=== PATIENT | male | born 1970 | race Caucasian/White ===

== ENCOUNTER 2021-05-08 11:36 | Inpatient (IN) ==
[2021-05-08 12:19] LABS: Basophils # (auto) 0.03 K/uL (0-0.2); Basophils % (auto) 0.5 %; Eosinophils # (auto) 0.31 K/uL (0-0.5); Eosinophils % (auto) 4.7 %; Hematocrit (blood only) 28.8 % (42-52); Hemoglobin 9.3 g/dL (14.0-18.0); Lymphocytes # (auto) 1.25 K/uL (1.2-3.4); Mean Corpuscular Hemoglobin 27.6 pg (25-34); Mean Corpuscular Hgb Conc 32.3 g/dL (32-36); Mean Corpuscular Volume 85.5 fL (80-100); Mean Platelet Volume 10.9 fL (7.4-10.4); Monocytes # (auto) 0.43 K/uL (0.11-0.59); Monocytes % (auto) 6.5 %; Neutrophils # (auto) 4.56 K/uL (1.4-6.5); Neutrophils % (auto) 69.3 %; Platelet Count 222 K/uL (130-400); Red Blood Count 3.37 M/uL (4.7-6.1); White Blood Count 6.58 K/uL (4.8-10.8)
[2021-05-08 12:30] LABS: Partial Thromboplastin Time 27.1 Seconds (21.0-31.0); Prothrombin Time 10.5 Seconds (9.0-12.0)
[2021-05-08 12:47] LABS: BUN Creatinine Ratio 14.9 (10-20); Bilirubin,Total 0.3 mg/dl (0.2-1.0); Calcium 8.4 mg/dl (8.5-10.1); Creatinine Clr Calc Pharmacy 42.8 ml/min; Est GFR (African American) 27.5 ml/min; Est GFR (Non-African American) 23.7 ml/min; Potassium 5.3 mmol/L (3.5-5.1)
[2021-05-08 12:50] LABS: Troponin I 0.09 ng/ml (0-0.04)
--- NOTE | 2021-05-08 12:54 | XRay Report ---
XR chest 2V PA/lateral HISTORY: 50 years-old Male Chest Pain acute atypical chest pain COMPARISON: None TECHNIQUE: PA and lateral views of the chest FINDINGS: Cardiac silhouette is upper limits of normal in size. Trace pleural effusions. Interstitial coarsenin g of the mid to lower lung zones with ill-defined bibasilar airspace opacities. No pneumothorax. Bone s appear grossly intact. IMPRESSION: 1. Interstitial coarsening with ill-defined bibasilar predominant airspace opacities are suggestive o f an infectious or inflammatory pneumonitis such as viral pneumonia. 2. Trace pleural effusions. ACT 112: Negative or not required by law. The above report was generated using voice recognition software. It may contain grammatical, syntax o r spelling errors. Electronically signed by: Nathan Moon M.D. 05/08/2021 12:53 PM
[2021-05-08 12:55] LABS: D Dimer 1310 ug/L FEU (0-500)
--- NOTE | 2021-05-08 13:48 | Electrocardiogram Report ---
Test Reason : Blood Pressure : / mmHG Vent. Rate : 084 BPM Atrial Rate : 084 BPM P-R Int : 106 ms QRS Dur : 102 ms QT Int : 388 ms P-R-T Axes : 044 046 080 degrees QTc Int : 458 ms Sinus rhythm No previous ECGs available Confirmed by Camron Gutierrez ([id number]) on 05/08/2021 1:48:32 PM Referred By: Confirmed By:Buck Gutierrez
[2021-05-08] MEDS ORDERED: NITROGLYCERIN 2% OINTMENT 30GM TUBE EXT STA (14:41)
[2021-05-08] MEDS ORDERED: FUROSEMIDE INJ 20 MG/2 ML VIAL IV ONE ×2 (14:41→17:19)
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
--- NOTE | 2021-05-08 16:10 | Ultrasound Report ---
BILATERAL LOWER EXTREMITY VENOUS DOPPLER HISTORY: Acute pain and swelling of the lower legs eval for dvt COMPARISON STUDY: None. FINDINGS: There is normal compressibility, flow, and augmentation within the bilateral lower extremit y deep venous systems. Subcutaneous edema of the lower legs. IMPRESSION: No DVT within the right or left lower extremity. ACT 112: Negative or not required by law. Electronically signed by: Nathan Moon M.D. 05/08/2021 4:09 PM
[2021-05-08] MEDS ORDERED: hydrALAZINE HCL 20 MG/ML VIAL IV STA (16:44)
[2021-05-08] MEDS ORDERED: amLODIPine BESYLATE 5 MG TAB PO ONE (17:19)
--- NOTE | 2021-05-08 17:22 | Emergency Department Note ---
Impression & Plan SOB (shortness of breath), Bilateral edema of lower extremity, CKD (chronic kidney disease), Elevated troponin ED Provider Note INFORMANT: Patient and significant other ED PROVIDER(S): Suresh Quezada MD CHIEF COMPLAINT: Shortness of breath PLAN: Disposition: Admitted Condition: Good Outpatient prescription management: none Referral: None MEDICAL DECISION MAKING: Patient presented because of shortness of breath. He did have significant edema on examination. Hemodynamically was stable. He was hypertensive. The patient had a Covid test performance was negative. Chest x-ray did show possible pneumonitis. The patient had a negative CBC except for a chronic anemia noted. No significant change from prior. His chemistry panel showed a mild elevation of his potassium at 5.3 and an elevation of his creatinine which was similar to baseline. Patient did have an elevated D-dimer. He did also have an elevated BNP concerning for CHF. Because of his CKD a PE study with contrast could not be performed initially. Ultrasound imaging of the lower extremities was ordered. The patient will need further management in the hospital. He was given Nitropaste and IV Lasix. Consultation was made with Dr. Herron of internal medicine. Patient was evaluated in the ER for further management. Ultrasound imaging of the lower extremities was negative. Triage Nursing notes reviewed and agree them. Vital Signs: reviewed and remarkable for hypertension Differential diagnosis: Reactive airway disease, pneumonia, pneumothorax, COPD, CHF, infections, cardiac ischemia, pulmonary embolism, musculoskeletal, gastrointestinal, as well as other pathologies. Diagnostics interpreted by me: ECG: Twelve-lead ECG reveals a sinus rhythm at 84 bpm. No evidence of ST elevation or depression. No PACs or PVCs. Normal axis. Cardiac Monitoring: Cardiac monitoring ordered by me: The patient was placed on continuous cardiac monitoring and observed. It revealed a normal sinus rhythm at 89 beats per minute without ectopy or evidence of dysrhythmia. Imaging studies: Chest x-ray as above. Ultrasound imaging negative for DVT. HPI: The patient is a 50year old male who presents to the Emergency Room with complaints of shortness of breath. This started over the last few weeks and is worsening. The patient also notes the following associated symptoms, orthopnea, weight gain, lower extremity edema, increased fatigue. The patient has found no relieving factors. Current pain is rated as zero/10. Patient went to urgent care for follow-up on a Workmen's Comp. issue regarding a back injury. They noted his blood pressure was high and the symptoms were concerning about possible CHF. The patient was sent to the ER for further evaluation. No known Covid contacts. The patient did travel to [facility] recently. He states he was walking quite a bit each day. He did have one fleeting episode of chest pain 2 weeks ago that lasted about 20 minutes and resolved. Pt denies LOC, headache, fevers, chills, diaphoresis, visual changes, neck pain, nausea, vomiting, abdominal pain, back pain, melena, hematochezia, urinary symptoms, numbness, weakness, lymphadenopathy, rash, or other complaints. ROS: See above HPI for pertinent positives & negatives. A total of 10 systems reviewed and were otherwise negative. 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 Oropharynx unremarkable. EYES: Normal conjunctiva. Sclera non-icteric. NECK: Inspection normal. Non-tender. Supple. No nuchal rigidity. FROM. No masses. RESPIRATORY: Clear to auscultation. No wheezes. No rales. Normal respiratory effort. CARDIAC: Normal rate. Normal rhythm. No murmurs. No rubs. Extremities warm and well perfused. Pulses equal. No JVD. GI: Soft, non-distended. No tenderness to palpation. No rebound or guarding. No masses. RECTAL: Deferred. MUSCULOSKELETAL: Atraumatic. Chest examination reveals no tenderness. The back is symmetrical on inspection without obvious abnormality. There is no CVA tenderness to palpation. No joint edema. LOWER EXTREMITIES: Calves are equal size bilaterally and non-tender. 3+ edema. Chronic venous discoloration. NEURO: Normal sensorium. No sensory or motor deficits noted. SKIN: No rash or jaundice noted. Suresh Quezada MD Past Med/Surg History Medical History CKD (chronic kidney disease) stage 3, GFR 30-59 ml/min Diabetes mellitus type 2, uncontrolled, 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 Diabetes mellitus with renal manifestations, uncontrolled Diabetes mellitus, type 2 Diabetic macular edema Diabetic peripheral neuropathy associated with type 2 diabetes mellitus History of depression HTN (hypertension) Hypercalcemia Hyperlipidemia NO MED TREATMENT Nephrotic syndrome Onychomycosis Peripheral neuropathy Vitamin D deficiency Surgical History Family history of reaction to anesthesia MOTHER-HARD TO "PUT TO SLEEP" History of cataract surgery right History of herniorrhaphy UMBILICAL History of lingual frenulectomy History of tooth extraction Hx of vasectomy Family History Father Family history of diabetes mellitus Kidney disease required HD Grandmother (Paternal) Family history of diabetes mellitus Grandfather (Maternal) Hypertension Other Myocardial infarction Denies family history of Ovarian cancer Prostate cancer Breast cancer Lung cancer Colorectal cancer Stroke Social History Smoking Status: Unknown if ever smoked Years Smoked: 4; Second Hand Exposure: Yes (as a child); Hx Alcohol Use: Yes Alcohol type: beer and hard liquor Alcohol Intake Frequency: Monthly or Less Hx Substance Use: No Preferred Language: Bulgarian Communication Ability: Effective Actuarial Clerk Required: No Beliefs That Will Affect Care: None marital status: Current Living Situation: Spouse current occupational status: employed 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 [employer] Other Information That Helps Us Care for You: No Feels Safe at Home: Yes Safety Concerns: Feels Safe At This Time Childhood Exposure to Second-Hand Smoke: Yes Dental Care, Regularly: No Physical Activity Frequency: 1-2 Times per Week Physical Activity Frequency Comment: exercise bike Seatbelt Use: always Sunscreen Use: Yes Assistive Devices: Glasses Allergies Allergies Allergy/AdvReac Type Severity Reaction Status Date / Time lisinopril AdvReac cough Verified 05/08/21 14:39 Home Meds Home Medications Medication Instructions Recorded Confirmed multivitamin 1 tab PO DAILY 02/19/20 05/08/21 cetirizine 10 mg tablet (Zyrtec) 10 mg PO DAILY PRN 03/25/20 05/08/21 blood sugar diagnostic (Accu-Chek ea 04/25/20 05/23/20 Guide test strips) insulin degludec 100 unit/mL (3 27 unit SUBCUT HS 05/08/21 05/08/21 mL) subcutaneous pen (Tresiba FlexTouch U-100 insulin) Previous Rx's Medication Instructions Recorded blood-glucose meter (Accu-Chek #1 ea 02/24/20 Guide Glucose Meter) pen needle, diabetic 31 gauge x #200 ea 03/01/20 5/16" (BD Ultra-Fine Short Pen Needle) insulin aspart U-100 100 unit/mL See Rx Instructions SUBCUT 05/12/20 (3 mL) subcutaneous pen (Novolog .COMPLEX #15 ml Flexpen U-100 Insulin aspart) aspirin 81 mg tablet,delayed 81 mg PO DAILY #90 tab 05/23/20 release (Enteric Coated Aspirin) atorvastatin 20 mg tablet 20 mg PO DAILY #90 tab 05/23/20 losartan 50 mg tablet 50 mg PO DAILY #90 tab 09/23/20 FreeStyle Jason 2 Sensor (flash #2 ea NS 11/16/20 glucose sensor) calcitriol 0.25 mcg capsule 0.25 mcg PO DAILY #90 cap 01/24/21 (Rocaltrol) Results & Data (ED) Vital Signs Vital Signs - 24 hr 05/08/21 11:38 05/08/21 13:23 05/08/21 13:24 Temperature 36.9 C Temperature Source Oral Pulse Rate 95 H Pulse Rate [Apical] 82 Pulse Rhythm [Apical] Regular Respiratory Rate 22 19 Respiratory Effort / Characteristics Non-Labored Spontaneous Respiratory Depth Normal Normal Respiratory Pattern Regular Blood Pressure 160/92 H Blood Pressure [Left Arm] 191/80 H Blood Pressure Mean 114 Blood Pressure Mean [Left Arm] 117 Blood Pressure Position Sitting Pulse Oximetry 99 96 96 Oxygen Delivery Method Room Air Room Air Room Air Sepsis Recent Fever Within 48 Hours No Sepsis New/Unexplained Change in Mental Status No Sepsis Action Taken by Nursing No Action Required 05/08/21 16:16 Temperature Temperature Source Pulse Rate Pulse Rate [Apical] 89 Pulse Rhythm [Apical] Regular Respiratory Rate 15 Respiratory Effort / Characteristics Respiratory Depth Normal Respiratory Pattern Blood Pressure Blood Pressure [Left Arm] 195/103 H Blood Pressure Mean Blood Pressure Mean [Left Arm] 133 Blood Pressure Position Pulse Oximetry 96 Oxygen Delivery Method Room Air Sepsis Recent Fever Within 48 Hours Sepsis New/Unexplained Change in Mental Status Sepsis Action Taken by Nursing Laboratory Data Result diagrams: 05/08/21 11:43 05/08/21 11:43 Lab Results 05/08/21 05/08/21 05/08/21 Range/Units 11:43 11:43 11:43 WBC 6.58 (4.8-10.8) K/uL RBC 3.37 L (4.7-6.1) M/uL Hgb 9.3 L (14.0-18.0) g/dL Hct 28.8 L (42-52) % MCV 85.5 (80-100) fL MCH 27.6 (25-34) pg MCHC 32.3 (32-36) g/dL RDW Std Deviation 43.0 (36.4-46.3) fL RDW Coeff of Gladys 14.0 (11.5-14.5) % Plt Count 222 (130-400) K/uL MPV 10.9 H (7.4-10.4) fL Immature Gran % (Auto) 0.0 % Neut % (Auto) 69.3 % Lymph % (Auto) 19.0 % [place] % (Auto) 6.5 % Eos % (Auto) 4.7 % Baso % (Auto) 0.5 % Neut # (Auto) 4.56 (1.4-6.5) K/uL Lymph # (Auto) 1.25 (1.2-3.4) K/uL [place] # (Auto) 0.43 (0.11-0.59) K/uL Eos # (Auto) 0.31 (0-0.5) K/uL Baso # (Auto) 0.03 (0-0.2) K/uL Immature Gran # (Auto) 0.00 (0.00-0.02) K/uL PT 10.5 (9.0-12.0) Seconds INR 1.0 (0.9-1.1) APTT 27.1 (21.0-31.0) Seconds PTT Ratio 1.0 D-Dimer (0-500) ug/L FEU Sodium 142 (136-145) mmol/L Potassium 5.3 H (3.5-5.1) mmol/L Chloride 114 H (98-107) mmol/L Carbon Dioxide 25 (21-32) mmol/L Anion Gap 3 (3-11) BUN 44 H (6-23) mg/dl Creatinine 2.96 H (0.6-1.4) mg/dl Est Cr Clr Drug Dosing 42.8 ml/min Est GFR ( Amer) 27.5 ml/min Est GFR (Non-Af Amer) 23.7 ml/min BUN/Creatinine Ratio 14.9 (10-20) Glucose 118 H (70-99(Fasting)) mg/dl Calcium 8.4 L (8.5-10.1) mg/dl Total Bilirubin 0.3 (0.2-1.0) mg/dl AST 23 (13-39) U/L ALT 20 (7-52) U/L Alkaline Phosphatase 105 H (34-104) U/L Troponin I 0.09 H* (0-0.04) ng/ml B-Natriuretic Peptide (0-100) pg/ml Total Protein 6.0 (6.0-8.3) gm/dl Albumin 3.0 L (3.4-5.0) gm/dl Globulin 3.0 (2.5-4.0) gm/dl Albumin/Globulin Ratio 1.0 (0.9-2) 05/08/21 05/08/21 Range/Units 11:43 14:07 WBC (4.8-10.8) K/uL RBC (4.7-6.1) M/uL Hgb (14.0-18.0) g/dL Hct (42-52) % MCV (80-100) fL MCH (25-34) pg MCHC (32-36) g/dL RDW Std Deviation (36.4-46.3) fL RDW Coeff of Gladys (11.5-14.5) % Plt Count (130-400) K/uL MPV (7.4-10.4) fL Immature Gran % (Auto) % Neut % (Auto) % Lymph % (Auto) % [place] % (Auto) % Eos % (Auto) % Baso % (Auto) % Neut # (Auto) (1.4-6.5) K/uL Lymph # (Auto) (1.2-3.4) K/uL [place] # (Auto) (0.11-0.59) K/uL Eos # (Auto) (0-0.5) K/uL Baso # (Auto) (0-0.2) K/uL Immature Gran # (Auto) (0.00-0.02) K/uL PT (9.0-12.0) Seconds INR (0.9-1.1) APTT (21.0-31.0) Seconds PTT Ratio D-Dimer 1310 H* (0-500) ug/L FEU Sodium (136-145) mmol/L Potassium (3.5-5.1) mmol/L Chloride (98-107) mmol/L Carbon Dioxide (21-32) mmol/L Anion Gap (3-11) BUN (6-23) mg/dl Creatinine (0.6-1.4) mg/dl Est Cr Clr Drug Dosing ml/min Est GFR ( Amer) ml/min Est GFR (Non-Af Amer) ml/min BUN/Creatinine Ratio (10-20) Glucose (70-99(Fasting)) mg/dl Calcium (8.5-10.1) mg/dl Total Bilirubin (0.2-1.0) mg/dl AST (13-39) U/L ALT (7-52) U/L Alkaline Phosphatase (34-104) U/L Troponin I (0-0.04) ng/ml B-Natriuretic Peptide 855 H (0-100) pg/ml Total Protein (6.0-8.3) gm/dl Albumin (3.4-5.0) gm/dl Globulin (2.5-4.0) gm/dl Albumin/Globulin Ratio (0.9-2) Administered Medications Discontinued Medications Amlodipine Besylate (Amlodipine Besylate 5 Mg Tab) 5 mg PO NOW ONE Stop: 05/08/21 17:20 Last Admin: 05/08/21 17:42 Dose: 5 mg Documented by: [id number] Furosemide (Furosemide Inj 20 Mg/2 Ml Vial) 20 mg IV ONE ONE Stop: 05/08/21 14:42 Last Admin: 05/08/21 16:15 Dose: 20 mg Documented by: [id number] Furosemide (Furosemide Inj 20 Mg/2 Ml Vial) 20 mg IV ONE ONE Stop: 05/08/21 17:20 Last Admin: 05/08/21 17:43 Dose: 20 mg Documented by: [id number] Hydralazine HCl (Hydralazine Hcl 20 Mg/Ml Vial) 10 mg IV NOW STA Stop: 05/08/21 16:45 Last Admin: 05/08/21 17:19 Dose: 10 mg Documented by: [id number] Nitroglycerin (Nitroglycerin 2% Ointment 30gm Tube) 0.5 inch EXT NOW STA Stop: 05/08/21 14:42 Last Admin: 05/08/21 16:16 Dose: 0.5 inch Documented by: [id number] Imaging Data Radiologist's Impression: Chest X-Ray 05/08/21 11:43 XR chest 2V PA/lateral HISTORY: 50 years-old Male Chest Pain acute atypical chest pain COMPARISON: None TECHNIQUE: PA and lateral views of the chest FINDINGS: Cardiac silhouette is upper limits of normal in size. Trace pleural effusions. Interstitial coarsening of the mid to lower lung zones with ill-defined bibasilar airspace opacities. No pneumothorax. Bones appear grossly intact. IMPRESSION: 1. Interstitial coarsening with ill-defined bibasilar predominant airspace opacities are suggestive of an infectious or inflammatory pneumonitis such as viral pneumonia. 2. Trace pleural effusions. ACT 112: Negative or not required by law. The above report was generated using voice recognition software. It may contain grammatical, syntax or spelling errors. Electronically signed by: Nathan Moon M.D. 05/08/2021 12:53 PM Venous Doppler Study 05/08/21 13:46 BILATERAL LOWER EXTREMITY VENOUS DOPPLER HISTORY: Acute pain and swelling of the lower legs eval for dvt COMPARISON STUDY: None. FINDINGS: There is normal compressibility, flow, and augmentation within the bilateral lower extremity deep venous systems. Subcutaneous edema of the lower legs. IMPRESSION: No DVT within the right or left lower extremity. ACT 112: Negative or not required by law. Electronically signed by: Nathan Moon M.D. 05/08/2021 4:09 PM Discharge Plan Visit Data Chief Complaint: Cardiac Assessment Stated Complaint: SOB, HEART FAILURE, REF BY [facility] ED Provider: Suresh Quezada Discharge Problem: SOB (shortness of breath), Bilateral edema of lower extremity, CKD (chronic kidney disease), Elevated troponin Patient Disposition: Admitted As Inpatient Discharge Instructions Interventions: ED Discharge Assessment Last Done: 05/08/21 18:08
[2021-05-08] MEDS ORDERED: GLUCOSE 10 TABS/TUBE PO PRN (18:09)
[2021-05-08] MEDS ORDERED: ACETAMINOPHEN 325 MG TAB PO PRN (18:09)
[2021-05-08] MEDS ORDERED: DEXTROSE 50% 50 ML SYRINGE IV PRN (18:09)
[2021-05-08] MEDS ORDERED: CARBOHYDRATES FOR HYPOGLYCEMIA PO PRN (18:09)
[2021-05-08] MEDS ORDERED: CETIRIZINE HCL 10 MG TABLET PO PRN (18:09)
[2021-05-08] MEDS ORDERED: GLUCAGON FOR INJ 1 MG VIAL SQ PRN (18:09)
[2021-05-08] MEDS ORDERED: hydrALAZINE HCL 20 MG/ML VIAL IV PRN (18:09)
[2021-05-08] MEDS ORDERED: GLUCOSE 40% GEL 15 GM TUBE PO PRN (18:09)
[2021-05-08] MEDS: INSULIN ASPART PER UNIT SC SCH (20:13)
[2021-05-08] MEDS ORDERED: INSULIN GLARGINE SOLOSTAR 100 UNITS/ML 3 ML PEN SC SCH (21:00)
[2021-05-08] MEDS: HEPARIN SOD 5,000 UNIT/0.5 ML VIAL SQ SCH (21:01)
[2021-05-09 02:56] LABS: Appearance Urine Clear (Clear); Bacteria Urine Automated Negative (Negative); Bilirubin Urine Negative (Negative); Blood Urine 1+ (Negative); Color Urine Yellow; Epithelial Cell Urine Auto 20-30 /lpf (0-5); Glucose Urine UA 1+ (Negative); Ketones Urine Negative (Negative); Leukocyte Esterase Urine Negative (Negative); Nitrite Urine Negative (Negative); Protein Urine 4+ (Negative); Specific Gravity Urine 1.015 (1.000-1.030); Urobilinogen Urine Negative (Negative); pH Urine 5.5 (4.5-7.5)
[2021-05-09 03:27] LABS: Protein Creatinine Ratio Urine 10.6 (0-0.2); Total Protein Urine Random 678.3 mg/dl (0-11.9)
[2021-05-09 05:51] LABS: Basophils # (auto) 0.02 K/uL (0-0.2); Basophils % (auto) 0.4 %; Eosinophils % (auto) 5.7 %; Hematocrit (blood only) 23.4 % (42-52); Hemoglobin 7.5 g/dL (14.0-18.0); Lymphocytes # (auto) 1.24 K/uL (1.2-3.4); Lymphocytes % (auto) 23.7 %; Mean Corpuscular Hemoglobin 27.7 pg (25-34); Mean Corpuscular Hgb Conc 32.1 g/dL (32-36); Mean Corpuscular Volume 86.3 fL (80-100); Mean Platelet Volume 10.5 fL (7.4-10.4); Monocytes # (auto) 0.34 K/uL (0.11-0.59); Monocytes % (auto) 6.5 %; Neutrophils # (auto) 3.34 K/uL (1.4-6.5); Neutrophils % (auto) 63.7 %; Platelet Count 197 K/uL (130-400); RDW Coefficient of Variation 14.3 % (11.5-14.5); RDW Standard Deviation 44.6 fL (36.4-46.3); Red Blood Count 2.71 M/uL (4.7-6.1); White Blood Count 5.24 K/uL (4.8-10.8)
[2021-05-09 06:19] LABS: RBC Morphology Unremarkable
[2021-05-09 06:33] LABS: Ferritin 274.8 ng/ml (8-388)
[2021-05-09 06:52] LABS: BUN Creatinine Ratio 14.8 (10-20); Calcium 8.1 mg/dl (8.5-10.1); Creatinine Clr Calc Pharmacy 41.5 ml/min; Est GFR (African American) 26.5 ml/min; Est GFR (Non-African American) 22.9 ml/min; Magnesium 1.6 mg/dl (1.7-2.4); Phosphorus 3.8 mg/dl (2.5-4.9); Potassium 4.4 mmol/L (3.5-5.1)
[2021-05-09 07:02] LABS: Estimated Average Glucose 108 mg/dl; Hemoglobin A1C 5.4 % (4.5-5.6)
[2021-05-09] MEDS: INSULIN ASPART PER UNIT SC SCH ×4 (08:17→22:12)
[2021-05-09] MEDS: HEPARIN SOD 5,000 UNIT/0.5 ML VIAL SQ SCH ×3 (08:18→20:58)
[2021-05-09] MEDS ORDERED: MELATONIN 3 MG TAB PO PRN (08:26)
--- NOTE | 2021-05-09 08:44 | Hospitalist Progress Note ---
Date of Service May 09, 2021 Assessment & Plan (1) Anemia due to chronic kidney disease: Plan: Saurav Titus is a 50-year-old male with a history of CKD stage III-IV, nephrotic syndrome, DM 2, HTN, anemia of chronic kidney disease, hyperlipidemia,and Vit D deficiency, who presented with worsening shortness of breath, lower extremity edema, elevated blood pressure, and orthopnea. He was admitted for management of acute fluid overload. Fluid overload in the setting of CKD stage IV and nephrotic syndrome: - Likely related to severe compromise of kidney function with resultant nephrotic syndrome - Presented with increasing weight gain of 10 pounds in 1 month, with increasing abdominal girth, lower extremity edema, and orthopnea. Chest x-ray with evidence of pulmonary edema and pleural effusions - Also with hypertensive urgency, elevated proBNP, elevated troponin - Dopplers of lower extremities negative for DVT and do not suspect pulmonary embolism despite elevated D-dimer - Had one episode of chest pain 2 weeks ago that seemed atypical in nature, less likely acute coronary syndrome at that time. - Troponin mildly elevated here but ECG without evidence of ischemia -- now downtrended - Echocardiogram with normal LV function (EF 55-60%), grade I diastolic dysfunction - Diuresis with Lasix 40 mg IV twice daily -Follow BMP, magnesium closely for renal function and electrolyte abnormalities -Consult nephrology -- continue on Lasix 40 mg IV twice a day, aim for net negative 0.5-1 L per 24 hours -- monitor renal function and electrolyte daily -- iron study -- Epogen 73963 units x 1 dose today -- continue on calcitriol -- continue to hold losartan for now, if renal function stays stable and potassium staying normal, will consider restarting on losartan -- left arm nephrology precaution for future vascular access -Follow daily weights, strict I's and O's -Low-sodium and renal diet CKD (chronic kidney disease) stage 4: - As above, baseline creatinine for the last 6 months is around 2.9 - With nephrotic syndrome, most likely secondary to diabetes and hypertensive disease - Follows with nephrology as an outpatient - Follow BMP while diuresing - Hold losartan while diuresing as above - Blood pressure control as above - Nephrology consulted as above -Renally dose medications when appropriate and avoid nephrotoxins HTN (hypertension): - Arrived in hypertensive urgency - Was given Nitropaste and IV Lasix in the ER - IV hydralazine as needed, started amlodipine 5 mg p.o. once daily, and IV Lasix for diuresis - Hold home losartan while diuresing - Last imaging of the kidneys was renal ultrasound 1 year ago which was normal - Appreciate nephrology input on management Elevated troponin - downtrended - Mildly elevated, no ischemic changes on ECG With one episode of atypical chest pain while on vacation 2 weeks ago that has not recurred since -Trend serial troponin - Most likely secondary to myocardial demand ischemia from volume overload and anemia of chronic kidney disease - Echo as above Diabetes mellitus type 2, uncontrolled, with complications: - Now well controlled with A1c of 5.4% - Hold home Tresiba - Lantus 20 units at bedtime and NovoLog with meals and at bedtime - Accu-Cheks before meals and at bedtime Hyperlipidemia: - Continue atorvastatin, aspirin Vitamin D deficiency: - Severely low on recent labs with nephrology at 12 - Continue calcitriol 0.25 mcg p.o. once daily Diet: Heart Healthy, DM2 DVT prophylaxis Heparin 5000 units SQ every 8 hours Disposition-admit to telemetry unit Full code (2) CKD (chronic kidney disease) stage 4, GFR 15-29 ml/min: (3) SOB (shortness of breath): (4) Bilateral edema of lower extremity: (5) Elevated troponin: (6) HTN (hypertension): (7) Diabetes mellitus with renal manifestations, uncontrolled: (8) Vitamin D deficiency: (9) Nephrotic syndrome: Admission and Anticipated Discharge Date Admission Date: May 08, 2021 Supervising Physician Co-Signing Physician Notes I also saw the patient from vasques portions of the history and physical examination. I saw the patient with the resident physician and we discussed the case. Agree with impression and plan as noted in the resident documentation. 50-year-old male admitted through the emergency department yesterday with history of CKD stage IV, nephrotic syndrome, diabetes, and anemia. He had noted a 1 week or so history of weight gain and some progressive shortness of breath with activity. He was actually at an occupational medicine appointment in follow-up to a work-related injury when he was noted to be quite hypertensive. This is what actually led him to present to the emergency department. Initial presentation, systolic blood pressures in the 180s which was treated with IV hydralazine. He has since been seen by nephrology. Currently on Lasix 40 mg IV twice daily and is given 1 dose of Epogen. Exam 163/86, 82, 21, 37, 90% room air Pleasant. No distress. Upon our exam, he is watching a movie on his phone. He feels much better than last admission. Much less shortness of breath. Heart regular Lungs clear with nonlabored respirations 3+ pitting edema of the legs, bilaterally, from the knees and distal Data Hemoglobin 7.5. Sodium 142, potassium 4.4, BUN 45, creatinine 3.05. TIBC 171, transferrin sat 20%, ferritin 234.8 Initial troponin 0 0.11, subsequent 0.09 BNP 855 Imaging Venous Doppler dated 05/08/2021 shows no DVT within the right or left lower extremity A chest x-ray dated 05/08/2021 shows interstitial coarsening with ill-defined bibasilar air space opacities And echocardiogram dated 05/09/2021 shows grade 1 diastolic dysfunction, elevated right ventricular systolic pressure, and preserved left ventricular systolic function. Impression and plan Nephrotic syndrome Appreciate nephrology input Lasix 40 mg IV twice daily Monitor electrolytes Anemia secondary to CKD, Stage IV Epogen Hypertension Holding ARB at present Monitor blood pressures Subjective No acute events overnight. Patient seen at bedside this morning. He reports that he feels well and has minimal concerns at this point. Reports feeling much better than when he initially came in. Feels he has diuresed well on his current Lasix dosing. We talked about his episode of chest pain about 2 weeks ago. He says he was walking in the parking lot [place] and felt a chest pain but was able to continue walking and this eventually resolved on its own. He does not have a known history of heart failure. Review of Systems Review of Systems: Denies fever, chills, nausea, vomiting, abdominal pain, chest pain, shortness of breath, palpitations, headache, dizziness, neuro deficits Physical Exam Physical Exam: GENERAL: A&Ox3. NAD. HEENT: PERRL, EOMI. Moist mucous membranes. NECK: No JVD. No lymphadenopathy. CHEST/LUNGS: CTAB A/P. No crackles, wheezes, rales, rhonchi. HEART: RRR. No m/g/r. No carotid bruits. ABDOMEN: NT/ND, soft. BS+ x4 EXTREMITIES: Pitting edema bilaterally SKIN: Warm and dry. No rashes or lesions. PSYCHIATRIC: Euthymic affect, no SI, no pressured speech, no hallucinations NEUROLOGIC: No FND. CN II-XII grossly intact. Results & Data Results & Data ([facility]) Vital Signs (Past 12 Hours) Vital Signs Pulse Resp BP Pulse Ox Pulse Ox 05/09/21 04:08 80 19 133/61 95 05/09/21 00:57 98 05/08/21 23:57 81 18 166/85 H 98 Resident Activity Tracking Resident Involvement: Resident Care Provided Care Provided: Adult Hospital Medicine
[2021-05-09] MEDS: MULTIVITAMIN TAB PO SCH (09:26)
[2021-05-09] MEDS: CALCITRIOL 0.25 MCG CAPSULE PO SCH (09:26)
[2021-05-09] MEDS: ATORVASTATIN 20 MG TAB PO SCH (09:26)
[2021-05-09] MEDS: ASPIRIN 81 MG ECTAB PO SCH (09:26)
[2021-05-09] MEDS: amLODIPine BESYLATE 5 MG TAB PO SCH (09:27)
[2021-05-09] MEDS: FUROSEMIDE 40 MG/4 ML VIAL IV SCH ×2 (09:27→16:13)
--- NOTE | 2021-05-09 10:16 | XCELERA ---
[id number]
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
[2021-05-09] MEDS ORDERED: EPOETIN ALFA 40,000 UNITS/ML VIAL SQ STA (10:52)
[2021-05-09] MEDS: INSULIN GLARGINE SOLOSTAR 100 UNITS/ML 3 ML PEN SC SCH (20:59)
[2021-05-10] MEDS: HEPARIN SOD 5,000 UNIT/0.5 ML VIAL SQ SCH ×3 (05:14→21:09)
--- NOTE | 2021-05-10 06:58 | Hospitalist Progress Note ---
Date of Service May 10, 2021 Assessment & Plan (1) Anemia due to chronic kidney disease: Plan: Saurav Titus is a 50-year-old male with a history of CKD stage III-IV, nephrotic syndrome, DM 2, HTN, anemia of chronic kidney disease, hyperlipidemia,and Vit D deficiency, who presented with worsening shortness of breath, lower extremity edema, elevated blood pressure, and orthopnea. He was admitted for management of acute fluid overload. Fluid overload in the setting of CKD stage IV and nephrotic syndrome: - Likely related to severe compromise of kidney function with resultant nephrotic syndrome - Presented with increasing weight gain of 10 pounds in 1 month, with increasing abdominal girth, lower extremity edema, and orthopnea. Chest x-ray with evidence of pulmonary edema and pleural effusions - Also with hypertensive urgency, elevated proBNP, elevated troponin - Dopplers of lower extremities negative for DVT and do not suspect pulmonary embolism despite elevated D-dimer - Had one episode of chest pain 2 weeks ago that seemed atypical in nature, less likely acute coronary syndrome at that time. - Troponin mildly elevated here but ECG without evidence of ischemia -- now downtrended - Echocardiogram with normal LV function (EF 55-60%), grade I diastolic dysfunction - DC Lasix 40 mg IV twice daily in favor of Lasix 40mg PO daily now that patient has diuresed significantly -Follow BMP, magnesium closely for renal function and electrolyte abnormalities -Creatinine somewhat increased today -Consult nephrology -- Change Lasix to 40 mg p.o. daily -- monitor renal function and electrolyte daily -- Start on Venofer 200 mg IV every other day for total 5 doses. -- Epogen 07807 units x 1 dose given on 05/09/2021 -- continue on calcitriol -- continue to hold losartan for now. -- left arm nephrology precaution for future vascular access -Follow daily weights, strict I's and O's -Low-sodium and renal diet CKD (chronic kidney disease) stage 4: - As above, baseline creatinine for the last 6 months is around 2.9 - With nephrotic syndrome, most likely secondary to diabetes and hypertensive disease - Follows with nephrology as an outpatient - Follow BMP while diuresing - Hold losartan while diuresing as above - Blood pressure control as above - Nephrology consulted as above -Renally dose medications when appropriate and avoid nephrotoxins HTN (hypertension): - Arrived in hypertensive urgency - Was given Nitropaste and IV Lasix in the ER - IV hydralazine as needed, started amlodipine 5 mg p.o. once daily, and IV Lasix for diuresis - Hold home losartan while diuresing - Last imaging of the kidneys was renal ultrasound 1 year ago which was normal - Appreciate nephrology input on management Elevated troponin - downtrended - Mildly elevated, no ischemic changes on ECG - With one episode of atypical chest pain while on vacation 2 weeks ago that has not recurred since - Most likely secondary to myocardial demand ischemia from volume overload and anemia of chronic kidney disease - Echo as above Diabetes mellitus type 2, uncontrolled, with complications: - Now well controlled with A1c of 5.4% - Hold home Tresiba - Lantus 20 units at bedtime and NovoLog with meals and at bedtime - Accu-Cheks before meals and at bedtime Hyperlipidemia: - Continue atorvastatin, aspirin Vitamin D deficiency: - Severely low on recent labs with nephrology at 12 - Continue calcitriol 0.25 mcg p.o. once daily Diet: Heart Healthy, DM2 DVT prophylaxis: Heparin 5000 units SQ every 8 hours Disposition: Med/surg Full code (2) CKD (chronic kidney disease) stage 4, GFR 15-29 ml/min: (3) SOB (shortness of breath): (4) Bilateral edema of lower extremity: (5) Elevated troponin: (6) HTN (hypertension): (7) Diabetes mellitus with renal manifestations, uncontrolled: (8) Vitamin D deficiency: (9) Nephrotic syndrome: Admission and Anticipated Discharge Date Admission Date: May 08, 2021 Supervising Physician Co-Signing Physician Notes I also saw the patient concurrent with the resident physician, and medical student. I confirmed vasques portions of the history and physical examination. Agree with impression plan as noted above and as summarized below. He feels much better today. Improvement in the edema. Exam 161/85, 74, 18, 36.8, 95% room air Pleasant. No distress. Heart regular Lungs clear with nonlabored respirations Pedal edema the legs, bilaterally, although subjectively less than yesterday Data Hemoglobin 7.8 Sodium 142, potassium 4.4, BUN 44, creatinine 3.43 Imaging Venous Doppler dated 05/08/2021 shows no DVT within the right or left lower extremity A chest x-ray dated 05/08/2021 shows interstitial coarsening with ill-defined bibasilar air space opacities And echocardiogram dated 05/09/2021 shows grade 1 diastolic dysfunction, elevated right ventricular systolic pressure, and preserved left ventricular systolic function. Impression and plan Nephrotic syndrome Appreciate nephrology input Slight worsening in serum creatinine likely attributable to aggressive diuresis, electrolytes remain acceptable Transition Lasix to 40 mg p.o. daily Repeat BMP and a.m. Anemia secondary to CKD, Stage IV Epogen 40,000 units x 1 dose given 05/09/2021 Hypertension Holding ARB at present to assist renal recovery Monitor blood pressures Subjective No acute events overnight. Patient feeling overall better, back to baseline. He currently has no concerns. Continued to diurese adequately with about 2 L output in the last 24 hours. Review of Systems Review of Systems: Denies fever, chills, nausea, vomiting, abdominal pain, chest pain, shortness of breath, palpitations, headache, dizziness, neuro deficits Physical Exam Physical Exam: GENERAL: A&Ox3. NAD. HEENT: PERRL, EOMI. Moist mucous membranes. NECK: No JVD. No lymphadenopathy. CHEST/LUNGS: CTAB A/P. No crackles, wheezes, rales, rhonchi. HEART: RRR. No m/g/r. No carotid bruits. ABDOMEN: NT/ND, soft. BS+ x4 EXTREMITIES: Pitting edema bilaterally SKIN: Warm and dry. No rashes or lesions. PSYCHIATRIC: Euthymic affect, no SI, no pressured speech, no hallucinations NEUROLOGIC: No FND. CN II-XII grossly intact. Results & Data Results & Data ([facility]) Vital Signs (Past 12 Hours) Vital Signs Temp Pulse Pulse Resp BP Pulse Ox 05/09/21 22:00 36.9 C 81 17 168/81 H 95 05/09/21 20:00 37.1 C 85 20 162/83 H 95 Resident Activity Tracking Resident Involvement: Resident Care Provided Care Provided: Adult Hospital Medicine
[2021-05-10 07:01] LABS: Hematocrit (blood only) 24.3 % (42-52); Hemoglobin 7.8 g/dL (14.0-18.0); Mean Corpuscular Hemoglobin 27.4 pg (25-34); Mean Corpuscular Hgb Conc 32.1 g/dL (32-36); Mean Corpuscular Volume 85.3 fL (80-100); Platelet Count 181 K/uL (130-400); RDW Coefficient of Variation 14.1 % (11.5-14.5); RDW Standard Deviation 43.8 fL (36.4-46.3); Red Blood Count 2.85 M/uL (4.7-6.1); White Blood Count 5.15 K/uL (4.8-10.8)
[2021-05-10 07:35] LABS: Albumin Level 2.7 gm/dl (3.4-5.0); BUN Creatinine Ratio 12.8 (10-20); Calcium 8.4 mg/dl (8.5-10.1); Creatinine Clr Calc Pharmacy 36.5 ml/min; Est GFR (Non-African American) 19.8 ml/min; Phosphorus 4.1 mg/dl (2.5-4.9); Potassium 4.4 mmol/L (3.5-5.1)
[2021-05-10] MEDS: FUROSEMIDE 40 MG/4 ML VIAL IV SCH (08:19)
[2021-05-10] MEDS: MULTIVITAMIN TAB PO SCH (08:19)
[2021-05-10] MEDS: CALCITRIOL 0.25 MCG CAPSULE PO SCH (08:19)
[2021-05-10] MEDS: ASPIRIN 81 MG ECTAB PO SCH (08:19)
[2021-05-10] MEDS: ATORVASTATIN 20 MG TAB PO SCH (08:19)
[2021-05-10] MEDS: amLODIPine BESYLATE 5 MG TAB PO SCH (08:20)
[2021-05-10] MEDS: INSULIN ASPART PER UNIT SC SCH ×4 (08:41→21:04)
[2021-05-10] MEDS ORDERED: FUROSEMIDE 40 MG/4 ML VIAL IV SCH (09:00)
--- NOTE | 2021-05-10 10:25 | Nephrology Progress Note ---
Date of Service May 10, 2021 Assessment & Plan (1) CKD (chronic kidney disease) stage 4, GFR 15-29 ml/min: (2) Bilateral edema of lower extremity: (3) HTN (hypertension): (4) Nephrotic syndrome: (5) Anemia due to chronic kidney disease: Plan: Stage IV CKD secondary to diabetic nephropathy with nephrotic syndrome, baseline creatinine around 3.0 with 10 g of proteinuria. Has anemia and secondary hyperparathyroidism with advanced CKD. Admitted with hypertensive urgency, progressive weight gain and lower extremity edema over few weeks. Slight worsening of renal function with net negative more than 2 L and IV diuretics. Electrolyte acceptable. Blood pressure remained valuable. Overall volume status improved. hemoglobin dropped to 7.8, has iron deficiency. -- Change Lasix to 40 mg p.o. daily -- monitor renal function and electrolyte daily -- Start on Venofer 200 mg IV every other day for total 5 doses. -- Epogen 10640 units x 1 dose given on 05/09/2021 -- continue on calcitriol -- continue to hold losartan for now. -- left arm nephrology precaution for future vascular access Will follow Admission and Anticipated Discharge Date Admission Date: May 08, 2021 Meet Ewing was seen and evaluated in his room this morning. Overall he feels well, denies any symptom. Shortness of breath resolved, lower extremity edema improved. Appetite has been decent. Blood pressure has been variable. Slight worsening of renal function with net negative more than 2 L on IV Lasix. Review of Systems Review of Systems: a detailed review of system was otherwise unremarkable. Physical Exam Constitutional: WD/WN, vitals as above no acute distress Eyes: + anicteric sclerae Respiratory: no respiratory distress Auscultation: lungs clear to auscultation bilaterally Cardiovascular: Rate/Rhythm: regular rate and regular rhythm Heart Sounds: normal S1 and normal S2 Extremities: no edema Skin: no rashes Neurologic: no focal motor deficits and not confused Psychiatric: Orientation: alert and oriented x 3 Results & Data ([facility]) Vital Signs (Past 12 Hours) Vital Signs Temp Pulse Resp BP Pulse Ox 05/10/21 07:26 36.3 C L 74 16 138/57 L 93 PG Care Time/CCT Total # of Minutes Spent Total Time Spent with Patient: Total time spent is greater than 50% in coordination of care (as documented) at patient's floor/unit and/or counseling patient: Coding Level of Care Code 17819 Subseq Hosp Care Lvl 3 Diagnoses CKD (chronic kidney disease) stage 4, GFR 15-29 ml/min N18.4 Bilateral edema of lower extremity R60.0 HTN (hypertension) I10 Nephrotic syndrome N04.9 Anemia due to chronic kidney disease N18.9; D63.1
[2021-05-10] MEDS: IRON SUCROSE 200 MG in 0.9 % SODIUM CHLORIDE 100 ML IV SCH (11:39)
[2021-05-10] MEDS ORDERED: IRON SUCROSE 200 MG in 0.9 % SODIUM CHLORIDE 100 ML IV ONE (13:10)
[2021-05-10] MEDS: INSULIN GLARGINE SOLOSTAR 100 UNITS/ML 3 ML PEN SC SCH (21:07)
[2021-05-11] MEDS: HEPARIN SOD 5,000 UNIT/0.5 ML VIAL SQ SCH (05:16)
[2021-05-11 06:47] LABS: Albumin Level 2.7 gm/dl (3.4-5.0); Calcium 8.3 mg/dl (8.5-10.1); Creatinine Clr Calc Pharmacy 37.8 ml/min; Est GFR (Non-African American) 20.7 ml/min; Phosphorus 3.6 mg/dl (2.5-4.9); Potassium 4.2 mmol/L (3.5-5.1)
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
[2021-05-11] MEDS ORDERED: FUROSEMIDE 40 MG TAB PO SCH (09:00)
[2021-05-11] MEDS: INSULIN ASPART PER UNIT SC SCH ×2 (09:29→12:29)
[2021-05-11] MEDS: ASPIRIN 81 MG ECTAB PO SCH (09:33)
[2021-05-11] MEDS: MULTIVITAMIN TAB PO SCH (09:33)
[2021-05-11] MEDS: CALCITRIOL 0.25 MCG CAPSULE PO SCH (09:34)
[2021-05-11] MEDS: amLODIPine BESYLATE 5 MG TAB PO SCH (09:34)
[2021-05-11] MEDS: ATORVASTATIN 20 MG TAB PO SCH (09:34)
[2021-05-11] MEDS: IRON SUCROSE 200 MG in 0.9 % SODIUM CHLORIDE 100 ML IV SCH (09:40)
--- NOTE | 2021-05-11 10:40 | Nephrology Progress Note ---
Date of Service May 11, 2021 Assessment & Plan (1) CKD (chronic kidney disease) stage 4, GFR 15-29 ml/min: (2) Bilateral edema of lower extremity: (3) HTN (hypertension): (4) Nephrotic syndrome: (5) Anemia due to chronic kidney disease: Plan: Stage IV CKD secondary to diabetic nephropathy with nephrotic syndrome, b/l cr around 3.0 with 10 g of proteinuria. Has anemia and secondary hyperparathyroidism with advanced CKD. Admitted with hypertensive urgency, progressive weight gain and lower extremity edema over few weeks. Slight worsening of renal function with net negative more than 2 L but staying relatively stable, Electrolyte acceptable. Blood pressure remained valuable. Overall volume status improved. hemoglobin dropped to 7.8, has iron deficiency. -- Continue on Lasix to 40 mg p.o. daily -- or received 2 doses of Venofer, change to oral iron on discharge. -- Epogen 76475 units x 1 dose given on 05/09/2021 -- continue on calcitriol -- continue to hold losartan for now. -- left arm nephrology precaution for future vascular access -- Okay to be discharged with close outpatient lab monitoring, suggest renal panel Saturday and Copy to Dr. Yen, follow up in CKD Clinic in 1-2 weeks. advised to keep well hydrated Will follow Admission and Anticipated Discharge Date Admission Date: May 08, 2021 Meet Ewing was seen and evaluated in his room this morning. Overall he feels well, denies any symptom. Shortness of breath resolved, lower extremity edema improved. Appetite has been decent. Blood pressure has been variable. Relatively stable renal function with net negative more than 2 L. Review of Systems Review of Systems: Detailed review of system was otherwise unremarkable. Physical Exam Constitutional: WD/WN, vitals as above no acute distress Eyes: + anicteric sclerae Respiratory: no respiratory distress Auscultation: lungs clear to auscultation bilaterally Cardiovascular: Rate/Rhythm: regular rate and regular rhythm Heart Sounds: normal S1 and normal S2 Extremities: no edema Skin: no rashes Neurologic: no focal motor deficits and not confused Psychiatric: Orientation: alert and oriented x 3 Results & Data ([facility]) Vital Signs (Past 12 Hours) Vital Signs Temp Pulse Resp BP Pulse Ox Pulse Ox 05/11/21 10:14 36.3 C L 76 18 170/85 H 96 05/11/21 09:55 36.8 C 75 16 169/82 H 97 05/11/21 09:32 36.7 C 77 18 169/81 H 96 05/11/21 07:32 37.0 C 73 18 156/79 H 97 05/11/21 00:34 149/79 H 05/11/21 00:00 98 05/10/21 22:51 36.7 C 79 16 173/85 H 97 PG Care Time/CCT Total # of Minutes Spent Total Time Spent with Patient: Total time spent is greater than 50% in coordination of care (as documented) at patient's floor/unit and/or counseling patient: Coding Level of Care Code 37446 Subseq Hosp Care Lvl 3 Diagnoses CKD (chronic kidney disease) stage 4, GFR 15-29 ml/min N18.4 Bilateral edema of lower extremity R60.0 HTN (hypertension) I10 Nephrotic syndrome N04.9 Anemia due to chronic kidney disease N18.9; D63.1
== END 2021-05-11 12:47 | disposition home or self-care (01) | DRG 291 ==
LOC: ED 11:36 → SUATTDRO 16:43 → EDINP 16:43 → 3N 05-09 18:08

== ENCOUNTER 2022-03-05 23:12 | Inpatient (IN) ==
--- NOTE | 2022-03-06 00:20 | Emergency Department Note ---
History of Present Illness General Chief complaint: Abnormal Labs/Diagnostic Testing Stated complaint: REFER BY DOC,ABNORMAL LABS Time Seen by Provider: 03/05/22 23:46 History of Present Illness Maximum Pain Intensity: 2 This is a 51-year-old male presenting to the emergency department for evaluation after having abnormal outpatient lab work. The patient has a fairly complex past medical history including chronic kidney disease secondary to diabetes. The patient states that he has had flulike symptoms for the past few days and did reach out to his family doctor. The patient had outpatient labs this morning as well as flu, COVID, and RSV testing. The patient was contacted by [facility] on-call doctor this evening as his hemoglobin decreased to 7.5, creatinine increased to 5.7 from a baseline of about 3.8, and his influenza A testing is POSITIVE. The patient has had some fatigue and dyspnea on exertion the past 2 days, which may be attributed to his influenza A. He has had symptoms like this previously, and this was reportedly treated with Epogen and iron infusion. The patient has been doing well with his diabetes and last A1c is less than 6. He has not gained weight and does not report significant swelling to his legs. He still makes urine. He rates his discomfort a 2/10. Home Medications Medication Instructions Recorded Confirmed Type multivitamin 1 tab PO QAM 02/19/20 03/06/22 History blood-glucose meter (Accu-Chek #1 ea 02/24/20 01/03/22 Rx Guide Glucose Meter) pen needle, diabetic 31 gauge x #200 ea 03/01/20 01/03/22 Rx 5/16" (BD Ultra-Fine Short Pen Needle) cetirizine 10 mg tablet (Zyrtec) 10 mg PO DAILY PRN Allergy Symptoms 03/25/20 03/06/22 History blood sugar diagnostic (Accu-Chek 04/25/20 01/03/22 History Guide test strips) insulin aspart U-100 100 unit/mL See Rx Instructions subcut 05/12/20 03/06/22 Rx (3 mL) subcutaneous pen (Novolog .COMPLEX #15 mL Flexpen U-100 Insulin aspart) amlodipine 5 mg tablet 5 mg PO QAM 08/03/21 03/06/22 History aspirin 81 mg tablet,delayed 81 mg PO QAM 08/03/21 03/06/22 History release (Enteric Coated Aspirin) ferrous sulfate 325 mg (65 mg 325 mg PO BID 08/03/21 03/06/22 History iron) tablet (iron) insulin degludec 100 unit/mL (3 27 unit (0.27 mL) subcut HS #15 mL 10/27/2102/16 Rx mL) subcutaneous pen (Tresiba FlexTouch U-100 insulin) atorvastatin 20 mg tablet 20 mg PO QAM #90 tabs 11/22/21 03/06/22 Rx citalopram 20 mg tablet 20 mg PO QAM #90 tabs 11/22/21 03/06/22 Rx FreeStyle Jason 2 Sensor (flash #2 ea 12/29/21 01/03/22 Rx glucose sensor) levothyroxine 75 mcg tablet 75 mcg PO DAILY #30 tabs 01/11/22 03/06/22 Rx calcitriol 0.25 mcg capsule 0.25 mcg PO QAM #90 caps 01/26/22 03/06/22 Rx (Rocaltrol) furosemide 20 mg tablet 20 mg PO QAM #90 tabs 02/26/22 03/06/22 Rx darbepoetin sydney in polysorbat 60 60 mcg subcut DIRECTED 03/06/22 03/06/22 History mcg/mL in polysorbate injection (Aranesp) Allergies Allergy/AdvReac Type Severity Reaction Status Date / Time ANKUR Inhibitors AdvReac Intermediate Cough Verified 03/06/22 00:05 lisinopril AdvReac Intermediate cough Verified 03/06/22 00:05 sertraline [From Zoloft] AdvReac Intermediate SUPRESSED Verified 03/06/22 00:05 APPETITE Past Med/Surg History Medical History (Updated 03/06/22 @ 12:38 by Oscar Brooks DO) Anemia due to chronic kidney disease Bilateral edema of lower extremity REASON FOR LASIX DAILY WEARS 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 Diabetes mellitus, type 2 GLUCOSE STABLE AND CONTROLLED Diabetic macular edema Diabetic peripheral neuropathy associated with type 2 diabetes mellitus History of depression HTN (hypertension) Hyperlipidemia Nephrotic syndrome Onychomycosis STABLE- NO ANTIFUNGALS NEEDED AT THIS TIME Surgical History Family history of reaction to anesthesia MOTHER-HARD TO "PUT TO SLEEP" History of cataract surgery RT/LEFT History of herniorrhaphy UMBILICAL History of lingual frenulectomy History of tooth extraction Hx of vasectomy Family History Father Family history of diabetes mellitus Kidney disease required HD Grandmother (Paternal) Family history of diabetes mellitus Grandfather (Maternal) Hypertension Other Myocardial infarction Denies family history of Ovarian cancer Prostate cancer Breast cancer Lung cancer Colorectal cancer Stroke Social History Smoking Status: Former smoker Tobacco Type: Cigarettes Age Quit Using Tobacco: 22; Second Hand Exposure: Yes (as a child); Hx Alcohol Use: Yes Alcohol type: hard liquor Alcohol Intake Frequency: Monthly or Less Hx Substance Use: No Preferred Language: Turkmen Communication Ability: Effective Clinical Psychologist Private Practice Required: No Beliefs That Will Affect Care: Spiritual marital status: Current Living Situation: Spouse and Family current occupational status: employed 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 [employer] Feels Safe at Home: Yes Childhood Exposure to Second-Hand Smoke: Yes Dental Care, Regularly: No Physical Activity Frequency: 1-2 Times per Week Physical Activity Frequency Comment: exercise bike Seatbelt Use: always Sunscreen Use: Yes Assistive Devices: None Review of Systems A total of 10 systems reviewed and were otherwise negative Physical Exam Vital Signs Vital Signs - 24 hr 03/05/22 23:27 Temperature 36.9 C Temperature Source Temporal Artery Scan Pulse Rate 73 Respiratory Rate 18 Respiratory Effort / Characteristics Non-Labored Respiratory Depth Normal Pulse Oximetry 95 Oxygen Delivery Method Room Air Sepsis New/Unexplained Change in Mental Status No Sepsis Action Taken by Nursing No Action Required VITALS: Vitals are noted on the nurse's note and reviewed by myself. Vital signs stable. GENERAL: Well-developed, well-nourished, white male, who is in no acute distress and resting comfortably. Patient is cooperative with the examination. HEAD: Normocephalic atraumatic. HEART: Regular rate and rhythm without murmurs gallops or rubs. LUNGS: Clear to auscultation bilaterally without wheezes, rales or rhonchi. No retractions or accessory muscle use. ABDOMEN: Positive normal bowel sounds x 4. Soft, nontender, without masses or organomegaly. MUSCULOSKELETAL: No muscle atrophy, erythema, or edema noted. Full range of motion in all extremities. N NEURO: Patient was alert and oriented to person place and time. CN II through XII grossly intact. Course Administered Medications Amlodipine Besylate (Amlodipine Besylate 5 Mg Tab) 5 mg PO [facility] Stop: 04/05/22 08:59 Last Admin: 03/06/22 09:06 Dose: 5 mg Documented By: ROSETTA Aspirin (Aspirin 81 Mg Ectab) 81 mg PO [facility] Stop: 04/05/22 08:59 Last Admin: 03/06/22 09:06 Dose: 81 mg Documented By: ROSETTA Atorvastatin Calcium (Atorvastatin 20 Mg Tab) 20 mg PO [facility] Stop: 04/05/22 08:59 Last Admin: 03/06/22 09:07 Dose: 20 mg Documented By: ROSETTA Calcitriol (Calcitriol 0.25 Mcg Capsule) 0.25 mcg PO [facility] Stop: 04/05/22 08:59 Last Admin: 03/06/22 09:06 Dose: 0.25 mcg Documented By: ROSETTA Citalopram Hydrobromide (Citalopram 20 Mg Tab) 20 mg PO [facility] Stop: 04/05/22 08:59 Last Admin: 03/06/22 09:07 Dose: 20 mg Documented By: ROSETTA Insulin Aspart (Insulin Aspart Per Unit) 0 units [facility] Stop: 04/05/22 07:29 Last Admin: 03/06/22 17:13 Dose: 1 units Documented By: MELITON Co-signed By: SALINA Admin: 03/06/22 13:01 Dose: 3 units Documented By: ROSETTA Co-signed By: MAYA Admin: 03/06/22 09:00 Dose: 2 units Documented By: ROSETTA Co-signed By: LIZZ Levothyroxine Sodium (Levothyroxine Sodium 75 Mcg Tablet) [facility] Stop: 04/05/22 06:29 Last Admin: 03/06/22 07:48 Dose: 75 mcg Documented By: ROSETTA Multivitamins (Multivitamin Tab) 1 tab PO [facility] Stop: 04/05/22 08:59 Last Admin: 03/06/22 09:07 Dose: 1 tab Documented By: ROSETTA Discontinued Medications Epoetin Sydney (Epoetin Sydney 20,000 Units/Ml Vial) 20,000 units SQ ONE ONE Stop: 03/06/22 11:06 Last Admin: 03/06/22 11:37 Dose: 20,000 units Documented By: ROSETTA Iron Sucrose 200 mg/ Sodium (Chloride) 110 mls @ 220 mls/hr IV TODAY ONE Stop: 03/06/22 11:44 Last Infusion: 03/06/22 12:33 Dose: 0 mls/hr Documented By: Admin: 03/06/22 11:42 Dose: 220 mls/hr Documented By: ROSETTA Patiromer (Patiromer Calcium Sorbitex 8.4 Gm Pack) 8.4 gm PO DAILY@1100 ONE Stop: 03/06/22 12:01 Last Admin: 03/06/22 12:44 Dose: 8.4 gm Documented By: ROSETTA Medical Decision Making Differential Diagnosis Differential diagnosis: Etiologies such as infections, symptomatic anemia, acute on chronic kidney disea se, reactive airway disease, COPD, pneumonia, pleural effusion, pulmonary edema, ARDS, pneumothorax, CHF, cardiac ischemia, cardiac tamponade, dysrhythmia, anemia, pulmonary embolism, musculoskeletal, gastrointestinal process, as well as others were entertained. Laboratory Data Result diagrams: 03/06/22 09:44 03/06/22 15:59 Lab Results 03/05/22 Range/Units 16:53 Blood Type Recheck O Positive MDM Narrative Physical exam and history were performed. Nursing notes, EMR, and Medication List were personally reviewed. Patient appears to have abnormal outpatient labs. He has a complicated medical history and is influenza A positive. I was able to review outpatient labs the patient is with worsening chronic kidney disease, which seems acute. Additionally he is more anemic than normal. Overall patient does not seem well for discharge, and will likely need further evaluation as directed through his nephrology team. I did discuss case with the on-call hospitalist who agreed to evaluate the patient here in the ER. Please see their dictation for further patient course, plan, disposition. The chart was completed utilizing Department of [employer] and Human Services Speech Voice Recognition Software. Grammatical errors, random word insertions, pronoun errors, and incomplete sentences are an occasional consequence of this system due to software limitations, ambient noise, and hardware issues. Any formal questions or concerns about the content, text, or information contained within the body of this dictation should be directly addressed to the provider for clarification. . Impression & Plan Acute on chronic kidney failure, Anemia, Influenza A Discharge Plan Visit Data Chief Complaint: Abnormal Labs/Diagnostic Testing Stated Complaint: REFER BY DOC,ABNORMAL LABS ED Provider: Gregorio Joshi ED Midlevel Provider: Jack Trujillo Discharge Problem: Acute on chronic kidney failure, Anemia, Influenza A Patient Disposition: Admitted As Inpatient Discharge Instructions Interventions: ED Discharge Assessment Last Done: 03/06/22 02:36
--- NOTE | 2022-03-06 00:51 | History & Physical Report ---
Date of Service March 06, 2022 Assessment & Plan (1) CKD (chronic kidney disease) stage 4, GFR 15-29 ml/min: Plan: Influenza A positive, COVID-negative - Last fever 102 Saturday evening, 99.4 since Saturday - Per patient on Thrusday, ~day 5 of illness - Pt reports he actually feels better other than some mild shortness of breath 03/05 Suspect acute cause of his shortness of breath and fatigue, fatigue is multifactorial with anemia Tamiflu deferred Acute on chronic anemia Baseline anemia 7.59.5, thought to be 2/2 CKD Has received iron supplementation in the past, last TIBC was low. Also ordered ArniSport as outpatient by nephrology No acute bleeding or blood loss, no chest pain, no history of ACS Transfusion threshold 7.0, trend CBC Nephrology consulted,? Additional dose of Aranesp Acute on chronic kidney disease, nonoliguric, nonanuric CKD G4/A3, baseline creatinine 4.68 2/2 diabetic nephropathy Follows with [facility] Had a fistula created 08/09/[address] Horton Patient has been voiding normally, light-colored urine several cups per day not measuring specific volumes Hold Lasix, no volume overload on exam Nephrology consulted BMP daily, renally adjust medications for clearance History of CHF Hospitalized May 07 for CHF exacerbation in the setting of liberal sodium intake EF 04/2021 with normal LV SF, grade 1 diastolic dysfunction EF 55 to 60% -HAs discussed cardiac cath as outpatient, has deferred this 2/2 renal function No chest pain/chest pressure or potassium derangements on admission Clinically without evidence of volume overload, lungs without crackles/rales and no lower extremity edema. CXR pending at time of admission Type II DM Home regimen insulin degludec 27 units at bedtime, SSI - Continue basal 27u, SSI 1:12 carb ratio Glucose checks AC/at bedtime, goal range [id number] Hypertension Continue amlodipine Hyperlipidemia Atorvastatin 20 Hypothyroidism Synthroid 75 mcg TSH normal on admission CODE STATUS: Full code Disposition: Medical with telemetry for 24 hours given acute on chronic renal dysfunction with past history of CHF with preserved ejection fraction, if stable and doing well downgrade to med/surge DVT prophylaxis: SCDs Diet: Renal, DM 2 (2) Anemia due to chronic kidney disease: (3) Antiplatelet or antithrombotic long-term use: (4) Diabetes mellitus type 2, uncontrolled, with complications: (5) HTN (hypertension): (6) Hyperlipidemia: (7) Hypothyroidism: History of Present Illness Primary Care Provider: MD 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 Called PCP who set up outpatient labs. Pt has a hx of CKD 2/2 DM [place] [facility] [place]. Influenza A positive Acute on chronic anemia to 7.5. Had epogen and iron several months ago with subsequent improvement Cr normally 3.8, currently 5.4. Mild SoB with exertion DM has been well controlled Follows with [facility]. Pending cath but didn't want to tip kidneys Saw Dr. Guzman 2 weeks ago. Pending [facility] insurance approval. TIBC was low. Between that visit and now he got Flu A. Spearman terrible 3 days ago with a cough, feeling feverish, and a productive cough Sat-Sun with scant blood tinged sputum after heavy coughing. Took tylenol for fever and mucinex for congestion and was drinking an extra 6-8 cups of water per day. This morning talked to his outpatient provider as he still felt overall poor. Prior to seeing PCP ordered outpatient tests; FluA was positive. Also got his nephrology followup labs while he was here and was noted to have increased Cr and was recommended to come into the hospital due to STEVEN. Pt notes he is chronically tired due to his anemia, has felt more fatigued with flu. He is still making urine, is not measuring output but notes he is not having any difficulty voiding and has been going 3-4x per day and 1x per night and continues to take 20mg of lasix per day. Urine has been clear to very light continue. has L AV fistula placed by sadie. Good thrill. never been accessed. Medical History: Reviewed Medications: Reviewed Surgical History: Reviewed Allergies: Reviewed Social History: No tobacco, no etoh Code Status: Full Allergies Allergy/AdvReac Type Severity Reaction Status Date / Time ANKUR Inhibitors AdvReac Intermediate Cough Verified 03/06/22 00:05 lisinopril AdvReac Intermediate cough Verified 03/06/22 00:05 sertraline [From Zoloft] AdvReac Intermediate SUPRESSED Verified 03/06/22 00:05 APPETITE Home Medications Medication Instructions Recorded Confirmed Type multivitamin 1 tab PO QAM 02/19/20 03/06/22 History blood-glucose meter (Accu-Chek #1 ea 02/24/20 01/03/22 Rx Guide Glucose Meter) pen needle, diabetic 31 gauge x #200 ea 03/01/20 01/03/22 Rx 5/16" (BD Ultra-Fine Short Pen Needle) cetirizine 10 mg tablet (Zyrtec) 10 mg PO DAILY PRN Allergy Symptoms 03/25/20 03/06/22 History blood sugar diagnostic (Accu-Chek 04/25/20 01/03/22 History Guide test strips) insulin aspart U-100 100 unit/mL See Rx Instructions subcut 05/12/20 03/06/22 Rx (3 mL) subcutaneous pen (Novolog .COMPLEX #15 mL Flexpen U-100 Insulin aspart) amlodipine 5 mg tablet 5 mg PO QAM 08/03/21 03/06/22 History aspirin 81 mg tablet,delayed 81 mg PO QAM 08/03/21 03/06/22 History release (Enteric Coated Aspirin) ferrous sulfate 325 mg (65 mg 325 mg PO BID 08/03/21 03/06/22 History iron) tablet (iron) insulin degludec 100 unit/mL (3 27 unit (0.27 mL) subcut HS #15 mL 10/27/21 03/06/22 Rx mL) subcutaneous pen (Tresiba FlexTouch U-100 insulin) atorvastatin 20 mg tablet 20 mg PO QAM #90 tabs 11/22/21 03/06/22 Rx citalopram 20 mg tablet 20 mg PO QAM #90 tabs 11/22/21 03/06/22 Rx FreeStyle Jason 2 Sensor (flash #2 ea 12/29/21 01/03/22 Rx glucose sensor) levothyroxine 75 mcg tablet 75 mcg PO DAILY #30 tabs 01/11/22 03/06/22 Rx calcitriol 0.25 mcg capsule 0.25 mcg PO QAM #90 caps 01/26/22 03/06/22 Rx (Rocaltrol) furosemide 20 mg tablet 20 mg PO QAM #90 tabs 02/26/22 03/06/22 Rx darbepoetin sy[place] in polysorbat 60 60 mcg subcut DIRECTED 03/06/22 03/06/22 History mcg/mL in polysorbate injection (Aranesp) Past Med/Surg History Medical History Anemia due to chronic kidney disease Bilateral edema of lower extremity REASON FOR LASIX DAILY WEARS 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 CKD (chronic kidney disease) stage 4, GFR 15-29 ml/min FOLLOWED BY DR. GUZMAN Left limb restriction per patient Diabetes mellitus, type 2 GLUCOSE STABLE AND CONTROLLED Diabetic macular edema Diabetic peripheral neuropathy associated with type 2 diabetes mellitus History of depression HTN (hypertension) Hyperlipidemia Nephrotic syndrome Onychomycosis STABLE- NO ANTIFUNGALS NEEDED AT THIS TIME Surgical History Family history of reaction to anesthesia MOTHER-HARD TO "PUT TO SLEEP" History of cataract surgery RT/LEFT History of herniorrhaphy UMBILICAL History of lingual frenulectomy History of tooth extraction Hx of vasectomy Family History Father Family history of diabetes mellitus Kidney disease required HD Grandmother (Paternal) Family history of diabetes mellitus Grandfather (Maternal) Hypertension Other Myocardial infarction Denies family history of Ovarian cancer Prostate cancer Breast cancer Lung cancer Colorectal cancer Stroke Social History Smoking Status: Never smoker Tobacco Type: Cigarettes Age Quit Using Tobacco: 22; Second Hand Exposure: Yes (as a child); Hx Alcohol Use: Yes Alcohol type: beer and hard liquor Alcohol Intake Frequency: Monthly or Less Hx Substance Use: No Preferred Language: Romansh Communication Ability: Effective Petroleum Sampler Required: No Beliefs That Will Affect Care: None marital status: Current Living Situation: Spouse current occupational status: employed 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 Feels Safe at Home: Yes Childhood Exposure to Second-Hand Smoke: Yes Dental Care, Regularly: No Physical Activity Frequency: 1-2 Times per Week Physical Activity Frequency Comment: exercise bike Seatbelt Use: always Sunscreen Use: Yes Assistive Devices: Glasses Physical Exam Physical Exam: General: A&Ox3. NAD. Cooperative. HEENT: Atraumatic, normocephalic. Pulm: CTAB A&P. -wheezes, -rales, -rhonchi. Symmetrical chest rise. No increased work of breathing. No respiratory distress. Cardiac: RRR, -mrg. Radial pulses intact and symmetrical. Abdominal: Nontender, nondistended, soft. BS present. Ext: No LE edema. L forearm fistula with +thrill, well healed Results & Data Results & Data ([facility]) Vital Signs (Past 12 Hours) Vital Signs Temp Pulse Resp Pulse Ox O2 Del Method 03/05/22 23:27 36.9 C 73 18 95 Room Air PG Care Time/CCT Total # of Minutes Spent Total Time Spent with Patient: Total time spent is greater than 50% in coordination of care (as documented) at patient's floor/unit and/or counseling patient: Coding Level of Care Code 83976 Initial Inpt Care Lvl 2 Diagnoses CKD (chronic kidney disease) stage 4, GFR 15-29 ml/min N18.4 Anemia due to chronic kidney disease N18.9; D63.1 Antiplatelet or antithrombotic long-term use Z79.02 Diabetes mellitus type 2, uncontrolled, with complications E11.8; E11.65 HTN (hypertension) I10 Hyperlipidemia E78.5 Hypothyroidism E03.9
[2022-03-06] MEDS ORDERED: GLUCOSE 40% GEL 15 GM TUBE PO PRN (02:36)
[2022-03-06] MEDS ORDERED: ACETAMINOPHEN 325 MG TAB PO PRN (02:36)
[2022-03-06] MEDS ORDERED: GLUCOSE 10 TAB/TUBE PO PRN (02:36)
[2022-03-06] MEDS ORDERED: CARBOHYDRATES FOR HYPOGLYCEMIA PO PRN (02:36)
[2022-03-06] MEDS ORDERED: GLUCAGON FOR INJ 1 MG VIAL SQ PRN (02:36)
[2022-03-06] MEDS ORDERED: DEXTROSE 50% 50 ML SYRINGE IV PRN (02:36)
[2022-03-06] MEDS ORDERED: CETIRIZINE HCL 10 MG TABLET PO PRN (02:36)
--- NOTE | 2022-03-06 07:25 | XRay Report ---
XR chest 1V portable CLINICAL HISTORY: flu A COMPARISON STUDY: Chest radiograph August 07, 2021. FINDINGS: Lung volumes are normal. No pneumothorax or pleural effusion is present. Mild enlargement o f the cardiac silhouette is noted. This has mildly increased since prior exam. Reticulonodular inters titial thickening is present. There is no lobar consolidation. IMPRESSION: Reticulonodular interstitial thickening. This may reflect a viral process. Pulmonary vas cular congestion could appear similar although is considered less likely. Radiographic follow-up is r ecommended. ACT 112: Negative or not required by law. Electronically signed by: Abhilash Byers M.D. 03/06/2022 7:24 AM
[2022-03-06] MEDS: LEVOTHYROXINE SODIUM 75 MCG TABLET PO SCH (07:48)
--- NOTE | 2022-03-06 08:42 | Hospitalist Progress Note ---
Date of Service March 06, 2022 Assessment & Plan (1) Influenza A: Plan: Patient with PMHx significant for HTN/HLD, DM II, CKD4, hx nephrotic syndrome, anemia, depression presented after feeling terrible for 3 days at home with cough/fever 102F, and productive cough starting sat/sun w/ scant blood tinged sputum after heavy coughing. Had been taking Mucinex/Tylenol for congestion/drinking 6-8 cups H20 daily and had labs done after calling nephrology and found to have STEVEN. Chronic fatigue w/ anemia, increased w/ the flu CXR on admit w/ reticulonodular interstitial thickening, may reflect viral process, however pulmonary vascular congestion could appear similar. radiographic f/u recommended * Repeat CXR 1. Lower lung reticulonodular interstitial thickening, slightly increased since chest radiograph of August 07, 2021. The findings may reflect an infectious process superimposed upon chronic interstitial thickening.2. Prominent left hilum. This is likely due to pulmonary vessels however lymphadenopathy cannot be excluded. This should be assessed on follow-up chest radiographs. 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 Also, mild enlargement of cardiac silhouette noted and mildly increased from prior exam and will check ECHO (last echo Apr 2021, mod cLVH, grade I diastolic dysfunction, regional wall motion abn as specified, LA mildly dilated, mild MR, RVSP elevated 30-40mmHg, IVC mildly dilated) * --> BNP elevated 600s, however weight down ~10kg and making adequate urine (wt 125kg--> 114.9kg) WBC low, leukopenia from influenza, afebrile during inpatient stay however did have fever at home as above Tamiflu deferred Isolation precautions added Continue supportive care * Supplemental O2 to maintain sats -- 99% on RA when I saw him this afternoon in room 240 * + incentive spirometer, asked RN to provide * Sputum if able to produce, monitor -->low threshold for ABX if any evidence for PNA on repeat imaging given sputum reported/color change * +Nebs prn sob/wheezing Monitor CXR in AM Push oral fluids -- see below regarding STEVEN, Nephrology on consult (2) Acute on chronic kidney failure: Plan: acute kidney injury on CKD IV, follows with Dr Yen --CKD due to DKD and hypertensive nephrosclerosis, has to have c-scope and then will be on transplant list Had AV fistula creation to L forearm, mature if needed Reports drinking well COMMUNICATION COORDINATOR, but did have some increased fatigue over the weekend and didn't really get up off the couch much. No evidence for DVT on exam/calf tenderness, no pleuritic pain to suggest PE Outpatient labs showed Cr 5.74 when checked w/ screening for the flu and contacted by Dr Yen to come to the ER Cr 5.5/K 5.4 on AM labs -- ok'd w/ nephro to give dose patiromer, repeat labs this afternoon. HOLD LASIX Encouraged patient to AVOID bananas -- does admit to using w/ cereal on occassion when he knows to avoid Iron studies obtained, hgb 7.5 on admit iron 12/trans sat 7%. Ferritin elevated, acute phase reactant given +flu UA ordered for further eval -- reports making adequate urine/clear yellow in color Again, repeat labs this afternoon. Further recs per nephrology, appreciate assistance Anemia acute on chronic, on agents COMMUNICATION COORDINATOR Hgb 7 on Am labs --> Type/screen ordered, but discussed w/ nephrology and would hold off giving a unit of blood. Fatigue, but no symptomatic anemia currently requiring transfusion/no hypotension. Do have 1u on hold in case Instead, given Venofer and EPO [id number] x 1 given by nephrology and will monitor on repeat. (3) CKD (chronic kidney disease) stage 4, GFR 15-29 ml/min: Plan: acute on chronic CKD as above, likely from dehydration/influenza. Follows [facility]/mature fistula in place w/o need for urgent HD push oral fluids per nephrology, EPO/Venofer as above, continued recs appreciated BMP in AM (4) Diastolic dysfunction, left ventricle: Plan: Hx CHF, diastolic, hospitalized in Apr 2021 for CHF exacerbation w/ elevated BNP and reported increased sodium intake on vacation (however patient denies) BNP elevated to 800s then, 600s currently, however weight down ~10kg and no significant LE edema. CXR does note possible pulm congestion but discussed w/ neph and would hold diuretics Last echo Apr 2021, mod cLVH, grade I diastolic dysfunction, regional wall motion abn as specified, LA mildly dilated, mild MR, RVSP elevated 30-40mmHg, IVC mildly dilated Repeat ECHO pending HAs discussed cardiac cath as outpatient, has deferred this 2/2 renal function No chest pain/pressure, volume overload on exam currently (however does have elevated ALP slightly, no HJR on exam/JVD) Follow up CXR as above, holding diuretics as outlined (5) Anemia due to chronic kidney disease: Plan: as above (6) Diabetes mellitus type 2, uncontrolled, with complications: Plan: Last A1c 5.7 in July (had been 11.1 in 2019) Home regimen : insulin degludec 27 units at bedtime, SSI Holding home regimen, continues on basal 27U, SSI while inpatient BSGs acceptable, monitor (7) HTN (hypertension): Plan: BP stable 157/73 Continues on amlodipine 5mg, lasix on hold as above for STEVEN (8) Hyperlipidemia: Plan: Continues on Atorvastatin 20mg daily (9) Hypothyroidism: Plan: TSH wnl on repeat -- appears had elevated TSH/low T4 in December 2021 (10) Hyperkalemia: Plan: K 5.4, likely from acute kidney injury patiromer x 1, repeat labs this afternoon. Low K diet Plan continued inpatient stay Maintain isolation precautions Continue incentive spirometer/pulm toilet/sputum/O2 to maintain sats for influenza. Nephrology following, appreciate assistance Repeat labs this afternoon Admission and Anticipated Discharge Date Admission Date: March 06, 2022 Supervising Physician Co-Signing Physician Notes Attending Attestation - Chart reviewed, care plan d/w LUPE Pang. I agree w/ the vasques components of her documentation. Juan Jose Bailey MD Subjective BRIDGE NOTE: ADMITTED AFTERMIDNIGHT Doing well, moved from ER to room 240-2, breathing stable and on room air. Had developed fatigue/weakness, cough at home with sputum production. Some thicken/yellowed, did have some blood tinged from coughing so hard but now more yellow. Had old incentive spirometer at home and started using, none in room but ordered this morning and asked RN to provide and encourage use. He had been using mucinex at home and felt a little congested. Sputum if able to produce. No pain with inspiration/chest pain/palpitations. Fatigue at baseline, w/ anemia. Working on getting on transplant list. He notes he had started feeling poorly over the weekend ( also sick) and was going to get flu tested and had outpatient labs pending which he had done and then got a call from Dr Yen to come to ER for worsening kidney function. He is hopeful Venofer and EPO improve some fatigue aspect, he is on meds at home COMMUNICATION COORDINATOR for such as well. He does note that he was pretty much sitting around all weekend and not really doing much and expected to be tired/weak. Weight down from when he was here w/ CHF in April, so despite elevated BNP does not have significant edema on exam/wheezing. K found to be5.4 this morning, discussed with alicia Lazo for dose of patiromer and repeat labs pending for this afternoon. Admits to bananas w/ cereal on occasion, even though he knows he shouldn't, and notes K was even higher previously. 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. Hopeful for stable kidney function/improvement and d/c in next 24-48 hours pending repeat labs/improvement/stability. Discussed do hear some crackles throughout, and would like sputum. If any fevers/elevated WBC or worsening breathing can consider abx for superimposed bacterial pneumonia but exam more c/w viral at this time. Questions/concerns addressed. Review of Systems Review of Systems: All systems reviewed & are unremarkable except as noted in HPI & below Physical Exam Physical Exam: General: WN/WN tall male walking around the room, NAD, on ROOM AIR HEENT: head normocephalic, atraumatic, mm slightly dry, trachea midline without obvious deviation Resp: fine crackles throughout posterior lung smith, no wheezing/rales, not tachypneic, on room air 99% CV: RRR, no obvious murmur, rub, gallop, no significant LE edema (in compression stockings), pulses palpable, calves are NONTENDER, +Fistula to L forearm noted GI: +BS, soft/NT MSK/Neuro: walking around the room without obvious gait abnormality, strength equal throughout without focal deficit appreciated Psych: AOx3, pleasant and cooperative Skin: warm, perfused Results & Data Results & Data ([facility]) Vital Signs (Past 12 Hours) Vital Signs Temp Pulse Pulse Resp BP Pulse Ox Pulse Ox 03/06/22 06:15 69 25 H 157/84 H 97 03/06/22 04:20 98 03/06/22 04:15 88 L 03/06/22 04:10 74 24 153/78 H 92 03/06/22 02:46 81 24 150/80 H 96 03/06/22 01:33 75 17 164/91 H 97 03/05/22 23:27 36.9 C 73 18 95 O2 Del Method O2 Del Method O2 Flow Rate O2 Flow Rate 03/06/22 06:15 Nasal Cannula 2 03/06/22 04:20 Nasal Cannula 2 03/06/22 04:15 Room Air 03/06/22 04:10 Room Air 03/06/22 02:46 Room Air 03/06/22 01:33 Room Air 03/05/22 23:27 Room Air Laboratory Results 03/06/22 03/06/22 03/06/22 Range/Units 15:59 12:55 10:58 WBC (4.8-10.8) K/ul RBC (4.63-6.08) M/uL Hgb (14.0-18.0) g/dl Hct (40.1-51.0) % MCV (80.0-100.0) fL MCH (25.0-34.0) pg MCHC (32.0-36.0) g/dL RDW Std Deviation (36.4-46.3) fL RDW Coeff of Gladys (11.5-14.5) % Plt Count (130-400) K/uL MPV (9.4-12.4) fL Sodium Pending (136-145) mmol/L Potassium Pending (3.5-5.1) mmol/L Chloride Pending (98-107) mmol/L Carbon Dioxide Pending (21-32) mmol/L Anion Gap Pending (3-11) BUN Pending (6-23) mg/dl Creatinine Pending (0.6-1.4) mg/dl Est Cr Clr Drug Dosing Pending ml/min Est GFR ( Amer) Pending ml/min Est GFR (Non-Af Amer) Pending ml/min BUN/Creatinine Ratio Pending (10-20) Glucose Pending (70-99(Fasting)) mg/dl POC Glucose 118 H (70-99) mg/dl Calcium Pending (8.5-10.1) mg/dl Magnesium (1.7-2.4) mg/dl Total Bilirubin (0.2-1.0) mg/dl AST (13-39) U/L ALT (7-52) U/L Alkaline Phosphatase (34-104) U/L Troponin I High Sens Pending B-Natriuretic Peptide (0-100) pg/ml Total Protein (6.0-8.3) gm/dl Albumin (3.4-5.0) gm/dl Globulin (2.5-4.0) gm/dl Albumin/Globulin Ratio (0.9-2) Blood Type O Positive Blood Type Recheck Antibody Screen NEGATIVE Crossmatch See Detail 03/06/22 03/06/22 03/06/22 Range/Units 09:44 09:44 09:44 WBC 3.85 L (4.8-10.8) K/ul RBC 2.44 L (4.63-6.08) M/uL Hgb 7.0 L (14.0-18.0) g/dl Hct 21.1 L (40.1-51.0) % MCV 86.5 (80.0-100.0) fL MCH 28.7 (25.0-34.0) pg MCHC 33.2 (32.0-36.0) g/dL RDW Std Deviation 39.7 (36.4-46.3) fL RDW Coeff of Gladys 12.4 (11.5-14.5) % Plt Count 145 (130-400) K/uL MPV 11.4 (9.4-12.4) fL Sodium 140 (136-145) mmol/L Potassium 5.4 H (3.5-5.1) mmol/L Chloride 110 H (98-107) mmol/L Carbon Dioxide 22 (21-32) mmol/L Anion Gap 8 (3-11) BUN 77 H (6-23) mg/dl Creatinine 5.50 H* (0.6-1.4) mg/dl Est Cr Clr Drug Dosing 21.7 ml/min Est GFR ( Amer) 12.9 ml/min Est GFR (Non-Af Amer) 11.1 ml/min BUN/Creatinine Ratio 14.0 (10-20) Glucose 99 (70-99(Fasting)) mg/dl POC Glucose (70-99) mg/dl Calcium 8.3 L (8.5-10.1) mg/dl Magnesium 2.1 (1.7-2.4) mg/dl Total Bilirubin 0.3 (0.2-1.0) mg/dl AST 37 (13-39) U/L ALT 37 (7-52) U/L Alkaline Phosphatase 115 H (34-104) U/L Troponin I High Sens B-Natriuretic Peptide 602 H (0-100) pg/ml Total Protein 6.3 (6.0-8.3) gm/dl Albumin 3.1 L (3.4-5.0) gm/dl Globulin 3.2 (2.5-4.0) gm/dl Albumin/Globulin Ratio 1.0 (0.9-2) Blood Type Blood Type Recheck Antibody Screen Crossmatch 03/06/22 03/05/22 Range/Units 06:22 16:53 WBC (4.8-10.8) K/ul RBC (4.63-6.08) M/uL Hgb (14.0-18.0) g/dl Hct (40.1-51.0) % MCV (80.0-100.0) fL MCH (25.0-34.0) pg MCHC (32.0-36.0) g/dL RDW Std Deviation (36.4-46.3) fL RDW Coeff of Gladys (11.5-14.5) % Plt Count (130-400) K/uL MPV (9.4-12.4) fL Sodium (136-145) mmol/L Potassium (3.5-5.1) mmol/L Chloride (98-107) mmol/L Carbon Dioxide (21-32) mmol/L Anion Gap (3-11) BUN (6-23) mg/dl Creatinine (0.6-1.4) mg/dl Est Cr Clr Drug Dosing ml/min Est GFR ( Amer) ml/min Est GFR (Non-Af Amer) ml/min BUN/Creatinine Ratio (10-20) Glucose (70-99(Fasting)) mg/dl POC Glucose 102 H (70-99) mg/dl Calcium (8.5-10.1) mg/dl Magnesium (1.7-2.4) mg/dl Total Bilirubin (0.2-1.0) mg/dl AST (13-39) U/L ALT (7-52) U/L Alkaline Phosphatase (34-104) U/L Troponin I High Sens B-Natriuretic Peptide (0-100) pg/ml Total Protein (6.0-8.3) gm/dl Albumin (3.4-5.0) gm/dl Globulin (2.5-4.0) gm/dl Albumin/Globulin Ratio (0.9-2) Blood Type Blood Type Recheck O Positive Antibody Screen Crossmatch Diagnostic Findings Chest X-Ray 03/06/22 00:39 XR chest 1V portable CLINICAL HISTORY: flu A COMPARISON STUDY: Chest radiograph August 07, 2021. FINDINGS: Lung volumes are normal. No pneumothorax or pleural effusion is present. Mild enlargement of the cardiac silhouette is noted. This has mildly increased since prior exam. Reticulonodular interstitial thickening is present. There is no lobar consolidation. IMPRESSION: Reticulonodular interstitial thickening. This may reflect a viral process. Pulmonary vascular congestion could appear similar although is considered less likely. Radiographic follow-up is recommended. ACT 112: Negative or not required by law. Electronically signed by: Abhilash Byers M.D. 03/06/2022 7:24 AM Chest X-Ray 03/06/22 08:56 XR chest 2V PA/lateral CLINICAL HISTORY: f/u opacities vs congestion/CHF COMPARISON STUDY: Chest radiograph August 07, 2021 and March 06, 2022. FINDINGS: Lung volumes are normal. There is no pneumothorax. No definite pleural effusion is present. Lower lung reticulonodular interstitial thickening is present. This is similar to chest radiograph performed earlier today and inc reased since chest radiograph August 07, 2021. No consolidation is identified. Cardiomediastinal silhouette is stable from earlier exams. Left hilar prominence is noted. IMPRESSION: 1. Lower lung reticulonodular interstitial thickening, slightly increased since chest radiograph of August 07, 2021. The findings may reflect an infectious process superimposed upon chronic interstitial thickening. 2. Prominent left hilum. This is likely due to pulmonary vessels however lymphadenopathy cannot be excluded. This should be assessed on follow-up chest radiographs. ACT 112: Negative or not required by law. Electronically signed by: Abhilash Byers M.D. 03/06/2022 11:41 AM PG Care Time/CCT Total # of Minutes Spent Total Time Spent with Patient: Total time spent is greater than 50% in coordination of care (as documented) at patient's floor/unit and/or counseling patient: Coding Level of Care Code None Diagnoses Influenza A J10.1 Acute on chronic kidney failure N17.9; N18.9 CKD (chronic kidney disease) stage 4, GFR 15-29 ml/min N18.4 Diastolic dysfunction, left ventricle I51.9 Anemia due to chronic kidney disease N18.9; D63.1 Diabetes mellitus type 2, uncontrolled, with complications E11.8; E11.65 HTN (hypertension) I10 Hyperlipidemia E78.5 Hypothyroidism E03.9 Hyperkalemia E87.5
[2022-03-06] MEDS ORDERED: ALBUT/IPRATROP 3MG/0.5MG NEB 3 ML VIAL NEB PRN (08:54)
[2022-03-06] MEDS: INSULIN ASPART PER UNIT SC SCH ×5 (09:00→21:52)
[2022-03-06] MEDS: amLODIPine BESYLATE 5 MG TAB PO SCH (09:06)
[2022-03-06] MEDS: CALCITRIOL 0.25 MCG CAPSULE PO SCH (09:06)
[2022-03-06] MEDS: ASPIRIN 81 MG ECTAB PO SCH (09:06)
[2022-03-06] MEDS: ATORVASTATIN 20 MG TAB PO SCH (09:07)
[2022-03-06] MEDS: CITALOPRAM 20 MG TAB PO SCH (09:07)
[2022-03-06] MEDS: MULTIVITAMIN TAB PO SCH (09:07)
[2022-03-06 10:08] LABS: Hematocrit (blood only) 21.1 % (40.1-51.0); Mean Corpuscular Hemoglobin 28.7 pg (25.0-34.0); Mean Corpuscular Hgb Conc 33.2 g/dL (32.0-36.0); Mean Corpuscular Volume 86.5 fL (80.0-100.0); Mean Platelet Volume 11.4 fL (9.4-12.4); Platelet Count 145 K/uL (130-400); RDW Coefficient of Variation 12.4 % (11.5-14.5); RDW Standard Deviation 39.7 fL (36.4-46.3); Red Blood Count 2.44 M/uL (4.63-6.08); White Blood Count 3.85 K/ul (4.8-10.8)
[2022-03-06] MEDS ORDERED: SODIUM CHLORIDE 0.9% 250 ML IV PRN (10:23)
[2022-03-06 10:44] LABS: Albumin Level 3.1 gm/dl (3.4-5.0); Bilirubin,Total 0.3 mg/dl (0.2-1.0); Calcium 8.3 mg/dl (8.5-10.1); Creatinine Clr Calc Pharmacy 21.7 ml/min; Est GFR (African American) 12.9 ml/min; Est GFR (Non-African American) 11.1 ml/min; Globulin 3.2 gm/dl (2.5-4.0); Magnesium 2.1 mg/dl (1.7-2.4); Potassium 5.4 mmol/L (3.5-5.1); Total Protein 6.3 gm/dl (6.0-8.3)
[2022-03-06] MEDS ORDERED: EPOETIN ALFA 20,000 UNITS/ML VIAL SQ ONE (11:05)
[2022-03-06] MEDS ORDERED: IRON SUCROSE 200 MG in 0.9 % SODIUM CHLORIDE 100 ML IV ONE (11:15)
--- NOTE | 2022-03-06 11:42 | XRay Report ---
XR chest 2V PA/lateral CLINICAL HISTORY: f/u opacities vs congestion/CHF COMPARISON STUDY: Chest radiograph August 07, 2021 and March 06, 2022. FINDINGS: Lung volumes are normal. There is no pneumothorax. No definite pleural effusion is present. Lower lung reticulonodular interstitial thickening is present. This is similar to chest radiograph p erformed earlier today and increased since chest radiograph August 07, 2021. No consolidation is identif ied. Cardiomediastinal silhouette is stable from earlier exams. Left hilar prominence is noted. IMPRESSION: 1. Lower lung reticulonodular interstitial thickening, slightly increased since chest radiograph of M ay 2021. The findings may reflect an infectious process superimposed upon chronic interstitial th ickening. 2. Prominent left hilum. This is likely due to pulmonary vessels however lymphadenopathy cannot be ex cluded. This should be assessed on follow-up chest radiographs. ACT 112: Negative or not required by law. Electronically signed by: Abhilash Byers M.D. 03/06/2022 11:41 AM
[2022-03-06] MEDS ORDERED: PATIROMER CALCIUM SORBITEX 8.4 GM PACK PO ONE (12:00)
--- NOTE | 2022-03-06 12:40 | Nephrology Consultation ---
Date of Consultation March 06, 2022 Assessment & Plan (1) Acute on chronic kidney failure: Advanced CKD with superimposed suspected ATN. Non-oliguric. 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 Volume status acceptable. Potential future indications for dialysis discussed. AVF mature for use. Document strict I/O's. Repeat metabolic profile this evening and tomorrow AM. Medications appropriate for kidney dysfunction. Remains on daily calcitriol for sPTH. I discussed the plan of care this AM with Chica Pang PA-C. (2) Anemia: Acute on chronic. Tst 7. Reports minimal symptoms. Venofer 200 mg IV now ordered. Epogen 48065 units x 1 ordered. (3) Influenza A: Symptomatic care. Hold diuretics. Encourage even to slightly positive fluid balance. (4) Diastolic dysfunction, left ventricle: Volume status acceptable. Hold diuretics. Encourage even to slightly positive fluid balance. CXR reviewed. TTE pending. (5) Hyperkalemia: Low potassium diet. Patiromer 8.4 grams x 1 dose now. Repeat metabolic profile this evening. History of Present Illness Reason for Consultation: STEVEN/CKD Requesting Physician: Juan Jose Bailey Attending Physician: Juan Jose Bailey History of Present Illness Mr. 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 Saurav follows in the outpatient nephrology clinic with Dr. Yen. He has had advanced care planning for his kidney dysfunction. Transplant evaluation started at [facility]. Complete evaluation to include cardiac catheterization which has been deferred. He will also require colonoscopy which has not been completed. Saurav underwent L RC AVF placement by Dr. Horton in July. The fistula has matured appropriately. He is scheduled to have predialysis education as an outpatient at [facility]. Baseline creatinine in July was 3.8 mg/dL. CKD with notable nephrotic range proteinuria quantified previously at >12 g/g. Complications of CKD include sPTH and anemia. He has received Aranesp in the past as an outpatient. Saurav also received IV venofer as an outpatient several months ago. Evaluation of his CKD including SPEP/IF and urine IF demonstrating no notable monoclonal abnormality but a faint Lambda LC/IgG lambda band. Losartan was stopped in the past due to hyperkalemia. Saurav presented to the ER at [facility] with progressive STEVEN/CKD on laboratory studies complicated by anemia. He was recently diagnosed with influenza A. Symptoms are improving. However, he remains weak with mild dyspnea on exertion and some persistent myalgias. Fevers have resolved. Noted persistent dry cough. Allergies Allergy/AdvReac Type Severity Reaction Status Date / Time ANKUR Inhibitors AdvReac Intermediate Cough Verified 03/06/22 00:05 lisinopril AdvReac Intermediate cough Verified 03/06/22 00:05 sertraline [From Zoloft] AdvReac Intermediate SUPRESSED Verified 03/06/22 00:05 APPETITE Home Medications Medication Instructions Recorded Confirmed Type multivitamin 1 tab PO QAM 02/19/20 03/06/22 History blood-glucose meter (Accu-Chek #1 ea 02/24/20 01/03/22 Rx Guide Glucose Meter) pen needle, diabetic 31 gauge x #200 ea 03/01/20 01/03/22 Rx 5/16" (BD Ultra-Fine Short Pen Needle) cetirizine 10 mg tablet (Zyrtec) 10 mg PO DAILY PRN Allergy Symptoms 03/25/20 03/06/22 History blood sugar diagnostic (Accu-Chek 04/25/20 01/03/22 History Guide test strips) insulin aspart U-100 100 unit/mL See Rx Instructions subcut 05/12/20 03/06/22 Rx (3 mL) subcutaneous pen (Novolog .COMPLEX #15 mL Flexpen U-100 Insulin aspart) amlodipine 5 mg tablet 5 mg PO QAM 08/03/21 03/06/22 History aspirin 81 mg tablet,delayed 81 mg PO QAM 08/03/21 03/06/22 History release (Enteric Coated Aspirin) ferrous sulfate 325 mg (65 mg 325 mg PO BID 08/03/21 03/06/22 History iron) tablet (iron) insulin degludec 100 unit/mL (3 27 unit (0.27 mL) subcut HS #15 mL 10/27/21 03/06/22 Rx mL) subcutaneous pen (Tresiba FlexTouch U-100 insulin) atorvastatin 20 mg tablet 20 mg PO QAM #90 tabs 11/22/21 03/06/22 Rx citalopram 20 mg tablet 20 mg PO QAM #90 tabs 11/22/21 03/06/22 Rx FreeStyle Jason 2 Sensor (flash #2 ea 12/29/21 01/03/22 Rx glucose sensor) levothyroxine 75 mcg tablet 75 mcg PO DAILY #30 tabs 01/11/22 03/06/22 Rx calcitriol 0.25 mcg capsule 0.25 mcg PO QAM #90 caps 01/26/22 03/06/22 Rx (Rocaltrol) furosemide 20 mg tablet 20 mg PO QAM #90 tabs 02/26/22 03/06/22 Rx darbepoetin [place] in polysorbat 60 60 mcg subcut DIRECTED 03/06/22 03/06/22 History mcg/mL in polysorbate injection (Aranesp) Patient History Medical History (Updated 03/06/22 @ 12:38 by Oscar Brooks DO) Anemia due to chronic kidney disease Bilateral edema of lower extremity REASON FOR LASIX DAILY WEARS 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 Diabetes mellitus, type 2 GLUCOSE STABLE AND CONTROLLED Diabetic macular edema Diabetic peripheral neuropathy associated with type 2 diabetes mellitus History of depression HTN (hypertension) Hyperlipidemia Nephrotic syndrome Onychomycosis STABLE- NO ANTIFUNGALS NEEDED AT THIS TIME Surgical History Family history of reaction to anesthesia MOTHER-HARD TO "PUT TO SLEEP" History of cataract surgery RT/LEFT History of herniorrhaphy UMBILICAL History of lingual frenulectomy History of tooth extraction Hx of vasectomy Family History Father Family history of diabetes mellitus Kidney disease required HD Grandmother (Paternal) Family history of diabetes mellitus Grandfather (Maternal) Hypertension Other Myocardial infarction Denies family history of Ovarian cancer Prostate cancer Breast cancer Lung cancer Colorectal cancer Stroke Social History Smoking Status: Former smoker Tobacco Type: Cigarettes Age Quit Using Tobacco: 22; Second Hand Exposure: Yes (as a child); Hx Alcohol Use: Yes Alcohol type: hard liquor Alcohol Intake Frequency: Monthly or Less Hx Substance Use: No Preferred Language: Iranian Communication Ability: Effective Mud Mixer Helper Required: No Beliefs That Will Affect Care: Spiritual marital status: Current Living Situation: Spouse and Family current occupational status: employed 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[employer] Feels Safe at Home: Yes Childhood Exposure to Second-Hand Smoke: Yes Dental Care, Regularly: No Physical Activity Frequency: 1-2 Times per Week Physical Activity Frequency Comment: exercise bike Seatbelt Use: always Sunscreen Use: Yes Assistive Devices: None Review of Systems Review of Systems: All systems reviewed & are unremarkable except as noted in HPI & below Physical Exam Constitutional: well developed; no acute distress Eyes: no scleral abnormality and no corneal abnormality ENMT: Mouth: no oral mucosal abnormality and oral mucous membranes not dry Neck: normal visual inspection and trachea midline Respiratory: normal respiratory effort Auscultation: lungs clear to auscultation bilaterally and + rales Cardiovascular: Rate/Rhythm: regular rate Heart Sounds: normal S1 and normal S2 Extremities: + AV fistula; no edema Musculoskeletal: Extremities: no cyanosis and no clubbing Skin: + turgor decreased; no lesions Neurologic: Motor/Sensory: no tremor and no asterixis Psychiatric: Orientation: alert and oriented x 3 Results & Data ([facility]) Vital Signs (Past 12 Hours) Vital Signs Pulse Resp BP Pulse Ox Pulse Ox O2 Del Method O2 Del Method 03/06/22 06:15 69 25 H 157/84 H 97 Nasal Cannula 03/06/22 04:20 98 Nasal Cannula 03/06/22 04:15 88 L Room Air 03/06/22 04:10 74 24 153/78 H 92 Room Air 03/06/22 02:46 81 24 150/80 H 96 Room Air 03/06/22 01:33 75 17 164/91 H 97 Room Air O2 Flow Rate O2 Flow Rate 03/06/22 06:15 2 03/06/22 04:20 2 03/06/22 04:15 03/06/22 04:10 03/06/22 02:46 03/06/22 01:33 Laboratory Results Laboratory Results - last 24 hr 03/05/22 03/06/22 03/06/22 16:53 06:22 09:44 WBC 3.85 L RBC 2.44 L Hgb 7.0 L Hct 21.1 L MCV 86.5 MCH 28.7 MCHC 33.2 RDW Std Deviation 39.7 RDW Coeff of Gladys 12.4 Plt Count 145 MPV 11.4 Sodium Potassium Chloride Carbon Dioxide Anion Gap BUN Creatinine Est Cr Clr Drug Dosing Est GFR ( Amer) Est GFR (Non-Af Amer) BUN/Creatinine Ratio Glucose POC Glucose 102 H Calcium Magnesium Total Bilirubin AST ALT Alkaline Phosphatase B-Natriuretic Peptide Total Protein Albumin Globulin Albumin/Globulin Ratio Blood Type Blood Type Recheck O Positive Antibody Screen Crossmatch 03/06/22 03/06/22 03/06/22 09:44 09:44 10:58 WBC RBC Hgb Hct MCV MCH MCHC RDW Std Deviation RDW Coeff of Gladys Plt Count MPV Sodium 140 Potassium 5.4 H Chloride 110 H Carbon Dioxide 22 Anion Gap 8 BUN 77 H Creatinine 5.50 H* Est Cr Clr Drug Dosing 21.7 Est GFR ( Amer) 12.9 Est GFR (Non-Af Amer) 11.1 BUN/Creatinine Ratio 14.0 Glucose 99 POC Glucose Calcium 8.3 L Magnesium 2.1 Total Bilirubin 0.3 AST 37 ALT 37 Alkaline Phosphatase 115 H B-Natriuretic Peptide 602 H Total Protein 6.3 Albumin 3.1 L Globulin 3.2 Albumin/Globulin Ratio 1.0 Blood Type O Positive Blood Type Recheck Antibody Screen NEGATIVE Crossmatch See Detail PG Care Time/CCT Total # of Minutes Spent Total Time Spent with Patient: Total time spent is greater than 50% in coordination of care (as documented) at patient's floor/unit and/or counseling patient: Coding Level of Care Code 89155 Inpt Consult Level 4 Diagnoses Acute on chronic kidney failure N17.9; N18.9 Anemia D64.9 Influenza A J10.1 Diastolic dysfunction, left ventricle I51.9 Hyperkalemia E87.5
--- NOTE | 2022-03-06 16:46 | XCELERA ---
[id number]
[2022-03-06 16:50] LABS: BUN Creatinine Ratio 13.8 (10-20); Calcium 8.5 mg/dl (8.5-10.1); Est GFR (African American) 12.5 ml/min; Est GFR (Non-African American) 10.7 ml/min; Potassium 4.6 mmol/L (3.5-5.1)
[2022-03-06 18:42] LABS: Appearance Urine Clear (Clear); Bacteria Urine Automated Negative (Negative); Bilirubin Urine Negative (Negative); Blood Urine 2+ (Negative); Color Urine Yellow; Epithelial Cell Urine Auto >30 /lpf (0-5); Glucose Urine UA 1+ (Negative); Ketones Urine Negative (Negative); Leukocyte Esterase Urine Negative (Negative); Nitrite Urine Negative (Negative); Protein Urine 4+ (Negative); Specific Gravity Urine 1.019 (1.000-1.030); Urobilinogen Urine Negative (Negative); pH Urine 5.5 (4.5-7.5)
[2022-03-06 21:26] LABS: Troponin I High Sensitivity 2591.7 pg/ml (0-20)
[2022-03-06] MEDS: LANTUS PER UNIT CHARGE SQ SCH (21:51)
[2022-03-07] MEDS: LEVOTHYROXINE SODIUM 75 MCG TABLET PO SCH (05:35)
[2022-03-07 06:54] LABS: Hematocrit (blood only) 19.7 % (40.1-51.0); Hemoglobin 6.6 g/dl (14.0-18.0); Mean Corpuscular Hemoglobin 28.6 pg (25.0-34.0); Mean Corpuscular Hgb Conc 33.5 g/dL (32.0-36.0); Mean Corpuscular Volume 85.3 fL (80.0-100.0); Mean Platelet Volume 11.3 fL (9.4-12.4); Platelet Count 149 K/uL (130-400); RDW Coefficient of Variation 12.6 % (11.5-14.5); RDW Standard Deviation 38.9 fL (36.4-46.3); Red Blood Count 2.31 M/uL (4.63-6.08); White Blood Count 3.91 K/ul (4.8-10.8)
[2022-03-07 07:15] LABS: Basophils # (auto) 0.01 K/uL (0-0.2); Basophils % (auto) 0.3 %; Eosinophils # (auto) 0.17 K/uL (0-0.50); Eosinophils % (auto) 4.3 %; Immature Granulocytes # (auto) 0.01 K/uL (0.00-0.02); Immature Granulocytes % (auto) 0.3 %; Lymphocytes # (auto) 1.09 K/uL (1.2-3.4); Lymphocytes % (auto) 27.9 %; Monocytes # (auto) 0.41 K/uL (0.24-0.82); Monocytes % (auto) 10.5 %; Neutrophils # (auto) 2.22 K/uL (1.4-6.5); Neutrophils % (auto) 56.7 %; RBC Morphology Unremarkable
[2022-03-07 07:25] LABS: BUN Creatinine Ratio 14.6 (10-20); Calcium 7.9 mg/dl (8.5-10.1); Creatinine Clr Calc Pharmacy 20.6 ml/min; Est GFR (African American) 12.2 ml/min; Est GFR (Non-African American) 10.5 ml/min; Potassium 4.6 mmol/L (3.5-5.1)
[2022-03-07 07:28] LABS: Troponin I High Sensitivity 1474.1 pg/ml (0-20)
[2022-03-07] MEDS: INSULIN ASPART PER UNIT SC SCH ×4 (07:42→20:58)
[2022-03-07] MEDS ORDERED: SODIUM CHLORIDE 0.9% 250 ML IV PRN (08:01)
--- NOTE | 2022-03-07 09:11 | Nephrology Progress Note ---
Date of Service March 07, 2022 Assessment & Plan (1) Acute on chronic kidney failure: Plan: Advanced CKD with superimposed suspected ATN. Non-oliguric. 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 Volume status acceptable. Electrolytes controlled. Potential future indications for dialysis discussed. AVF mature for use. Document strict I/O's. Monitor metabolic profile daily. Medications appropriate for kidney dysfunction. Remains on daily calcitriol for sPTH. I discussed the plan of care this AM with Dr. Hall this AM. (2) Anemia: Plan: Venofer 200 mg IV and Epogen 96569 units provided yesterday. FOB testing ordered this AM. PRBC transfusion support to be arranged. Saurav does have an outpatient colonoscopy scheduled for April 05 which is required for pretransplant evaluation. (3) Influenza A: Plan: Hold diuretics. Encourage even to slightly positive fluid balance. (4) Diastolic dysfunction, left ventricle: Plan: Volume status acceptable. Hold diuretics. Saurav does not have decompensated CHF at this time. (5) Hyperkalemia: Plan: Low potassium diet. Patiromer provided yesterday. Potassium improved. Oral NaHCO3 added this morning for NAGMA. Admission and Anticipated Discharge Date Admission Date: March 06, 2022 Subjective No acute events overnight. Saurav was resting comfortably in bed this AM. Supplemental O2 provided while sleeping for slight drop in sats while sleeping. Denies notable dyspnea. Saurav reports more sinus congestion this AM. No fevers or chills. Appetite is good. Good urine output. Reports some chronic black stools associated with PO iron supplement. No obvious melena or hematochez ia and no recent changes in stool. Some persistent weakness. Receptive to PRBC transfusion this AM. Review of Systems Review of Systems: All systems reviewed & are unremarkable except as noted in HPI & below Physical Exam Constitutional: well developed; no acute distress Eyes: no scleral abnormality and no corneal abnormality ENMT: Mouth: no oral mucosal abnormality and oral mucous membranes not dry Neck: normal visual inspection and trachea midline Respiratory: normal respiratory effort and + tachypneic Auscultation: + rales Cardiovascular: Rate/Rhythm: regular rate Heart Sounds: normal S1, normal S2 and + murmur Extremities: + AV fistula; no edema Musculoskeletal: Extremities: no cyanosis and no clubbing Skin: + turgor decreased; no lesions Neurologic: Motor/Sensory: no tremor and no asterixis Psychiatric: Orientation: alert and oriented x 3 Results & Data ([facility]) Vital Signs (Past 12 Hours) Vital Signs Temp Pulse Resp BP Pulse Ox O2 Del Method O2 Flow Rate 03/07/22 03:00 36.6 C 76 19 139/64 96 Nasal Cannula 2 03/07/22 00:00 97 Nasal Cannula 2 03/06/22 23:32 88 L Room Air 03/06/22 23:00 36.9 C 75 18 139/55 L 95 Room Air Laboratory Results Laboratory Results - last 24 hr 03/05/22 03/06/22 03/06/22 16:53 09:44 09:44 WBC 3.85 L RBC 2.44 L Hgb 7.0 L Hct 21.1 L MCV 86.5 MCH 28.7 MCHC 33.2 RDW Std Deviation 39.7 RDW Coeff of Gladys 12.4 Plt Count 145 MPV 11.4 Immature Gran % (Auto) Neut % (Auto) Lymph % (Auto) [place] % (Auto) Eos % (Auto) Baso % (Auto) Neut # (Auto) Lymph # (Auto) [place] # (Auto) Eos # (Auto) Baso # (Auto) Immature Gran # (Auto) RBC Morphology Sodium 140 Potassium 5.4 H Chloride 110 H Carbon Dioxide 22 Anion Gap 8 BUN 77 H Creatinine 5.50 H* Est Cr Clr Drug Dosing 21.7 Est GFR ( Amer) 12.9 Est GFR (Non-Af Amer) 11.1 BUN/Creatinine Ratio 14.0 Glucose 99 POC Glucose Calcium 8.3 L Magnesium 2.1 Total Bilirubin 0.3 AST 37 ALT 37 Alkaline Phosphatase 115 H Troponin I High Sens B-Natriuretic Peptide Total Protein 6.3 Albumin 3.1 L Globulin 3.2 Albumin/Globulin Ratio 1.0 Vitamin B12 Urine Color Urine Appearance Urine pH Ur Specific [place] Urine Protein Urine Glucose (UA) Urine Ketones Urine Blood Urine Nitrite Urine Bilirubin Urine Urobilinogen Ur Leukocyte Esterase Urine WBC (Auto) Urine RBC (Auto) U Hyaline Cast (Auto) U Epithel Cells (Auto) Urine Bacteria (Auto) Blood Type Blood Type Recheck O Positive Antibody Screen Crossmatch 03/06/22 03/06/22 03/06/22 09:44 10:58 12:55 WBC RBC Hgb Hct MCV MCH MCHC RDW Std Deviation RDW Coeff of Gladys Plt Count MPV Immature Gran % (Auto) Neut % (Auto) Lymph % (Auto) [place] % (Auto) Eos % (Auto) Baso % (Auto) Neut # (Auto) Lymph # (Auto) [place] # (Auto) Eos # (Auto) Baso # (Auto) Immature Gran # (Auto) RBC Morphology Sodium Potassium Chloride Carbon Dioxide Anion Gap BUN Creatinine Est Cr Clr Drug Dosing Est GFR ( Amer) Est GFR (Non-Af Amer) BUN/Creatinine Ratio Glucose POC Glucose 118 H Calcium Magnesium Total Bilirubin AST ALT Alkaline Phosphatase Troponin I High Sens B-Natriuretic Peptide 602 H Total Protein Albumin Globulin Albumin/Globulin Ratio Vitamin B12 Urine Color Urine Appearance Urine pH Ur Specific [place] Urine Protein Urine Glucose (UA) Urine Ketones Urine Blood Urine Nitrite Urine Bilirubin Urine Urobilinogen Ur Leukocyte Esterase Urine WBC (Auto) Urine RBC (Auto) U Hyaline Cast (Auto) U Epithel Cells (Auto) Urine Bacteria (Auto) Blood Type O Positive Blood Type Recheck Antibody Screen NEGATIVE Crossmatch See Detail 03/06/22 03/06/22 03/06/22 15:59 16:44 17:30 WBC RBC Hgb Hct MCV MCH MCHC RDW Std Deviation RDW Coeff of Gladys Plt Count MPV Immature Gran % (Auto) Neut % (Auto) Lymph % (Auto) [place] % (Auto) Eos % (Auto) Baso % (Auto) Neut # (Auto) Lymph # (Auto) [place] # (Auto) Eos # (Auto) Baso # (Auto) Immature Gran # (Auto) RBC Morphology Sodium 139 Potassium 4.6 Chloride 109 H Carbon Dioxide 22 Anion Gap 8 BUN 78 H Creatinine 5.66 H* Est Cr Clr Drug Dosing 21.0 Est GFR ( Amer) 12.5 Est GFR (Non-Af Amer) 10.7 BUN/Creatinine Ratio 13.8 Glucose 91 POC Glucose 107 H Calcium 8.5 Magnesium Total Bilirubin AST ALT Alkaline Phosphatase Troponin I High Sens 2591.7 H* B-Natriuretic Peptide Total Protein Albumin Globulin Albumin/Globulin Ratio Vitamin B12 Urine Color Yellow Urine Appearance Clear Urine pH 5.5 Ur Specific [place] 1.019 Urine Protein 4+ H Urine Glucose (UA) 1+ H Urine Ketones Negative Urine Blood 2+ H Urine Nitrite Negative Urine Bilirubin Negative Urine Urobilinogen Negative Ur Leukocyte Esterase Negative Urine WBC (Auto) 1-5 Urine RBC (Auto) 5-10 H U Hyaline Cast (Auto) 5-10 H U Epithel Cells (Auto) >30 H Urine Bacteria (Auto) Negative Blood Type Blood Type Recheck Antibody Screen Crossmatch 03/06/22 03/06/22 03/07/22 20:08 22:34 06:20 WBC RBC Hgb Hct MCV MCH MCHC RDW Std Deviation RDW Coeff of Gladys Plt Count MPV Immature Gran % (Auto) Neut % (Auto) Lymph % (Auto) [place] % (Auto) Eos % (Auto) Baso % (Auto) Neut # (Auto) Lymph # (Auto) [place] # (Auto) Eos # (Auto) Baso # (Auto) Immature Gran # (Auto) RBC Morphology Sodium Potassium Chloride Carbon Dioxide Anion Gap BUN Creatinine Est Cr Clr Drug Dosing Est GFR ( Amer) Est GFR (Non-Af Amer) BUN/Creatinine Ratio Glucose POC Glucose 106 H Calcium Magnesium Total Bilirubin AST ALT Alkaline Phosphatase Troponin I High Sens 1977.7 H* D B-Natriuretic Peptide Total Protein Albumin Globulin Albumin/Globulin Ratio Vitamin B12 900 Urine Color Urine Appearance Urine pH Ur Specific [place] Urine Protein Urine Glucose (UA) Urine Ketones Urine Blood Urine Nitrite Urine Bilirubin Urine Urobilinogen Ur Leukocyte Esterase Urine WBC (Auto) Urine RBC (Auto) U Hyaline Cast (Auto) U Epithel Cells (Auto) Urine Bacteria (Auto) Blood Type Blood Type Recheck Antibody Screen Crossmatch 03/07/22 03/07/22 03/07/22 06:20 06:20 07:56 WBC 3.91 L RBC 2.31 L Hgb 6.6 L* Hct 19.7 L* MCV 85.3 MCH 28.6 MCHC 33.5 RDW Std Deviation 38.9 RDW Coeff of Gladys 12.6 Plt Count 149 MPV 11.3 Immature Gran % (Auto) 0.3 Neut % (Auto) 56.7 Lymph % (Auto) 27.9 [place] % (Auto) 10.5 Eos % (Auto) 4.3 Baso % (Auto) 0.3 Neut # (Auto) 2.22 Lymph # (Auto) 1.09 L [place] # (Auto) 0.41 Eos # (Auto) 0.17 Baso # (Auto) 0.01 Immature Gran # (Auto) 0.01 RBC Morphology Unremarkable Sodium 139 Potassium 4.6 Chloride 111 H Carbon Dioxide 20 L Anion Gap 8 BUN 84 H Creatinine 5.75 H* Est Cr Clr Drug Dosing 20.6 Est GFR ( Amer) 12.2 Est GFR (Non-Af Amer) 10.5 BUN/Creatinine Ratio 14.6 Glucose 80 POC Glucose 90 Calcium 7.9 L Magnesium 2.0 Total Bilirubin AST ALT Alkaline Phosphatase Troponin I High Sens 1474.1 H* D B-Natriuretic Peptide Total Protein Albumin Globulin Albumin/Globulin Ratio Vitamin B12 Urine Color Urine Appearance Urine pH Ur Specific [place] Urine Protein Urine Glucose (UA) Urine Ketones Urine Blood Urine Nitrite Urine Bilirubin Urine Urobilinogen Ur Leukocyte Esterase Urine WBC (Auto) Urine RBC (Auto) U Hyaline Cast (Auto) U Epithel Cells (Auto) Urine Bacteria (Auto) Blood Type Blood Type Recheck Antibody Screen Crossmatch PG Care Time/CCT Total # of Minutes Spent Total Time Spent with Patient: Total time spent is greater than 50% in coordination of care (as documented) at patient's floor/unit and/or counseling patient: Coding Level of Care Code 90246 Subseq Hosp Care Lvl 3 Diagnoses Acute on chronic kidney failure N17.9; N18.9 Anemia D64.9 Influenza A J10.1 Diastolic dysfunction, left ventricle I51.9 Hyperkalemia E87.5
[2022-03-07] MEDS: CALCITRIOL 0.25 MCG CAPSULE PO SCH (09:18)
[2022-03-07] MEDS: ASPIRIN 81 MG ECTAB PO SCH (09:18)
[2022-03-07] MEDS: CITALOPRAM 20 MG TAB PO SCH (09:18)
[2022-03-07] MEDS: ATORVASTATIN 20 MG TAB PO SCH (09:18)
[2022-03-07] MEDS: MULTIVITAMIN TAB PO SCH (09:19)
[2022-03-07] MEDS: SODIUM BICARBONATE 650 MG TAB PO SCH ×2 (09:19→20:38)
[2022-03-07] MEDS: amLODIPine BESYLATE 5 MG TAB PO SCH (09:21)
--- NOTE | 2022-03-07 10:03 | Cardiology Consultation ---
Date of Consultation March 07, 2022 Assessment & Plan (1) Myocardial necrosis: 2. Presumed CAD with prior apical septal wall motion abnormality on stress, prior resting echo 3. Advanced CKD approaching dialysis 4. Type 2 diabetes 5. Anemia 6. Hypertension Patient has downtrending HS TropI without new chest pain or EKG changes. LV function preserved on repeat echo. On exam no signs of heart failure and he has remained hemodynamically and electrically stable during admission. Suspicion for high risk ACS is low. Suspect troponin likely secondary to suspected chronic CAD (single-vessel LAD disease by prior stress echo), recent flu, progressive anemia and advanced acute on chronic CKD. Should have cardiac catheterization to define coronary anatomy at some point but no need acutely. 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 In the interim continue aspirin, statin (increasing atorvastatin to 80mg previously suggested), amlodipine. Would also suggest adding beta-geovanny. Please contact if new issues arise. 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 Patient is followed by Dr. Ken as an outpatient. Has presumed CAD with prior echo 04/2021 showing apical/septal hypokinesis and prior exercise stress echo 06/2021 showing exercise-induced apical septal hypokinesis (4:13, 7 METS, 68% MPHR). Prior catheterization deferred in the setting of CKD. He is being evaluated for kidney transplant at [facility]. Discussion has been had about obtaining cardiac cath at some point. Also has colonoscopy pending. Admitted currently after outpatient labs showed worsened anemia (hemoglobin down to 7.5, subsequently down to 7 and 6.6 today) and acute on chronic renal insufficiency (SCR from 4.4 up to 5.7). Labs obtained in the setting of influenza A infection. Endorses recent generalized fatigue but no chest pain, palpitations. No significant worsening shortness of breath. No edema, presyncope. No obvious bleeding. While admitted HS TropI checked and elevated initially at 2500 downtrending to 1400. ECG sinus rhythm, no ST abnormalities. Repeat echocardiogram showed normal biventricular function,, no regional wall motion abnormalities, LVH, mild to moderate pulmonary hypertension. Has remained chest pain-free. Telemetry unremarkable. Allergies Allergy/AdvReac Type Severity Reaction Status Date / Time ANKUR Inhibitors AdvReac Intermediate Cough Verified 03/06/22 00:05 lisinopril AdvReac Intermediate cough Verified 03/06/22 00:05 sertraline [From Zoloft] AdvReac Intermediate SUPRESSED Verified 03/06/22 00:05 APPETITE Home Medications Medication Instructions Recorded Confirmed Type multivitamin 1 tab PO QAM 02/19/20 03/06/22 History blood-glucose meter (Accu-Chek #1 ea 02/24/20 01/03/22 Rx Guide Glucose Meter) pen needle, diabetic 31 gauge x #200 ea 03/01/20 01/03/22 Rx 5/16" (BD Ultra-Fine Short Pen Needle) cetirizine 10 mg tablet (Zyrtec) 10 mg PO DAILY PRN Allergy Symptoms 03/25/20 03/06/22 History blood sugar diagnostic (Accu-Chek 04/25/20 01/03/22 History Guide test strips) insulin aspart U-100 100 unit/mL See Rx Instructions subcut 05/12/20 03/06/22 Rx (3 mL) subcutaneous pen (Novolog .COMPLEX #15 mL Flexpen U-100 Insulin aspart) amlodipine 5 mg tablet 5 mg PO QAM 08/03/21 03/06/22 History aspirin 81 mg tablet,delayed 81 mg PO QAM 08/03/21 03/06/22 History release (Enteric Coated Aspirin) ferrous sulfate 325 mg (65 mg 325 mg PO BID 08/03/21 03/06/22 History iron) tablet (iron) insulin degludec 100 unit/mL (3 27 unit (0.27 mL) subcut HS #15 mL 10/27/21 03/06/22 Rx mL) subcutaneous pen (Tresiba FlexTouch U-100 insulin) atorvastatin 20 mg tablet 20 mg PO QAM #90 tabs 11/22/21 03/06/22 Rx citalopram 20 mg tablet 20 mg PO QAM #90 tabs 11/22/21 03/06/22 Rx FreeStyle Jason 2 Sensor (flash #2 ea 10/14/22 10/19/22 Rx glucose sensor) levothyroxine 75 mcg tablet 75 mcg PO DAILY #30 tabs 01/11/22 03/06/22 Rx calcitriol 0.25 mcg capsule 0.25 mcg PO QAM #90 caps 01/26/22 03/06/22 Rx (Rocaltrol) furosemide 20 mg tablet 20 mg PO QAM #90 tabs 02/26/22 03/06/22 Rx darbepoetin [place] in polysorbat 60 60 mcg subcut DIRECTED 03/06/22 03/06/22 History mcg/mL in polysorbate injection (Aranesp) Patient History Medical History (Updated 03/07/22 @ 10:18 by Feliberto Barger MD) Anemia due to chronic kidney disease Bilateral edema of lower extremity REASON FOR LASIX DAILY WEARS 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 Diabetes mellitus, type 2 GLUCOSE STABLE AND CONTROLLED Diabetic macular edema Diabetic peripheral neuropathy associated with type 2 diabetes mellitus History of depression HTN (hypertension) Hyperlipidemia Nephrotic syndrome Onychomycosis STABLE- NO ANTIFUNGALS NEEDED AT THIS TIME Surgical History Family history of reaction to anesthesia MOTHER-HARD TO "PUT TO SLEEP" History of cataract surgery RT/LEFT History of herniorrhaphy UMBILICAL History of lingual frenulectomy History of tooth extraction Hx of vasectomy Family History Father Family history of diabetes mellitus Kidney disease required HD Grandmother (Paternal) Family history of diabetes mellitus Grandfather (Maternal) Hypertension Other Myocardial infarction Denies family history of Ovarian cancer Prostate cancer Breast cancer Lung cancer Colorectal cancer Stroke Social History Smoking Status: Former smoker Tobacco Type: Cigarettes Age Quit Using Tobacco: 22; Second Hand Exposure: Yes (as a child); Hx Alcohol Use: Yes Alcohol type: hard liquor Alcohol Intake Frequency: Monthly or Less Hx Substance Use: No Preferred Language: Luxembourgish Communication Ability: Effective Barrel Cleaner Required: No Beliefs That Will Affect Care: Spiritual marital status: Current Living Situation: Spouse and Family current occupational status: employed 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 Vascular: 2+ radial on right. Left radiocephalic fistula with palpable thrill Abdomen: Soft, nontender Extremities: Well perfused, no peripheral edema Neuro: Nonfocal Psych: Alert orient x3, normal affect and mood Results & Data ([facility]) Vital Signs (Past 12 Hours) Vital Signs Temp Pulse Pulse Resp BP BP Pulse Ox 03/07/22 09:50 97.7 F 61 16 149/66 H 100 03/07/22 09:30 98.1 F 60 14 156/67 H 100 03/07/22 09:30 98.6 F 03/07/22 03:00 97.9 F 76 19 139/64 96 03/07/22 00:00 97 03/06/22 23:32 88 L 03/06/22 23:00 98.4 F 75 18 139/55 L 95 O2 Del Method O2 Flow Rate 03/07/22 09:50 03/07/22 09:30 03/07/22 09:30 03/07/22 03:00 Nasal Cannula 2 03/07/22 00:00 Nasal Cannula 2 03/06/22 23:32 Room Air 03/06/22 23:00 Room Air PG Care Time/CCT Total # of Minutes Spent Total Time Spent with Patient: Total time spent is greater than 50% in coordination of care (as documented) at patient's floor/unit and/or counseling patient: Coding Level of Care Code 23302 Inpt Consult Level 4 Diagnoses Myocardial necrosis I21.3
[2022-03-07] MEDS ORDERED: NORMOSOL-R 1,000 ML IV SCH (16:45)
[2022-03-07 17:15] LABS: Hematocrit (blood only) 22.4 % (40.1-51.0); Hemoglobin 7.5 g/dl (14.0-18.0); Mean Corpuscular Hemoglobin 28.6 pg (25.0-34.0); Mean Corpuscular Hgb Conc 33.5 g/dL (32.0-36.0); Mean Corpuscular Volume 85.5 fL (80.0-100.0); Mean Platelet Volume 11.2 fL (9.4-12.4); Platelet Count 151 K/uL (130-400); RDW Coefficient of Variation 12.7 % (11.5-14.5); RDW Standard Deviation 39.2 fL (36.4-46.3); Red Blood Count 2.62 M/uL (4.63-6.08); White Blood Count 4.29 K/ul (4.8-10.8)
[2022-03-07 17:45] LABS: BUN Creatinine Ratio 14.1 (10-20); Calcium 8.5 mg/dl (8.5-10.1); Creatinine Clr Calc Pharmacy 21.4 ml/min; Est GFR (African American) 12.8 ml/min; Est GFR (Non-African American) 11.1 ml/min; Potassium 4.4 mmol/L (3.5-5.1)
--- NOTE | 2022-03-07 18:02 | Hospitalist Progress Note ---
Date of Service March 07, 2022 Assessment & Plan (1) Influenza A: Plan: Patient with PMHx significant for HTN/HLD, DM II, CKD4, hx nephrotic syndrome, anemia, depression presented after feeling terrible for 3 days at home with cough/fever 102F, and productive cough starting sat/sun w/ scant blood tinged sputum after heavy coughing. Had been taking Mucinex/Tylenol for congestion/drinking 6-8 cups H20 daily and had labs done after calling nephrology and found to have STEVEN. Chronic fatigue w/ anemia, increased w/ the flu Tamiflu deferred on admission - I see no reason to start it now Isolation precautions added Continue incentive spirometer Monitor for secondary bacterial infection (2) Acute on chronic kidney failure: Plan: acute kidney injury on CKD IV, follows with Dr Yen --CKD due to DKD and hypertensive nephrosclerosis, has to have c-scope and then will be on transplant list Had AV fistula creation to L forearm, mature if needed Main reason for admission after noting STEVEN on outpatient labs 1L normosol @ 80ml/hr as discussed with nephrology - plan to run a slightly positive balance and currently slightly negative Sodium bicarbonate started by nephrology Appreciate nephrology ongoing management of this (3) Anemia due to chronic kidney disease: Plan: FOB ordered - if negative consider heparin for VTE Prophylaxis 1 units packed RBCs 03/07, will repeat Hgb following this Venofer and EPO per nephrology (4) Diastolic dysfunction, left ventricle: Plan: Running a negative balance of -200ml If anything he is on the slightly dryer side on exam. Will give 1L normosol @ 80ml/hr Doubtful he will need much more than this as long as he is drinking well Continue strict I&Os Lfuid issue is more because of his CKD than heart (5) Diabetes mellitus type 2, uncontrolled, with complications: Plan: Last A1c 5.7 in July (had been 11.1 in 2019) Home regimen : insulin degludec 27 units at bedtime, SSI Holding home regimen, continues on basal 27U, SSI while inpatient BSGs acceptable, monitor - may need reduction if he has any true hypoglycemia (6) HTN (hypertension): Plan: Continues on amlodipine 5mg Start carvedilol (per cardiology recommendations) and up titrate as able (7) Hyperlipidemia: Plan: Increase atorvastatin to 80mg PO daily per cardiology - discussed with patient 03/07 (8) Hypothyroidism: Plan: TSH wnl on repeat -- continue levothyroxine 75 mcg PO daily (9) Hyperkalemia: Plan: Resolved secondary to STEVEN Plan VTE Prophylaxis - deferred given worsening anemia - consider starting heparin if Hgb stabilizes Diet - dialysis renal, T2DM Disposition - continued admission on PCU pending improvement in renal function and anemia Admission and Anticipated Discharge Date Admission Date: March 06, 2022 Subjective No acute concerns or questions from the patient. He reports his legs are usually a lot more swollen. No shortness of breath, chest pain or dizziness. Never had a blood transfusion but willing to have this today. He denies any melena or bright red blood in stool. Blood consent discussed and signed. Review of Systems Review of Systems: All systems reviewed & are unremarkable except as noted in Subjective Physical Exam Constitutional: WD/WN, vitals as above Respiratory: normal respiratory effort; no respiratory distress Auscultation: + diminished lung sounds; no crackles, no rales, no rhonchi and no wheezes Cardiovascular: Rate/Rhythm: regular rate and regular rhythm Heart Sounds: no murmur Vessels: no JVD Extremities: normal capillary refill and + pedal edema (trace b/l equal); no calf tenderness Gastrointestinal (Abdomen): normal bowel sounds, soft, nontender, no hepatosplenomegaly Musculoskeletal: no cyanosis or clubbing, extremities motor strength 5/5 Skin: no rashes, warm and dry Neurologic: moves all extremities and awake; no focal motor deficits and not confused Psychiatric: A+Ox3, euthymic affect Results & Data Results & Data ([facility]) Vital Signs (Past 12 Hours) Vital Signs Temp Pulse Pulse Resp BP BP Pulse Ox 03/07/22 16:25 36.8 C 70 18 151/74 H 98 03/07/22 15:42 60 03/07/22 11:38 36.6 C 60 16 155/74 H 98 03/07/22 11:34 36.5 C 60 16 162/77 H 98 03/07/22 10:34 36.5 C 61 16 157/70 H 98 03/07/22 10:04 37.0 C 63 14 156/70 H 98 03/07/22 09:50 36.5 C 61 16 149/66 H 100 03/07/22 09:30 36.7 C 60 14 156/67 H 100 03/07/22 09:30 37.0 C O2 Del Method 03/07/22 16:25 Room Air 03/07/22 15:42 03/07/22 11:38 03/07/22 11:34 03/07/22 10:34 03/07/22 10:04 03/07/22 09:50 03/07/22 09:30 03/07/22 09:30 PG Care Time/CCT Total # of Minutes Spent Total Time Spent with Patient: Total time spent is greater than 50% in coordination of care (as documented) at patient's floor/unit and/or counseling patient: Coding Level of Care Code 17735 Subseq Hosp Care Lvl 3 Diagnoses Influenza A J10.1 Acute on chronic kidney failure N17.9; N18.9 Anemia due to chronic kidney disease N18.9; D63.1 Diastolic dysfunction, left ventricle I51.9 Diabetes mellitus type 2, uncontrolled, with complications E11.8; E11.65 HTN (hypertension) I10 Hyperlipidemia E78.5 Hypothyroidism E03.9 Hyperkalemia E87.5
[2022-03-07] MEDS: carvediloL 3.125 MG TAB PO SCH (20:36)
[2022-03-07] MEDS: LANTUS PER UNIT CHARGE SQ SCH (20:58)
[2022-03-08] MEDS: LEVOTHYROXINE SODIUM 75 MCG TABLET PO SCH (05:06)
[2022-03-08 06:46] LABS: BUN Creatinine Ratio 16.2 (10-20); Calcium 7.8 mg/dl (8.5-10.1); Creatinine Clr Calc Pharmacy 22.5 ml/min; Est GFR (African American) 13.6 ml/min; Est GFR (Non-African American) 11.7 ml/min; Potassium 4.2 mmol/L (3.5-5.1)
[2022-03-08 07:08] LABS: Basophils # (auto) 0.01 K/uL (0-0.2); Basophils % (auto) 0.2 %; Eosinophils # (auto) 0.17 K/uL (0-0.50); Eosinophils % (auto) 4.1 %; Hematocrit (blood only) 21.3 % (40.1-51.0); Hemoglobin 7.1 g/dl (14.0-18.0); Immature Granulocytes # (auto) 0.01 K/uL (0.00-0.02); Immature Granulocytes % (auto) 0.2 %; Lymphocytes # (auto) 1.17 K/uL (1.2-3.4); Lymphocytes % (auto) 28.1 %; Mean Corpuscular Hemoglobin 28.5 pg (25.0-34.0); Mean Corpuscular Hgb Conc 33.3 g/dL (32.0-36.0); Mean Corpuscular Volume 85.5 fL (80.0-100.0); Mean Platelet Volume 11.3 fL (9.4-12.4); Monocytes # (auto) 0.43 K/uL (0.24-0.82); Monocytes % (auto) 10.3 %; Neutrophils # (auto) 2.37 K/uL (1.4-6.5); Neutrophils % (auto) 57.1 %; Platelet Count 151 K/uL (130-400); RDW Coefficient of Variation 12.8 % (11.5-14.5); RDW Standard Deviation 39.6 fL (36.4-46.3); Red Blood Count 2.49 M/uL (4.63-6.08); White Blood Count 4.16 K/ul (4.8-10.8)
[2022-03-08 07:33] LABS: Polychromasia 1+
[2022-03-08] MEDS: INSULIN ASPART PER UNIT SC SCH ×2 (08:10→12:17)
[2022-03-08] MEDS: amLODIPine BESYLATE 5 MG TAB PO SCH (08:11)
[2022-03-08] MEDS: MULTIVITAMIN TAB PO SCH (08:11)
[2022-03-08] MEDS: CALCITRIOL 0.25 MCG CAPSULE PO SCH (08:12)
[2022-03-08] MEDS: carvediloL 3.125 MG TAB PO SCH (08:12)
[2022-03-08] MEDS: ASPIRIN 81 MG ECTAB PO SCH (08:12)
[2022-03-08] MEDS: CITALOPRAM 20 MG TAB PO SCH (08:12)
[2022-03-08] MEDS: SODIUM BICARBONATE 650 MG TAB PO SCH (08:13)
[2022-03-08] MEDS ORDERED: ATORVASTATIN 40 MG TAB PO SCH (09:00)
--- NOTE | 2022-03-08 11:04 | Discharge Summary ---
Date of Service March 08, 2022 Principal Diagnosis Influenza A, acute on chronic kidney disease stage IV Discharge Exam General-alert and oriented x3, no fevers, no chills HEENT-head atraumatic and normocephalic, pupils equal and reactive to light, extraocular muscles intact Neck-no lymphadenopathy or thyromegaly, trachea midline Chest-clear to auscultation percussion. No rales wheezing or rhonchi Cardiac-regular rate and rhythm, normal S1 and S2 Abdomen-normal bowel sounds, nontender, no hepatosplenomegaly Extremities-no cyanosis, clubbing, or edema Neuro-cranial nerves II through XII intact, motor and sensory function within normal limits, strength symmetrical , no focal deficits Psych-normal affect, normal mood Discharge Data Allergies Allergy/AdvReac Type Severity Reaction Status Date / Time ANKUR Inhibitors AdvReac Intermediate Cough Verified 03/06/22 00:05 lisinopril AdvReac Intermediate cough Verified 03/06/22 00:05 sertraline [From Zoloft] AdvReac Intermediate SUPRESSED Verified 03/06/22 00:05 APPETITE Consultations 03/06/22 00:33 ED Decision to Admit Stat 03/06/22 02:36 Consult Nephrology Routine 03/06/22 18:21 Consult Cardiology Routine Hospital Course (1) Influenza A: Minimal symptoms at this point. Symptomatic treatment as necessary (2) Acute on chronic kidney failure: Improved. Creatinine trending down to 5.2. Overall stable. This can be further managed and followed as an outpatient. Appreciate nephrology consultation and recommendations. (3) Anemia due to chronic kidney disease: Due to chronic renal failure. He received 1 units packed RBCs 03/07. Venofer and EPO per nephrology (4) Diastolic dysfunction, left ventricle: No overt CHF at this time. Monitor intake and output. (5) Diabetes mellitus type 2, uncontrolled, with complications: Last A1c 5.7 in July. Home regimen : insulin degludec 27 units at bedtime, SSI. Will resume home regimen at discharge. Controlled (6) HTN (hypertension): Treated with amlodipine 5mg. Cardiology started carvedilol. (7) Hyperlipidemia: Increase atorvastatin to 80mg PO daily per cardiology (8) Hypothyroidism: TSH wnl . Continue levothyroxine 75 mcg PO daily (9) Hyperkalemia: Resolved. Secondary to STEVEN Plan Disposition -discharge to home today, March 08 Total Time Total Time Spent Total Time Spent (In Minutes): 35 minutes Discharge Plan Discharge Items Patient Disposition: Home - Self-Care Reason For Visit: FLUA, STEVEN ON CKD4 Discharge Diagnosis: Influenza A, acute on chronic kidney disease stage IV Activity: Resume your previous activity Non-emergency contact: Primary Care Provider and Pricing Clerk Call non-emergency contact if: you have any medication questions and your symptoms worsen Follow-up/Referrals: Mitul Burciaga MD [Primary Care Provider] - Diet: Carb Consistent or DM2, Dialysis Renal and Heart Healthy Addtl Attending Provider Instructions: Follow-up with primary care provider and nephrology Pending Studies at Discharge: No Stand-Alone Forms: My [employer], Smoking Cessation Medications and DC Order Prescriptions: New atorvastatin 40 mg Tablet 80 mg PO QAM Qty: 30 0RF carvedilol 3.125 mg Tablet 3.125 mg PO BID Qty: 60 0RF sodium bicarbonate 650 mg Tablet 1,300 mg PO BID Qty: 60 0RF Continued (DME) pen needle, diabetic [BD Ultra-Fine Short Pen Needle] 31 gauge x 5/16" needle See Rx Instructions .ROUTE .MEDSUPPLY Qty: 200 5RF Rx Instructions: use 1 pen needle 5 times daily for insulin injection dx E11.9 Tresiba FlexTouch U-100 100 unit/mL (3 mL) insulin pen 27 unit subcut HS Qty: 15 1RF (DME) FreeStyle Jason 2 Sensor Kit See Rx Instructions .ROUTE .MEDSUPPLY Qty: 2 6RF Rx Instructions: As directed, replace every 14 days levothyroxine 75 mcg tablet 75 mcg PO DAILY Qty: 30 1RF calcitriol [Rocaltrol] 0.25 mcg capsule 0.25 mcg PO QAM Qty: 90 3RF furosemide 20 mg tablet 20 mg PO QAM Qty: 90 3RF (DME) blood-glucose meter [Accu-Chek Guide Glucose Meter] Misc See Rx Instructions .ROUTE .MEDSUPPLY Qty: 1 0RF Rx Instructions: As directed (DME) Accu-Chek Guide test strips Strip See Rx Instructions .ROUTE .MEDSUPPLY Rx Instructions: test 3 times daily cetirizine [Zyrtec] 10 mg tablet 10 mg PO DAILY PRN (Reason: Allergy Symptoms) insulin aspart U-100 [Novolog Flexpen U-100 Insulin] 100 unit/mL (3 mL) insulin pen See Rx Instructions subcut .COMPLEX Qty: 15 6RF Rx Instructions: subcut inject based on carbohydrate ratio and sliding scale up to 30 units a day; citalopram 20 mg tablet 20 mg PO QAM Qty: 90 1RF multivitamin Tablet 1 tab PO QAM ferrous sulfate [iron] 325 mg (65 mg iron) Tablet 325 mg PO BID amlodipine 5 mg tablet 5 mg PO QAM aspirin [Enteric Coated Aspirin] 81 mg tablet,delayed release (DR/EC) 81 mg PO QAM Aranesp (in polysorbate) 60 mcg/mL solution 60 mcg subcut DIRECTED Discontinued atorvastatin 20 mg tablet 20 mg PO QAM Qty: 90 1RF Discharge Orders: Discharge Order (Routine); Ordered 03/08/22 Ordered By: Rodo Mckeon Admission Data Admit Date/Time: 03/06/22 01:20 Attending Provider: Rodo Mckeon Admit Provider: Estevan Mariano Primary Care Provider: Mitul Burciaga V. Other Providers: Mj Yen ; Estevan Mariano ; Zeeshan Gonzalez Coding Level of Care Code D/C DAY MANAGEMENT >30 MINS Diagnoses Influenza A J10.1 Acute on chronic kidney failure N17.9; N18.9 Anemia due to chronic kidney disease N18.9; D63.1 Diastolic dysfunction, left ventricle I51.9 Diabetes mellitus type 2, uncontrolled, with complications E11.8; E11.65 HTN (hypertension) I10 Hyperlipidemia E78.5 Hypothyroidism E03.9 Hyperkalemia E87.5
--- NOTE | 2022-03-08 11:45 | Nephrology Progress Note ---
Date of Service March 08, 2022 Assessment & Plan (1) Acute on chronic kidney failure: Plan: Advanced CKD with superimposed suspected ATN. Non-oliguric. No emergent indication for PANTS CLOSER at this time. Volume status acceptable. Electrolytes controlled. Potential future indications for dialysis discussed. AVF mature for use. If Hgb is stable and given that Saurav otherwise feels well, discharge with close outpatient follow up in the clinic would be acceptable from a nephrology standpoint. Medications appropriate for kidney dysfunction. Remains on daily calcitriol for sPTH. (2) Anemia: Plan: Venofer 200 mg IV and Epogen 68088 units provided 03/06. Additional 200 mg IV venofer today. PRBC transfusion support provided yesterday. No BM for FOB testing. Outpatient colonoscopy scheduled for April 05 which is required for pretransplant evaluation. (3) Influenza A: Plan: Hold diuretics. Encourage even to slightly positive fluid balance. Tolerating adequate PO intake. No additional IVF to be provided at this time. (4) Diastolic dysfunction, left ventricle: Plan: Volume status acceptable. Hold diuretics. Saurav does not have decompensated CHF at this time. (5) Hyperkalemia: Plan: Low potassium diet. Potassium improved with patiromer. Continue oral NaHCO3 for NAGMA. Admission and Anticipated Discharge Date Admission Date: March 06, 2022 Subjective No acute events overnight. Overall, Saurav feels well this AM. He is breathi ng comfortably. He denies fevers or chills. Appetite is good. He feels like he is ready to return home. He denies melena or hematochezia. No abdominal pain or discomfort. Review of Systems Review of Systems: All systems reviewed & are unremarkable except as noted in HPI & below Physical Exam Constitutional: well developed; no acute distress Eyes: no scleral abnormality and no corneal abnormality ENMT: Mouth: no oral mucosal abnormality and oral mucous membranes not dry Neck: normal visual inspection and trachea midline Respiratory: normal respiratory effort Auscultation: lungs clear to auscultation bilaterally and + rales Cardiovascular: Rate/Rhythm: regular rate Heart Sounds: normal S1, normal S2 and + murmur Extremities: + AV fistula; no edema Musculoskeletal: Extremities: no cyanosis and no clubbing Skin: + turgor decreased; no lesions Neurologic: Motor/Sensory: no tremor and no asterixis Psychiatric: Orientation: alert and oriented x 3 Results & Data ([facility]) Vital Signs (Past 12 Hours) Vital Signs Temp Pulse Pulse Resp BP Pulse Ox O2 Del Method 03/08/22 11:08 36.3 C L 63 19 152/73 H 99 03/08/22 10:35 36.3 C L 63 19 152/73 H 99 Room Air 03/08/22 07:34 65 03/08/22 07:23 36.5 C 62 19 140/64 96 Room Air 03/08/22 03:30 37.1 C 64 18 151/71 H 98 Room Air 03/08/22 00:03 36.6 C 65 16 160/80 H 98 Room Air Laboratory Results Laboratory Results - last 24 hr 03/07/22 03/07/22 03/07/22 16:17 16:52 16:52 WBC 4.29 L RBC 2.62 L Hgb 7.5 L Hct 22.4 L MCV 85.5 MCH 28.6 MCHC 33.5 RDW Std Deviation 39.2 RDW Coeff of Gladys 12.7 Plt Count 151 MPV 11.2 Immature Gran % (Auto) Neut % (Auto) Lymph % (Auto) Carson % (Auto) Eos % (Auto) Baso % (Auto) Neut # (Auto) Lymph # (Auto) Carson # (Auto) Eos # (Auto) Baso # (Auto) Immature Gran # (Auto) Polychromasia Sodium 139 Potassium 4.4 Chloride 110 H Carbon Dioxide 20 L Anion Gap 9 BUN 78 H Creatinine 5.53 H* Est Cr Clr Drug Dosing 21.4 Est GFR ( Amer) 12.8 Est GFR (Non-Af Amer) 11.1 BUN/Creatinine Ratio 14.1 Glucose 104 H POC Glucose 133 H Calcium 8.5 03/07/22 03/08/22 03/08/22 20:44 06:05 06:08 WBC 4.16 L RBC 2.49 L Hgb 7.1 L Hct 21.3 L MCV 85.5 MCH 28.5 MCHC 33.3 RDW Std Deviation 39.6 RDW Coeff of Gladys 12.8 Plt Count 151 MPV 11.3 Immature Gran % (Auto) 0.2 Neut % (Auto) 57.1 Lymph % (Auto) 28.1 Carson % (Auto) 10.3 Eos % (Auto) 4.1 Baso % (Auto) 0.2 Neut # (Auto) 2.37 Lymph # (Auto) 1.17 L Carson # (Auto) 0.43 Eos # (Auto) 0.17 Baso # (Auto) 0.01 Immature Gran # (Auto) 0.01 Polychromasia 1+ Sodium 138 Potassium 4.2 Chloride 110 H Carbon Dioxide 20 L Anion Gap 8 BUN 85 H Creatinine 5.26 H* Est Cr Clr Drug Dosing 22.5 Est GFR ( Amer) 13.6 Est GFR (Non-Af Amer) 11.7 BUN/Creatinine Ratio 16.2 Glucose 88 POC Glucose 102 H Calcium 7.8 L 03/08/22 03/08/22 07:17 11:06 WBC RBC Hgb Hct MCV MCH MCHC RDW Std Deviation RDW Coeff of Gladys Plt Count MPV Immature Gran % (Auto) Neut % (Auto) Lymph % (Auto) Carson % (Auto) Eos % (Auto) Baso % (Auto) Neut # (Auto) Lymph # (Auto) Carson # (Auto) Eos # (Auto) Baso # (Auto) Immature Gran # (Auto) Polychromasia Sodium Potassium Chloride Carbon Dioxide Anion Gap BUN Creatinine Est Cr Clr Drug Dosing Est GFR ( Amer) Est GFR (Non-Af Amer) BUN/Creatinine Ratio Glucose POC Glucose 83 116 H Calcium PG Care Time/CCT Total # of Minutes Spent Total Time Spent with Patient: Total time spent is greater than 50% in coordination of care (as documented) at patient's floor/unit and/or counseling patient: Coding Level of Care Code 10198 Subseq Hosp Care Lvl 3 Diagnoses Acute on chronic kidney failure N17.9; N18.9 Anemia D64.9 Influenza A J10.1 Diastolic dysfunction, left ventricle I51.9 Hyperkalemia E87.5
[2022-03-08] MEDS ORDERED: IRON SUCROSE 200 MG in SODIUM CHLORIDE 0.9% 250 ML IV ONE (12:00)
--- NOTE | 2022-03-08 23:34 | Electrocardiogram Report ---
Test Reason : Blood Pressure : / mmHG Vent. Rate : 072 BPM Atrial Rate : 072 BPM P-R Int : 126 ms QRS Dur : 084 ms QT Int : 416 ms P-R-T Axes : 042 014 065 degrees QTc Int : 455 ms Normal sinus rhythm Possible Left atrial enlargement Low voltage QRS Septal infarct , age undetermined Abnormal ECG When compared with ECG of 07-AUG-2021 09:26, QRS voltage has decreased Septal infarct is now Present Confirmed by Zeeshan Gonzalez ([id number]) on 03/08/2022 11:34:38 PM Referred By: Mitul Bae Confirmed By:Zeeshan Gonzalez
== END 2022-03-08 12:56 | disposition home or self-care (01) | DRG 193 ==
LOC: ED 23:12 → SUATTDRO 03-06 01:20 → EDINP 03-06 01:20 → 2S 03-06 02:36

== ENCOUNTER 2022-04-20 10:47 | Observation (INO) ==
[2022-04-20] MEDS ORDERED: SODIUM CHLORIDE 0.9% 1000ML 1,000 ML IV ONE (11:35)
--- NOTE | 2022-04-20 11:38 | Emergency Department Note ---
History of Present Illness General Chief complaint: Rectal Bleed Stated complaint: POSSIBLE GI BLEED, DIZZINESS Time Seen by Provider: 04/20/22 11:34 Source: patient, RN notes reviewed and old records reviewed Mode of arrival: ambulatory Limitations: no limitations History of Present Illness Maximum Pain Intensity: 6 This patient is a 51-year-old male who comes in after an rectal bleeding. He had a colonoscopy with removal polyps done by Dr. Baird on April 09. He has had no solid stool since the first day or 2 he has some scant stroke streaks of blood. He started bleeding over night worse. He said that his stools about 80% liquid but more bloody he was up about every 2 hours having bowel movements he is actually leaking a small amount of blood to any use of sanitary pads throughout the night he said since 6:00 this morning slowed down a little bit. He does take aspirin 81 mg but no other blood thinners. He does have some gait occasional gas pain in the left lower quadrant just before he has a bowel movement but no ongoing pain no rectal pain just a little bit of soreness no fever chills no trauma or injury no chest pain or shortness of breath. He has been n.p.o. except for fluids this morning his blood pressure was 116/72 at home which is low for him because he has not taken his meds yet Home Medications Medication Instructions Recorded Confirmed Type multivitamin 1 tab PO QAM 02/19/20 04/20/22 History blood-glucose meter (Accu-Chek #1 ea 02/24/20 04/09/22 Rx Guide Glucose Meter) pen needle, diabetic 31 gauge x #200 ea 03/01/20 04/09/22 Rx 5/16" (BD Ultra-Fine Short Pen Needle) cetirizine 10 mg tablet (Zyrtec) 10 mg PO DAILY PRN Allergy Symptoms 03/25/20 04/20/22 History blood sugar diagnostic (Accu-Chek 04/25/20 04/09/22 History Guide test strips) insulin aspart U-100 100 unit/mL See Rx Instructions subcut 05/12/20 04/20/22 Rx (3 mL) subcutaneous pen (Novolog .COMPLEX #15 mL FlexPen U-100 Insulin aspart) amlodipine 5 mg tablet 5 mg PO QAM 08/03/21 04/20/22 History aspirin 81 mg tablet,delayed 81 mg PO QAM 08/03/21 04/20/22 History release (Enteric Coated Aspirin) ferrous sulfate 325 mg (65 mg 325 mg PO BID 08/03/21 04/20/22 History iron) tablet (iron) insulin degludec 100 unit/mL (3 27 unit (0.27 mL) subcut HS #15 mL 10/27/21 04/20/22 Rx mL) subcutaneous pen (Tresiba FlexTouch U-100 insulin) FreeStyle Jason 2 Sensor (flash #2 ea 12/29/21 04/09/22 Rx glucose sensor) calcitriol 0.25 mcg capsule 0.25 mcg PO QAM #90 caps 01/26/22 04/20/22 Rx (Rocaltrol) furosemide 20 mg tablet 20 mg PO QAM #90 tabs 02/26/22 04/20/22 Rx darbepoetin sy[place] in polysorbat 60 60 mcg subcut UD 03/06/22 04/20/22 History mcg/mL in polysorbate injection (Aranesp) atorvastatin 40 mg tablet 80 mg PO QAM #30 tabs 03/08/22 04/20/22 Rx carvedilol 3.125 mg tablet 3.125 mg PO BID #60 tabs 03/08/22 04/20/22 Rx sodium bicarbonate 650 mg tablet 1,300 mg PO BID #60 tabs 03/08/22 04/20/22 Rx levothyroxine 88 mcg tablet 88 mcg PO QAM 03/30/22 04/20/22 History citalopram 20 mg tablet 20 mg PO QAM #90 tabs 04/04/22 04/20/22 Rx Allergies Allergy/AdvReac Type Severity Reaction Status Date / Time ANKUR Inhibitors AdvReac Intermediate Cough Verified 04/20/22 14:55 lisinopril AdvReac Intermediate cough Verified 04/20/22 14:55 sertraline [From Zoloft] AdvReac Intermediate SUPRESSED Verified 04/20/22 14:55 APPETITE Past Med/Surg History Medical History Anemia Anemia due to chronic kidney disease Antiplatelet or antithrombotic long-term use Bilateral edema of lower extremity REASON FOR LASIX DAILY WEARS 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 Diabetes mellitus type 2, uncontrolled, with complications Diabetes mellitus, type 2 GLUCOSE STABLE AND CONTROLLED Diabetic macular edema Diabetic peripheral neuropathy associated with type 2 diabetes mellitus Diastolic dysfunction, left ventricle f/u ranjan daugherty Encounter for pre-operative examination History of depression HTN (hypertension) Hx of chest pain 04/2021, "intermittent, during a trip to [place], chasing around grandkids; ended up in hospital a few days after due to fluid overload."; f/u ranjan daugherty Hyperlipidemia Hypothyroidism Myocardial necrosis pt denies-"came in w/fluid overload w/kidneys; never told I had an UT" Nephrotic syndrome Onychomycosis STABLE- NO ANTIFUNGALS NEEDED AT THIS TIME Surgical History Family history of reaction to anesthesia MOTHER-HARD TO "PUT TO SLEEP" History of cataract surgery RT/LEFT History of herniorrhaphy UMBILICAL History of lingual frenulectomy History of tooth extraction Hx of vasectomy S/P arteriovenous (AV) fistula creation LT.; left limb restriction; no dialysis Family History Father Family history of diabetes mellitus Kidney disease required HD Grandmother (Paternal) Family history of diabetes mellitus Grandfather (Maternal) Hypertension Other Myocardial infarction Denies family history of Ovarian cancer Prostate cancer Breast cancer Lung cancer Colorectal cancer Stroke Social History Smoking Status: Former smoker Tobacco Type: Cigarettes Age Quit Using Tobacco: 22; Second Hand Exposure: Yes (parent smoked); Hx Alcohol Use: Yes Alcohol type: hard liquor Alcohol Intake Frequency: Monthly or Less Hx Substance Use: No Preferred Language: Setswana Communication Ability: Effective Manager Culinary Required: No Beliefs That Will Affect Care: None marital status: Current Living Situation: Spouse and Family current occupational status: employed 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 [employer] Feels Safe at Home: Yes Childhood Exposure to Second-Hand Smoke: Yes Dental Care, Regularly: No Physical Activity Frequency: 1-2 Times per Week Physical Activity Frequency Comment: exercise bike Seatbelt Use: always Sunscreen Use: Yes Assistive Devices: Glasses Review of Systems A total of 10 systems reviewed and were otherwise negative Physical Exam Vital Signs Vital Signs - 24 hr 04/20/22 11:07 04/20/22 12:06 Temperature 36.8 C Temperature Source Temporal Artery Scan Pulse Rate 97 H Pulse Rate [Apical] 67 Respiratory Rate 18 19 Respiratory Effort / Characteristics Non-Labored Spontaneous Respiratory Depth Normal Respiratory Pattern Regular Blood Pressure 96/53 L Blood Pressure [Right Arm] 138/62 Blood Pressure Mean 67 Blood Pressure Mean [Right Arm] 87 Pulse Oximetry 96 100 Oxygen Delivery Method Room Air Room Air Sepsis Recent Fever Within 48 Hours No Sepsis New/Unexplained Change in Mental Status No Sepsis Action Taken by Nursing No Action Required General: Well developed well nourished [id number] middle-age male who in no acute distress, breathing comfortably on room air. Normal speech HEENT: Normal cephalic atraumatic. Pupils are equal round and reactive to light. Extraocular movements are intact. Oropharynx is pink with moist mucous membranes. No swelling of the mouth lips or tongue. Neck: Supple with a midline trachea. No meningeal signs or stiffness, no JVD or bruits. No Stridor. Chest: Clear to auscultation bilaterally. No wheezes or rhonchi. No increased work of breathing. Heart: Regular rate and rhythm without murmurs or gallops. Abdomen: Soft nontender, nondistended without rebound guarding or rigidity. Extremities: No cyanosis clubbing or edema. No calf tenderness or assymetry Spine/Back. Non tender to palpation. No CVA tenderness Skin: Good turgor without rashes. Neurologic exam: Cranial nerves two through 12 are intact. Motor and sensation are intact and symmetrical throughout. Course Administered Medications Furosemide (Furosemide Inj 20 Mg/2 Ml Vial) 20 mg IV UD PRN PRN Reason: w/ transfusion Stop: 05/20/22 13:14 Last Admin: 04/20/22 14:01 Dose: 20 mg Documented By: MYRON Discontinued Medications Sodium Chloride (Nss 1000ml) 1,000 mls @ 999 mls/hr IV .Q1H1M ONE Stop: 04/20/22 12:35 Last Infusion: 04/20/22 13:30 Dose: 0 mls/hr Documented By: Admin: 04/20/22 11:48 Dose: 999 mls/hr Documented By: MYRON Critical Care Time Critical Care Time: Yes Total Critical Care Time: 30 Due to the patient's initial hypotension, significant anemia, need for emergent transfusion, consultation with GI specialist and hospitalist as well as frequent reassessment and discussion with the patient, I have personally spent greater than 30 minutes of critical care time in the direct management of this patient. This includes bedside care, interpretation of diagnostic studies, and testing, discussion with consultants, patient, and family members, and other required patient management activities. This 30 minutes is in excess of all separately billable procedures. Medical Decision Making Differential Diagnosis GI bleed, anemia, post colonoscopy complication, infection, electrolyte or metabolic abnormality Medical Records Attestation: I reviewed the patient's medical records. Home Medications Current Medication List: was personally reviewed by me Laboratory Data Attestation: I reviewed the patient's lab results. 04/20/22 11:18 04/20/22 11:18 Lab Results 04/20/22 04/20/22 04/20/22 Range/Units 11:18 11:18 11:18 WBC 7.15 (4.8-10.8) K/ul RBC 1.95 L (4.70-6.10) M/uL Hgb 5.4 L* (14.0-18.0) g/dl Hct 16.9 L* (42.0-52.0) % MCV 86.7 (80.0-100.0) fL MCH 27.7 (25.0-34.0) pg MCHC 32.0 (32.0-36.0) g/dL RDW Std Deviation 44.3 (36.4-46.3) fL RDW Coeff of Gladys 14.2 (11.5-14.5) % Plt Count 188 (130-400) K/uL MPV 11.5 (9.4-12.4) fL PT 11.6 (9.0-12.0) Seconds INR 1.1 (0.9-1.1) APTT 26.6 (21.0-31.0) Seconds PTT Ratio 1.0 Sodium (136-145) mmol/L Potassium (3.5-5.1) mmol/L Chloride (98-107) mmol/L Carbon Dioxide (21-32) mmol/L Anion Gap (3-11) BUN (6-23) mg/dl Creatinine (0.6-1.4) mg/dl Est Cr Clr Drug Dosing ml/min Est GFR ( Amer) ml/min Est GFR (Non-Af Amer) ml/min BUN/Creatinine Ratio (10-20) Glucose (70-99(Fasting)) mg/dl Calcium (8.5-10.1) mg/dl Total Bilirubin (0.2-1.0) mg/dl AST (13-39) U/L ALT (7-52) U/L Alkaline Phosphatase (34-104) U/L Total Protein (6.0-8.3) gm/dl Albumin (3.4-5.0) gm/dl Globulin (2.5-4.0) gm/dl Albumin/Globulin Ratio (0.9-2) SARS-CoV-2, RNA, NAAT (NEGATIVE) Blood Type O Positive Antibody Screen NEGATIVE Crossmatch See Detail 04/20/22 04/20/22 Range/Units 11:18 11:45 WBC (4.8-10.8) K/ul RBC (4.70-6.10) M/uL Hgb (14.0-18.0) g/dl Hct (42.0-52.0) % MCV (80.0-100.0) fL MCH (25.0-34.0) pg MCHC (32.0-36.0) g/dL RDW Std Deviation (36.4-46.3) fL RDW Coeff of Gladys (11.5-14.5) % Plt Count (130-400) K/uL MPV (9.4-12.4) fL PT (9.0-12.0) Seconds INR (0.9-1.1) APTT (21.0-31.0) Seconds PTT Ratio Sodium 145 (136-145) mmol/L Potassium 5.0 (3.5-5.1) mmol/L Chloride 116 H (98-107) mmol/L Carbon Dioxide 22 (21-32) mmol/L Anion Gap 7 (3-11) BUN 66 H (6-23) mg/dl Creatinine 4.66 H* (0.6-1.4) mg/dl Est Cr Clr Drug Dosing 25.5 ml/min Est GFR ( Amer) 15.8 ml/min Est GFR (Non-Af Amer) 13.6 ml/min BUN/Creatinine Ratio 14.2 (10-20) Glucose 121 H (70-99(Fasting)) mg/dl Calcium 8.3 L (8.5-10.1) mg/dl Total Bilirubin 0.3 (0.2-1.0) mg/dl AST 12 L (13-39) U/L ALT 14 (7-52) U/L Alkaline Phosphatase 104 (34-104) U/L Total Protein 5.5 L (6.0-8.3) gm/dl Albumin 3.0 L (3.4-5.0) gm/dl Globulin 2.5 (2.5-4.0) gm/dl Albumin/Globulin Ratio 1.2 (0.9-2) SARS-CoV-2, RNA, NAAT NEGATIVE (NEGATIVE) Blood Type Antibody Screen Crossmatch MDM Narrative This patient comes in as described above. He was initially seen by myself out in triage as I was concerned his blood pressure was low and he had some rectal bleeding. We quickly moved him to room a 11. IV access was established she was typed and screened and multiple blood testing was came obtained. I gave him a 1 L IV normal saline bolus. He was reassessed frequently. He was placed on a cardiac blood donor recruiter supervisor. He remained hemodynamically stable. His hemoglobin came back low at 5.2 he normally runs in the mid to low 7 range but I am concerned with the bleeding and did type and cross him for 4 units 1 was ordered for the ED. I did talk to him at length and consented him explained the risks and the benefits he did freely consent. Zara Rodas, nurse practitioner GI provider, did see the patient in the ED and they are going to plan on taking him for endoscopy. I also did discussed the care with Dr. Mariano who was the hospitalist and he be admitting the patient. I checked on the patient multiple times he has blood transfusion in the ED while waiting to go to endoscopy and tolerated this well. Continuous cardiac monitoring: Orders placed in EMR for continuous cardiac monitoring. Upon my intereptation patient was noted to be in normal sinus rhythm rate of 75 Impression & Plan GI bleed, Anemia, Chronic renal insufficiency, COVID-19 virus antibody negative, Status post colonoscopy with polypectomy Discharge Plan Visit Data Chief Complaint: Rectal Bleed Stated Complaint: POSSIBLE GI BLEED, DIZZINESS ED Provider: Rich Gusman Discharge Problem: GI bleed, Anemia, Chronic renal insufficiency, COVID-19 virus antibody negative, Status post colonoscopy with polypectomy Patient Disposition: Admitted As Inpatient Discharge Instructions Interventions: ED Discharge Assessment Last Done: 04/20/22 16:23
[2022-04-20 11:50] LABS: Hematocrit (blood only) 16.9 % (42.0-52.0); Hemoglobin 5.4 g/dl (14.0-18.0); Mean Corpuscular Hemoglobin 27.7 pg (25.0-34.0); Mean Corpuscular Volume 86.7 fL (80.0-100.0); Mean Platelet Volume 11.5 fL (9.4-12.4); Platelet Count 188 K/uL (130-400); RDW Coefficient of Variation 14.2 % (11.5-14.5); RDW Standard Deviation 44.3 fL (36.4-46.3); Red Blood Count 1.95 M/uL (4.70-6.10); White Blood Count 7.15 K/ul (4.8-10.8)
[2022-04-20 11:53] LABS: INR 1.1 (0.9-1.1); Partial Thromboplastin Time 26.6 Seconds (21.0-31.0); Prothrombin Time 11.6 Seconds (9.0-12.0)
[2022-04-20] MEDS ORDERED: SODIUM CHLORIDE 0.9% 250 ML IV PRN ×3 (11:58→23:14)
[2022-04-20 12:18] LABS: Albumin Globulin Ratio 1.2 (0.9-2); BUN Creatinine Ratio 14.2 (10-20); Bilirubin,Total 0.3 mg/dl (0.2-1.0); Calcium 8.3 mg/dl (8.5-10.1); Creatinine Clr Calc Pharmacy 25.5 ml/min; Est GFR (African American) 15.8 ml/min; Est GFR (Non-African American) 13.6 ml/min; Globulin 2.5 gm/dl (2.5-4.0); Total Protein 5.5 gm/dl (6.0-8.3)
--- NOTE | 2022-04-20 12:19 | Gastrointestinal Consultation ---
Date of Consultation April 20, 2022 Assessment & Plan (1) GI bleed: Plan 1. NPO for now. 2. 4 units PRBCs have been ordered. 3. FFS for further evaluation by Dr. Baird. 4. Further recommendations pending results of testing. Supervising Physician Co-Signing Physician Notes I personally evaluated the patient and agree with the findings as documented by ELLEN Hardin proceed with flex sig risks/benefits and procedure discussed with patient, who agrees to proceed History of Present Illness Reason for Consultation: LGIB Requesting Physician: Dr. Gusman Attending Physician: Dr. Gusman History of Present Illness Patient is a 51 y.o. male with a history of CKD, DM, and LVH status post colonoscopy 04/09/[address] Baird. He did have polypectomy of a 32 mm rectal polyp requiring Endoclip placement for hemostasis. He is on low dose aspirin but no anticoagulants. States he has been passing a scant amount of bright red blood on toilet tissue since that time. Last evening, however, he developed bright red blood mixed with watery diarrhea. He was also having BRBPR independent of bowel movements that was leaking from the rectum and soaked 2 feminine pads. Patient became syncopal and dizzy this morning and contacted our office and was advised ER evaluation. On arrival, he was found to be hypotensive. H&H has returned low at 5.4/16.9. No abdominal pain, n/v or other GI complaints. Patient was made NPO. Allergies Allergy/AdvReac Type Severity Reaction Status Date / Time ANKUR Inhibitors AdvReac Intermediate Cough Verified 04/20/22 14:55 lisinopril AdvReac Intermediate cough Verified 04/20/22 14:55 sertraline [From Zoloft] AdvReac Intermediate SUPRESSED Verified 04/20/22 14:55 APPETITE Home Medications Medication Instructions Recorded Confirmed Type multivitamin 1 tab PO QAM 02/19/20 04/20/22 History blood-glucose meter (Accu-Chek #1 ea 02/24/20 04/09/22 Rx Guide Glucose Meter) pen needle, diabetic 31 gauge x #200 ea 03/01/20 04/09/22 Rx 5/16" (BD Ultra-Fine Short Pen Needle) cetirizine 10 mg tablet (Zyrtec) 10 mg PO DAILY PRN Allergy Symptoms 03/25/20 04/20/22 History blood sugar diagnostic (Accu-Chek 04/25/20 04/09/22 History Guide test strips) insulin aspart U-100 100 unit/mL See Rx Instructions subcut 05/12/20 04/20/22 Rx (3 mL) subcutaneous pen (Novolog .COMPLEX #15 mL FlexPen U-100 Insulin aspart) amlodipine 5 mg tablet 5 mg PO QAM 08/03/21 04/20/22 History aspirin 81 mg tablet,delayed 81 mg PO QAM 08/03/21 04/20/22 History release (Enteric Coated Aspirin) ferrous sulfate 325 mg (65 mg 325 mg PO BID 08/03/21 04/20/22 History iron) tablet (iron) insulin degludec 100 unit/mL (3 27 unit (0.27 mL) subcut HS #15 mL 10/27/21 04/20/22 Rx mL) subcutaneous pen (Tresiba FlexTouch U-100 insulin) FreeStyle Jason 2 Sensor (flash #2 ea 12/29/21 04/09/22 Rx glucose sensor) calcitriol 0.25 mcg capsule 0.25 mcg PO QAM #90 caps 01/26/22 04/20/22 Rx (Rocaltrol) furosemide 20 mg tablet 20 mg PO QAM #90 tabs 02/26/22 04/20/22 Rx darbepoetin sy[place] in polysorbat 60 60 mcg subcut UD 03/06/22 04/20/22 History mcg/mL in polysorbate injection (Aranesp) atorvastatin 40 mg tablet 80 mg PO QAM #30 tabs 03/08/22 04/20/22 Rx carvedilol 3.125 mg tablet 3.125 mg PO BID #60 tabs 03/08/22 04/20/22 Rx sodium bicarbonate 650 mg tablet 1,300 mg PO BID #60 tabs 03/08/22 04/20/22 Rx levothyroxine 88 mcg tablet 88 mcg PO QAM 03/30/22 04/20/22 History citalopram 20 mg tablet 20 mg PO QAM #90 tabs 04/04/22 04/20/22 Rx Patient History Medical History Anemia Anemia due to chronic kidney disease Antiplatelet or antithrombotic long-term use Bilateral edema of lower extremity REASON FOR LASIX DAILY WEARS 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 Diabetes mellitus type 2, uncontrolled, with complications Diabetes mellitus, type 2 GLUCOSE STABLE AND CONTROLLED Diabetic macular edema Diabetic peripheral neuropathy associated with type 2 diabetes mellitus Diastolic dysfunction, left ventricle f/u ranjan daugherty Encounter for pre-operative examination History of depression HTN (hypertension) Hx of chest pain 04/2021, "intermittent, during a trip to [place], chasing around grandkids; ended up in hospital a few days after due to fluid overload."; f/u ranjan daugherty Hyperlipidemia Hypothyroidism Myocardial necrosis pt denies-"came in w/fluid overload w/kidneys; never told I had an [facility]" Nephrotic syndrome Onychomycosis STABLE- NO ANTIFUNGALS NEEDED AT THIS TIME Surgical History Family history of reaction to anesthesia MOTHER-HARD TO "PUT TO SLEEP" History of cataract surgery RT/LEFT History of herniorrhaphy UMBILICAL History of lingual frenulectomy History of tooth extraction Hx of vasectomy S/P arteriovenous (AV) fistula creation LT.; left limb restriction; no dialysis Family History Father Family history of diabetes mellitus Kidney disease required HD Grandmother (Paternal) Family history of diabetes mellitus Grandfather (Maternal) Hypertension Other Myocardial infarction Denies family history of Ovarian cancer Prostate cancer Breast cancer Lung cancer Colorectal cancer Stroke Social History Smoking Status: Former smoker Tobacco Type: Cigarettes Age Quit Using Tobacco: 22; Second Hand Exposure: Yes (parent smoked); Hx Alcohol Use: Yes Alcohol type: hard liquor Alcohol Intake Frequency: Monthly or Less Hx Substance Use: No Preferred Language: Sammarinese Communication Ability: Effective 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 Gas Required: No Beliefs That Will Affect Care: None marital status: Current Living Situation: Spouse and Family current occupational status: employed 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[employer] Feels Safe at Home: Yes Childhood Exposure to Second-Hand Smoke: Yes Dental Care, Regularly: No Physical Activity Frequency: 1-2 Times per Week Physical Activity Frequency Comment: exercise bike Seatbelt Use: always Sunscreen Use: Yes Assistive Devices: Glasses Review of Systems Review of Systems: All systems reviewed & are unremarkable except as noted in HPI & below Physical Exam Constitutional: WD/WN, vitals as above Eyes: EOM intact bilaterally Respiratory: normal respiratory effort, lungs clear to auscultation Cardiovascular: Rate/Rhythm: regular rate and regular rhythm Heart Sounds: + murmur Gastrointestinal (Abdomen): Inspection/Auscultation: + hyperactive bowel sounds; abdomen not distended Percussion/Palpation: abdomen soft; abdomen nontender Skin: + pallor Psychiatric: A+Ox3, euthymic affect Results & Data ([facility]) Vital Signs (Past 12 Hours) Vital Signs Temp Pulse Pulse Resp BP BP Pulse Ox 04/20/22 12:06 67 19 138/62 100 04/20/22 11:07 36.8 C 97 H 18 96/53 L 96 O2 Del Method 04/20/22 12:06 Room Air 04/20/22 11:07 Room Air Diagnostic Findings Laboratory Results WBC 7.15 K/ul (4.8-10.8) 04/20/22 11:18 RBC 1.95 M/uL (4.70-6.10) L 04/20/22 11:18 Hgb 5.4 g/dl (14.0-18.0) L* 04/20/22 11:18 Hct 16.9 % (42.0-52.0) L* 04/20/22 11:18 MCV 86.7 fL (80.0-100.0) 04/20/22 11:18 MCH 27.7 pg (25.0-34.0) 04/20/22 11:18 MCHC 32.0 g/dL (32.0-36.0) 04/20/22 11:18 RDW Std Deviation 44.3 fL (36.4-46.3) 04/20/22 11:18 RDW Coeff of Gladys 14.2 % (11.5-14.5) 04/20/22 11:18 Plt Count 188 K/uL (130-400) 04/20/22 11:18 MPV 11.5 fL (9.4-12.4) 04/20/22 11:18 PT 11.6 Seconds (9.0-12.0) 04/20/22 11:18 INR 1.1 (0.9-1.1) 04/20/22 11:18 APTT 26.6 Seconds (21.0-31.0) 04/20/22 11:18 PTT Ratio 1.0 04/20/22 11:18 Crossmatch See Detail 04/20/22 11:18 PG Care Time/CCT Total # of Minutes Spent Total Time Spent with Patient: Total time spent is greater than 50% in coordination of care (as documented) at patient's floor/unit and/or counseling patient: Coding Level of Care Code 43013 INT INP/OBS CARE 3/75MIN Diagnoses GI bleed K92.2
--- NOTE | 2022-04-20 12:35 | History & Physical Report ---
Date of Service April 20, 2022 Assessment & Plan (1) GI bleed: Plan: Mr. Titus is a 51-year-old male with a past medical history of LVH, CKD 4, DM 2, peripheral neuropathy, nephrotic syndrome presents to the hospital with rectal bleeding. Patient recently had a colonoscopy/polypectomy Apr 09. Acute on chronic blood loss anemia 2/2 lower GI bleed, likely post polypectomy rectal bleeding N.p.o. 4 units of RBCs crossmatched, 1 unit being transfused Echo 03/06/2022: EF 60-65%, no regional wall motion abnormalities, severe concentric LVH, severe LAD, mild dilated RV with normal systolic function. RVSP 56 mmHg estimated, compared to 04/2021 apical hypokinesis no longer present. No hyperkalemia or clinical volume overload at time of assessment, given underlying renal disease and past cardiac disease followed closely for volume overload Had iron studies 02/2022. Was given Venofer at that time, and continued on Epogen due to underlying renal disease. Is continued on oral iron Baseline hemoglobin appears 78 in preceding few months, acutely decreased on admission to 5.4 4 units crossmatched while in ER, 2 units pending transfusion. Patient received 1 L of crystalloid with blood pressure of 160 and mild lower extremity edema, is at risk for transfusion related overload. Will give 20 IV Lasix with initial unit, if brisk output is not achieved we will add another 20 for 40 total. Repeat Lasix with a second unit and then will check H&H GI consulted, anticipate sigmoidoscopy Lower GI bleed suspected, PPI not indicated (2) Anemia: Plan: As noted w GIB (3) Diabetes mellitus: Plan: Type II DM home deglutec 27u qhs. short acting average day 5-6 units per meal (sliding scale at 130, 1 unit per 35. carb ratio 1:12) We will convert to glutaric to Lantus while inpatient, dose decrease to 18 units while NPO. Home sliding scale/ratio continued. Weight-based basal bolus, goal BSG [id number] Glucose checks AC/at bedtime Patient currently n.p.o. for GI bleed Pharmacy glycemic consult placed given DM on insulin with acute on chronic renal disease (4) Hypothyroidism: Plan: Hypothyroidism Synthroid 75 mcg p.o. daily once able to tolerate p.o. (5) Hyperlipidemia: Plan: Hyperlipidemia Atorvastatin held while n.p.o. (6) History of depression: Plan: Continue home citalopram once able to tolerate p.o. (7) Acute on chronic kidney failure: Plan: Chronic kidney failure, with type II DM. Pending transplant evaluation at clinical Follows with nephrology as outpatient Baseline creatinine fluctuating 3.844.27 Creatinine 4.66 on admission Clinical volume overload No hyperkalemia Patient has fistula in place, has not had dialysis Renally dose medications, BMP daily, nephrology consulted Continue sodium bicarbonate twice daily Plan CAD Patient previously with apical septal wall motion abnormality which improved on repeat echo 1 prior admission with concern for CHF in the setting of sodium indiscretion Has had mildly elevated troponins suspected single-vessel LAD disease based on prior stress echo was Was recommended for cardiac catheterization not emergently once stable from a renal standpoint Hypertension 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 Titus is a 51-year-old male with a past medical history of LVH, CKD 4, DM 2, peripheral neuropathy, nephrotic syndrome presents to the hospital with rectal bleeding. Patient recently had a colonoscopy/polypectomy Apr 09. Presents for acute lower GIB with anemia Poplypectomy Apr 09. Was doign OK just with some scant bleeding after. Restarted iron which normally makes stool a little dark. Looked relatively normal since until last night when he had bright red paola blood. Bleeding continued and was up every 2 hours leaking bright red blood into sanitary pads and soaked through 3x pads with blood. Woke up this mornign at 6:30am and BP was normal without medications which is actually low for his normal, and he had some associated dizziness so he came to the ER for further evaluation. Did call Dr. Poon office first who recommended he be seen in the ER. No chest or chest pressure. Mild low abomdinal gurgling but no pain. No nausea/vomiting. No shortness of breath Lightheadedness prior to admission seems to have improved, bu the notes has not stood up since arriving and is not sure if he would be busy trying to walk or stand No change in leg or feet swelling but notes 'I live in compression socks due to my CKD.' -Xplant Status: Per pt as of yesterday status 7 on transplant list for a kindey transplant through [facility]. Renal disease is 2/2 DM previously poorly controlled while younger, doing well since but due for A1C. Insulin: deglutec 27u qhs. short acting average day 5-6 units per meal (sliding scale at 130, 1 unit per 35. carb ratio 1:12). Pending A1C. Eats very few carbs and tries to minimize short acting insulin need. Voiding seems 'OK' recently, has been followed for proteinuria as outpatient which sometimes has a fruity odor which has come back lately. Normal volume, light yellow to clear in color. Voids at least 1 cup per void up to 5 times per day. Tries to stay hydrated by drinking water throughout the day. has not needed dialysis. has a L fisula which is mature, Medical History: Reviewed Medications: Reviewed Surgical History: Reviewed Allergies: Reviewed Social History: Former smoker quit 1992. 4 years total hx 0.5ppd (2 pack years). Rare social ETOH use, less than monthly Code Status:Full Code Allergies Allergy/AdvReac Type Severity Reaction Status Date / Time ANKUR Inhibitors AdvReac Intermediate Cough Verified 04/09/22 08:34 lisinopril AdvReac Intermediate cough Verified 04/09/22 08:34 sertraline [From Zoloft] AdvReac Intermediate SUPRESSED Verified 04/09/22 08:34 APPETITE Home Medications Medication Instructions Recorded Confirmed Type multivitamin 1 tab PO QAM 02/19/20 04/09/22 History blood-glucose meter (Accu-Chek #1 ea 02/24/20 04/09/22 Rx Guide Glucose Meter) pen needle, diabetic 31 gauge x #200 ea 03/01/20 04/09/22 Rx 5/16" (BD Ultra-Fine Short Pen Needle) cetirizine 10 mg tablet (Zyrtec) 10 mg PO DAILY PRN Allergy Symptoms 03/25/20 04/09/22 History blood sugar diagnostic (Accu-Chek 04/25/20 04/09/22 History Guide test strips) insulin aspart U-100 100 unit/mL See Rx Instructions subcut 05/12/20 04/09/22 Rx (3 mL) subcutaneous pen (Novolog .COMPLEX #15 mL FlexPen U-100 Insulin aspart) amlodipine 5 mg tablet 5 mg PO QAM 08/03/21 04/09/22 History aspirin 81 mg tablet,delayed 81 mg PO QAM 08/03/21 04/09/22 History release (Enteric Coated Aspirin) ferrous sulfate 325 mg (65 mg 325 mg PO BID 08/03/21 04/09/22 History iron) tablet (iron) insulin degludec 100 unit/mL (3 27 unit (0.27 mL) subcut HS #15 mL 10/27/21 04/09/22 Rx mL) subcutaneous pen (Tresiba FlexTouch U-100 insulin) FreeStyle Jason 2 Sensor (flash #2 ea 12/29/21 04/09/22 Rx glucose sensor) calcitriol 0.25 mcg capsule 0.25 mcg PO QAM #90 caps 01/26/22 04/09/22 Rx (Rocaltrol) furosemide 20 mg tablet 20 mg PO QAM #90 tabs 02/26/22 04/09/22 Rx darbepoetin [place] in polysorbat 60 60 mcg subcut UD 03/06/22 04/09/22 History mcg/mL in polysorbate injection (Aranesp) atorvastatin 40 mg tablet 80 mg PO QAM #30 tabs 03/08/22 04/09/22 Rx carvedilol 3.125 mg tablet 3.125 mg PO BID #60 tabs 03/08/22 04/09/22 Rx sodium bicarbonate 650 mg tablet 1,300 mg PO BID #60 tabs 03/08/22 04/09/22 Rx levothyroxine 88 mcg tablet 88 mcg PO QAM 03/30/22 04/09/22 History citalopram 20 mg tablet 20 mg PO QAM #90 tabs 04/04/22 04/09/22 Rx Past Med/Surg History Medical History Anemia Anemia due to chronic kidney disease Antiplatelet or antithrombotic long-term use Bilateral edema of lower extremity REASON FOR LASIX DAILY WEARS 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 Diabetes mellitus type 2, uncontrolled, with complications Diabetes mellitus, type 2 GLUCOSE STABLE AND CONTROLLED Diabetic macular edema Diabetic peripheral neuropathy associated with type 2 diabetes mellitus Diastolic dysfunction, left ventricle f/u dr [place] History of depression HTN (hypertension) Hx of chest pain 04/2021, "intermittent, during a trip to [place], chasing around [employer]; ended up in hospital a few days after due to fluid overload."; f/u dr over[place], [place] Hyperlipidemia Hypothyroidism Myocardial necrosis pt denies-"came in w/fluid overload w/kidneys; never told I had an MN" Nephrotic syndrome Onychomycosis STABLE- NO ANTIFUNGALS NEEDED AT THIS TIME Surgical History Family history of reaction to anesthesia MOTHER-HARD TO "PUT TO SLEEP" History of cataract surgery RT/LEFT History of herniorrhaphy UMBILICAL History of lingual frenulectomy History of tooth extraction Hx of vasectomy S/P arteriovenous (AV) fistula creation LT.; left limb restriction; no dialysis Family History Father Family history of diabetes mellitus Kidney disease required HD Grandmother (Paternal) Family history of diabetes mellitus Grandfather (Maternal) Hypertension Other Myocardial infarction Denies family history of Ovarian cancer Prostate cancer Breast cancer Lung cancer Colorectal cancer Stroke Social History Smoking Status: Former smoker Tobacco Type: Cigarettes Age Quit Using Tobacco: 22; Second Hand Exposure: Yes (parent smoked); Hx Alcohol Use: Yes Alcohol type: hard liquor Alcohol Intake Frequency: Monthly or Less Hx Substance Use: No Preferred Language: Nigerien Communication Ability: Effective Still Runner Required: No Beliefs That Will Affect Care: None marital status: Current Living Situation: Spouse and Family current occupational status: employed 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 NAD. Cooperative. HEENT: Atraumatic, normocephalic. Vision/hearing grossly intact Pulm: CTAB A&P. -wheezes, -rales, -rhonchi. Symmetrical chest rise. No increased work of breathing. No respiratory distress. Cardiac: RRR, systolic murmur is present. Radial pulses intact and symmetrical. No JVD Abdominal: Nontender, nondistended, soft. BS present. Ext: PE L forearm fistula with good thrill. No overlying erythema or tenderness. Train Announcer strength intact in upper extremities bilaterally. Able to dorsiflex/plantarflex ankles bilaterally. Pitting edema is present at the ankles bilaterally. Results & Data Results & Data ([facility]) Vital Signs (Past 12 Hours) Vital Signs Temp Pulse Pulse Resp BP BP Pulse Ox 04/20/22 12:06 67 19 138/62 100 04/20/22 11:07 36.8 C 97 H 18 96/53 L 96 O2 Del Method 04/20/22 12:06 Room Air 04/20/22 11:07 Room Air PG Care Time/CCT Total # of Minutes Spent Total Time Spent with Patient: Total time spent is greater than 50% in coordination of care (as documented) at patient's floor/unit and/or counseling patient: Coding Level of Care Code 78821 INT INP/OBS CARE 3/75MIN Diagnoses GI bleed K92.2 Anemia D64.9 Diabetes mellitus E11.9 Hypothyroidism E03.9 Hyperlipidemia E78.5 History of depression Z86.59 Acute on chronic kidney failure N17.9; N18.9
--- NOTE | 2022-04-20 13:09 | Anesthesiology Consultation ---
Date of Service April 20, 2022 Assessment & Plan (1) Encounter for pre-operative examination: Chart Review Chart Review: Acceptable Risk for Surgery, Patient NOT seen in Pre Admission Testing and entry level management initiated Consults Requested none History Surgery Operation Date: 04/20/22 16:30 Proposed Procedures p Flexible Sigmoidoscopy Dr. Brie Baird MD Height/Weight Height: 6 ft 2 in Weight: 114 kg Allergies Allergy/AdvReac Type Severity Reaction Status Date / Time ANKUR Inhibitors AdvReac Intermediate Cough Verified 04/09/22 08:34 lisinopril AdvReac Intermediate cough Verified 04/09/22 08:34 sertraline [From Zoloft] AdvReac Intermediate SUPRESSED Verified 04/09/22 08:34 APPETITE Medications Home Medications Medication Instructions Recorded Confirmed Last Taken multivitamin 1 tab PO QAM 02/19/20 04/09/22 04/08/22 blood-glucose meter (Accu-Chek #1 ea 02/24/20 04/09/22 Unknown Guide Glucose Meter) pen needle, diabetic 31 gauge x #200 ea 03/01/20 04/09/22 Unknown 5/16" (BD Ultra-Fine Short Pen Needle) cetirizine 10 mg tablet (Zyrtec) 10 mg PO DAILY PRN Allergy Symptoms 03/25/20 04/09/22 04/04/22 09:30 blood sugar diagnostic (Accu-Chek 04/25/20 04/09/22 Unknown Guide test strips) insulin aspart U-100 100 unit/mL See Rx Instructions subcut 05/12/20 04/09/22 04/03/22 19:00 (3 mL) subcutaneous pen (Novolog .COMPLEX #15 mL FlexPen U-100 Insulin aspart) amlodipine 5 mg tablet 5 mg PO QAM 08/03/21 04/09/22 04/08/22 aspirin 81 mg tablet,delayed 81 mg PO QAM 08/03/21 04/09/22 04/08/22 release (Enteric Coated Aspirin) ferrous sulfate 325 mg (65 mg 325 mg PO BID 08/03/21 04/09/22 04/08/22 iron) tablet (iron) insulin degludec 100 unit/mL (3 27 unit (0.27 mL) subcut HS #15 mL 08/12/22 01/23/23 01/21/23 mL) subcutaneous pen (Tresiba FlexTouch U-100 insulin) FreeStyle Jason 2 Sensor (flash #2 ea 12/29/21 04/09/22 Unknown glucose sensor) calcitriol 0.25 mcg capsule 0.25 mcg PO QAM #90 caps 01/26/22 04/09/22 04/08/22 (Rocaltrol) furosemide 20 mg tablet 20 mg PO QAM #90 tabs 02/26/22 04/09/22 04/08/22 darbepoetin [place] in polysorbat 60 60 mcg subcut UD 03/06/22 04/09/22 03/26/22 mcg/mL in polysorbate injection (Aranesp) atorvastatin 40 mg tablet 80 mg PO QAM #30 tabs 03/08/22 04/09/22 04/08/22 carvedilol 3.125 mg tablet 3.125 mg PO BID #60 tabs 03/08/22 04/09/22 04/08/22 sodium bicarbonate 650 mg tablet 1,300 mg PO BID #60 tabs 03/08/22 04/09/22 04/08/22 levothyroxine 88 mcg tablet 88 mcg PO QAM 03/30/22 04/09/22 04/08/22 citalopram 20 mg tablet 20 mg PO QAM #90 tabs 04/04/22 04/09/22 04/08/22 Past Medical History Medical History Anemia Anemia due to chronic kidney disease Antiplatelet or antithrombotic long-term use Bilateral edema of lower extremity REASON FOR LASIX DAILY WEARS 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 Diabetes mellitus type 2, uncontrolled, with complications Diabetes mellitus, type 2 GLUCOSE STABLE AND CONTROLLED Diabetic macular edema Diabetic peripheral neuropathy associated with type 2 diabetes mellitus Diastolic dysfunction, left ventricle f/u ranjan daugherty Encounter for pre-operative examination History of depression HTN (hypertension) Hx of chest pain 04/2021, "intermittent, during a trip to [place], chasing around [employer]; ended up in hospital a few days after due to fluid overload."; f/u ranjan daugherty Hyperlipidemia Hypothyroidism Myocardial necrosis pt denies-"came in w/fluid overload w/kidneys; never told I had an NE" Nephrotic syndrome Onychomycosis STABLE- NO ANTIFUNGALS NEEDED AT THIS TIME Past Family History Family History Father Family history of diabetes mellitus Kidney disease required HD Grandmother (Paternal) Family history of diabetes mellitus Grandfather (Maternal) Hypertension Other Myocardial infarction Denies family history of Ovarian cancer Prostate cancer Breast cancer Lung cancer Colorectal cancer Stroke Past Surgical History Surgical History Family history of reaction to anesthesia MOTHER-HARD TO "PUT TO SLEEP" History of cataract surgery RT/LEFT History of herniorrhaphy UMBILICAL History of lingual frenulectomy History of tooth extraction Hx of vasectomy S/P arteriovenous (AV) fistula creation LT.; left limb restriction; no dialysis Social History Smoking Status: Former smoker tobacco type: cigarettes Hx Alcohol Use: Yes Alcohol type: hard liquor alcohol intake frequency: holidays/special occasions only Hx Substance Use: No substance use type: does not use Physical Exam Vital Signs Last Vital Signs Temp 36.8 C 04/20/22 11:07 Pulse 67 04/20/22 12:06 Resp 19 04/20/22 12:06 BP 138/62 04/20/22 12:06 Pulse Ox 100 04/20/22 12:06 O2 Del Method 04/20/22 12:06 Testing Laboratory Results 04/20/22 11:18 04/20/22 11:18 PT 11.6 Seconds (9.0-12.0) 04/20/22 11:18 INR 1.1 (0.9-1.1) 04/20/22 11:18 APTT 26.6 Seconds (21.0-31.0) 04/20/22 11:18 Blood Type O Positive 04/20/22 11:18 Antibody Screen NEGATIVE 04/20/22 11:18 Electrocardiogram Date: 03/06/22 Test Reason : Blood Pressure : / mmHG Vent. Rate : 072 BPM Atrial Rate : 072 BPM P-R Int : 126 ms QRS Dur : 084 ms QT Int : 416 ms P-R-T Axes : 042 014 065 degrees QTc Int : 455 ms Normal sinus rhythm Possible Left atrial enlargement Low voltage QRS Septal infarct , age undetermined Abnormal ECG When compared with ECG of 07-AUG-2021 09:26, QRS voltage has decreased Septal infarct is now Present Confirmed by Zeeshan Gonzalez ([id number]) on 03/08/2022 11:34:38 PM Chest X-Ray Date: 03/06/22 XR chest 2V PA/lateral CLINICAL HISTORY: f/u opacities vs congestion/CHF COMPARISON STUDY: Chest radiograph August 07, 2021 and March 06, 2022. FINDINGS: Lung volumes are normal. There is no pneumothorax. No definite pleural effusion is present. Lower lung reticulonodular interstitial thickening is present. This is similar to chest radiograph performed earlier today and increased since chest radiograph August 07, 2021. No consolidation is identified. Cardiomediastinal silhouette is stable from earlier exams. Left hilar prominence is noted. IMPRESSION: 1. Lower lung reticulonodular interstitial thickening, slightly increased since chest radiograph of August 07, 2021. The findings may reflect an infectious process superimposed upon chronic interstitial thickening. 2. Prominent left hilum. This is likely due to pulmonary vessels however lymphadenopathy cannot be excluded. This should be assessed on follow-up chest radiographs. Echocardiogram Date: 03/06/22 EF: 60-65 LV Function: normal RWMA: + none Other Findings: + LVH (severe) Valvular Disease: + MR (mild) Severe left atrial dilation. Mildly dilated ventricles B/L. Moderate pulmonary HTN.
[2022-04-20] MEDS: FUROSEMIDE INJ 20 MG/2 ML VIAL IV PRN ×2 (14:01→21:38)
--- NOTE | 2022-04-20 15:02 | Anesthesiology Consultation ---
Date of Service April 20, 2022 Assessment & Plan (1) Encounter for pre-operative examination: Chart Review Chart Review: Acceptable Risk for Surgery (Would like to get at least a unit of prbc's in before starting ) History Surgery Operation Date: 04/20/22 09:50 Proposed Procedures p Flex Sigmoid - Bean Baird MD Height/Weight Height: 6 ft 2 in Weight: 114 kg Allergies Allergy/AdvReac Type Severity Reaction Status Date / Time ANKUR Inhibitors AdvReac Intermediate Cough Verified 04/20/22 14:55 lisinopril AdvReac Intermediate cough Verified 04/20/22 14:55 sertraline [From Zoloft] AdvReac Intermediate SUPRESSED Verified 04/20/22 14:55 APPETITE Medications Home Medications Medication Instructions Recorded Confirmed Last Taken multivitamin 1 tab PO QAM 02/19/20 04/20/22 04/19/22 blood-glucose meter (Accu-Chek #1 ea 02/24/20 04/09/22 Unknown Guide Glucose Meter) pen needle, diabetic 31 gauge x #200 ea 03/01/20 04/09/22 Unknown 5/16" (BD Ultra-Fine Short Pen Needle) cetirizine 10 mg tablet (Zyrtec) 10 mg PO DAILY PRN Allergy Symptoms 03/25/20 04/20/22 04/04/22 09:30 blood sugar diagnostic (Accu-Chek 04/25/20 04/09/22 Unknown Guide test strips) insulin aspart U-100 100 unit/mL See Rx Instructions subcut 05/12/20 04/20/22 04/19/22 (3 mL) subcutaneous pen (Novolog .COMPLEX #15 mL FlexPen U-100 Insulin aspart) amlodipine 5 mg tablet 5 mg PO QAM 08/03/21 04/20/22 04/19/22 aspirin 81 mg tablet,delayed 81 mg PO QAM 08/03/21 04/20/22 04/19/22 release (Enteric Coated Aspirin) ferrous sulfate 325 mg (65 mg 325 mg PO BID 08/03/21 04/20/22 04/19/22 iron) tablet (iron) insulin degludec 100 unit/mL (3 27 unit (0.27 mL) subcut HS #15 mL 10/27/21 04/20/22 04/19/22 mL) subcutaneous pen (Tresiba FlexTouch U-100 insulin) FreeStyle Jason 2 Sensor (flash #2 ea 12/29/21 04/09/22 Unknown glucose sensor) calcitriol 0.25 mcg capsule 0.25 mcg PO QAM #90 caps 01/26/22 04/20/22 04/19/22 (Rocaltrol) furosemide 20 mg tablet 20 mg PO QAM #90 tabs 02/26/22 04/20/22 04/19/22 darbepoetin [place] in polysorbat 60 60 mcg subcut UD 03/06/22 04/20/22 03/26/22 mcg/mL in polysorbate injection (Aranesp) atorvastatin 40 mg tablet 80 mg PO QAM #30 tabs 03/08/22 04/20/22 04/19/22 carvedilol 3.125 mg tablet 3.125 mg PO BID #60 tabs 03/08/22 04/20/22 04/19/22 sodium bicarbonate 650 mg tablet 1,300 mg PO BID #60 tabs 03/08/22 04/20/22 04/19/22 levothyroxine 88 mcg tablet 88 mcg PO QAM 03/30/22 04/20/22 04/19/22 citalopram 20 mg tablet 20 mg PO QAM #90 tabs 04/04/22 04/20/22 04/19/22 Active Medications Generic Name Dose Route Start Last Admin Trade Name Freq PRN Reason Stop Dose Admin Furosemide 20 mg 04/20/22 13:11 04/20/22 14:01 Furosemide Inj 20 Mg/2 Ml Vial IV 05/20/22 13:14 20 mg UD PRN Administration w/ transfusion Past Medical History Medical History Anemia Anemia due to chronic kidney disease Antiplatelet or antithrombotic long-term use Bilateral edema of lower extremity REASON FOR LASIX DAILY WEARS 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 Diabetes mellitus type 2, uncontrolled, with complications Diabetes mellitus, type 2 GLUCOSE STABLE AND CONTROLLED Diabetic macular edema Diabetic peripheral neuropathy associated with type 2 diabetes mellitus Diastolic dysfunction, left ventricle f/u dr over[place], [place] Encounter for pre-operative examination History of depression HTN (hypertension) Hx of chest pain 04/2021, "intermittent, during a trip to [place], chasing around [employer]; ended up in hospital a few days after due to fluid overload."; f/[place] dr [place], [place] Hyperlipidemia Hypothyroidism Myocardial necrosis pt denies-"came in w/fluid overload w/kidneys; never told I had an OR" Nephrotic syndrome Onychomycosis STABLE- NO ANTIFUNGALS NEEDED AT THIS TIME Past Family History Family History Father Family history of diabetes mellitus Kidney disease required HD Grandmother (Paternal) Family history of diabetes mellitus Grandfather (Maternal) Hypertension Other Myocardial infarction Denies family history of Ovarian cancer Prostate cancer Breast cancer Lung cancer Colorectal cancer Stroke Past Surgical History Surgical History Family history of reaction to anesthesia MOTHER-HARD TO "PUT TO SLEEP" History of cataract surgery RT/LEFT History of herniorrhaphy UMBILICAL History of lingual frenulectomy History of tooth extraction Hx of vasectomy S/P arteriovenous (AV) fistula creation LT.; left limb restriction; no dialysis Social History Smoking Status: Former smoker tobacco type: cigarettes Hx Alcohol Use: Yes Alcohol type: hard liquor alcohol intake frequency: holidays/special occasions only Hx Substance Use: No substance use type: does not use Physical Exam Vital Signs Last Vital Signs Temp 36.7 C 04/20/22 14:20 Pulse 63 04/20/22 14:20 Resp 13 04/20/22 14:20 BP 154/79 H 04/20/22 14:20 Pulse Ox 97 04/20/22 14:20 O2 Del Method 04/20/22 12:06 Testing Laboratory Results 04/20/22 11:18 04/20/22 11:18 PT 11.6 Seconds (9.0-12.0) 04/20/22 11:18 INR 1.1 (0.9-1.1) 04/20/22 11:18 APTT 26.6 Seconds (21.0-31.0) 04/20/22 11:18 Blood Type O Positive 04/20/22 11:18 Antibody Screen NEGATIVE 04/20/22 11:18
--- NOTE | 2022-04-20 17:03 | Procedure Note ---
Procedure Note Date of Service April 20, 2022 Note GI brief procedure note/post op note flex sig findings: nonbleeding ulcer at polypectomy site, clipped x 3. No active bleeding noted. black stool noted likely from iron therapy (on ferrous sulfate BID). recs: clear liquid diet today, advance diet as tolerated tomorrow morning if stable hold ferrous sulfate for now, can resume upon discharge home trend h/h, transfuse prn supportive care Bean Baird MD Gastroenterology Coding
--- NOTE | 2022-04-20 17:09 | GI REPORT ---
Patient Name: Saurav Titus Procedure Date: 04/20/2022 3:15 PM Date of : 1970 Admit Type: Emergency Department Age: 51 Gender: Male Attending MD: Bean Baird MD, Procedure: Flexible Sigmoidoscopy Providers: Bean Barid MD Referring MD: Bean Baird MD Indications: Hematochezia Medicines: Monitored Anesthesia Care Complications: No immediate complications. Estimated blood loss: None. Estimated Blood Loss: Estimated blood loss: none. Procedure: Pre-Anesthesia Assessment: - Prior Anticoagulants: The patient has taken no anticoagulant or antiplatelet agents. - ASA Grade Assessment: III - A patient with severe systemic disease. After obtaining informed consent, the endoscope was passed under direct vision. Throughout the procedure, the patient's blood pressure, pulse, and oxygen saturations were monitored continuously. The Endoscope was introduced through the anus and advanced to the rectosigmoid junction. The flexible sigmoidoscopy was accomplished without difficulty. The patient tolerated the procedure well. The quality of the bowel preparation was poor. Findings: A single (solitary) ulcer was found in the rectum at the polypectomy site. No bleeding was present. For hemostasis, three hemostatic clips were successfully placed. 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 There was no bleeding at the end of the procedure. black stool noted likely from ferrous sulfate therapy. no active bleeding noted throughout exam. Impression: - Preparation of the colon was poor. - A single (solitary) ulcer in the rectum. Clips were placed. 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 - No specimens collected. Recommendation: - Return patient to [facility] for [facility] care. - Clear liquid diet today. advance as tolerated tomorrow morning if stable trend h/h, transfuse prn supportive care hold ferrous sulfate, can resume upon discharge. Bean Baird MD 04/20/2022 5:09:09 PM This report has been signed electronically. Note Initiated On: 04/20/2022 3:15 PM Number of Addenda: 0 I attest to the content of the Intraoperative Record and orders documented therein, exceptions below {[id number]}
[2022-04-20] MEDS ORDERED: LIDOCAINE 2% MPF LOCAL 5 ML VIAL INFIL ONE (17:15)
[2022-04-20] MEDS ORDERED: PROPOFOL IV EMULSION 10 MG/ML 20 ML VIAL IV ONE (17:15)
--- NOTE | 2022-04-20 17:21 | Anesthesiology Progress Note ---
Date of Service April 20, 2022 Anesthesia Post Procedure Vital Signs Vital Signs: Temp Pulse Pulse Resp BP BP Pulse Ox 04/20/22 17:06 97.2 F L 65 21 134/68 100 04/20/22 16:37 98.1 F 78 18 140/72 96 04/20/22 16:06 98.2 F 70 16 178/85 H 100 04/20/22 15:20 97.9 F 67 16 165/80 H 98 04/20/22 14:20 98.1 F 63 13 154/79 H 97 04/20/22 13:50 98.1 F 68 14 162/76 H 99 04/20/22 13:35 98.2 F 68 15 157/88 H 99 04/20/22 13:20 97.9 F 72 21 146/57 H 99 04/20/22 12:06 67 19 138/62 100 04/20/22 11:07 98.2 F 97 H 18 96/53 L 96 O2 Del Method O2 Flow Rate 04/20/22 17:06 Oxymask 5 04/20/22 16:37 Room Air 04/20/22 16:06 04/20/22 15:20 04/20/22 14:20 04/20/22 13:50 04/20/22 13:35 04/20/22 13:20 04/20/22 12:06 Room Air 04/20/22 11:07 Room Air Pain Intensity Left: Pain Intensity: 0 Transfer of Care Handoff Completed per policy Notes Mental Status: alert / awake / arousable and participated in evaluation Patient Amnestic to Procedure: Yes Nausea / Vomiting: adequately controlled Pain: adequately controlled Airway Patency, RR, SpO2: stable & adequate BP & HR: stable & adequate Hydration State: stable & adequate Anesthetic Complications: no major complications apparent and Pt Satisfied with anesthetic care
[2022-04-20] MEDS: carvediloL 3.125 MG TAB PO SCH (21:05)
[2022-04-20 22:59] LABS: Hematocrit (blood only) 19.2 % (42.0-52.0); Hemoglobin 6.4 g/dl (14.0-18.0)
--- NOTE | 2022-04-20 23:16 | Communication Note ---
Date of Service: April 20, 2022 Patient's H&H after 2 units of blood was still at 6.4. For this reason an additional unit of blood was ordered to be transfused. Recheck morning CBC.
[2022-04-21 07:37] LABS: Basophils # (auto) 0.04 K/uL (0-0.2); Basophils % (auto) 0.5 %; Eosinophils # (auto) 0.45 K/uL (0-0.50); Eosinophils % (auto) 5.9 %; Hematocrit (blood only) 22.1 % (42.0-52.0); Hemoglobin 7.3 g/dl (14.0-18.0); Immature Granulocytes # (auto) 0.02 K/uL (0.01-0.20); Immature Granulocytes % (auto) 0.3 %; Lymphocytes # (auto) 1.62 K/uL (1.2-3.4); Lymphocytes % (auto) 21.3 %; Mean Corpuscular Hemoglobin 28.7 pg (25.0-34.0); Mean Platelet Volume 11.6 fL (9.4-12.4); Monocytes # (auto) 0.46 K/uL (0.11-0.59); Monocytes % (auto) 6.1 %; Neutrophils % (auto) 65.9 %; Platelet Count 139 K/uL (130-400); RDW Coefficient of Variation 16.4 % (11.5-14.5); RDW Standard Deviation 52.5 fL (36.4-46.3); Red Blood Count 2.54 M/uL (4.70-6.10); White Blood Count 7.59 K/ul (4.8-10.8)
[2022-04-21 08:01] LABS: BUN Creatinine Ratio 14.3 (10-20); Calcium 8.3 mg/dl (8.5-10.1); Creatinine Clr Calc Pharmacy 27.8 ml/min; Est GFR (African American) 17.2 ml/min; Est GFR (Non-African American) 14.8 ml/min; Potassium 4.3 mmol/L (3.5-5.1)
[2022-04-21 08:23] LABS: RBC Morphology Unremarkable
[2022-04-21] MEDS: carvediloL 3.125 MG TAB PO SCH (09:14)
[2022-04-21 09:20] LABS: Estimated Average Glucose 123 mg/dl; Hemoglobin A1C 5.9 % (4.5-5.6)
--- NOTE | 2022-04-21 09:20 | Nephrology Consultation ---
Date of Consultation April 21, 2022 Assessment & Plan (1) Chronic renal insufficiency: STEVEN/CKD due to profound anemia related to GI blood loss. Kidney function is improving following 3 units PRBC. Baseline Cr has been 3.5. Volume status and electrolyte balance are acceptable. No acute indication for HD today. Mr. Titus reports that his bleeding has stopped and he plans to return home today. If discharge is anticipated, please have him follow up in my office in 7 - 14 days for reevaluation. I have placed orders in EMR for outpatient testing prior to his visit. History of Present Illness Reason for Consultation: CKD Attending Physician: Juan Jose Bailey History of Present Illness Mr. Titus is a 51 year old male who was seen in consultation at the request of the hospitalist service due to CKD. Medical records in the EMR were reviewed today and are summarized as follows: Mr. 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 He is stage G4/A3 (advanced impairment). Baseline Cr has been 3.5 w/ EGFR 22 cc/min. Prior evaluation has revealed a benign urine sediment. UPCR 12. UIEP w/ no monoclonal band. Renal US 05/08 - 13 cm kidneys, no hydronephrosis, 3.2 cm cystic lesion in midpole of R kidney. KDIGO stages have been discussed w/ Mr. Titus. He understands that he is nearing ESKD. He underwent L RC AVF 08/[address] Horton. AVF has matured and is ready for use when needed. Mr. Titus's medical history is also significant for AODM (dx 1997, complicated by retinopathy), HTN (intolerant of ANKUR inhibitors due to cough), COVID + 03/08, hypothyroidism and depression. Mr. Titus had recently undergone colonoscopy w/ removal of 4 polyps. He presented to [facility] 04/20/22 with rectal bleeding and diarrhea. Hgb was 5.4 at the time of admission. Mr. Titus was admitted to the hospitalist service and required 3 units PRBC. Cr was elevated at 4.6 but improved to 4.3 following blood transfusion Allergies Allergy/AdvReac Type Severity Reaction Status Date / Time ANKUR Inhibitors AdvReac Intermediate Cough Verified 04/20/22 14:55 lisinopril AdvReac Intermediate cough Verified 04/20/22 14:55 sertraline [From Zoloft] AdvReac Intermediate SUPRESSED Verified 04/20/22 14:55 APPETITE Home Medications Medication Instructions Recorded Confirmed Type multivitamin 1 tab PO QAM 02/19/20 04/20/22 History blood-glucose meter (Accu-Chek #1 ea 02/24/20 04/09/22 Rx Guide Glucose Meter) pen needle, diabetic 31 gauge x #200 ea 03/01/20 04/09/22 Rx 5/16" (BD Ultra-Fine Short Pen Needle) cetirizine 10 mg tablet (Zyrtec) 10 mg PO DAILY PRN Allergy Symptoms 03/25/20 04/20/22 History blood sugar diagnostic (Accu-Chek 04/25/20 04/09/22 History Guide test strips) insulin aspart U-100 100 unit/mL See Rx Instructions subcut 05/12/20 04/20/22 Rx (3 mL) subcutaneous pen (Novolog .COMPLEX #15 mL FlexPen U-100 Insulin aspart) amlodipine 5 mg tablet 5 mg PO QAM 08/03/21 04/20/22 History aspirin 81 mg tablet,delayed 81 mg PO QAM 08/03/21 04/20/22 History release (Enteric Coated Aspirin) ferrous sulfate 325 mg (65 mg 325 mg PO BID 08/03/21 04/20/22 History iron) tablet (iron) insulin degludec 100 unit/mL (3 27 unit (0.27 mL) subcut HS #15 mL 10/27/21 04/20/22 Rx mL) subcutaneous pen (Tresiba FlexTouch U-100 insulin) FreeStyle Jason 2 Sensor (flash #2 ea 12/29/21 04/09/22 Rx glucose sensor) calcitriol 0.25 mcg capsule 0.25 mcg PO QAM #90 caps 01/26/22 04/20/22 Rx (Rocaltrol) furosemide 20 mg tablet 20 mg PO QAM #90 tabs 02/26/22 04/20/22 Rx darbepoetin [place] in polysorbat 60 60 mcg subcut UD 03/06/22 04/20/22 History mcg/mL in polysorbate injection (Aranesp) atorvastatin 40 mg tablet 80 mg PO QAM #30 tabs 03/08/22 04/20/22 Rx carvedilol 3.125 mg tablet 3.125 mg PO BID #60 tabs 03/08/22 04/20/22 Rx sodium bicarbonate 650 mg tablet 1,300 mg PO BID #60 tabs 03/08/22 04/20/22 Rx levothyroxine 88 mcg tablet 88 mcg PO QAM 03/30/22 04/20/22 History citalopram 20 mg tablet 20 mg PO QAM #90 tabs 04/04/22 04/20/22 Rx Patient History Medical History Anemia Anemia due to chronic kidney disease Antiplatelet or antithrombotic long-term use Bilateral edema of lower extremity REASON FOR LASIX DAILY WEARS 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 Diabetes mellitus type 2, uncontrolled, with complications Diabetes mellitus, type 2 GLUCOSE STABLE AND CONTROLLED Diabetic macular edema Diabetic peripheral neuropathy associated with type 2 diabetes mellitus Diastolic dysfunction, left ventricle f/u ranjan daugherty Encounter for pre-operative examination History of depression HTN (hypertension) Hx of chest pain 04/2021, "intermittent, during a trip to [place], chasing around [employer]; ended up in hospital a few days after due to fluid overload."; f/u ranjan daugherty Hyperlipidemia Hypothyroidism Myocardial necrosis pt denies-"came in w/fluid overload w/kidneys; never told I had an RI" Nephrotic syndrome Onychomycosis STABLE- NO ANTIFUNGALS NEEDED AT THIS TIME Surgical History Family history of reaction to anesthesia MOTHER-HARD TO "PUT TO SLEEP" History of cataract surgery RT/LEFT History of herniorrhaphy UMBILICAL History of lingual frenulectomy History of tooth extraction Hx of vasectomy S/P arteriovenous (AV) fistula creation LT.; left limb restriction; no dialysis Family History Father Family history of diabetes mellitus Kidney disease required HD Grandmother (Paternal) Family history of diabetes mellitus Grandfather (Maternal) Hypertension Other Myocardial infarction Denies family history of Ovarian cancer Prostate cancer Breast cancer Lung cancer Colorectal cancer Stroke Social History Smoking Status: Former smoker Tobacco Type: Cigarettes Age Quit Using Tobacco: 22; Second Hand Exposure: No; Do You Dip or Chew Tobacco: No; Tobacco Cessation Education Requested by Patient: No Hx Alcohol Use: Yes Alcohol type: hard liquor Alcohol Intake Frequency: Monthly or Less Hx Substance Use: No Preferred Language: Citizen Of [place] Communication Ability: Effective Country Singer Required: No Beliefs That Will Affect Care: None marital status: Current Living Situation: Spouse current occupational status: employed 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 [employer] Other Information That Helps Us Care for You: No Feels Safe at Home: Yes Safety Concerns: Feels Safe At This Time Childhood Exposure to Second-Hand Smoke: Yes Dental Care, Regularly: No Physical Activity Frequency: 1-2 Times per Week Physical Activity Frequency Comment: exercise bike Seatbelt Use: always Sunscreen Use: Yes Assistive Devices: Glasses Review of Systems Constitutional: no fever Eyes: no problem reported Ear, Nose, Mouth, Throat: no problem reported Respiratory: no dyspnea Cardiovascular: no chest pain Gastrointestinal: no abdominal pain patient reports that rectal bleeding has stopped Neurologic: no confusion Physical Exam Constitutional: not in distress Eyes: PERRL, conjunctivae normal, anicteric sclerae ENMT: external ear and nose normal, oropharynx normal Neck: trachea midline, no thyromegaly Respiratory: normal respiratory effort, lungs clear to auscultation Cardiovascular: RRR, no murmur, no edema Gastrointestinal (Abdomen): normal bowel sounds, soft, nontender, no hepatosplenomegaly Neurologic: Speech / Cognition: normal speech and normal cognition Results & Data ([facility]) Vital Signs (Past 12 Hours) Vital Signs Temp Pulse Pulse Resp BP BP Pulse Ox 04/20/22 22:03 71 04/21/22 06:45 36.7 C 67 18 137/55 L 99 04/21/22 05:58 64 04/21/22 06:43 36.8 C 63 18 131/52 L 99 04/21/22 06:01 36.9 C 64 18 150/78 H 98 04/21/22 05:20 37.1 C 64 18 137/63 94 04/21/22 04:20 36.8 C 69 18 154/76 H 98 04/21/22 03:50 36.7 C 66 18 157/76 H 99 04/21/22 03:35 36.6 C 67 18 144/71 H 99 04/21/22 03:09 36.7 C 65 18 134/62 99 04/21/22 03:15 36.7 C 64 16 134/62 99 04/20/22 22:35 36.6 C 68 18 141/47 H 98 04/20/22 21:41 36.7 C 70 18 136/55 L 98 04/20/22 21:22 36.6 C 71 18 156/75 H 99 O2 Del Method O2 Flow Rate 04/20/22 22:03 04/21/22 06:45 0 04/21/22 05:58 04/21/22 06:43 Room Air 04/21/22 06:01 0 04/21/22 05:20 0 04/21/22 04:20 0 04/21/22 03:50 0 04/21/22 03:35 0 04/21/22 03:09 Room Air 04/21/22 03:15 04/20/22 22:35 Room Air 04/20/22 21:41 04/20/22 21:22 0 Laboratory Results Laboratory Tests 04/20/22 04/21/22 04/21/22 11:18 07:10 07:10 WBC 7.59 Hgb 7.3 L Hct 22.1 L Plt Count 139 INR 1.1 Sodium 145 Potassium 4.3 Chloride 119 H Carbon Dioxide 20 L BUN 62 H Creatinine 4.34 H D Glucose 87 Calcium 8.3 L PG Care Time/CCT Total # of Minutes Spent Total Time Spent with Patient: Total time spent is greater than 50% in coordination of care (as documented) at patient's floor/unit and/or counseling patient: Coding Level of Care Code INP/OBS CONSULT LVL 5, 80 MIN Diagnoses Chronic renal insufficiency N18.4 Chronic kidney disease stage: stage 4 (severe) (1) Chronic renal insufficiency Chronic kidney disease stage: stage 4 (severe) Qualified Code(s): N18.4 - Chronic kidney disease, stage 4 (severe)
--- NOTE | 2022-04-21 13:06 | Communication Note ---
Date of Service: April 21, 2022 GI brief note no further bleeding overnight, tolerating diet today feels fine. had an ulcer at polypectomy site in rectum, clipped x 3. recs: diet as tolerated, supportive care hgb baseline appears to be around 7/8 if remains stable ok to d/c home tonight or tomorrow from gi perspective Bean Baird MD Gastroenterology
--- NOTE | 2022-04-21 18:18 | Discharge Summary ---
Date of Service date of admission - April 20, 2022 date of discharge - April 21, 2022 Admission HPI Per Admitting Provider Mr. Titus is a 51-year-old male with a past medical history of LVH, CKD Stage 4, DM 2, peripheral neuropathy, nephrotic syndrome presents to the hospital with rectal bleeding. Patient recently had a colonoscopy/polypectomy on Apr 09. Presents for acute lower GIB with anemia. Poplypectomy Apr 09. Was doign OK just with some scant bleeding after. Restar jose iron which normally makes stool a little dark. Looked relatively normal since until last night when he had bright red paola blood. Bleeding continued and was up every 2 hours leaking bright red blood into sanitary pads and soaked through 3x pads with blood. Woke up this mornign at 6:30am and BP was normal without medications which is actually low for his normal, and he had some associated dizziness so he came to the ER for further evaluation. Did call Dr. Poon office first who recommended he be seen in the ER. No chest or chest pressure. Mild low abomdinal gurgling but no pain. No naus ea/vomiting. No shortness of breath Lightheadedness prior to admission seems to have improved, bu the notes has not stood up since arriving and is not sure if he would be busy trying to walk or stand No change in leg or feet swelling but notes 'I live in compression socks due to my CKD.' -Xplant Status: Per pt as of yesterday status 7 on transplant list for a kindey transplant through [facility]. Renal disease is 2/2 DM previously poorly controlled while younger, doing well since but due for A1C. Insulin: deglutec 27u qhs. short acting average day 5-6 units per meal (sliding scale at 130, 1 unit per 35. carb ratio 1:12). Pending A1C. Eats very few carbs and tries to minimize short acting insulin need. Voiding seems 'OK' recently, has been followed for proteinuria as outpatient whi ch sometimes has a fruity odor which has come back lately. Normal volume, light yellow to clear in color. Voids at least 1 cup per void up to 5 times per day. Tries to stay hydrated by drinking water throughout the day. has not needed dialysis. has a L fisula which is mature, Principal Diagnosis Lower GI bleeding with resulting acute blood loss anemia - 2nd to ulcer at site of prior rectal polypectomy Discharge Exam gen - NAD skin - mild pallor neck - no JVD heart - RRR, s1 s2, 2/6 JV LSB lungs - CTA b/l abd - soft NT ND BS+ ext - no edema, pulses 2+ b/l Discharge Data Allergies Allergy/AdvReac Type Severity Reaction Status Date / Time ANKUR Inhibitors AdvReac Intermediate Cough Verified 04/26/22 14:34 lisinopril AdvReac Intermediate cough Verified 04/26/22 14:34 sertraline [From Zoloft] AdvReac Intermediate SUPRESSED Verified 04/26/22 14:34 APPETITE Consultations [facility] [place] [facility] [place] [facility] Procedures Performed Operation Date: 04/20/22 09:50 Flexible Sigmoidoscopy - Bean Baird MD Findings: A single (solitary) ulcer was found in the rectum at the polypectomy site. No bleeding was present. For hemostasis, three hemostatic clips were successfully placed. 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 There was no bleeding at the end of the procedure. black stool noted likely from ferrous sulfate therapy. no active bleeding noted throughout exam. Impression: - Preparation of the colon was poor. - A single (solitary) ulcer in the rectum. Clips were placed. 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 - No specimens collected. 3 units PRBCs Hospital Course (1) GI bleed: Lower GI bleeding. With resulting acute blood loss anemia in setting of chronic anemia. Lowest Hemoglobin level = 5.4. s/p 3 units PRBCs. Discharge Hemoglobin level = 7.3. Chronic Baseline Hemoglobin ~7 to 8.5. Patient underwent flexible sigmoidoscopy by Dr Bean Baird [facility] [place]. This showed that he had a small ulcer at the site of a rectal polyp that was removed previously during colonoscopy on 04/09/22. Dr Baird placed clips across this site which was presumed to be the cause of his lower GI bleeding. Following his flexible sigmoidoscopy he had no additional bleeding, was hemodynamically stable, and H/H were stable as noted above. (2) Acute blood loss anemia: 2nd to #1 above. s/p 3 units PRBCs during the stay. (3) Anemia: Chronic anemia. Had iron studies 02/2022. Was given Venofer at that time, and has continued on Epogen due to underlying CKD. Can resume oral iron supplementation after discharge. (4) Diabetes mellitus: Stable while here. Resume prior diabetic insulin regimen. Most recent Hba1c 5.9% this admission but suspect it is falsely low due to his anemia. (5) Hypothyroidism: TSH 3.5 in 02/2022. Cont Synthroid 75 mcg p.o. daily. (6) Hyperlipidemia: Cont Atorvastatin (7) History of depression: Continue home citalopram (8) Acute on chronic kidney failure: Chronic kidney failure stage 4 - Baseline creatinine fluctuating 3.844.27; baseline CrCl 20s. Creatinine 4.66 on admission Creatinine at discharge 4.3 Suspect acute component was 2nd to GI bleeding/acute anemia Recommend repeat BMP in about 1 week post-discharge (9) CAD (coronary artery disease): Echo 03/06/2022: EF 60-65%, no regional wall motion abnormalities, severe concentric LVH, mild dilated RV with normal systolic function. RVSP 56 mmHg estimated. Compared to 04/2021 apical hypokinesis no longer present. He has been presumed to have CAD but due to CKD stage 4 unable to pursue cardiac catheterization. Remains on aspirin, statin, and beta geovanny. He had no ischemic symptoms in the setting of his GI bleeding. (10) Chronic kidney disease, stage 4 (severe): baseline CrCl 20s baseline Creatinine high 3's to about 4 (11) Nephrotic syndrome: cause of #10 above (12) HTN (hypertension): Plan Continue carvedilol BID Continue lasix daily Due to his bleeding his BPs at times were low-normal Parameters were given for his BPs at home - if BPs remain low or low-normal at home he can continue to hold amlodipine Total Time Total Time Spent Total Time Spent (In Minutes): 40 Discharge Plan Discharge Items Patient Disposition: Home - Self-Care Reason For Visit: LOWER Gastrointestinal Bleeding Discharge Diagnosis: Lower Gastrointestinal bleeding - resolved. Source for bleeding - small ulcer at the previous polyp site in the rectum. 3 clips placed. Activity: As commented below Activity Comment: light activities for the next 3-4 days, then gradually increase activities Driving/Machine Use: Resume 1 day after discharge Non-emergency contact: Primary Care Provider and Physical Chemistry Teacher Call non-emergency contact if: you have any medication questions and your symptoms worsen Follow-up/Referrals: Mj Yen MD [Physician] - (1 week follow-up; Dr Yen would like to have labs checked before the visit; please obtain those labs at any [facility] lab location 1-2 days before your office visit. ) Mitul Burciaga MD [Primary Care Provider] - Diet: Carb Consistent or DM2, Low Potassium (2gm) and Low Fiber Fluids: 1800ml (7 cups) Addtl Attending Provider Instructions: Mr Titus, You were hospitalized due to severe anemia resulting from lower gastrointestinal bleeding. Your presenting hemoglobin was 5.4, improving to 7.3 before discharge after having received 3 units of blood. Flexible sigmoidoscopy was performed by Dr Bean Baird, [facility]. At the site of the polyp removed from your rectum (during your March colonoscopy) was a small ulcer. This was the cause of your bleeding. Dr Baird placed 3 clips over this site. Since then the bleeding has stopped. You are tolerating a diet and your vital signs have remained stable. Your creatinine at discharge is 4.3. Recommendations - 1. low fiber diet for 5-7 days. Please see "low fiber" handout. 2. ok to resume your 81mg baby aspirin on 04/22/22. 3. ok to resume your iron supplement on 04/22/22. 4. ok to resume your furosemide on 04/22/22. 5. ok to resume your carvedilol on Saturday evening, 04/21/22. 6. please check your blood pressure at home tomorrow morning. If your systolic blood pressure (top number) is greater than 130 please resume your amlodipine. If your systolic blood pressure is less than 130 please hold the amlodipine at that time. 7. Dr Yen would like to see you in about 1 week. Prior to that visit please report for blood work at least 1-2 days before your appointment with him. Return to [facility] if - * you have recurrent lower GI bleeding * you feel dizzy or lightheaded * you feel short of breath * you have abdominal pains * any other concerns It was our pleasure to care for you at [facility]! -Dr Bailey Pending Studies at Discharge: No Stand-Alone Forms: My [facility], Work/School Release, Smoking Cessation Medications and DC Order Prescriptions: Continued (DME) pen needle, diabetic [BD Ultra-Fine Short Pen Needle] 31 gauge x 5/16" needle See Rx Instructions .ROUTE .MEDSUPPLY Qty: 200 5RF Rx Instructions: use 1 pen needle 5 times daily for insulin injection dx E11.9 Tresiba FlexTouch U-100 100 unit/mL (3 mL) insulin pen 27 unit subcut HS Qty: 15 1RF (DME) FreeStyle Jason 2 Sensor Kit See Rx Instructions .ROUTE .MEDSUPPLY Qty: 2 6RF Rx Instructions: As directed, replace every 14 days calcitriol [Rocaltrol] 0.25 mcg capsule 0.25 mcg PO QAM Qty: 90 3RF furosemide 20 mg tablet 20 mg PO QAM Qty: 90 3RF citalopram 20 mg tablet 20 mg PO QAM Qty: 90 1RF (DME) blood-glucose meter [Accu-Chek Guide Glucose Meter] Misc See Rx Instructions .ROUTE .MEDSUPPLY Qty: 1 0RF Rx Instructions: As directed (DME) Accu-Chek Guide test strips Strip See Rx Instructions .ROUTE .MEDSUPPLY Rx Instructions: test 3 times daily cetirizine [Zyrtec] 10 mg tablet 10 mg PO DAILY PRN (Reason: Allergy Symptoms) insulin aspart U-100 [Novolog FlexPen U-100 Insulin] 100 unit/mL (3 mL) insulin pen See Rx Instructions subcut .COMPLEX Qty: 15 6RF Rx Instructions: subcut inject based on carbohydrate ratio and sliding scale up to 30 units a day; multivitamin Tablet 1 tab PO QAM ferrous sulfate [iron] 325 mg (65 mg iron) Tablet 325 mg PO BID amlodipine 5 mg tablet 5 mg PO QAM aspirin [Enteric Coated Aspirin] 81 mg tablet,delayed release (DR/EC) 81 mg PO QAM levothyroxine 88 mcg tablet 88 mcg PO QAM Aranesp (in polysorbate) 60 mcg/mL solution 60 mcg subcut UD Rx Instructions: within last year has had 3 times. atorvastatin 40 mg Tablet 80 mg PO QAM Qty: 30 0RF carvedilol 3.125 mg Tablet 3.125 mg PO BID Qty: 60 0RF sodium bicarbonate 650 mg Tablet 1,300 mg PO BID Qty: 60 0RF No Action Venofer 200 mg iron/10 mL solution 500 mg IV .COMPLEX Qty: 50 0RF Rx Instructions: 500 mg intravenously on day #1 and day #14; administer over 30 mins Discharge Orders: Discharge Order (Routine); Ordered 04/21/22 Ordered By: Juan Jose Chery/Other Patient Handouts: Low-Fiber Diet, Rectal Bleeding Tx Admission Data Admit Date/Time: 04/20/22 13:10 Attending Provider: Juan Jose Bailey Admit Provider: Estevan Mariano Primary Care Provider: Mitul Burciaga V. Other Providers: Bean Baird ; Mj Yen Other Interventions: Discharge Summary Assessment (RN) Last Done: 04/21/22 18:29 Coding Level of Care Code HOSP INP/OBS DISCH >30 MIN Diagnoses GI bleed K92.2 GI bleed type/associated pathology: unspecified gastrointestinal hemorrhage type Acute blood loss anemia D62 Anemia D64.9 Diabetes mellitus E11.9 Hypothyroidism E03.9 Hyperlipidemia E78.5 History of depression Z86.59 Acute on chronic kidney failure N17.9; N18.9 CAD (coronary artery disease) I25.10 Chronic kidney disease, stage 4 (severe) N18.4 Nephrotic syndrome N04.9 HTN (hypertension) I10
--- NOTE | 2022-04-24 13:56 | Coding Query ---
CODING QUERY To promote full compliance with coding requirements relating to patient care, provider participation is requested in all cases of ball maker uncertainty. Please assist us with the question(s) below: Coding Question(s): GI Bleed is documented through the record and there is documentation of, "2/2 lower GI bleed, likely post polypectomy rectal bleeding" as on H&P and Discharge Summary, and the Sigmoidoscopy report documents, "A single (solitary) ulcer in the rectum. Clips were placed", and the Communication Note on 04/21 documents, " had an ulcer at polypectomy site in rectum, clipped x 3". Please specify below, in your clinical opinion, regarding the GI Bleed: ( x ) Likely postprocedural complication from the recent polypectomy ( ) Not a complication ( ) Other: Please Specify Physician's Response(s): Thank you Kenia Bedolla Principal Diagnosis: "that condition established after study, to be chiefly responsible for occasioning the admission of the patient to the hospital for care." Co-Existing Principal Diagnosis: "when two or more diagnoses equally meet the criteria for principal diagnosis as determined by the circumstances of admission, diagnostic work up, and/or therapy provided, and the Alphabetic Index, Tabular List, or another coding guideline does not provide sequencing direction, any one of the diagnoses may be sequenced first." "When the physician has documented what appears to be a current diagnosis in the body of the record, but has not included the diagnosis in the final diagnostic statement, the physician should be asked whether the diagnosis should be added." (Source Coding Clinic 2 QTR90. p3-4) ENRIQUETA
== END 2022-04-21 18:50 | disposition home or self-care (01) | DRG 920 ==
LOC: ED 10:47 → 2W 13:10 → SUATTDRO 13:10 → INTOOBSV 13:10 → 2W 16:23

== ENCOUNTER 2022-07-04 11:13 | Observation (INO) ==
--- NOTE | 2022-07-04 11:57 | XRay Report ---
XR chest 1V portable HISTORY: Dyspnea COMPARISON: Chest 03/06/2022. FINDINGS: No pneumothorax. No pleural effusions. The cardiac silhouette remains mildly enlarged. Biba silar interstitial thickening persists. No new focal lung consolidations identified. No evidence for pulmonary edema. No acute rib fractures. IMPRESSION: No change in the mild cardiomegaly and bibasilar interstitial thickening. This is likely chronic. ACT 112: Negative or not required by law. Electronically signed by: Giovany Gonzalez M.D. 07/04/2022 11:56 AM
--- NOTE | 2022-07-04 12:07 | Emergency Department Note ---
Impression & Plan Symptomatic anemia, Chronic kidney disease (CKD) ED Provider Note CHIEF COMPLAINT: Shortness of breath HISTORY OF PRESENT ILLNESS: This 52-year-old male patient with a history of chronic kidney disease, hypertension, nephrotic syndrome, peripheral neuropathy, diabetes mellitus type 2, LVH and CAD presents to the emergency department with complaints of increasing shortness of breath. He complains of ankle swelling. He is taken double his Lasix dose for the last 3 days. He did have a diarrheal illness last week but states it has since subsided. He takes iron supplementation daily and therefore his stools are dark but he did not notice any change in color. He denies bright red blood from the rectum. He denies any significant fevers, vomiting or chest pain at this time. REVIEW OF SYSTEMS: A review of systems was performed with positives and pertinent negatives listed in the history of present illness. 10 systems were reviewed and are otherwise negative. ALLERGIES: see below MEDICATIONS: see below PMH: see below SOCIAL HISTORY: see below DDx: Reactive airway disease, pneumonia, pneumothorax, COPD, CHF, infections, cardiac ischemia, pulmonary embolism, musculoskeletal, gastrointestinal, as well as other pathologies. PHYSICAL EXAM: Vital signs reviewed. General: Well-appearing 52-year-old male, in no significant distress. HEENT: Pale conjunctiva, PERRLA, neck supple. Moist mucous membranes. Cardiovascular: Regular rate and rhythm, no extra sounds. Pulmonary: Clear to auscultation bilaterally, normal work of breathing. Abdomen: Soft, nontender, nondistended, positive bowel sounds. Musculoskeletal: Atraumatic, no peripheral edema. Mild BLE edema, symmetric Rectal: Normal external rectal mucosa, guaiac negative dark stool. Neurologic: Patient awake alert and oriented x 3, speech is clear Skin: Warm, dry, no rash EMERGENCY DEPARTMENT COURSE/MDM: This patient was evaluated and appeared to be in no significant distress. IV access was obtained and laboratory work was drawn. The patient was placed on distribution technician noted to be in normal sinus rhythm. Laboratory work reveals chronic kidney disease with a creatinine of 4.84. He is also anemic with a hemoglobin of 6.8. Patient was typed and crossed for 2 units of PRBCs and consented for blood transfusion. I suspect the patient's shortness of breath is secondary to his anemia and his lower extremity edema is likely multifactorial. Given his multiple medical complications and anemia, the patient will be evaluated by the hospitalist service for admission and further management. MONITORING: An order for cardiac monitoring was placed and the patient is noted to be in a normal sinus rhythm at 67 beats per minute. RADIOLOGY: Chest x-ray to my interpretation reveals interstitial fullness bilaterally. Per radiology there is no significant change from previous. EKG: To my interpretation reveals normal sinus rhythm at 71 bpm, low voltage QRS. Likely previous anterior infarct. QTc is 473. DISPOSITION: Admission I have personally spent 32 minutes of critical care time in the direct management of this patient. This was a life/limb threatening event. This 32 minutes is in excess of all separately billable procedures. Past Med/Surg History Medical History Acute blood loss anemia Acute on chronic kidney failure Anemia Anemia Anemia due to chronic kidney disease Antiplatelet or antithrombotic long-term use Bilateral edema of lower extremity REASON FOR LASIX DAILY WEARS 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 Diabetes mellitus Diabetes mellitus type 2, uncontrolled, with complications Diabetes mellitus, type 2 GLUCOSE STABLE AND CONTROLLED Diabetic macular edema Diabetic peripheral neuropathy associated with type 2 diabetes mellitus Diastolic dysfunction, left ventricle f/u ranjan daugherty GI bleed History of depression HTN (hypertension) Hx of chest pain 04/2021, "intermittent, during a trip to [place], [place]; ended up in hospital a few days after due to fluid overload."; f/u ranjan daugherty Hyperlipidemia Influenza A Myocardial necrosis pt denies-"came in w/fluid overload w/kidneys; never told I had an IA" Nephrotic syndrome Normal electrocardiogram Onychomycosis Surgical History Family history of reaction to anesthesia MOTHER-HARD TO "PUT TO SLEEP" History of cataract surgery RT/LEFT History of herniorrhaphy UMBILICAL History of lingual frenulectomy History of tooth extraction Hx of vasectomy S/P arteriovenous (AV) fistula creation LT.; left limb restriction; no dialysis Status post colonoscopy with polypectomy Family History Father Family history of diabetes mellitus Kidney disease required HD Grandmother (Paternal) Family history of diabetes mellitus Grandfather (Maternal) Hypertension Other Myocardial infarction Denies family history of Ovarian cancer Prostate cancer Breast cancer Lung cancer Colorectal cancer Stroke Social History Smoking Status: Never smoker Tobacco Type: Cigarettes Age Quit Using Tobacco: 22; Second Hand Exposure: Yes; Do You Dip or Chew Tobacco: No; Tobacco Cessation Education Requested by Patient: No Hx Alcohol Use: Yes Alcohol type: hard liquor Alcohol Intake Frequency: Monthly or Less Hx Substance Use: No Preferred Language: German Communication Ability: Effective Chromium Plater Required: No Beliefs That Will Affect Care: None marital status: Current Living Situation: Spouse current occupational status: employed 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[employer] Other Information That Helps Us Care for You: No Feels Safe at Home: Yes Safety Concerns: Feels Safe At This Time Childhood Exposure to Second-Hand Smoke: Yes Dental Care, Regularly: No Physical Activity Frequency: 1-2 Times per Week Physical Activity Frequency Comment: exercise bike Seatbelt Use: always Sunscreen Use: Yes Assistive Devices: Glasses Assistive Devices Comment: reading glasses here only Allergies Allergies Allergy/AdvReac Type Severity Reaction Status Date / Time ANKUR Inhibitors AdvReac Intermediate Cough Verified 05/24/22 15:20 lisinopril AdvReac Intermediate cough Verified 05/24/22 15:20 sertraline [From Zoloft] AdvReac Intermediate SUPRESSED Verified 05/24/22 15:20 APPETITE Home Meds Home Medications Medication Instructions Recorded Confirmed multivitamin 1 tab PO QAM 02/19/20 07/04/22 cetirizine 10 mg tablet (Zyrtec) 10 mg PO DAILY PRN Allergy Symptoms 03/25/20 07/04/22 blood sugar diagnostic (Accu-Chek 04/25/20 07/04/22 Guide test strips) amlodipine 5 mg tablet 5 mg PO QAM 08/03/21 07/04/22 aspirin 81 mg tablet,delayed 81 mg PO QAM 08/03/21 07/04/22 release (Enteric Coated Aspirin) ferrous sulfate 325 mg (65 mg 325 mg PO DAILY 08/03/21 07/04/22 iron) tablet (iron) darbepoetin [place] in polysorbat 60 60 mcg subcut UD 03/06/22 07/04/22 mcg/mL in polysorbate injection (Aranesp) levothyroxine 88 mcg tablet 88 mcg PO QAM 03/30/22 07/04/22 furosemide 20 mg tablet 20 mg PO QAM PRN Edema 07/04/22 07/04/22 Previous Rx's Medication Instructions Recorded blood-glucose meter (Accu-Chek #1 ea 02/24/20 Guide Glucose Meter) pen needle, diabetic 31 gauge x #200 ea 03/01/20 5/16" (BD Ultra-Fine Short Pen Needle) insulin aspart U-100 100 unit/mL See Rx Instructions subcut 05/12/20 (3 mL) subcutaneous pen (Novolog .COMPLEX #15 mL FlexPen U-100 Insulin aspart) insulin degludec 100 unit/mL (3 27 unit (0.27 mL) subcut HS #15 mL 10/27/21 mL) subcutaneous pen (Tresiba FlexTouch U-100 insulin) FreeStyle Jason 2 Sensor (flash #2 ea 12/29/21 glucose sensor) calcitriol 0.25 mcg capsule 0.25 mcg PO QAM #90 caps 01/26/22 (Rocaltrol) furosemide 20 mg tablet 20 mg PO QAM #90 tabs 02/26/22 citalopram 20 mg tablet 20 mg PO QAM #90 tabs 04/04/22 iron sucrose 200 mg iron/10 mL 500 mg (25 mL) IV .COMPLEX 5 doses 04/26/22 intravenous solution (Venofer) #50 mL atorvastatin 80 mg tablet 80 mg PO QAM #90 tabs 04/30/22 carvedilol 3.125 mg tablet 3.125 mg PO BID #60 tabs 05/03/22 Results & Data (ED) Vital Signs Vital Signs - 24 hr 07/04/22 11:16 07/04/22 12:03 07/04/22 12:03 Temperature 36.7 C Temperature Source Temporal Artery Scan Pulse Rate 77 67 Pulse Rate [Apical] 66 Pulse Rhythm [Apical] Regular Pulse Strength [Apical] Normal Respiratory Rate 18 16 15 Respiratory Effort / Characteristics Non-Labored Spontaneous Respiratory Depth Normal Respiratory Pattern Blood Pressure 157/70 H Blood Pressure [Right Arm] 153/75 H Blood Pressure Mean 99 Blood Pressure Mean [Right Arm] 101 Blood Pressure Position [Right Arm] Semi-fowlers Pulse Oximetry 97 95 96 Oxygen Delivery Method Room Air Room Air Room Air Sepsis Recent Fever Within 48 Hours No Sepsis New/Unexplained Change in Mental Status No Sepsis Action Taken by Nursing No Action Required 07/04/22 12:04 07/04/22 12:07 07/04/22 12:14 Temperature Temperature Source Pulse Rate 66 Pulse Rate [Apical] Pulse Rhythm [Apical] Pulse Strength [Apical] Respiratory Rate Respiratory Effort / Characteristics Non-Labored Spontaneous Respiratory Depth Respiratory Pattern Regular Blood Pressure Blood Pressure [Right Arm] Blood Pressure Mean Blood Pressure Mean [Right Arm] Blood Pressure Position [Right Arm] Pulse Oximetry 98 Oxygen Delivery Method Room Air Room Air Sepsis Recent Fever Within 48 Hours Sepsis New/Unexplained Change in Mental Status Sepsis Action Taken by Intermediate Medications Current Medication List: was personally reviewed by me Laboratory Data Attestation: I reviewed the patient's lab results. 07/04/22 11:35 07/04/22 11:35 Lab Results 07/04/22 07/04/22 07/04/22 Range/Units 11:35 11:35 11:35 WBC Cancelled RBC Cancelled Hgb Cancelled Hct Cancelled MCV Cancelled MCH Cancelled MCHC Cancelled RDW Std Deviation Cancelled RDW Coeff of Gladys Cancelled Plt Count Cancelled MPV Cancelled Immature Gran % (Auto) Cancelled Neut % (Auto) Cancelled Lymph % (Auto) Cancelled Emanuel % (Auto) Cancelled Eos % (Auto) Cancelled Baso % (Auto) Cancelled Neut # (Auto) Cancelled Lymph # (Auto) Cancelled Emanuel # (Auto) Cancelled Eos # (Auto) Cancelled Baso # (Auto) Cancelled Immature Gran # (Auto) Cancelled Absolute Nucleated RBC Cancelled Nucleated RBC % (auto) Cancelled Neutrophils % (Manual) Cancelled Band Neutrophils % Cancelled Lymphocytes % (Manual) Cancelled Prolymphocyte % Cancelled Reactive Lymphs % (Man) Cancelled Monocytes % (Manual) Cancelled Eosinophils % (Manual) Cancelled Basophils % (Manual) Cancelled Metamyelocytes % (Man) Cancelled Myelocytes % (Man) Cancelled Promyelocytes % (Man) Cancelled Blast Cells % (Manual) Cancelled Plasma Cell % (Manual) Cancelled Other Cells % Cancelled Nucleated RBC % Cancelled Neutrophils # (Manual) Cancelled Band Neutrophils # Cancelled Total Absolute Neuts Cancelled Lymphocytes # (Manual) Cancelled Prolymphocyte # Cancelled Reactive Lymphs # Cancelled Total Abs Lymphocytes Cancelled Monocytes # (Manual) Cancelled Eosinophils # (Manual) Cancelled Basophils # (Manual) Cancelled Metamyelocytes # (Man) Cancelled Myelocytes # (Manual) Cancelled Promyelocytes # (Man) Cancelled Blast Cells # (Man) Cancelled Plasma Cell # (Manual) Cancelled Other Cells # Cancelled Nucleated RBCs # (Man) Cancelled Hypersegmented Neuts Cancelled Hyposegmented Neuts Cancelled Hypogranular Neuts Cancelled Large Granular Lymphs Cancelled # Lrg Granular Lymphs Cancelled Hairy Cells Cancelled Smudge Cells Cancelled Toxic Granulation Cancelled Toxic Vacuolation Cancelled Dohle Bodies Cancelled Rosanna Rods Cancelled Platelet Estimate Cancelled Hypogranular Platelets Cancelled Giant Platelets Cancelled Platelet Satelliting Cancelled RBC Morphology Cancelled Polychromasia Cancelled Hypochromasia Cancelled Poikilocytosis Cancelled Basophilic Stippling Cancelled Anisocytosis Cancelled Microcytosis Cancelled Macrocytosis Cancelled Spherocytes Cancelled Pappenheimer Bodies Cancelled Sickle Cells Cancelled Target Cells Cancelled Tear Drop Cells Cancelled Ovalocytes Cancelled Stomatocytes Cancelled [place] Bodies Cancelled Echinocytes Cancelled Acanthocytes (Spur) Cancelled Rouleaux Cancelled RBC Agglutinates Cancelled Schistocytes Cancelled Sezary Cell Cancelled PT Cancelled INR Cancelled APTT Cancelled PTT Ratio Cancelled Sodium 142 (136-145) mmol/L Potassium 5.1 (3.5-5.1) mmol/L Chloride 116 H (98-107) mmol/L Carbon Dioxide 19 L (21-32) mmol/L Anion Gap 7 (3-11) BUN 71 H (6-23) mg/dl Creatinine 4.84 H* (0.6-1.4) mg/dl Est Cr Clr Drug Dosing 24.8 ml/min Est GFR ( Amer) 14.9 ml/min Est GFR (Non-Af Amer) 12.9 ml/min BUN/Creatinine Ratio 14.7 (10-20) Glucose 121 H (70-99(Fasting)) mg/dl Calcium 9.1 (8.6-10.3) mg/dl Magnesium 2.0 (1.7-2.4) mg/dl Total Bilirubin 0.4 (0.2-1.0) mg/dl AST 17 (13-39) U/L ALT 19 (7-52) U/L Alkaline Phosphatase 156 H (34-104) U/L Troponin I High Sens 19.6 (0-20) pg/ml B-Natriuretic Peptide (0-100) pg/ml Total Protein 6.4 (6.0-8.3) gm/dl Albumin 3.5 (3.4-5.0) gm/dl Globulin 2.9 (2.5-4.0) gm/dl Albumin/Globulin Ratio 1.2 (0.9-2) TSH (0.300-4.500) uIu/ml Free T4 (0.61-1.60) ng/dl Urine Color Urine Appearance (Clear) Urine pH (4.5-7.5) Ur Specific [place] (1.000-1.030) Urine Protein (Negative) Urine Glucose (UA) (Negative) Urine Ketones (Negative) Urine Blood (Negative) Urine Nitrite (Negative) Urine Bilirubin (Negative) Urine Urobilinogen (Negative) Ur Leukocyte Esterase (Negative) Urine WBC (Auto) (0-5) /hpf Urine RBC (Auto) (0-4) /hpf U Hyaline Cast (Auto) (0-5) /lpf U Epithel Cells (Auto) (0-5) /lpf Urine Bacteria (Auto) (Negative) Adenovirus (PCR) (NotDetected) B. pertussis DNA (PCR) (NotDetected) B.parapertussis DNA PCR (NotDetected) C. pneumoniae DNA (PCR) (NotDetected) Coronavirus OC43 (PCR) (NotDetected) Coronavirus HKU1 (PCR) (NotDetected) Coronavirus 229E (PCR) (NotDetected) SARS-CoV-2 (PCR) (NotDetected) Coronavirus NL63 (PCR) (NotDetected) Human Metapneumovir PCR (NotDetected) Influenza Type A (PCR) (NotDetected) Influenza Type B (PCR) (NotDetected) M. pneumoniae (PCR) (NotDetected) Parainfluenza 1 (PCR) (NotDetected) Parainfluenza 2 (PCR) (NotDetected) Parainfluenza 3 (PCR) (NotDetected) Parainfluenza 4 (PCR) (NotDetected) RSV (PCR) (NotDetected) Entero/Rhino (PCR) (NotDetected) Blood Parasites ID Cancelled Blood Type Antibody Screen Crossmatch 07/04/22 07/04/22 07/04/22 Range/Units 11:35 11:35 11:58 WBC RBC Hgb Hct MCV MCH MCHC RDW Std Deviation RDW Coeff of Gladys Plt Count MPV Immature Gran % (Auto) Neut % (Auto) Lymph % (Auto) Emanuel % (Auto) Eos % (Auto) Baso % (Auto) Neut # (Auto) Lymph # (Auto) Emanuel # (Auto) Eos # (Auto) Baso # (Auto) Immature Gran # (Auto) Absolute Nucleated RBC Nucleated RBC % (auto) Neutrophils % (Manual) Band Neutrophils % Lymphocytes % (Manual) Prolymphocyte % Reactive Lymphs % (Man) Monocytes % (Manual) Eosinophils % (Manual) Basophils % (Manual) Metamyelocytes % (Man) Myelocytes % (Man) Promyelocytes % (Man) Blast Cells % (Manual) Plasma Cell % (Manual) Other Cells % Nucleated RBC % Neutrophils # (Manual) Band Neutrophils # Total Absolute Neuts Lymphocytes # (Manual) Prolymphocyte # Reactive Lymphs # Total Abs Lymphocytes Monocytes # (Manual) Eosinophils # (Manual) Basophils # (Manual) Metamyelocytes # (Man) Myelocytes # (Manual) Promyelocytes # (Man) Blast Cells # (Man) Plasma Cell # (Manual) Other Cells # Nucleated RBCs # (Man) Hypersegmented Neuts Hyposegmented Neuts Hypogranular Neuts Large Granular Lymphs # Lrg Granular Lymphs Hairy Cells Smudge Cells Toxic Granulation Toxic Vacuolation Dohle Bodies Rosanna Rods Platelet Estimate Hypogranular Platelets Giant Platelets Platelet Satelliting RBC Morphology Polychromasia Hypochromasia Poikilocytosis Basophilic Stippling Anisocytosis Microcytosis Macrocytosis Spherocytes Pappenheimer Bodies Sickle Cells Target Cells Tear Drop Cells Ovalocytes Stomatocytes [place] Bodies Echinocytes Acanthocytes (Spur) Rouleaux RBC Agglutinates Schistocytes Sezary Cell PT INR APTT PTT Ratio Sodium (136-145) mmol/L Potassium (3.5-5.1) mmol/L Chloride (98-107) mmol/L Carbon Dioxide (21-32) mmol/L Anion Gap (3-11) BUN (6-23) mg/dl Creatinine (0.6-1.4) mg/dl Est Cr Clr Drug Dosing ml/min Est GFR ( Amer) ml/min Est GFR (Non-Af Amer) ml/min BUN/Creatinine Ratio (10-20) Glucose (70-99(Fasting)) mg/dl Calcium (8.6-10.3) mg/dl Magnesium (1.7-2.4) mg/dl Total Bilirubin (0.2-1.0) mg/dl AST (13-39) U/L ALT (7-52) U/L Alkaline Phosphatase (34-104) U/L Troponin I High Sens (0-20) pg/ml B-Natriuretic Peptide 550 H (0-100) pg/ml Total Protein (6.0-8.3) gm/dl Albumin (3.4-5.0) gm/dl Globulin (2.5-4.0) gm/dl Albumin/Globulin Ratio (0.9-2) TSH 5.382 H (0.300-4.500) uIu/ml Free T4 0.76 (0.61-1.60) ng/dl Urine Color Yellow Urine Appearance Clear (Clear) Urine pH 5.0 (4.5-7.5) Ur Specific [place] 1.016 (1.000-1.030) Urine Protein 3+ H (Negative) Urine Glucose (UA) Trace H (Negative) Urine Ketones Negative (Negative) Urine Blood 1+ H (Negative) Urine Nitrite Negative (Negative) Urine Bilirubin Negative (Negative) Urine Urobilinogen Negative (Negative) Ur Leukocyte Esterase Negative (Negative) Urine WBC (Auto) 1-5 (0-5) /hpf Urine RBC (Auto) 5-10 H (0-4) /hpf U Hyaline Cast (Auto) 5-10 H (0-5) /lpf U Epithel Cells (Auto) 10-20 H (0-5) /lpf Urine Bacteria (Auto) Negative (Negative) Adenovirus (PCR) (NotDetected) B. pertussis DNA (PCR) (NotDetected) B.parapertussis DNA PCR (NotDetected) C. pneumoniae DNA (PCR) (NotDetected) Coronavirus OC43 (PCR) (NotDetected) Coronavirus HKU1 (PCR) (NotDetected) Coronavirus 229E (PCR) (NotDetected) SARS-CoV-2 (PCR) (NotDetected) Coronavirus NL63 (PCR) (NotDetected) Human Metapneumovir PCR (NotDetected) Influenza Type A (PCR) (NotDetected) Influenza Type B (PCR) (NotDetected) M. pneumoniae (PCR) (NotDetected) Parainfluenza 1 (PCR) (NotDetected) Parainfluenza 2 (PCR) (NotDetected) Parainfluenza 3 (PCR) (NotDetected) Parainfluenza 4 (PCR) (NotDetected) RSV (PCR) (NotDetected) Entero/Rhino (PCR) (NotDetected) Blood Parasites ID Blood Type Antibody Screen Crossmatch 07/04/22 07/04/22 07/04/22 Range/Units 11:58 12:37 12:37 WBC 5.66 RBC 2.39 L Hgb 6.8 L* Hct 21.3 L MCV 89.1 MCH 28.5 MCHC 31.9 L RDW Std Deviation 47.5 H RDW Coeff of Gladys 14.6 H Plt Count 156 MPV 10.9 Immature Gran % (Auto) 0.2 Neut % (Auto) 74.3 Lymph % (Auto) 14.1 Emanuel % (Auto) 7.1 Eos % (Auto) 3.9 Baso % (Auto) 0.4 Neut # (Auto) 4.21 Lymph # (Auto) 0.80 L Emanuel # (Auto) 0.40 Eos # (Auto) 0.22 Baso # (Auto) 0.02 Immature Gran # (Auto) 0.01 Absolute Nucleated RBC Nucleated RBC % (auto) Neutrophils % (Manual) Band Neutrophils % Lymphocytes % (Manual) Prolymphocyte % Reactive Lymphs % (Man) Monocytes % (Manual) Eosinophils % (Manual) Basophils % (Manual) Metamyelocytes % (Man) Myelocytes % (Man) Promyelocytes % (Man) Blast Cells % (Manual) Plasma Cell % (Manual) Other Cells % Nucleated RBC % Neutrophils # (Manual) Band Neutrophils # Total Absolute Neuts Lymphocytes # (Manual) Prolymphocyte # Reactive Lymphs # Total Abs Lymphocytes Monocytes # (Manual) Eosinophils # (Manual) Basophils # (Manual) Metamyelocytes # (Man) Myelocytes # (Manual) Promyelocytes # (Man) Blast Cells # (Man) Plasma Cell # (Manual) Other Cells # Nucleated RBCs # (Man) Hypersegmented Neuts Hyposegmented Neuts Hypogranular Neuts Large Granular Lymphs # Lrg Granular Lymphs Hairy Cells Smudge Cells Toxic Granulation Toxic Vacuolation Dohle Bodies Rosanna Rods Platelet Estimate Hypogranular Platelets Giant Platelets Platelet Satelliting RBC Morphology Unremarkable Polychromasia Hypochromasia Poikilocytosis Basophilic Stippling Anisocytosis Microcytosis Macrocytosis Spherocytes Pappenheimer Bodies Sickle Cells Target Cells Tear Drop Cells Ovalocytes Stomatocytes [place] Bodies Echinocytes Acanthocytes (Spur) Rouleaux RBC Agglutinates Schistocytes Sezary Cell PT 12.0 INR 1.1 APTT 31.8 H PTT Ratio 1.2 Sodium (136-145) mmol/L Potassium (3.5-5.1) mmol/L Chloride (98-107) mmol/L Carbon Dioxide (21-32) mmol/L Anion Gap (3-11) BUN (6-23) mg/dl Creatinine (0.6-1.4) mg/dl Est Cr Clr Drug Dosing ml/min Est GFR ( Amer) ml/min Est GFR (Non-Af Amer) ml/min BUN/Creatinine Ratio (10-20) Glucose (70-99(Fasting)) mg/dl Calcium (8.6-10.3) mg/dl Magnesium (1.7-2.4) mg/dl Total Bilirubin (0.2-1.0) mg/dl AST (13-39) U/L ALT (7-52) U/L Alkaline Phosphatase (34-104) U/L Troponin I High Sens (0-20) pg/ml B-Natriuretic Peptide (0-100) pg/ml Total Protein (6.0-8.3) gm/dl Albumin (3.4-5.0) gm/dl Globulin (2.5-4.0) gm/dl Albumin/Globulin Ratio (0.9-2) TSH (0.300-4.500) uIu/ml Free T4 (0.61-1.60) ng/dl Urine Color Urine Appearance (Clear) Urine pH (4.5-7.5) Ur Specific [place] (1.000-1.030) Urine Protein (Negative) Urine Glucose (UA) (Negative) Urine Ketones (Negative) Urine Blood (Negative) Urine Nitrite (Negative) Urine Bilirubin (Negative) Urine Urobilinogen (Negative) Ur Leukocyte Esterase (Negative) Urine WBC (Auto) (0-5) /hpf Urine RBC (Auto) (0-4) /hpf U Hyaline Cast (Auto) (0-5) /lpf U Epithel Cells (Auto) (0-5) /lpf Urine Bacteria (Auto) (Negative) Adenovirus (PCR) Not Detected (NotDetected) B. pertussis DNA (PCR) Not Detected (NotDetected) B.parapertussis DNA PCR Not Detected (NotDetected) C. pneumoniae DNA (PCR) Not Detected (NotDetected) Coronavirus OC43 (PCR) Not Detected (NotDetected) Coronavirus HKU1 (PCR) Not Detected (NotDetected) Coronavirus 229E (PCR) Not Detected (NotDetected) SARS-CoV-2 (PCR) Not Detected (NotDetected) Coronavirus NL63 (PCR) Not Detected (NotDetected) Human Metapneumovir PCR Not Detected (NotDetected) Influenza Type A (PCR) Not Detected (NotDetected) Influenza Type B (PCR) Not Detected (NotDetected) M. pneumoniae (PCR) Not Detected (NotDetected) Parainfluenza 1 (PCR) Not Detected (NotDetected) Parainfluenza 2 (PCR) Not Detected (NotDetected) Parainfluenza 3 (PCR) Not Detected (NotDetected) Parainfluenza 4 (PCR) Not Detected (NotDetected) RSV (PCR) Not Detected (NotDetected) Entero/Rhino (PCR) Not Detected (NotDetected) Blood Parasites ID Blood Type Antibody Screen Crossmatch 07/04/22 Range/Units 13:21 WBC RBC Hgb Hct MCV MCH MCHC RDW Std Deviation RDW Coeff of Gladys Plt Count MPV Immature Gran % (Auto) Neut % (Auto) Lymph % (Auto) Emanuel % (Auto) Eos % (Auto) Baso % (Auto) Neut # (Auto) Lymph # (Auto) Emanuel # (Auto) Eos # (Auto) Baso # (Auto) Immature Gran # (Auto) Absolute Nucleated RBC Nucleated RBC % (auto) Neutrophils % (Manual) Band Neutrophils % Lymphocytes % (Manual) Prolymphocyte % Reactive Lymphs % (Man) Monocytes % (Manual) Eosinophils % (Manual) Basophils % (Manual) Metamyelocytes % (Man) Myelocytes % (Man) Promyelocytes % (Man) Blast Cells % (Manual) Plasma Cell % (Manual) Other Cells % Nucleated RBC % Neutrophils # (Manual) Band Neutrophils # Total Absolute Neuts Lymphocytes # (Manual) Prolymphocyte # Reactive Lymphs # Total Abs Lymphocytes Monocytes # (Manual) Eosinophils # (Manual) Basophils # (Manual) Metamyelocytes # (Man) Myelocytes # (Manual) Promyelocytes # (Man) Blast Cells # (Man) Plasma Cell # (Manual) Other Cells # Nucleated RBCs # (Man) Hypersegmented Neuts Hyposegmented Neuts Hypogranular Neuts Large Granular Lymphs # Lrg Granular Lymphs Hairy Cells Smudge Cells Toxic Granulation Toxic Vacuolation Dohle Bodies Rosanna Rods Platelet Estimate Hypogranular Platelets Giant Platelets Platelet Satelliting RBC Morphology Polychromasia Hypochromasia Poikilocytosis Basophilic Stippling Anisocytosis Microcytosis Macrocytosis Spherocytes Pappenheimer Bodies Sickle Cells Target Cells Tear Drop Cells Ovalocytes Stomatocytes [place] Bodies Echinocytes Acanthocytes (Spur) Rouleaux RBC Agglutinates Schistocytes Sezary Cell PT INR APTT PTT Ratio Sodium (136-145) mmol/L Potassium (3.5-5.1) mmol/L Chloride (98-107) mmol/L Carbon Dioxide (21-32) mmol/L Anion Gap (3-11) BUN (6-23) mg/dl Creatinine (0.6-1.4) mg/dl Est Cr Clr Drug Dosing ml/min Est GFR ( Amer) ml/min Est GFR (Non-Af Amer) ml/min BUN/Creatinine Ratio (10-20) Glucose (70-99(Fasting)) mg/dl Calcium (8.6-10.3) mg/dl Magnesium (1.7-2.4) mg/dl Total Bilirubin (0.2-1.0) mg/dl AST (13-39) U/L ALT (7-52) U/L Alkaline Phosphatase (34-104) U/L Troponin I High Sens (0-20) pg/ml B-Natriuretic Peptide (0-100) pg/ml Total Protein (6.0-8.3) gm/dl Albumin (3.4-5.0) gm/dl Globulin (2.5-4.0) gm/dl Albumin/Globulin Ratio (0.9-2) TSH (0.300-4.500) uIu/ml Free T4 (0.61-1.60) ng/dl Urine Color Urine Appearance (Clear) Urine pH (4.5-7.5) Ur Specific [place] (1.000-1.030) Urine Protein (Negative) Urine Glucose (UA) (Negative) Urine Ketones (Negative) Urine Blood (Negative) Urine Nitrite (Negative) Urine Bilirubin (Negative) Urine Urobilinogen (Negative) Ur Leukocyte Esterase (Negative) Urine WBC (Auto) (0-5) /hpf Urine RBC (Auto) (0-4) /hpf U Hyaline Cast (Auto) (0-5) /lpf U Epithel Cells (Auto) (0-5) /lpf Urine Bacteria (Auto) (Negative) Adenovirus (PCR) (NotDetected) B. pertussis DNA (PCR) (NotDetected) B.parapertussis DNA PCR (NotDetected) C. pneumoniae DNA (PCR) (NotDetected) Coronavirus OC43 (PCR) (NotDetected) Coronavirus HKU1 (PCR) (NotDetected) Coronavirus 229E (PCR) (NotDetected) SARS-CoV-2 (PCR) (NotDetected) Coronavirus NL63 (PCR) (NotDetected) Human Metapneumovir PCR (NotDetected) Influenza Type A (PCR) (NotDetected) Influenza Type B (PCR) (NotDetected) M. pneumoniae (PCR) (NotDetected) Parainfluenza 1 (PCR) (NotDetected) Parainfluenza 2 (PCR) (NotDetected) Parainfluenza 3 (PCR) (NotDetected) Parainfluenza 4 (PCR) (NotDetected) RSV (PCR) (NotDetected) Entero/Rhino (PCR) (NotDetected) Blood Parasites ID Blood Type O Positive Antibody Screen NEGATIVE Crossmatch See Detail Administered Medications Amlodipine Besylate (Amlodipine Besylate 5 Mg Tab) 5 mg PO [facility] Stop: 08/04/22 08:59 Last Admin: 07/05/22 08:10 Dose: 5 mg Documented By: BEST Aspirin (Aspirin 81 Mg Ectab) 81 mg PO [facility] Stop: 08/04/22 08:59 Last Admin: 07/05/22 08:12 Dose: 81 mg Documented By: BEST Atorvastatin Calcium (Atorvastatin 40 Mg Tab) 80 mg PO [facility] Stop: 08/04/22 08:59 Last Admin: 07/05/22 08:13 Dose: 80 mg Documented By: BEST Calcitriol (Calcitriol 0.25 Mcg Capsule) 0.25 mcg PO [facility] Stop: 08/04/22 08:59 Last Admin: 07/05/22 08:13 Dose: 0.25 mcg Documented By: BEST Carvedilol (Carvedilol 3.125 Mg Tab) 3.125 mg PO BID [facility] Stop: 08/03/22 20:59 Last Admin: 07/05/22 08:12 Dose: 3.125 mg Documented By: Admin: 07/04/22 20:52 Dose: 3.125 mg Documented By: WILLIAM Citalopram Hydrobromide (Citalopram 20 Mg Tab) 20 mg PO [facility] Stop: 08/04/22 08:59 Last Admin: 07/05/22 08:14 Dose: 20 mg Documented By: BEST Insulin Aspart (Insulin Aspart Per Unit Charge) 0 units SC ACHS [facility] Stop: 08/03/22 16:29 Last Admin: 07/05/22 08:18 Dose: 4 units Documented By: BEST Co-signed By: SHARONDA Admin: 07/04/22 20:26 Dose: Not Given Documented By: Admin: 07/04/22 17:18 Dose: 3 units Documented By: NINFA Co-signed By: SHARONDA Insulin Glargine (Lantus Per Unit Charge) 15 units SQ HS [facility] Stop: 08/03/22 20:59 Last Admin: 07/04/22 20:52 Dose: 15 units Documented By: WILLIAM Co-signed By: KATHLEEN Imaging Data Radiologist's Impression: Chest X-Ray 07/04/22 11:25 XR chest 1V portable HISTORY: Dyspnea COMPARISON: Chest 03/06/2022. FINDINGS: No pneumothorax. No pleural effusions. The cardiac silhouette remains mildly enlarged. Bibasilar interstitial thickening persists. No new focal lung consolidations identified. No evidence for pulmonary edema. No acute rib fractures. IMPRESSION: No change in the mild cardiomegaly and bibasilar interstitial thickening. This is likely chronic. ACT 112: Negative or not required by law. Electronically signed by: Giovany Gonzalez M.D. 07/04/2022 11:56 AM Discharge Plan Visit Data Chief Complaint: Shortness of Breath/Dyspnea Stated Complaint: SOB ED Provider: Carolyn Mcmullen Discharge Problem: Symptomatic anemia, Chronic kidney disease (CKD) Patient Disposition: Admitted As Inpatient Discharge Instructions Interventions: ED Discharge Assessment Last Done: 07/04/22 15:14
[2022-07-04 12:31] LABS: Appearance Urine Clear (Clear); Bacteria Urine Automated Negative (Negative); Bilirubin Urine Negative (Negative); Blood Urine 1+ (Negative); Color Urine Yellow; Glucose Urine UA Trace (Negative); Ketones Urine Negative (Negative); Leukocyte Esterase Urine Negative (Negative); Nitrite Urine Negative (Negative); Protein Urine 3+ (Negative); Specific Gravity Urine 1.016 (1.000-1.030); Urobilinogen Urine Negative (Negative)
[2022-07-04 12:45] LABS: Albumin Globulin Ratio 1.2 (0.9-2); Albumin Level 3.5 gm/dl (3.4-5.0); BUN Creatinine Ratio 14.7 (10-20); Bilirubin,Total 0.4 mg/dl (0.2-1.0); Calcium 9.1 mg/dl (8.6-10.3); Creatinine Clr Calc Pharmacy 24.8 ml/min; Est GFR (African American) 14.9 ml/min; Est GFR (Non-African American) 12.9 ml/min; Globulin 2.9 gm/dl (2.5-4.0); Potassium 5.1 mmol/L (3.5-5.1); Total Protein 6.4 gm/dl (6.0-8.3); Troponin I High Sensitivity 19.6 pg/ml (0-20)
[2022-07-04 12:56] LABS: Adenovirus PCR Not Detected (NotDetected); Bordetella parapertussis PCR Not Detected (NotDetected); Bordetella pertussis PCR Not Detected (NotDetected); Chlamydia pneumoniae PCR Not Detected (NotDetected); Coronavirus 229E PCR Not Detected (NotDetected); Coronavirus CoV-2 (COVID19)PCR Not Detected (NotDetected); Coronavirus HKU1 PCR Not Detected (NotDetected); Coronavirus NL63 PCR Not Detected (NotDetected); Coronavirus OC43PCR Not Detected (NotDetected); Human Metapneumovirus PCR Not Detected (NotDetected); Influenza A PCR Not Detected (NotDetected); Influenza B PCR Not Detected (NotDetected); Mycoplasma pneumoniae PCR Not Detected (NotDetected); Parainfluenza Virus 1 PCR Not Detected (NotDetected); Parainfluenza Virus 2 PCR Not Detected (NotDetected); Parainfluenza Virus 3 PCR Not Detected (NotDetected); Parainfluenza Virus 4 PCR Not Detected (NotDetected); Respiratory Syncytial VirusPCR Not Detected (NotDetected); Rhinovirus/Enterovirus PCR Not Detected (NotDetected)
[2022-07-04 13:07] LABS: Hematocrit (blood only) 21.3 % (42.0-52.0); Hemoglobin 6.8 g/dl (14.0-18.0); Mean Corpuscular Hemoglobin 28.5 pg (25.0-34.0); Mean Corpuscular Hgb Conc 31.9 g/dL (32.0-36.0); Mean Corpuscular Volume 89.1 fL (80.0-100.0); Mean Platelet Volume 10.9 fL (9.4-12.4); Platelet Count 156 K/uL (130-400); RDW Coefficient of Variation 14.6 % (11.5-14.5); RDW Standard Deviation 47.5 fL (36.4-46.3); Red Blood Count 2.39 M/uL (4.70-6.10); White Blood Count 5.66 K/ul (4.8-10.8)
[2022-07-04] MEDS ORDERED: SODIUM CHLORIDE 0.9% 250 ML IV PRN ×2 (13:08→20:59)
[2022-07-04 13:17] LABS: Basophils # (auto) 0.02 K/uL (0-0.2); Basophils % (auto) 0.4 %; Eosinophils # (auto) 0.22 K/uL (0-0.50); Eosinophils % (auto) 3.9 %; Immature Granulocytes # (auto) 0.01 K/uL (0.01-0.20); Immature Granulocytes % (auto) 0.2 %; Lymphocytes % (auto) 14.1 %; Monocytes % (auto) 7.1 %; Neutrophils # (auto) 4.21 K/uL (1.40-6.50); Neutrophils % (auto) 74.3 %; RBC Morphology Unremarkable
--- NOTE | 2022-07-04 13:25 | Electrocardiogram Report ---
Test Reason : Blood Pressure : / mmHG Vent. Rate : 071 BPM Atrial Rate : 071 BPM P-R Int : 158 ms QRS Dur : 110 ms QT Int : 436 ms P-R-T Axes : 055 021 062 degrees QTc Int : 473 ms Normal sinus rhythm Low voltage QRS Poor R wave progression, consider anterior [place] vs. lead placement vs. LVH Abnormal ECG When compared with ECG of 06-MAR-2022 20:04, Questionable change in initial forces of Septal leads Confirmed by Camron Gutierrez ([id number]) on 07/04/2022 1:24:53 PM Referred By: Confirmed By:Buck Gutierrez
[2022-07-04 13:36] LABS: INR 1.1 (0.9-1.1); Partial Thromboplastin Ratio 1.2; Partial Thromboplastin Time 31.8 Seconds (21.0-31.0)
[2022-07-04] MEDS ORDERED: GLUCAGON FOR INJ 1 MG VIAL SQ PRN (13:55)
[2022-07-04] MEDS ORDERED: DEXTROSE 50% 50 ML SYRINGE IV PRN (13:55)
[2022-07-04] MEDS ORDERED: GLUCOSE 40% GEL 15 GM TUBE PO PRN (13:55)
[2022-07-04] MEDS ORDERED: GLUCOSE 10 TAB/TUBE PO PRN (13:55)
[2022-07-04] MEDS ORDERED: CARBOHYDRATES FOR HYPOGLYCEMIA PO PRN (13:55)
--- NOTE | 2022-07-04 14:30 | History & Physical Report ---
Date of Service July 04, 2022 Assessment & Plan (1) Symptomatic anemia: Plan: -Admit to med/tele -The patient is currently afebrile, hemodynamically stable, and stable on RA -At this time the patient's SOB and fatigue are likely due to his anemia of 6.8 today, although, cannot entirely rule out a cardiac or thyroid etiology at this time -He is without pleuritis chest pain and stable on RA, low suspicion for PE at this time -His anemia today appears to be due to his CKD and recent admission for GI bleed, but no signs or symptoms to suggest acute GI bleed at this time -Will obtain TSH with free T4 if needed and BNP for further assessment -Patient has been doubling his dose of lasix for the past 3 days without improvement of his symptoms, less likely to be due to CHF -Blood consent, type/screen, and 1 unit PRBC's ordered by the ED. -Monitor for improvement in symptoms after his transfusion -Will obtain a post-transfusion CBC with communication for nursing staff to collect 1 hour after transfusion completion -Hold PO iron while getting blood transfusions; he may need to go back to BID PO iron dosing on discharge -HUMBERTO stockings for DVT PPX for now -AM CBC, CMP, PT/INR (2) Nephrotic syndrome: Plan: -Cr at 4.8 today, baseline is approximately 4.6-4.7 per the last Nephrology note -His increased Cr today may be due to intravascular depletion due to increasing his lasix dose over the past 3 days -Did take 40 mg PO lasix this am, will hold additional diuretics today and restart his 20 mg PO daily tomorrow -Monitor for improvement on CMP tomorrow after receiving the one unit PRBC's -Has a matured AV fistual in the left forearm as Nephrology expects he will need dialysis in the near future, follows with Dr. Yen -If any worsening reanl function would consult Nephrology -Continue Calcitriol (3) HTN (hypertension): Plan: -Stable -Continue with amlodipine, Carvedilol and lasix (4) Hypothyroidism: Plan: -Ran out of levothyroxine 2 weeks ago -Will obtain TSH with free T4 if required for further assessment (5) Diabetic peripheral neuropathy associated with type 2 diabetes mellitus: Plan: -Monitor BSG ACHS, goal is 110-140 -Will decrease his home basal regimen from 27 units HS to 15 units HS to prevent hypoglycemia -CF of 50 with CR of 15 -DM II diet with 2gm sodium restriction (6) Anxiety: Plan: -Continue Celexa (7) CAD (coronary artery disease): Plan: -Continue aspirin and statin Plan The patient was discussed with Dr. Hall at the time of the admission History of Present Illness Chief Complaint: SOB Primary Care Provider: Mitul Burciaga MD Saurav is a 52 year old male with a PMH significant for LVH, hypothyroidism, CKD Stage 4, DM 2, peripheral neuropathy, nephrotic syndrome, and acute blood loss anemia after poly removal during colonoscopy on 04/09/[address] [facility] ED on 07/04/22 with a chief complaint of SOB. In the ED the patients vitals were noted to be stable. Labs were significant for a Hgb of 6.8 (down from 7.6 on 04/26), cr of 4.84 (baseline is around 4.6 per the nephrology note on 07/03), alk phos of 156, and negative full respiratory biofire. Chest xray was read as No change in the mild cardiomegaly and bibasilar interstitial thickening. This is likely chronic.. Prior to admission the patient was consented for blood and ordered. Per the ED staff, the patient's stool was heme negative today. Per chart review, the patient was recently admitted to [facility] from 04/20- due to acute blood loss anemia due to a bleeding ulcer at his sigmoid polypectomy site. The patient had undergone colonoscopy on 04/09 where multiple polyps were removed. During his admission he required 3 units of PRBCs and underwent flexible sigmoidoscopy with Dr. Baird on 04/20. He was found to have a single, ulcer in the rectum at the polypectomy site without acute bleeding. The site was clipped and the patient was without additional bleeding during his admission. At the time of the exam the patient was lying in bed in no acute distress. He states that he had been in his normal state of health after his last discharge and saw Dr. Yen of Nephrology who transfused him a dose of Venofer. For the past 3 days the patient has noticed increased SOB with exertion, fatigue, LE swelling, and general body swelling. He denies recent fever, chills, chest pain, cough, abd pain, nausea, vomiting, dysuria, hematuria, bloody bowel movements, and recent trauma. He still has black stool as he is taking daily iron. Due to his SOB and swelling he doubled his dose of PO lasix from 20 mg daily to 40 mg daily for the past 3 days without improvement in his symptoms. He had 2-3 episodes of non-bloody diarrhea over the weekend bu this has resolved. He ran out of his Levothyroxine approximately 2 weeks ago and was waiting for his next PCP appointment to get it refilled. He was taking PO iron BID but has decreased it to daily over the past week in preparation for his next colonoscopy as he thought this may have contributed to his poor prep last time. He is a full code and would want his to make medical decisions for him if he could not make them himself. Please refer to Dr. Hall's attestation for any changes to the treatment plan Allergies Allergy/AdvReac Type Severity Reaction Status Date / Time ANKUR Inhibitors AdvReac Intermediate Cough Verified 05/24/22 15:20 lisinopril AdvReac Intermediate cough Verified 05/24/22 15:20 sertraline [From Zoloft] AdvReac Intermediate SUPRESSED Verified 05/24/22 15:20 APPETITE Home Medications Medication Instructions Recorded Confirmed Type multivitamin 1 tab PO QAM 02/19/20 07/04/22 History blood-glucose meter (Accu-Chek #1 ea 02/24/20 07/04/22 Rx Guide Glucose Meter) pen needle, diabetic 31 gauge x #200 ea 03/01/20 07/04/22 Rx 5/16" (BD Ultra-Fine Short Pen Needle) cetirizine 10 mg tablet (Zyrtec) 10 mg PO DAILY PRN Allergy Symptoms 03/25/20 07/04/22 History blood sugar diagnostic (Accu-Chek 04/25/20 07/04/22 History Guide test strips) insulin aspart U-100 100 unit/mL See Rx Instructions subcut 05/12/20 07/04/22 Rx (3 mL) subcutaneous pen (Novolog .COMPLEX #15 mL FlexPen U-100 Insulin aspart) amlodipine 5 mg tablet 5 mg PO QAM 08/03/21 07/04/22 History aspirin 81 mg tablet,delayed 81 mg PO QAM 08/03/21 07/04/22 History release (Enteric Coated Aspirin) ferrous sulfate 325 mg (65 mg 325 mg PO DAILY 08/03/21 07/04/22 History iron) tablet (iron) insulin degludec 100 unit/mL (3 27 unit (0.27 mL) subcut HS #15 mL 10/27/21 07/04/22 Rx mL) subcutaneous pen (Tresiba FlexTouch U-100 insulin) FreeStyle Jason 2 Sensor (flash #2 ea 12/29/21 07/04/22 Rx glucose sensor) calcitriol 0.25 mcg capsule 0.25 mcg PO QAM #90 caps 01/26/22 07/04/22 Rx (Rocaltrol) furosemide 20 mg tablet 20 mg PO QAM #90 tabs 02/26/22 07/04/22 Rx darbepoetin [place] in polysorbat 60 60 mcg subcut UD 03/06/22 07/04/22 History mcg/mL in polysorbate injection (Aranesp) levothyroxine 88 mcg tablet 88 mcg PO QAM 03/30/22 07/04/22 History citalopram 20 mg tablet 20 mg PO QAM #90 tabs 04/04/22 07/04/22 Rx iron sucrose 200 mg iron/10 mL 500 mg (25 mL) IV .COMPLEX 5 doses 04/26/22 07/04/22 Rx intravenous solution (Venofer) #50 mL atorvastatin 80 mg tablet 80 mg PO QAM #90 tabs 04/30/22 07/04/22 Rx carvedilol 3.125 mg tablet 3.125 mg PO BID #60 tabs 05/03/22 07/04/22 Rx furosemide 20 mg tablet 20 mg PO QAM PRN Edema 07/04/22 07/04/22 History Past Med/Surg History Medical History Acute blood loss anemia Acute on chronic kidney failure Anemia Anemia Anemia due to chronic kidney disease Antiplatelet or antithrombotic long-term use Bilateral edema of lower extremity REASON FOR LASIX DAILY WEARS 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 Diabetes mellitus Diabetes mellitus type 2, uncontrolled, with complications Diabetes mellitus, type 2 GLUCOSE STABLE AND CONTROLLED Diabetic macular edema Diabetic peripheral neuropathy associated with type 2 diabetes mellitus Diastolic dysfunction, left ventricle f/u dr [place], [place] GI bleed History of depression HTN (hypertension) Hx of chest pain 04/2021, "intermittent, during a trip to [place], chasing around grandkids; ended up in hospital a few days after due to fluid overload."; f/u dr [place], [place] Hyperlipidemia Influenza A Myocardial necrosis pt denies-"came in w/fluid overload w/kidneys; never told I had an DC" Nephrotic syndrome Normal electrocardiogram Onychomycosis Surgical History Family history of reaction to anesthesia MOTHER-HARD TO "PUT TO SLEEP" History of cataract surgery RT/LEFT History of herniorrhaphy UMBILICAL History of lingual frenulectomy History of tooth extraction Hx of vasectomy S/P arteriovenous (AV) fistula creation LT.; left limb restriction; no dialysis Status post colonoscopy with polypectomy Family History Father Family history of diabetes mellitus Kidney disease required HD Grandmother (Paternal) Family history of diabetes mellitus Grandfather (Maternal) Hypertension Other Myocardial infarction Denies family history of Ovarian cancer Prostate cancer Breast cancer Lung cancer Colorectal cancer Stroke Social History Smoking Status: Never smoker Tobacco Type: Cigarettes Age Quit Using Tobacco: 22; Second Hand Exposure: Yes; Do You Dip or Chew Tobacco: No; Tobacco Cessation Education Requested by Patient: No Hx Alcohol Use: Yes Alcohol type: hard liquor Alcohol Intake Frequency: Monthly or Less Hx Substance Use: No Preferred Language: Mauritanian Communication Ability: Effective Past Due Accounts Clerk Required: No Beliefs That Will Affect Care: None marital status: Current Living Situation: Spouse current occupational status: employed 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[employer] Other Information That Helps Us Care for You: No Feels Safe at Home: Yes Safety Concerns: Feels Safe At This Time Childhood Exposure to Second-Hand Smoke: Yes Dental Care, Regularly: No Physical Activity Frequency: 1-2 Times per Week Physical Activity Frequency Comment: exercise bike Seatbelt Use: always Sunscreen Use: Yes Assistive Devices: Glasses Assistive Devices Comment: reading glasses here only Physical Exam 2 Physical Exam: Physical Exam: General: In no acute distress, stated age, well-nourished, chronically ill- appearing HEENT: Normocephalic, atraumatic, mild facial swelling noted without signs of erythema or infection,no scleral icterus, pupils around round, symmetrical, and reactive to light, moist mucus membranes, trachea midline, no thyromegaly Chest/Pulm: No respiratory distress, symmetrical chest expansion, clear breath sounds throughout Cardiac: RRR, systolic murmur noted Abdomen: Negative for ascites and bruising, normoactive bowel sounds, soft, non-tender to palpation throughout Musculoskeletal: Symmetrical and without signs of acute trauma, upper and lower extremities with full ROM, no atrophy, spasticity, or flaccidity Extremities: Radial, dorsalis pedis, and posterior tibial pulses are intact and symmetrical, 2+ pitting edema noted in the BL LE's Skin: Warm, dry, no rashes , lesions, or scars noted Neuro: Alert and oriented to person, place, month, year, and president, no focal defects, CN II-XII tested and intact, no tremors noted Psych: No acute distress, calm and cooperative during the exam Results & Data Results & Data Vital Signs (Past 12 Hours) Vital Signs Temp Pulse Pulse Resp BP BP Pulse Ox 07/04/22 12:14 66 07/04/22 12:07 98 07/04/22 12:04 07/04/22 12:03 67 15 96 07/04/22 12:03 66 16 153/75 H 95 07/04/22 11:16 36.7 C 77 18 157/70 H 97 O2 Del Method 07/04/22 12:14 07/04/22 12:07 Room Air 07/04/22 12:04 Room Air 07/04/22 12:03 Room Air 07/04/22 12:03 Room Air 07/04/22 11:16 Room Air Laboratory Results Abnormal lab results 07/04/22 07/04/22 07/04/22 Range/Units 11:35 11:58 12:37 RBC 2.39 L (4.70-6.10) M/uL Hgb 6.8 L* (14.0-18.0) g/dl Hct 21.3 L (42.0-52.0) % MCHC 31.9 L (32.0-36.0) g/dL RDW Std Deviation 47.5 H (36.4-46.3) fL RDW Coeff of Gladys 14.6 H (11.5-14.5) % Lymph # (Auto) 0.80 L (1.2-3.4) K/uL APTT (21.0-31.0) Seconds Chloride 116 H (98-107) mmol/L Carbon Dioxide 19 L (21-32) mmol/L BUN 71 H (6-23) mg/dl Creatinine 4.84 H* (0.6-1.4) mg/dl Glucose 121 H (70-99(Fasting)) mg/dl Alkaline Phosphatase 156 H (34-104) U/L Urine Protein 3+ H (Negative) Urine Glucose (UA) Trace H (Negative) Urine Blood 1+ H (Negative) Urine RBC (Auto) 5-10 H (0-4) /hpf U Hyaline Cast (Auto) 5-10 H (0-5) /lpf U Epithel Cells (Auto) 10-20 H (0-5) /lpf Crossmatch 07/04/22 07/04/22 Range/Units 12:37 13:21 RBC (4.70-6.10) M/uL Hgb (14.0-18.0) g/dl Hct (42.0-52.0) % MCHC (32.0-36.0) g/dL RDW Std Deviation (36.4-46.3) fL RDW Coeff of Gladys (11.5-14.5) % Lymph # (Auto) (1.2-3.4) K/uL APTT 31.8 H (21.0-31.0) Seconds Chloride (98-107) mmol/L Carbon Dioxide (21-32) mmol/L BUN (6-23) mg/dl Creatinine (0.6-1.4) mg/dl Glucose (70-99(Fasting)) mg/dl Alkaline Phosphatase (34-104) U/L Urine Protein (Negative) Urine Glucose (UA) (Negative) Urine Blood (Negative) Urine RBC (Auto) (0-4) /hpf U Hyaline Cast (Auto) (0-5) /lpf U Epithel Cells (Auto) (0-5) /lpf Crossmatch See Detail Diagnostic Findings Chest X-Ray 07/04/22 11:25 XR chest 1V portable HISTORY: Dyspnea COMPARISON: Chest 03/06/2022. FINDINGS: No pneumothorax. No pleural effusions. The cardiac silhouette remains mildly enlarged. Bibasilar interstitial thickening persists. No new focal lung consolidations identified. No evidence for pulmonary edema. No acute rib fractures. IMPRESSION: No change in the mild cardiomegaly and bibasilar interstitial thickening. This is likely chronic. ACT 112: Negative or not required by law. Electronically signed by: Giovany Gonzalez M.D. 07/04/2022 11:56 AM ECG Additional Comments: Normal sinus rhythm Low voltage QRS Poor R wave progression, consider anterior [place] vs. lead placement vs. LVH Abnormal ECG When compared with ECG of 06-MAR-2022 20:04, Questionable change in initial forces of Septal leads Confirmed by Camron Gutierrez ([id number]) on 07/04/2022 1:24:53 PM Code Status & VTE Plan Code Status Full code VTE Prophylaxis Plan VTE Prophylaxis will be ordered: Yes Supervising Physician Co-Signing Physician Notes I personally saw and examined the patient. I verified all vasques points and agree with Oscar Pino PA-C with the following exceptions and/or additions: 52 year old male presents to the ER with shortness of breath on exertion. Progressively getting worse with decreased tolerance in climbing stairs since discharge in April. O/E A&Ox3, HS RRR, JV murmur LUSB, Chest CTAB, Abdo SNT A/P Symptomatic anemia - Aim Hgb < 8 due to ongoing symptoms. If still symptomatic after Hgb > 8 consider alternative etiology. FOB -ve therefore suspect just having problems replacing already lost blood rather than acute new bleed therefore GI consult deferred. CKD - suspect recent increase due to Lasix dosing and intravascularly dry in setting of anemia. Continue to trend Cr. PG Care Time/CCT Total # of Minutes Spent Total Time Spent with Patient: Total time spent is greater than 50% in coordination of care (as documented) at patient's floor/unit and/or counseling patient: C[place] [address] INT INP/OBS CARE 3/75MIN Patient Type Established Medical Decision Making High Complexity Diagnoses Symptomatic anemia D64.9 Nephrotic syndrome N04.9 HTN (hypertension) I10 Hypothyroidism E03.9 Diabetic peripheral neuropathy associated with type 2 diabetes mellitus E11.42 Anxiety F41.9 CAD (coronary artery disease) I25.10
[2022-07-04 15:01] LABS: Thyroid Stimulating Hormone 5.382 uIu/ml (0.300-4.500)
[2022-07-04 15:36] LABS: T4 Free Thyroxine 0.76 ng/dl (0.61-1.60)
[2022-07-04] MEDS: INSULIN ASPART PER UNIT CHARGE SC SCH ×2 (17:18→20:26)
[2022-07-04 19:23] LABS: Basophils # (auto) 0.03 K/uL (0-0.2); Basophils % (auto) 0.5 %; Eosinophils # (auto) 0.27 K/uL (0-0.50); Eosinophils % (auto) 4.5 %; Hematocrit (blood only) 23.5 % (42.0-52.0); Hemoglobin 7.7 g/dl (14.0-18.0); Immature Granulocytes # (auto) 0.02 K/uL (0.01-0.20); Immature Granulocytes % (auto) 0.3 %; Lymphocytes # (auto) 0.86 K/uL (1.2-3.4); Lymphocytes % (auto) 14.2 %; Mean Corpuscular Hemoglobin 28.6 pg (25.0-34.0); Mean Corpuscular Hgb Conc 32.8 g/dL (32.0-36.0); Mean Corpuscular Volume 87.4 fL (80.0-100.0); Mean Platelet Volume 10.9 fL (9.4-12.4); Monocytes # (auto) 0.48 K/uL (0.11-0.59); Monocytes % (auto) 7.9 %; Neutrophils # (auto) 4.38 K/uL (1.40-6.50); Neutrophils % (auto) 72.6 %; Platelet Count 153 K/uL (130-400); RDW Coefficient of Variation 14.3 % (11.5-14.5); RDW Standard Deviation 45.3 fL (36.4-46.3); Red Blood Count 2.69 M/uL (4.70-6.10); White Blood Count 6.04 K/ul (4.8-10.8)
[2022-07-04 19:39] LABS: RBC Morphology Unremarkable
[2022-07-04] MEDS: carvediloL 3.125 MG TAB PO SCH (20:52)
[2022-07-04] MEDS: LANTUS PER UNIT CHARGE SQ SCH (20:52)
[2022-07-05 07:32] LABS: Basophils # (auto) 0.02 K/uL (0-0.2); Basophils % (auto) 0.3 %; Eosinophils # (auto) 0.26 K/uL (0-0.50); Eosinophils % (auto) 4.4 %; Hematocrit (blood only) 22.8 % (42.0-52.0); Hemoglobin 7.5 g/dl (14.0-18.0); Immature Granulocytes # (auto) 0.02 K/uL (0.01-0.20); Immature Granulocytes % (auto) 0.3 %; Lymphocytes % (auto) 15.1 %; Mean Corpuscular Hemoglobin 28.4 pg (25.0-34.0); Mean Corpuscular Hgb Conc 32.9 g/dL (32.0-36.0); Mean Corpuscular Volume 86.4 fL (80.0-100.0); Monocytes # (auto) 0.45 K/uL (0.11-0.59); Monocytes % (auto) 7.5 %; Neutrophils # (auto) 4.32 K/uL (1.40-6.50); Neutrophils % (auto) 72.4 %; Platelet Count 147 K/uL (130-400); RDW Coefficient of Variation 14.8 % (11.5-14.5); RDW Standard Deviation 46.9 fL (36.4-46.3); Red Blood Count 2.64 M/uL (4.70-6.10); White Blood Count 5.97 K/ul (4.8-10.8)
[2022-07-05 07:41] LABS: Estimated Average Glucose 105 mg/dl; Hemoglobin A1C 5.3 % (4.5-5.6)
[2022-07-05 07:46] LABS: INR 1.1 (0.9-1.1); Prothrombin Time 11.9 Seconds (9.0-12.0)
[2022-07-05 07:58] LABS: RBC Morphology Unremarkable
[2022-07-05] MEDS: amLODIPine BESYLATE 5 MG TAB PO SCH (08:10)
[2022-07-05] MEDS: ASPIRIN 81 MG ECTAB PO SCH (08:12)
[2022-07-05] MEDS: carvediloL 3.125 MG TAB PO SCH ×2 (08:12→20:45)
[2022-07-05] MEDS: CALCITRIOL 0.25 MCG CAPSULE PO SCH (08:13)
[2022-07-05] MEDS: ATORVASTATIN 40 MG TAB PO SCH (08:13)
[2022-07-05] MEDS: CITALOPRAM 20 MG TAB PO SCH (08:14)
[2022-07-05] MEDS: INSULIN ASPART PER UNIT CHARGE SC SCH ×4 (08:18→20:46)
[2022-07-05 08:35] LABS: Albumin Level 3.1 gm/dl (3.4-5.0); Bilirubin,Total 0.4 mg/dl (0.2-1.0); Calcium 8.7 mg/dl (8.6-10.3); Potassium 4.9 mmol/L (3.5-5.1)
[2022-07-05 08:47] LABS: Albumin Globulin Ratio 1.1 (0.9-2); BUN Creatinine Ratio 14.1 (10-20); Creatinine Clr Calc Pharmacy 26.3 ml/min; Est GFR (African American) 16.2 ml/min; Globulin 2.7 gm/dl (2.5-4.0); Total Protein 5.8 gm/dl (6.0-8.3)
--- NOTE | 2022-07-05 18:16 | Hospitalist Progress Note ---
Date of Service July 05, 2022 Assessment & Plan (1) Symptomatic anemia: Plan: -Admit to med/tele -The patient is currently afebrile, hemodynamically stable, and stable on RA -At this time the patient's SOB and fatigue are likely due to his anemia of 6.8 today, although, cannot entirely rule out a cardiac or thyroid etiology at this time -He is without pleuritis chest pain and stable on RA, low suspicion for PE at this time -His anemia today appears to be due to his CKD and recent admission for GI bleed, but no signs or symptoms to suggest acute GI bleed at this time -Will obtain TSH with free T4 if needed and BNP for further assessment -Patient has been doubling his dose of lasix for the past 3 days without improvement of his symptoms, less likely to be due to CHF -Blood consent, type/screen, and 1 unit PRBC's ordered by the ED. -Monitor for improvement in symptoms after his transfusion -Will obtain a post-transfusion CBC with communication for nursing staff to collect 1 hour after transfusion completion -Hold PO iron while getting blood transfusions; he may need to go back to BID PO iron dosing on discharge -HUMBERTO stockings for DVT PPX for now -AM CBC, CMP, PT/INR On 07/05, Patient is feeling symptomatically better. PATIENT HAS NO NEW SYMPTOMS. Hemoglobin appears improved after 2 units of PRBC, will monitor her blood work (2) Nephrotic syndrome: Plan: -Cr at 4.8 today, baseline is approximately 4.6-4.7 per the last Nephrology note -His increased Cr today may be due to intravascular depletion due to increasing his lasix dose over the past 3 days -Did take 40 mg PO lasix this am, will hold additional diuretics today and restart his 20 mg PO daily tomorrow -Monitor for improvement on CMP tomorrow after receiving the one unit PRBC's -Has a matured AV fistual in the left forearm as Nephrology expects he will need dialysis in the near future, follows with Dr. Yen -If any worsening reanl function would consult Nephrology -Continue Calcitriol (3) HTN (hypertension): Plan: -Stable -Continue with amlodipine, Carvedilol and lasix (4) Hypothyroidism: Plan: -Ran out of levothyroxine 2 weeks ago -Will obtain TSH with free T4 if required for further assessment (5) Diabetic peripheral neuropathy associated with type 2 diabetes mellitus: Plan: -Monitor BSG ACHS, goal is 110-140 -Will decrease his home basal regimen from 27 units HS to 15 units HS to prevent hypoglycemia -CF of 50 with CR of 15 -DM II diet with 2gm sodium restriction (6) Anxiety: Plan: -Continue Celexa (7) CAD (coronary artery disease): Plan: -Continue aspirin and statin Plan The patient was discussed with Dr. Hall at the time of the admission Admission and Anticipated Discharge Date Admission Date: July 04, 2022 Subjective Patient reports no new symptoms, Patient reports no change in BM, no diarrhea, no bleeding or dark stools. Patient feels improved after receiving 2 units of PRBC. Review of Systems Review of Systems: All systems reviewed & are unremarkable except as noted in HPI & below Physical Exam Constitutional: WD/WN, vitals as above Neck: trachea midline, no thyromegaly Respiratory: normal respiratory effort; no respiratory distress and does not use accessory muscles Neurologic: moves all 4 extremities Psychiatric: A+Ox3, euthymic affect Results & Data Results & Data Vital Signs (Past 12 Hours) Vital Signs Temp Pulse Pulse Resp BP BP Pulse Ox 07/05/22 15:00 36.9 C 64 17 145/85 H 96 07/05/22 15:12 62 07/05/22 11:44 36.9 C 62 16 154/69 H 95 07/05/22 07:29 36.9 C 86 16 153/77 H 96 07/05/22 07:27 64 O2 Del Method 07/05/22 15:00 Room Air 07/05/22 15:12 07/05/22 11:44 Room Air 07/05/22 07:29 Room Air 07/05/22 07:27 PG Care Time/CCT Total # of Minutes Spent Total Time Spent with Patient: Total time spent is greater than 50% in coordination of care (as documented) at patient's floor/unit and/or counseling patient: Coding Level of Care Code 04878 SUB INP/OBS CARE 2/35MIN Diagnoses Symptomatic anemia D64.9 Nephrotic syndrome N04.9 HTN (hypertension) I10 Hypothyroidism E03.9 Diabetic peripheral neuropathy associated with type 2 diabetes mellitus E11.42 Anxiety F41.9 CAD (coronary artery disease) I25.10
[2022-07-05] MEDS: LANTUS PER UNIT CHARGE SQ SCH (20:44)
[2022-07-06 07:54] LABS: Basophils # (auto) 0.02 K/uL (0-0.2); Basophils % (auto) 0.3 %; Eosinophils % (auto) 4.9 %; Hematocrit (blood only) 25.3 % (42.0-52.0); Hemoglobin 8.3 g/dl (14.0-18.0); Immature Granulocytes # (auto) 0.02 K/uL (0.01-0.20); Immature Granulocytes % (auto) 0.3 %; Lymphocytes # (auto) 0.89 K/uL (1.2-3.4); Lymphocytes % (auto) 14.4 %; Mean Corpuscular Hemoglobin 28.3 pg (25.0-34.0); Mean Corpuscular Hgb Conc 32.8 g/dL (32.0-36.0); Mean Corpuscular Volume 86.3 fL (80.0-100.0); Mean Platelet Volume 11.2 fL (9.4-12.4); Monocytes % (auto) 9.7 %; Neutrophils # (auto) 4.34 K/uL (1.40-6.50); Neutrophils % (auto) 70.4 %; Platelet Count 151 K/uL (130-400); RDW Coefficient of Variation 14.7 % (11.5-14.5); RDW Standard Deviation 46.2 fL (36.4-46.3); Red Blood Count 2.93 M/uL (4.70-6.10); White Blood Count 6.17 K/ul (4.8-10.8)
[2022-07-06 08:19] LABS: Albumin Globulin Ratio 1.2 (0.9-2); Albumin Level 3.3 gm/dl (3.4-5.0); BUN Creatinine Ratio 13.5 (10-20); Bilirubin,Total 0.4 mg/dl (0.2-1.0); Calcium 8.9 mg/dl (8.6-10.3); Est GFR (African American) 15.1 ml/min; Globulin 2.8 gm/dl (2.5-4.0); Potassium 5.5 mmol/L (3.5-5.1); Total Protein 6.1 gm/dl (6.0-8.3)
[2022-07-06] MEDS: amLODIPine BESYLATE 5 MG TAB PO SCH (09:14)
[2022-07-06] MEDS: CITALOPRAM 20 MG TAB PO SCH (09:14)
[2022-07-06] MEDS: ASPIRIN 81 MG ECTAB PO SCH (09:14)
[2022-07-06] MEDS: CALCITRIOL 0.25 MCG CAPSULE PO SCH (09:14)
[2022-07-06] MEDS: carvediloL 3.125 MG TAB PO SCH (09:14)
[2022-07-06] MEDS: ATORVASTATIN 40 MG TAB PO SCH (09:14)
[2022-07-06] MEDS: INSULIN ASPART PER UNIT CHARGE SC SCH ×3 (09:15→18:10)
[2022-07-06] MEDS ORDERED: EPOETIN ALFA 40,000 UNITS/ML VIAL SQ ONE (13:05)
--- NOTE | 2022-07-06 14:17 | Nephrology Consultation ---
Date of Consultation July 06, 2022 Assessment & Plan (1) Acute kidney injury: (2) Chronic kidney disease, stage 4 (severe): (3) Hyperkalemia: (4) HTN (hypertension): (5) Symptomatic anemia: (6) Nephrotic syndrome: Plan Stage IV/V CKD secondary to diabetic nephropathy with nephrotic syndrome, baseline creatinine lately around 4.0 to 4.5 with 10 g of proteinuria. Has anemia and secondary hyperparathyroidism with advanced CKD as well as history of GI bleeding over last few months after polypectomy. Admitted with symptomatic anemia, hemoglobin of 6.8, status post 3 units of blood transfusion with improvement in hemoglobin to 8.4. Renal function slightly worsened to creatinine 4.8 although not significantly off of his baseline, potassium of 5.5 this morning. Blood pressure has been running high. -- Veltassa 8.4 g x 1 dose today, change to low potassium diet. -- resume Lasix at 20 mg daily -- Epogen 93577 units x 1 dose today -- monitor renal function and electrolyte daily -- continue on calcitriol -- left arm nephrology precaution, dose meds for eGFR <10 Thank you for allowing me to participate in your patient's care. It was a pleasure to see Gildardo History of Present Illness Reason for Consultation: acute kidney injury with advanced CKD, hyperkalemia, anemia Attending Physician: Kaveh Phillips History of Present Illness Mr. Saurav Jules a 52-year-old male with PMH of CKD stage 3B-IV, nephrotic syndrome, DM 2, HTN, anemia of chronic kidney disease, hyperlipidemia admitted with hypertensive urgency and volume overload. Nephrology consult requested for management of volume overload, in the setting of advanced CKD. EMR records are reviewed in detail during patient's visit. Gildardo presented to ER on 07/04/22 with c/o increased SOB with exertion, fatigue, LE swelling, and general body swelling. He denied recent fever, chills, chest pain, cough, abd pain, nausea, vomiting, dysuria, hematuria, bloody bowel movements, and recent trauma. Has black stool ( taking daily iron). He increased lasix from 20 mg daily to 40 mg daily for 3 days without improvement in his symptoms. Labs were significant for a Hgb of 6.8 (down from 7.6 on 04/26), cr of 4.84. Chest xray was unremarkable without any significant change from prior mild cardiomegaly and bibasilar interstitial thickening. He was admitted to [facility] from 04/20- due to acute blood loss anemia due to a bleeding ulcer at his sigmoid polypectomy site after colonoscopy on 04/09 where multiple polyps were removed. Had 3 units of PRBCs and underwent flexible sigmoidoscopy on 04/20, found to have a single, ulcer in the rectum at the polypectomy site without acute bleeding. The site was clipped and the patient was without additional bleeding during his admission. He received 2 units of blood transfusion and hemoglobin improved to above 8 this morning. Renal function slightly worsened to creatinine 4.8, potassium of 5.5. he has been off of losartan advanced CKD. He has not been on low-potassium diet which has been following at home. Has stage 4/5 CKD with nephrotic syndrome secondary to diabetic nephropathy, 10 g of proteinuria, baseline creatinine lately has been around 4 to 4.5. Had left radiocephalic AV fistula placed in July 2021. currently getting transplant evaluation at [facility]. Decided to do in center hemodialysis at [facility] when needed. Has diabetes with retinopathy, recently has been well controlled. No history of coronary artery disease. Remote history of brief smoking many years ago. Dad had history of end-stage renal disease. 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 Overall he has been feeling well this morning, denies any active GI bleeding. Hemoglobin improved to 8.4. Slight worsening of renal function and hyperkalemia on labs this morning. Allergies Allergy/AdvReac Type Severity Reaction Status Date / Time ANKUR Inhibitors AdvReac Intermediate Cough Verified 05/24/22 15:20 lisinopril AdvReac Intermediate cough Verified 05/24/22 15:20 sertraline [From Zoloft] AdvReac Intermediate SUPRESSED Verified 05/24/22 15:20 APPETITE Home Medications Medication Instructions Recorded Confirmed Type multivitamin 1 tab PO QAM 02/19/20 07/04/22 History blood-glucose meter (Accu-Chek #1 ea 02/24/20 07/04/22 Rx Guide Glucose Meter) pen needle, diabetic 31 gauge x #200 ea 03/01/20 07/04/22 Rx 5/16" (BD Ultra-Fine Short Pen Needle) cetirizine 10 mg tablet (Zyrtec) 10 mg PO DAILY PRN Allergy Symptoms 03/25/20 07/04/22 History blood sugar diagnostic (Accu-Chek 04/25/20 07/04/22 History Guide test strips) insulin aspart U-100 100 unit/mL See Rx Instructions subcut 05/12/20 07/04/22 Rx (3 mL) subcutaneous pen (Novolog .COMPLEX #15 mL FlexPen U-100 Insulin aspart) amlodipine 5 mg tablet 5 mg PO QAM 08/03/21 07/04/22 History aspirin 81 mg tablet,delayed 81 mg PO QAM 08/03/21 07/04/22 History release (Enteric Coated Aspirin) ferrous sulfate 325 mg (65 mg 325 mg PO DAILY 08/03/21 07/04/22 History iron) tablet (iron) insulin degludec 100 unit/mL (3 27 unit (0.27 mL) subcut HS #15 mL 10/27/21 07/04/22 Rx mL) subcutaneous pen (Tresiba FlexTouch U-100 insulin) FreeStyle Jason 2 Sensor (flash #2 ea 12/29/21 07/04/22 Rx glucose sensor) calcitriol 0.25 mcg capsule 0.25 mcg PO QAM #90 caps 01/26/22 07/04/22 Rx (Rocaltrol) furosemide 20 mg tablet 20 mg PO QAM #90 tabs 02/26/22 07/04/22 Rx darbepoetin [place] in polysorbat 60 60 mcg subcut UD 03/06/22 07/04/22 History mcg/mL in polysorbate injection (Aranesp) levothyroxine 88 mcg tablet 88 mcg PO QAM 03/30/22 07/04/22 History citalopram 20 mg tablet 20 mg PO QAM #90 tabs 04/04/22 07/04/22 Rx iron sucrose 200 mg iron/10 mL 500 mg (25 mL) IV .COMPLEX 5 doses 04/26/22 07/04/22 Rx intravenous solution (Venofer) #50 mL atorvastatin 80 mg tablet 80 mg PO QAM #90 tabs 04/30/22 07/04/22 Rx carvedilol 3.125 mg tablet 3.125 mg PO BID #60 tabs 05/03/22 07/04/22 Rx furosemide 20 mg tablet 20 mg PO QAM PRN Edema 07/04/22 07/04/22 History Patient History Medical History (Updated 07/06/22 @ 14:29 by Abbie Dean MD) Acute blood loss anemia Acute kidney injury Acute on chronic kidney failure Anemia Anemia Anemia due to chronic kidney disease Antiplatelet or antithrombotic long-term use Bilateral edema of lower extremity REASON FOR LASIX DAILY WEARS 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 Diabetes mellitus Diabetes mellitus type 2, uncontrolled, with complications Diabetes mellitus, type 2 GLUCOSE STABLE AND CONTROLLED Diabetic macular edema Diabetic peripheral neuropathy associated with type 2 diabetes mellitus Diastolic dysfunction, left ventricle f/u ranjan daugherty GI bleed History of depression HTN (hypertension) Hx of chest pain 04/2021, "intermittent, during a trip to [place], chasing around grandkids; ended up in hospital a few days after due to fluid overload."; f/u ranjan daugherty Hyperlipidemia Influenza A Myocardial necrosis pt denies-"came in w/fluid overload w/kidneys; never told I had an AR" Nephrotic syndrome Normal electrocardiogram Onychomycosis Surgical History Family history of reaction to anesthesia MOTHER-HARD TO "PUT TO SLEEP" History of cataract surgery RT/LEFT History of herniorrhaphy UMBILICAL History of lingual frenulectomy History of tooth extraction Hx of vasectomy S/P arteriovenous (AV) fistula creation LT.; left limb restriction; no dialysis Status post colonoscopy with polypectomy Family History Father Family history of diabetes mellitus Kidney disease required HD Grandmother (Paternal) Family history of diabetes mellitus Grandfather (Maternal) Hypertension Other Myocardial infarction Denies family history of Ovarian cancer Prostate cancer Breast cancer Lung cancer Colorectal cancer Stroke Social History Smoking Status: Never smoker Tobacco Type: Cigarettes Age Quit Using Tobacco: 22; Second Hand Exposure: Yes; Do You Dip or Chew Tobacco: No; Tobacco Cessation Education Requested by Patient: No Hx Alcohol Use: Yes Alcohol type: hard liquor Alcohol Intake Frequency: Monthly or Less Hx Substance Use: No Preferred Language: Brazilian Communication Ability: Effective Medical Transcriber Required: No Beliefs That Will Affect Care: None marital status: Current Living Situation: Spouse current occupational status: employed 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 Physical Exam Constitutional: WD/WN, vitals as above no acute distress Eyes: + anicteric sclerae Neck: normal visual inspection Respiratory: Auscultation: lungs clear to auscultation bilaterally and + crackles (at b/l bases) Cardiovascular: Rate/Rhythm: regular rate and regular rhythm Heart Sounds: normal S1 and normal S2 Extremities: no edema Gastrointestinal (Abdomen): Inspection/Auscultation: abdomen normal to inspection Percussion/Palpation: abdomen soft; abdomen nontender Musculoskeletal: Extremities: extremities normal to inspection Skin: no rashes Neurologic: no focal motor deficits Psychiatric: Orientation: alert and oriented x 3 Affect: euthymic affect Results & Data Vital Signs (Past 12 Hours) Vital Signs Temp Pulse Pulse Resp BP BP Pulse Ox 07/06/22 11:46 36.7 C 65 18 168/84 H 97 07/06/22 09:41 65 07/06/22 08:25 36.8 C 87 20 162/77 H 93 07/06/22 05:00 36.7 C 64 18 148/62 H 94 O2 Del Method 07/06/22 11:46 Room Air 07/06/22 09:41 07/06/22 08:25 Room Air 07/06/22 05:00 Room Air PG Care Time/CCT Total # of Minutes Spent Total Time Spent with Patient: Total time spent is greater than 50% in coordination of care (as documented) at patient's floor/unit and/or counseling patient: Coding Level of Care Code 84884 IN/OBS CONSULT LVL 5,80M Diagnoses Acute kidney injury N17.9 Chronic kidney disease, stage 4 (severe) N18.4 Hyperkalemia E87.5 HTN (hypertension) I10 Symptomatic anemia D64.9 Nephrotic syndrome N04.9
--- NOTE | 2022-07-06 18:01 | Discharge Summary ---
Date of Service July 06, 2022 Admission HPI Per Admitting Provider Saurav is a 52 year old male with a PMH significant for LVH, hypothyroidism, CKD Stage 4, DM 2, peripheral neuropathy, nephrotic syndrome, and acute blood loss anemia after poly removal during colonoscopy on 04/09/22 who presented to the [facility] ED on 07/04/22 with a chief complaint of SOB. In the ED the patients vitals were noted to be stable. Labs were significant for a Hgb of 6.8 (down from 7.6 on 04/26), cr of 4.84 (baseline is around 4.6 per the nephrology note on 07/03), alk phos of 156, and negative full respiratory biofire. Chest xray was read as No change in the mild cardiomegaly and bibasilar interstitial thickening. This is likely chronic.. Prior to admission the patient was consented for blood and ordered. Per the ED staff, the patient's stool was heme negative today. Per chart review, the patient was recently admitted to [facility] from 04/20- due to acute blood loss anemia due to a bleeding ulcer at his sigmoid polypectomy site. The patient had undergone colonoscopy on 04/09 where multiple polyps were removed. During his admission he required 3 units of PRBCs and underwent flexible sigmoidoscopy with Dr. Baird on 04/20. He was found to have a single, ulcer in the rectum at the polypectomy site without acute bleeding. The site was clipped and the patient was without additional bleeding during his admission. At the time of the exam the patient was lying in bed in no acute distress. He states that he had been in his normal state of health after his last discharge and saw Dr. Yen of Nephrology who transfused him a dose of Venofer. For the past 3 days the patient has noticed increased SOB with exertion, fatigue, LE swelling, and general body swelling. He denies recent fever, chills, chest pain, cough, abd pain, nausea, vomiting, dysuria, hematuria, bloody bowel movements, and recent trauma. He still has black stool as he is taking daily iron. Due to his SOB and swelling he doubled his dose of PO lasix from 20 mg daily to 40 mg daily for the past 3 days without improvement in his symptoms. He had 2-3 episodes of non-bloody diarrhea over the weekend bu this has resolved. He ran out of his Levothyroxine approximately 2 weeks ago and was waiting for his next PCP appointment to get it refilled. He was taking PO iron BID but has decreased it to daily over the past week in preparation for his next colonoscopy as he thought this may have contributed to his poor prep last time. He is a full code and would want his to make medical decisions for him if he could not make them himself. Please refer to Dr. Hall's attestation for any changes to the treatment plan Discharge Data Allergies Allergy/AdvReac Type Severity Reaction Status Date / Time ANKUR Inhibitors AdvReac Intermediate Cough Verified 05/24/22 15:20 lisinopril AdvReac Intermediate cough Verified 05/24/22 15:20 sertraline [From Zoloft] AdvReac Intermediate SUPRESSED Verified 05/24/22 15:20 APPETITE Consultations 07/04/22 15:22 ED Decision to Admit Stat 07/06/22 08:34 Consult Nephrology Routine Hospital Course (1) Symptomatic anemia: -Admit to med/tele -The patient is currently afebrile, hemodynamically stable, and stable on RA -At this time the patient's SOB and fatigue are likely due to his anemia of 6.8 today, although, cannot entirely rule out a cardiac or thyroid etiology at this time -He is without pleuritis chest pain and stable on RA, low suspicion for PE at this time -His anemia today appears to be due to his CKD and recent admission for GI bleed, but no signs or symptoms to suggest acute GI bleed at this time -Will obtain TSH with free T4 if needed and BNP for further assessment -Patient has been doubling his dose of lasix for the past 3 days without improvement of his symptoms, less likely to be due to CHF -Blood consent, type/screen, and 1 unit PRBC's ordered by the ED. -Monitor for improvement in symptoms after his transfusion -Will obtain a post-transfusion CBC with communication for nursing staff to collect 1 hour after transfusion completion -Hold PO iron while getting blood transfusions; he may need to go back to BID PO iron dosing on discharge -HUMBERTO stockings for DVT PPX for now -AM CBC, CMP, PT/INR On 07/05, Patient is feeling symptomatically better. PATIENT HAS NO NEW SYMPTOMS. Hemoglobin appears improved after 2 units of PRBC, will monitor her blood work (2) Nephrotic syndrome: -Cr at 4.8 today, baseline is approximately 4.6-4.7 per the last Nephrology note -His increased Cr today may be due to intravascular depletion due to increasing his lasix dose over the past 3 days -Did take 40 mg PO lasix this am, will hold additional diuretics today and restart his 20 mg PO daily tomorrow -Monitor for improvement on CMP tomorrow after receiving the one unit PRBC's -Has a matured AV fistual in the left forearm as Nephrology expects he will need dialysis in the near future, follows with Dr. Yen -If any worsening reanl function would consult Nephrology -Continue Calcitriol (3) HTN (hypertension): -Stable -Continue with amlodipine, Carvedilol and lasix (4) Hypothyroidism: -Ran out of levothyroxine 2 weeks ago -Will obtain TSH with free T4 if required for further assessment (5) Diabetic peripheral neuropathy associated with type 2 diabetes mellitus: -Monitor BSG ACHS, goal is 110-140 -Will decrease his home basal regimen from 27 units HS to 15 units HS to prevent hypoglycemia -CF of 50 with CR of 15 -DM II diet with 2gm sodium restriction (6) Anxiety: -Continue Celexa (7) CAD (coronary artery disease): -Continue aspirin and statin Plan The patient was discussed with Dr. Hall at the time of the admission Discharge Plan Discharge Items Reason For Visit: SOB Follow-up/Referrals: Mitul Burciaga MD [Primary Care Provider] - Medications and DC Order Prescriptions: No Action (DME) pen needle, diabetic [BD Ultra-Fine Short Pen Needle] 31 gauge x 5/16" needle See Rx Instructions .ROUTE .MEDSUPPLY Qty: 200 5RF Rx Instructions: use 1 pen needle 5 times daily for insulin injection dx E11.9 Tresiba FlexTouch U-100 100 unit/mL (3 mL) insulin pen 27 unit subcut HS Qty: 15 1RF (DME) FreeStyle Jason 2 Sensor Kit See Rx Instructions .ROUTE .MEDSUPPLY Qty: 2 6RF Rx Instructions: As directed, replace every 14 days calcitriol [Rocaltrol] 0.25 mcg capsule 0.25 mcg PO QAM Qty: 90 3RF furosemide 20 mg tablet 20 mg PO QAM Qty: 90 3RF citalopram 20 mg tablet 20 mg PO QAM Qty: 90 1RF atorvastatin 80 mg tablet 80 mg PO QAM Qty: 90 3RF carvedilol 3.125 mg tablet 3.125 mg PO BID Qty: 60 5RF (DME) blood-glucose meter [Accu-Chek Guide Glucose Meter] Misc See Rx Instructions .ROUTE .MEDSUPPLY Qty: 1 0RF Rx Instructions: As directed (DME) Accu-Chek Guide test strips Strip See Rx Instructions .ROUTE .MEDSUPPLY Rx Instructions: test 3 times daily cetirizine [Zyrtec] 10 mg tablet 10 mg PO DAILY PRN (Reason: Allergy Symptoms) insulin aspart U-100 [Novolog FlexPen U-100 Insulin] 100 unit/mL (3 mL) insulin pen See Rx Instructions subcut .COMPLEX Qty: 15 6RF Rx Instructions: subcut inject based on carbohydrate ratio and sliding scale up to 30 units a day; Venofer 200 mg iron/10 mL solution 500 mg IV .COMPLEX Qty: 50 0RF Rx Instructions: 500 mg intravenously on day #1 and day #14; administer over 30 mins multivitamin Tablet 1 tab PO QAM ferrous sulfate [iron] 325 mg (65 mg iron) Tablet 325 mg PO DAILY amlodipine 5 mg tablet 5 mg PO QAM aspirin [Enteric Coated Aspirin] 81 mg tablet,delayed release (DR/EC) 81 mg PO QAM levothyroxine 88 mcg tablet 88 mcg PO QAM Rx Instructions: Patient currently out of medication. Needs to contact PCP Aranesp (in polysorbate) 60 mcg/mL solution 60 mcg subcut UD Rx Instructions: within last year has had 3 times. furosemide 20 mg Tablet 20 mg PO QAM PRN (Reason: Edema) Rx Instructions: To take in addition to daily 20mg if edema occurs per PCP Admission Data Admit Date/Time: 07/04/22 13:54 Attending Provider: Kaveh Phillips Admit Provider: Juan Jose Hall Primary Care Provider: Mitul Burciaga V. Other Providers: Juan Jose Hall ; Abbie Dean Coding Diagnoses Symptomatic anemia D64.9 Nephrotic syndrome N04.9 HTN (hypertension) I10 Hypothyroidism E03.9 Diabetic peripheral neuropathy associated with type 2 diabetes mellitus E11.42 Anxiety F41.9 CAD (coronary artery disease) I25.10
[2022-07-06 18:33] LABS: Hematocrit (blood only) 24.7 % (42.0-52.0); Hemoglobin 8.2 g/dl (14.0-18.0)
[2022-07-06 18:54] LABS: BUN Creatinine Ratio 13.1 (10-20); Calcium 8.8 mg/dl (8.6-10.3); Creatinine Clr Calc Pharmacy 24.3 ml/min; Est GFR (African American) 14.5 ml/min; Est GFR (Non-African American) 12.5 ml/min; Potassium 5.3 mmol/L (3.5-5.1)
[2022-07-06] MEDS ORDERED: PATIROMER CALCIUM SORBITEX 8.4 GM PACK PO ONE (19:02)
[2022-07-07] MEDS ORDERED: PATIROMER CALCIUM SORBITEX 8.4 GM PACK PO SCH (11:00)
== END 2022-07-06 19:40 | disposition home or self-care (01) ==
LOC: ED 11:13 → SUATTDRO 13:54 → 2N 13:54 → INTOOBSV 13:54 → 2N 15:14

== ENCOUNTER 2022-07-27 06:21 | Observation (INO) ==
[2022-07-27 07:11] LABS: Mean Corpuscular Hgb Conc 31.6 g/dL (32.0-36.0); Mean Corpuscular Volume 88.8 fL (80.0-100.0); Platelet Count 193 K/uL (130-400); RDW Coefficient of Variation 14.6 % (11.5-14.5); RDW Standard Deviation 46.9 fL (36.4-46.3); Red Blood Count 2.14 M/uL (4.70-6.10); White Blood Count 6.24 K/ul (4.8-10.8)
[2022-07-27] MEDS ORDERED: SODIUM CHLORIDE 0.9% 250 ML IV PRN ×2 (07:17→20:59)
[2022-07-27 07:26] LABS: Albumin Level 2.8 gm/dl (3.4-5.0); Bilirubin,Total 0.2 mg/dl (0.2-1.0); Calcium 7.6 mg/dl (8.6-10.3); Magnesium 2.1 mg/dl (1.7-2.4); Potassium 5.3 mmol/L (3.5-5.1)
--- NOTE | 2022-07-27 07:28 | Emergency Department Note ---
Impression & Plan GI bleed, Anemia ED Provider Note INFORMANT: Patient ED PROVIDER(S): Oscar Flannery DO CHIEF COMPLAINT: GI bleed, light-headed PLAN: Disposition: admission Outpatient prescription management: none Discussion with: I spoke with the hospitalist, who will see the patient for admission/observation and further evaluation and consultation. MEDICAL DECISION MAKING: This is a 52 year old male with a history of GI bleed in the past and chronic anemia presents to the ED with a chief complaint of numerous bloody bowel movements overnight. He also began feeling lightheaded this morning when getting up. The confirms that he had several bloody bowel movements. The patient's exam reveals that he seems tired and fatigued otherwise no abdominal tenderness. He seems a little pale. No diaphoresis. Lungs are clear. Heart is regular rate and rhythm. Hemoglobin is 6. White count is normal. Kidney function is baseline with a BUN of 67 and creatinine of 5. Potassium slightly elevated 5.3. Troponin was negative for myocardial infarction. The patient was treated with 2 units of blood in the ED. The patient will be seen by the hospitalist for further evaluation and care. Suspicion for lower GI bleed. Triage Nursing notes reviewed. Vital Signs: reviewed Prior /Outside records reviewed: none Differential diagnosis: Upper versus lower GI bleed, weakness, anemia, electrolyte abnormality, dehydration, other Diagnostics, as interpreted by me: 12 lead ECG: Sinus rhythm rate of 60. No ST elevation. No PVCs. Normal QTc. Cardiac Monitoring ordered: Sinus rhythm in the 60s. Medical decision rules: none Imaging studies: none Procedures: Blood administration. Critical care: I have personally spent 30 minutes of critical care time in the direct management of this patient. This includes bedside care, interpretation of diagnostic studies, and testing, discussion with consultants, patient, and family members, and other required patient management activities. This 30 minutes is in excess of all separately billable procedures. HPI: See MDM above. PAST MEDICAL HISTORY: See Below PAST SURGICAL HISTORY: See Below SOCIAL HISTORY: See Below HOME MEDICATIONS:See Below ALLERGIES: See Below VITALS: See Below PHYSICAL EXAMINATION: See MDM for positive findings otherwise unremarkable. CONSTITUTIONAL/VITAL SIGNS: Reviewed GENERAL:done as appropriate INTEGUMENTARY: done as appropriate HEAD: done as appropriate EYES: done as appropriate RESPIRATORY: done as appropriate CARDIOVASCULAR:done as appropriate GI/ABDOMEN:done as appropriate EXTREMITIES: done as appropriate NEUROLOGICAL: done as appropriate PSYCHIATRIC:done as appropriate MUSCULOSKELETAL:done as appropriate TRIAGE NURSING DOCUMENTATION REVIEWED. Past Med/Surg History Medical History (Updated 07/27/22 @ 07:52 by Rishi Hurley MD) Acute blood loss anemia Acute kidney injury Acute on chronic kidney failure Anemia recently discharged after 3 days from [facility]; "in to receive blood" Anemia due to chronic kidney disease Antiplatelet or antithrombotic long-term use Bilateral edema of lower extremity REASON FOR LASIX DAILY WEARS 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 Diabetes mellitus Diabetes mellitus type 2, uncontrolled, with complications Diabetes mellitus, type 2 GLUCOSE STABLE AND CONTROLLED Diabetic macular edema Diabetic peripheral neuropathy associated with type 2 diabetes mellitus Diastolic dysfunction, left ventricle f/u ranjan daugherty GI bleed History of depression HTN (hypertension) Hx of chest pain 04/2021, "intermittent, during a trip to [place], chasing around [employer]; ended up in hospital a few days after due to fluid overload."; f/u ranjan daugherty Hyperlipidemia Influenza A Myocardial necrosis pt denies-"came in w/fluid overload w/kidneys; never told I had an [place]" Nephrotic syndrome Normal electrocardiogram Onychomycosis Surgical History Family history of reaction to anesthesia MOTHER-HARD TO "PUT TO SLEEP" History of cataract surgery RT/LEFT History of herniorrhaphy UMBILICAL History of lingual frenulectomy History of tooth extraction Hx of vasectomy S/P arteriovenous (AV) fistula creation LT.; left limb restriction; no dialysis Status post colonoscopy with polypectomy Family History Father Family history of diabetes mellitus Kidney disease required HD Grandmother (Paternal) Family history of diabetes mellitus Grandfather (Maternal) Hypertension Other Myocardial infarction Denies family history of Ovarian cancer Prostate cancer Breast cancer Lung cancer Colorectal cancer Stroke Social History Smoking Status: Never smoker Tobacco Type: Cigarettes Age Quit Using Tobacco: 22; Second Hand Exposure: Yes (HX CHILD); Do You Dip or Chew Tobacco: No; Hx Alcohol Use: Yes Alcohol type: hard liquor Alcohol Intake Frequency: Monthly or Less Hx Substance Use: No Preferred Language: Hong Konger Communication Ability: Effective Shore Worker Required: No Beliefs That Will Affect Care: None marital status: Current Living Situation: Spouse and Family current occupational status: employed 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 [employer] Feels Safe at Home: Yes Childhood Exposure to Second-Hand Smoke: Yes Dental Care, Regularly: No Physical Activity Frequency: 1-2 Times per Week Physical Activity Frequency Comment: exercise bike Seatbelt Use: always Sunscreen Use: Yes Assistive Devices: None Allergies Allergies Allergy/AdvReac Type Severity Reaction Status Date / Time ANKUR Inhibitors AdvReac Intermediate Cough Verified 07/16/22 09:38 lisinopril AdvReac Intermediate cough Verified 07/16/22 09:38 sertraline [From Zoloft] AdvReac Intermediate SUPRESSED Verified 07/16/22 09:38 APPETITE Home Meds Home Medications Medication Instructions Recorded Confirmed multivitamin 1 tab PO QAM 02/19/20 07/12/22 cetirizine 10 mg tablet (Zyrtec) 10 mg PO DAILY PRN Allergy Symptoms 03/25/20 07/12/22 blood sugar diagnostic (Accu-Chek 04/25/20 07/12/22 Guide test strips) aspirin 81 mg tablet,delayed 81 mg PO QAM 08/03/21 07/12/22 release (Enteric Coated Aspirin) darbepoetin [place] in polysorbat 60 60 mcg subcut UD 03/06/22 07/12/22 mcg/mL in polysorbate injection (Aranesp) levothyroxine 88 mcg tablet 88 mcg PO QAM 03/30/22 07/12/22 furosemide 20 mg tablet 20 mg PO QAM PRN Edema 07/04/22 07/12/22 ferrous sulfate 325 mg (65 mg 325 mg PO DAILY 07/10/22 07/12/22 iron) tablet (iron) Previous Rx's Medication Instructions Recorded blood-glucose meter (Accu-Chek #1 ea 02/24/20 Guide Glucose Meter) pen needle, diabetic 31 gauge x #200 ea 03/01/2007/31" (BD Ultra-Fine Short Pen Needle) insulin aspart U-100 100 unit/mL See Rx Instructions subcut 05/12/20 (3 mL) subcutaneous pen (Novolog .COMPLEX #15 mL FlexPen U-100 Insulin aspart) insulin degludec 100 unit/mL (3 27 unit (0.27 mL) subcut HS #15 mL 10/27/21 mL) subcutaneous pen (Tresiba FlexTouch U-100 insulin) FreeStyle Jason 2 Sensor (flash #2 ea 12/29/21 glucose sensor) calcitriol 0.25 mcg capsule 0.25 mcg PO QAM #90 caps 01/26/22 (Rocaltrol) furosemide 20 mg tablet 20 mg PO QAM #90 tabs 02/26/22 citalopram 20 mg tablet 20 mg PO QAM #90 tabs 04/04/22 iron sucrose 200 mg iron/10 mL 500 mg (25 mL) IV .COMPLEX 5 doses 04/26/22 intravenous solution (Venofer) #50 mL atorvastatin 80 mg tablet 80 mg PO QAM #90 tabs 04/30/22 carvedilol 3.125 mg tablet 3.125 mg PO BID #60 tabs 05/03/22 darbepoetin [place] in polysorbat 60 60 mcg subcut MONTHLY #1 mL 07/12/22 mcg/mL in polysorbate injection (Aranesp) levothyroxine 75 mcg tablet 75 mcg PO DAILY #90 tabs 07/17/22 amlodipine 5 mg tablet 5 mg PO QAM #90 tabs 07/26/22 Results & Data (ED) Vital Signs Vital Signs - 24 hr 07/27/22 06:25 07/27/22 06:25 07/27/22 06:24 Temperature 36.9 C Temperature Source Oral Pulse Rate 51 L 53 L 53 L Pulse Rate from SpO2 Sensor 53 L Pulse Rhythm Regular Pulse Strength Normal Respiratory Rate 18 16 Respiratory Effort / Characteristics Non-Labored Spontaneous Respiratory Depth Normal Respiratory Pattern Regular Blood Pressure 108/58 L 108/58 L Blood Pressure Mean 74 74 Blood Pressure Position Lying Pulse Oximetry 100 99 Oxygen Delivery Method Room Air Room Air Sepsis Recent Fever Within 48 Hours No Sepsis New/Unexplained Change in Mental Status N/A Sepsis Action Taken by Nursing No Action Required 07/27/22 06:39 Temperature Temperature Source Pulse Rate 64 Pulse Rate from SpO2 Sensor Pulse Rhythm Pulse Strength Respiratory Rate 19 Respiratory Effort / Characteristics Respiratory Depth Respiratory Pattern Blood Pressure 129/65 Blood Pressure Mean 86 Blood Pressure Position Pulse Oximetry 99 Oxygen Delivery Method Room Air Sepsis Recent Fever Within 48 Hours Sepsis New/Unexplained Change in Mental Status Sepsis Action Taken by Nursing Laboratory Data 07/27/22 06:32 07/27/22 06:32 Lab Results 07/27/22 07/27/22 07/27/22 Range/Units 06:32 06:32 07:25 WBC 6.24 (4.8-10.8) K/ul RBC 2.14 L (4.70-6.10) M/uL Hgb 6.0 L* (14.0-18.0) g/dl Hct 19.0 L* (42.0-52.0) % MCV 88.8 (80.0-100.0) fL MCH 28.0 (25.0-34.0) pg MCHC 31.6 L (32.0-36.0) g/dL RDW Std Deviation 46.9 H (36.4-46.3) fL RDW Coeff of Gladys 14.6 H (11.5-14.5) % Plt Count 193 (130-400) K/uL MPV 11.0 (9.4-12.4) fL Immature Gran % (Auto) 0.3 % Neut % (Auto) 68.8 % Lymph % (Auto) 19.1 % Lamar % (Auto) 6.9 % Eos % (Auto) 4.3 % Baso % (Auto) 0.6 % Neut # (Auto) 4.29 (1.40-6.50) K/uL Lymph # (Auto) 1.19 L (1.2-3.4) K/uL Lamar # (Auto) 0.43 (0.11-0.59) K/uL Eos # (Auto) 0.27 (0-0.50) K/uL Baso # (Auto) 0.04 (0-0.2) K/uL Immature Gran # (Auto) 0.02 (0.01-0.20) K/uL Sodium 143 (136-145) mmol/L Potassium 5.3 H (3.5-5.1) mmol/L Chloride 117 H (98-107) mmol/L Carbon Dioxide 20 L (21-32) mmol/L Anion Gap 6 (3-11) BUN 67 H (6-23) mg/dl Creatinine 5.08 H* (0.6-1.4) mg/dl Est Cr Clr Drug Dosing 23.2 ml/min Est GFR ( Amer) 14.1 ml/min Est GFR (Non-Af Amer) 12.2 ml/min BUN/Creatinine Ratio 13.2 (10-20) Glucose 108 H (70-99(Fasting)) mg/dl Calcium 7.6 L (8.6-10.3) mg/dl Magnesium 2.1 (1.7-2.4) mg/dl Total Bilirubin 0.2 (0.2-1.0) mg/dl AST 17 (13-39) U/L ALT 21 (7-52) U/L Alkaline Phosphatase 132 H (34-104) U/L Troponin I High Sens 17.5 (0-20) pg/ml Total Protein 4.9 L (6.0-8.3) gm/dl Albumin 2.8 L (3.4-5.0) gm/dl Globulin 2.1 L (2.5-4.0) gm/dl Albumin/Globulin Ratio 1.3 (0.9-2) Crossmatch See Detail Discharge Plan Visit Data Chief Complaint: Dizziness Stated Complaint: Dizzy, Lightheaded, Dark Stool ED Provider: Oscar Flannery Discharge Problem: GI bleed, Anemia Forms Stand Alone Forms: [facility] Prescriptions Prescriptions: No Action (DME) pen needle, diabetic [BD Ultra-Fine Short Pen Needle] 31 gauge x 5/16" needle See Rx Instructions .ROUTE .MEDSUPPLY Qty: 200 5RF Rx Instructions: use 1 pen needle 5 times daily for insulin injection dx E11.9 Tresiba FlexTouch U-100 100 unit/mL (3 mL) insulin pen 27 unit subcut HS Qty: 15 1RF Patient Comments: 13 units (DME) FreeStyle Jason 2 Sensor Kit See Rx Instructions .ROUTE .MEDSUPPLY Qty: 2 6RF Rx Instructions: As directed, replace every 14 days calcitriol [Rocaltrol] 0.25 mcg capsule 0.25 mcg PO QAM Qty: 90 3RF furosemide 20 mg tablet 20 mg PO QAM Qty: 90 3RF citalopram 20 mg tablet 20 mg PO QAM Qty: 90 1RF atorvastatin 80 mg tablet 80 mg PO QAM Qty: 90 3RF carvedilol 3.125 mg tablet 3.125 mg PO BID Qty: 60 5RF levothyroxine 75 mcg tablet 75 mcg PO DAILY Qty: 90 0RF amlodipine 5 mg tablet 5 mg PO QAM Qty: 90 3RF (DME) blood-glucose meter [Accu-Chek Guide Glucose Meter] Misc See Rx Instructions .ROUTE .MEDSUPPLY Qty: 1 0RF Rx Instructions: As directed (DME) Accu-Chek Guide test strips Strip See Rx Instructions .ROUTE .MEDSUPPLY Rx Instructions: test 3 times daily Aranesp (in polysorbate) 60 mcg/mL solution 60 mcg subcut MONTHLY Qty: 1 12RF Patient Comments: not started yet Rx Instructions: HOLD FOR HGB > 11 cetirizine [Zyrtec] 10 mg tablet 10 mg PO DAILY PRN (Reason: Allergy Symptoms) insulin aspart U-100 [Novolog FlexPen U-100 Insulin] 100 unit/mL (3 mL) insulin pen See Rx Instructions subcut .COMPLEX Qty: 15 6RF Patient Comments: 2 units Rx Instructions: subcut inject based on carbohydrate ratio and sliding scale up to 30 units a day; Venofer 200 mg iron/10 mL solution 500 mg IV .COMPLEX Qty: 50 0RF Rx Instructions: 500 mg intravenously on day #1 and day #14; administer over 30 mins ferrous sulfate [iron] 325 mg (65 mg iron) tablet 325 mg PO DAILY multivitamin Tablet 1 tab PO QAM aspirin [Enteric Coated Aspirin] 81 mg tablet,delayed release (DR/EC) 81 mg PO QAM levothyroxine 88 mcg tablet 88 mcg PO QAM Hold Instructions: Off for 6 weeks Rx Instructions: Patient currently out of medication. Needs to contact PCP Aranesp (in polysorbate) 60 mcg/mL solution 60 mcg subcut UD Rx Instructions: within last year has had 3 times. furosemide 20 mg Tablet 20 mg PO QAM PRN (Reason: Edema) Rx Instructions: To take in addition to daily 20mg if edema occurs per PCP Referrals Referrals: Mitul Burciaga MD [Primary Care Provider] -
[2022-07-27 07:34] LABS: Basophils # (auto) 0.04 K/uL (0-0.2); Basophils % (auto) 0.6 %; Eosinophils # (auto) 0.27 K/uL (0-0.50); Eosinophils % (auto) 4.3 %; Immature Granulocytes # (auto) 0.02 K/uL (0.01-0.20); Immature Granulocytes % (auto) 0.3 %; Lymphocytes # (auto) 1.19 K/uL (1.2-3.4); Lymphocytes % (auto) 19.1 %; Monocytes # (auto) 0.43 K/uL (0.11-0.59); Monocytes % (auto) 6.9 %; Neutrophils # (auto) 4.29 K/uL (1.40-6.50); Neutrophils % (auto) 68.8 %
[2022-07-27 07:45] LABS: Albumin Globulin Ratio 1.3 (0.9-2); BUN Creatinine Ratio 13.2 (10-20); Creatinine Clr Calc Pharmacy 23.2 ml/min; Est GFR (African American) 14.1 ml/min; Est GFR (Non-African American) 12.2 ml/min; Globulin 2.1 gm/dl (2.5-4.0); Total Protein 4.9 gm/dl (6.0-8.3); Troponin I High Sensitivity 17.5 pg/ml (0-20)
--- NOTE | 2022-07-27 07:56 | History & Physical Report ---
Date of Service July 27, 2022 Assessment & Plan (1) Acute blood loss anemia: Plan: Acute blood loss anemia previously from lower GI bleed, a negative bleeding scan on 07/27 ruled out continued bleeding but clinically pt describes BRBPR and although has renal disease with acute drop on hgb did have acute blood loss Transfusion 3 units packed red blood cells recheck hemoglobin in the evening of 07/[address] 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, feels no need for current endoscopy (2) Chronic kidney disease (CKD): Plan: Patient is chronic kidney disease stage IV-V unclear if stable Creatinine slightly worse than baseline recent transplant evaluation completed Hyperkalemia associate with his renal failure was given Patiromer and follow Anemia of chronic disease has been associate with his kidney failure, baseline of kidney failure is nephrotic syndrome, anemia is worse than baseline currently on symptomatic, consideration of EPO (3) Hypothyroidism: Plan: Patient has history of hypothyroidism continues to receive supplementation confirms did not restart his outpatient dosing was remiss in this regard but he says his dose should be 88 mcg a day (4) Diabetes mellitus with ophthalmic manifestation: Plan: History of insulin requiring diabetes with endorgan issues this is a chronic problem Last hemoglobin A1c was 5.3 Continue with basal bolus insulin currently patient will be kept n.p.o. in case additional sigmoidoscopy would be warranted (5) HTN (hypertension): Plan: Chronic hypertension unclear if stable blood pressure slightly low he will receive blood products continue carvedilol and Lasix but will hold amlodipine Plan SCDs for DVT prevention History of Present Illness Primary Care Provider: Mitul Burciaga MD 52-year-old male with history of previous GI bleeds associate with colonic polyps and clips from those polyps who he presents after having bright red blood per rectum being dizzy found to have worsened of his chronic anemia with a hemoglobin of 6. Patient has anemia of chronic disease from CKD 4 but is not yet on dialysis. Patient had colonoscopies this year April 05, April 09 sigmoidoscopy on April 20 and colonoscopy July 16. We will on the July 16 colonoscopy polyps were found and removed biopsies are negative. In the emergency department the patient is hemodynamically stable patient was ordered transfusion of blood by the emergency physician. With regard to his chronic kidney disease stage IV-V his creatinine is slightly worse than usual his potassium is slightly up he most recently completed transplant evaluation at [facility]. We will give a dose of bacterium air and have nephrology consultation for inpatient management. The patient does make urine and is typically on furosemide watch his volume status after he receives his units of blood Allergies Allergy/AdvReac Type Severity Reaction Status Date / Time ANKUR Inhibitors AdvReac Intermediate Cough Verified 07/16/22 09:38 lisinopril AdvReac Intermediate cough Verified 07/16/22 09:38 sertraline [From Zoloft] AdvReac Intermediate SUPRESSED Verified 07/16/22 09:38 APPETITE Home Medications Medication Instructions Recorded Confirmed Type multivitamin 1 tab PO QAM 02/19/20 07/27/22 History blood-glucose meter (Accu-Chek #1 ea 02/24/20 07/12/22 Rx Guide Glucose Meter) pen needle, diabetic 31 gauge x #200 ea 03/01/20 07/12/22 Rx 5/16" (BD Ultra-Fine Short Pen Needle) cetirizine 10 mg tablet (Zyrtec) 10 mg PO DAILY PRN Allergy Symptoms 03/25/20 07/27/22 History blood sugar diagnostic (Accu-Chek 04/25/20 07/12/22 History Guide test strips) insulin aspart U-100 100 unit/mL See Rx Instructions subcut 05/12/20 07/27/22 Rx (3 mL) subcutaneous pen (Novolog .COMPLEX #15 mL FlexPen U-100 Insulin aspart) aspirin 81 mg tablet,delayed 81 mg PO QAM 08/03/21 07/27/22 History release (Enteric Coated Aspirin) insulin degludec 100 unit/mL (3 27 unit (0.27 mL) subcut HS #15 mL 10/27/21 07/27/22 Rx mL) subcutaneous pen (Tresiba FlexTouch U-100 insulin) FreeStyle Jason 2 Sensor (flash #2 ea 12/29/21 07/12/22 Rx glucose sensor) calcitriol 0.25 mcg capsule 0.25 mcg PO QAM #90 caps 01/26/22 07/27/22 Rx (Rocaltrol) furosemide 20 mg tablet 20 mg PO QAM #90 tabs 02/26/22 07/27/22 Rx darbepoetin [place] in polysorbat 60 60 mcg subcut UD 03/06/22 07/27/22 History mcg/mL in polysorbate injection (Aranesp) levothyroxine 88 mcg tablet 88 mcg PO QAM 03/30/22 07/27/22 History citalopram 20 mg tablet 20 mg PO QAM #90 tabs 04/04/22 07/27/22 Rx iron sucrose 200 mg iron/10 mL 500 mg (25 mL) IV .COMPLEX 5 doses 04/26/22 07/27/22 Rx intravenous solution (Venofer) #50 mL atorvastatin 80 mg tablet 80 mg PO QAM #90 tabs 04/30/22 07/27/22 Rx carvedilol 3.125 mg tablet 3.125 mg PO BID #60 tabs 05/03/22 07/27/22 Rx furosemide 20 mg tablet 20 mg PO QAM PRN Edema 07/04/22 07/12/22 History ferrous sulfate 325 mg (65 mg 325 mg PO DAILY 07/10/22 07/27/22 History iron) tablet (iron) darbepoetin [place] in polysorbat 60 60 mcg subcut MONTHLY #1 mL 07/12/22 07/27/22 Rx mcg/mL in polysorbate injection (Aranesp) levothyroxine 75 mcg tablet 75 mcg PO DAILY #90 tabs 07/17/22 07/27/22 Rx amlodipine 5 mg tablet 5 mg PO QAM #90 tabs 07/26/22 07/27/22 Rx Past Med/Surg History Medical History Acute blood loss anemia Acute kidney injury Acute on chronic kidney failure Anemia recently discharged after 3 days from [facility]; "in to receive blood" Anemia due to chronic kidney disease Antiplatelet or antithrombotic long-term use Bilateral edema of lower extremity REASON FOR LASIX DAILY WEARS 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 Diabetes mellitus Diabetes mellitus type 2, uncontrolled, with complications Diabetes mellitus, type 2 GLUCOSE STABLE AND CONTROLLED Diabetic macular edema Diabetic peripheral neuropathy associated with type 2 diabetes mellitus Diastolic dysfunction, left ventricle f/u ranjan daugherty GI bleed History of depression HTN (hypertension) Hx of chest pain 04/2021, "intermittent, during a trip to [email or web address], chasing around [employer]; ended up in hospital a few days after due to fluid overload."; f/u ranjan daugherty Hyperlipidemia Influenza A Myocardial necrosis pt denies-"came in w/fluid overload w/kidneys; never told I had an [facility]" Nephrotic syndrome Normal electrocardiogram Onychomycosis Surgical History Family history of reaction to anesthesia MOTHER-HARD TO "PUT TO SLEEP" History of cataract surgery RT/LEFT History of herniorrhaphy UMBILICAL History of lingual frenulectomy History of tooth extraction Hx of vasectomy S/P arteriovenous (AV) fistula creation LT.; left limb restriction; no dialysis Status post colonoscopy with polypectomy Family History Father Family history of diabetes mellitus Kidney disease required HD Grandmother (Paternal) Family history of diabetes mellitus Grandfather (Maternal) Hypertension Other Myocardial infarction Denies family history of Ovarian cancer Prostate cancer Breast cancer Lung cancer Colorectal cancer Stroke Social History Smoking Status: Former smoker Tobacco Type: Cigarettes Age Quit Using Tobacco: 22; Second Hand Exposure: No; Do You Dip or Chew Tobacco: No; Tobacco Cessation Education Requested by Patient: No Hx Alcohol Use: No Hx Substance Use: No Preferred Language: Maori Communication Ability: Effective Air Pollution Specialist Required: No Beliefs That Will Affect Care: None marital status: Current Living Situation: Spouse current occupational status: employed 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 Cardiac exam is regular lungs are clear. He has some minor abdominal discomfort this is mostly in his lower abdomen. He has trace edema to his legs which he said is stable for him. He has some right lower extremity discomfort in his calf with no venous cords etc. Results & Data Results & Data Vital Signs (Past 12 Hours) Vital Signs Temp Pulse Resp BP Pulse Ox O2 Del Method 07/27/22 06:39 64 19 129/65 99 Room Air 07/27/22 06:24 53 L 16 108/58 L 99 Room Air 05/12/23 06:25 53 L 07/27/22 06:25 98.4 F 51 L 18 108/58 L 100 Room Air Laboratory Results Reviewed CBC Reviewed PRP Code Status & VTE Plan VTE Prophylaxis Plan VTE Prophylaxis will be ordered: Yes PG Care Time/CCT Total # of Minutes Spent Total Time Spent with Patient: Total time spent is greater than 50% in coordination of care (as documented) at patient's floor/unit and/or counseling patient: Coding Level of Care Code 29170 INT INP/OBS CARE 2/55MIN Diagnoses Acute blood loss anemia D62 Chronic kidney disease (CKD) N18.4 Chronic kidney disease stage: stage 4 (severe) Hypothyroidism E03.9 Diabetes mellitus with ophthalmic manifestation E11.39 HTN (hypertension) I10 (2) Chronic kidney disease (CKD) Chronic kidney disease stage: stage 4 (severe) Qualified Code(s): N18.4 - Chronic kidney disease, stage 4 (severe)
[2022-07-27] MEDS ORDERED: CARBOHYDRATES FOR HYPOGLYCEMIA PO PRN (09:46)
[2022-07-27] MEDS ORDERED: ONDANSETRON INJ 2 MG/ML 2 ML VIAL IV PRN (09:46)
[2022-07-27] MEDS ORDERED: DEXTROSE 50% 50 ML SYRINGE IV PRN (09:46)
[2022-07-27] MEDS ORDERED: GLUCAGON FOR INJ 1 MG VIAL SQ PRN (09:46)
[2022-07-27] MEDS ORDERED: GLUCOSE 40% GEL 15 GM TUBE PO PRN (09:46)
[2022-07-27] MEDS ORDERED: GLUCOSE 10 TAB/TUBE PO PRN (09:46)
[2022-07-27] MEDS ORDERED: PATIROMER CALCIUM SORBITEX 8.4 GM PACK PO ONE (09:46)
--- NOTE | 2022-07-27 10:17 | Nephrology Consultation ---
Date of Consultation July 27, 2022 Assessment & Plan (1) Chronic kidney disease, stage 4 (severe): (2) Acute kidney injury: (3) Hyperkalemia: (4) Acute blood loss anemia: (5) Nephrotic syndrome: Plan Stage IV/V CKD secondary to diabetic nephropathy with nephrotic syndrome, b/l cr lately around 4.0 to 4.5 with 10 g of proteinuria. Has anemia and secondary hyperparathyroidism with advanced CKD as well as history of GI bleeding over last few months after polypectomy. Admitted with acute lower GIB, hemoglobin of 6.0, currently getting blood transfusion. Creatinine slightly higher than his baseline however not significant. Mild hyperkalemia without being on ANKUR-inhibitor or ARB. The -- continue low potassium diet. -- continue home dose of Lasix at 20 mg daily -- we can consider a dose of Epogen 00468 units in future but currently his anemia is mainly due to active GI bleeding. -- monitor renal function and electrolyte while in patient -- continue on calcitriol -- left arm nephrology precaution, dose meds for eGFR <10 Thank you for allowing me to participate in your patient's care. It was a pleasure to see Gildardo History of Present Illness Reason for Consultation: Stage 4/5 CKD, GIB Attending Physician: Rishi Hurley MD History of Present Illness Mr. Saurav Jules a 52-year-old male with PMH of CKD stage 4/5, nephrotic syndrome, DM 2, HTN, anemia, hyperlipidemia admitted with acute GIB and anemia. Nephrology consult requested for management of hyperkalemia, anemia and advanced CKD. EMR records were reviewed in detail during patient's visit. Gildardo presented to ER with several episodes of bloody bowel movements overnight and feeling lightheaded this morning when getting up. Hemoglobin was 6. Kidney function is baseline with a BUN of 67 and creatinine of 5. Potassium slightly elevated 5.3.Has been off of losartan with advanced CKD. He is getting 2 units of PRBC. He had routine colonoscopy on 04/05/22, followed by repeat colonoscopy on 04/09/22 for bleeding complications. He was then admitted to [facility] from 04/20-04/21 due to acute blood loss anemia due to a bleeding ulcer at his sigmoid polypectomy site after colonoscopy on 04/09 where multiple polyps were removed. Had 3 units of PRBCs and underwent flexible sigmoidoscopy on 04/20, found to have a single, ulcer in the rectum at the polypectomy site without acute bleeding, site was clipped. Had another episode of anemia requiring hospitalization and PRBC in June. Hb stabilized and he has been doing well. Had a f/u colonoscopy on 07/16/22 and had a 4 mm polyps removed, biopsies are negative. Has stage 4/5CKD with nephrotic syndrome secondary to diabetic nephropathy, 10 g of proteinuria, baseline creatinine lately has been around 4.5. Had left radiocephalic AV fistula placed in July 2021, getting transplant evaluation at [facility]. Decided to do in center hemodialysis at [facility] when needed. Has diabetes with retinopathy, recently has been well controlled. No history of coronary artery disease. Remote history of brief smoking many years ago. Dad had history of end-stage renal disease. 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 Overall he has been feeling tired but denies further bleeding or BM since this morning. Getting the first unit of PRBC now. Has been voiding normally, no SOB, CP. Allergies Allergy/AdvReac Type Severity Reaction Status Date / Time ANKUR Inhibitors AdvReac Intermediate Cough Verified 07/16/22 09:38 lisinopril AdvReac Intermediate cough Verified 07/16/22 09:38 sertraline [From Zoloft] AdvReac Intermediate SUPRESSED Verified 07/16/22 09:38 APPETITE Home Medications Medication Instructions Recorded Confirmed Type multivitamin 1 tab PO QAM 02/19/20 07/27/22 History blood-glucose meter (Accu-Chek #1 ea 02/24/20 07/12/22 Rx Guide Glucose Meter) pen needle, diabetic 31 gauge x #200 ea 03/01/20 07/12/22 Rx 5/16" (BD Ultra-Fine Short Pen Needle) cetirizine 10 mg tablet (Zyrtec) 10 mg PO DAILY PRN Allergy Symptoms 03/25/20 07/27/22 History blood sugar diagnostic (Accu-Chek 04/25/20 07/12/22 History Guide test strips) insulin aspart U-100 100 unit/mL See Rx Instructions subcut 05/12/20 07/27/22 Rx (3 mL) subcutaneous pen (Novolog .COMPLEX #15 mL FlexPen U-100 Insulin aspart) aspirin 81 mg tablet,delayed 81 mg PO QAM 08/03/21 07/27/22 History release (Enteric Coated Aspirin) insulin degludec 100 unit/mL (3 27 unit (0.27 mL) subcut HS #15 mL 10/27/21 07/27/22 Rx mL) subcutaneous pen (Tresiba FlexTouch U-100 insulin) FreeStyle Jason 2 Sensor (flash #2 ea 12/29/21 07/12/22 Rx glucose sensor) calcitriol 0.25 mcg capsule 0.25 mcg PO QAM #90 caps 01/26/22 07/27/22 Rx (Rocaltrol) furosemide 20 mg tablet 20 mg PO QAM #90 tabs 02/26/22 07/27/22 Rx darbepoetin sydney in polysorbat 60 60 mcg subcut UD 03/06/22 07/27/22 History mcg/mL in polysorbate injection (Aranesp) levothyroxine 88 mcg tablet 88 mcg PO QAM 03/30/22 07/27/22 History citalopram 20 mg tablet 20 mg PO QAM #90 tabs 04/04/22 07/27/22 Rx iron sucrose 200 mg iron/10 mL 500 mg (25 mL) IV .COMPLEX 5 doses 04/26/22 07/27/22 Rx intravenous solution (Venofer) #50 mL atorvastatin 80 mg tablet 80 mg PO QAM #90 tabs 04/30/22 07/27/22 Rx carvedilol 3.125 mg tablet 3.125 mg PO BID #60 tabs 05/03/22 07/27/22 Rx furosemide 20 mg tablet 20 mg PO QAM PRN Edema 07/04/22 07/12/22 History ferrous sulfate 325 mg (65 mg 325 mg PO DAILY 07/10/22 07/27/22 History iron) tablet (iron) darbepoetin sydney in polysorbat 60 60 mcg subcut MONTHLY #1 mL 07/12/22 07/27/22 Rx mcg/mL in polysorbate injection (Aranesp) levothyroxine 75 mcg tablet 75 mcg PO DAILY #90 tabs 07/17/22 07/27/22 Rx amlodipine 5 mg tablet 5 mg PO QAM #90 tabs 07/26/22 07/27/22 Rx Patient History Medical History Acute blood loss anemia Acute kidney injury Acute on chronic kidney failure Anemia recently discharged after 3 days from [facility]; "in to receive blood" Anemia due to chronic kidney disease Antiplatelet or antithrombotic long-term use Bilateral edema of lower extremity REASON FOR LASIX DAILY WEARS 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 Diabetes mellitus Diabetes mellitus type 2, uncontrolled, with complications Diabetes mellitus, type 2 GLUCOSE STABLE AND CONTROLLED Diabetic macular edema Diabetic peripheral neuropathy associated with type 2 diabetes mellitus Diastolic dysfunction, left ventricle f/u ranjan daugherty GI bleed History of depression HTN (hypertension) Hx of chest pain 04/2021, "intermittent, during a trip to [place], chasing around [employer]; ended up in hospital a few days after due to fluid overload."; f/u ranjan daugherty Hyperlipidemia Influenza A Myocardial necrosis pt denies-"came in w/fluid overload w/kidneys; never told I had an OR" Nephrotic syndrome Normal electrocardiogram Onychomycosis Surgical History Family history of reaction to anesthesia MOTHER-HARD TO "PUT TO SLEEP" History of cataract surgery RT/LEFT History of herniorrhaphy UMBILICAL History of lingual frenulectomy History of tooth extraction Hx of vasectomy S/P arteriovenous (AV) fistula creation LT.; left limb restriction; no dialysis Status post colonoscopy with polypectomy Family History Father Family history of diabetes mellitus Kidney disease required HD Grandmother (Paternal) Family history of diabetes mellitus Grandfather (Maternal) Hypertension Other Myocardial infarction Denies family history of Ovarian cancer Prostate cancer Breast cancer Lung cancer Colorectal cancer Stroke Social History Smoking Status: Former smoker Tobacco Type: Cigarettes Age Quit Using Tobacco: 22; Second Hand Exposure: No; Do You Dip or Chew Tobacco: No; Tobacco Cessation Education Requested by Patient: No Hx Alcohol Use: No Hx Substance Use: No Preferred Language: Finnish Communication Ability: Effective Resource Engineer Required: No Beliefs That Will Affect Care: None marital status: Current Living Situation: Spouse current occupational status: employed 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 Physical Exam Constitutional: WD/WN, vitals as above no acute distress pale appearing. Eyes: + anicteric sclerae Neck: normal visual inspection Respiratory: no respiratory distress Auscultation: lungs clear to auscultation bilaterally Cardiovascular: Rate/Rhythm: regular rate and regular rhythm Extremities: + AV fistula (Left RC AVF with thrill and bruit); no edema Gastrointestinal (Abdomen): Inspection/Auscultation: abdomen normal to inspection Percussion/Palpation: abdomen soft; abdomen nontender Musculoskeletal: Extremities: extremities normal to inspection Skin: no rashes, warm and dry Neurologic: no focal motor deficits and not confused Psychiatric: Orientation: alert and oriented x 3 Affect: euthymic affect Results & Data Vital Signs (Past 12 Hours) Vital Signs Temp Pulse Pulse Resp BP BP Pulse Ox 07/27/22 10:00 36.6 C 07/27/22 09:46 36.8 C 07/27/22 09:46 36.6 C 65 14 145/64 H 100 07/27/22 09:46 07/27/22 09:28 36.4 C L 61 20 127/49 L 98 07/27/22 09:15 36.5 C 60 14 122/50 L 98 07/27/22 09:00 36.5 C 62 15 111/47 L 98 07/27/22 06:39 64 19 129/65 99 07/27/22 06:24 53 L 16 108/58 L 99 07/27/22 06:25 53 L 07/27/22 06:25 36.9 C 51 L 18 108/58 L 100 Pulse Ox O2 Del Method O2 Del Method 07/27/22 10:00 07/27/22 09:46 07/27/22 09:46 Room Air 07/27/22 09:46 100 Room Air 07/27/22 09:28 07/27/22 09:15 07/27/22 09:00 07/27/22 06:39 Room Air 07/27/22 06:24 Room Air 07/27/22 06:25 05/12/23 06:25 Room Air PG Care Time/CCT Total # of Minutes Spent Total Time Spent with Patient: Total time spent is greater than 50% in coordination of care (as documented) at patient's floor/unit and/or counseling patient: Coding Level of Care Code 09365 INT INP/OBS CARE 3/75MIN Diagnoses Chronic kidney disease, stage 4 (severe) N18.4 Acute kidney injury N17.9 Hyperkalemia E87.5 Acute blood loss anemia D62 Nephrotic syndrome N04.9
[2022-07-27] MEDS: carvediloL 3.125 MG TAB PO SCH ×2 (10:22→21:48)
[2022-07-27] MEDS: FUROSEMIDE 20 MG TAB PO SCH (10:23)
[2022-07-27] MEDS: CALCITRIOL 0.25 MCG CAPSULE PO SCH (10:23)
[2022-07-27] MEDS: CITALOPRAM 20 MG TAB PO SCH (10:23)
[2022-07-27] MEDS ORDERED: Nursing to Pharmacy Communication SCH (11:00)
[2022-07-27] MEDS ORDERED: INSULIN ASPART PER UNIT CHARGE SC SCH (11:30)
--- NOTE | 2022-07-27 11:55 | Gastrointestinal Consultation ---
Date of Consultation July 27, 2022 Assessment & Plan (1) GI bleed: Discussed care with Dr. Baird who advised on plan. -Agree with transfusing patient -Continue to monitor H/H and monitor for further overt GI bleeding -Keep NPO -Continue IV Protonix 40 mg BID -NM GI bleed scan today History of Present Illness Reason for Consultation: "recurrent GI bleeding probably lower" Attending Physician: Rishi Hurley MD History of Present Illness Patient is a 52 yo male with PMH of DM2, hypothyroidism, CKD 4 (not on HD), CAD, & HTN who presents to the ED at [facility] with complaints of abdominal discomfort and dark red bloody stools. He had a colonoscopy on 07/16/22 during which time 4 polyps were removed. He notes that in the past day, he developed abdominal cramping. He woke up in the middle night with an urgent bowel movement that he describes as dark red blood. He notes that he later felt dizzy and weak and fell in the bathroom. EMS was contacted. He presented to the ED and his H/H was noted to be 6.0/19.0. He is receiving PRBCs at present. No NSAID use other than baby Aspirin. He denies any ongoing abdominal discomfort or bleeding since admission. He has been NPO. Of note, he had a colonoscopy 04/05/22 that indicated very poor prep and the procedure was aborted. A colonoscopy on 04/09/22 indicated 6 polyps which were removed. He experienced significant rectal bleeding and presented to the hospital. A colonoscopy on 04/20/22 indicated an ulcer at the polypectomy site from the prior procedure. He underwent a repeat colonoscopy on 07/16/22 during which time 4 polyps were removed. He was again noted to have a poor prep. Allergies Allergy/AdvReac Type Severity Reaction Status Date / Time ANKUR Inhibitors AdvReac Intermediate Cough Verified 07/16/22 09:38 lisinopril AdvReac Intermediate cough Verified 07/16/22 09:38 sertraline [From Zoloft] AdvReac Intermediate SUPRESSED Verified 07/16/22 09:38 APPETITE Home Medications Medication Instructions Recorded Confirmed Type multivitamin 1 tab PO QAM 02/19/20 07/27/22 History blood-glucose meter (Accu-Chek #1 ea 02/24/20 07/12/22 Rx Guide Glucose Meter) pen needle, diabetic 31 gauge x #200 ea 03/01/20 07/12/22 Rx 5/16" (BD Ultra-Fine Short Pen Needle) cetirizine 10 mg tablet (Zyrtec) 10 mg PO DAILY PRN Allergy Symptoms 03/25/20 07/27/22 History blood sugar diagnostic (Accu-Chek 04/25/20 07/12/22 History Guide test strips) insulin aspart U-100 100 unit/mL See Rx Instructions subcut 05/12/20 07/27/22 Rx (3 mL) subcutaneous pen (Novolog .COMPLEX #15 mL FlexPen U-100 Insulin aspart) aspirin 81 mg tablet,delayed 81 mg PO QAM 08/03/21 07/27/22 History release (Enteric Coated Aspirin) insulin degludec 100 unit/mL (3 27 unit (0.27 mL) subcut HS #15 mL 10/27/21 07/27/22 Rx mL) subcutaneous pen (Tresiba FlexTouch U-100 insulin) FreeStyle Jason 2 Sensor (flash #2 ea 12/29/21 07/12/22 Rx glucose sensor) calcitriol 0.25 mcg capsule 0.25 mcg PO QAM #90 caps 01/26/22 07/27/22 Rx (Rocaltrol) furosemide 20 mg tablet 20 mg PO QAM #90 tabs 02/26/22 07/27/22 Rx darbepoetin sydney in polysorbat 60 60 mcg subcut UD 03/06/22 07/27/22 History mcg/mL in polysorbate injection (Aranesp) levothyroxine 88 mcg tablet 88 mcg PO QAM 03/30/22 07/27/22 History citalopram 20 mg tablet 20 mg PO QAM #90 tabs 04/04/22 07/27/22 Rx iron sucrose 200 mg iron/10 mL 500 mg (25 mL) IV .COMPLEX 5 doses 04/26/22 07/27/22 Rx intravenous solution (Venofer) #50 mL atorvastatin 80 mg tablet 80 mg PO QAM #90 tabs 04/30/22 07/27/22 Rx carvedilol 3.125 mg tablet 3.125 mg PO BID #60 tabs 05/03/22 07/27/22 Rx furosemide 20 mg tablet 20 mg PO QAM PRN Edema 07/04/22 07/12/22 History ferrous sulfate 325 mg (65 mg 325 mg PO DAILY 07/10/22 07/27/22 History iron) tablet (iron) darbepoetin sydney in polysorbat 60 60 mcg subcut MONTHLY #1 mL 07/12/22 07/27/22 Rx mcg/mL in polysorbate injection (Aranesp) levothyroxine 75 mcg tablet 75 mcg PO DAILY #90 tabs 07/17/22 07/27/22 Rx amlodipine 5 mg tablet 5 mg PO QAM #90 tabs 07/26/22 07/27/22 Rx Patient History Medical History Acute blood loss anemia Acute kidney injury Acute on chronic kidney failure Anemia recently discharged after 3 days from [facility]; "in to receive blood" Anemia due to chronic kidney disease Antiplatelet or antithrombotic long-term use Bilateral edema of lower extremity REASON FOR LASIX DAILY WEARS 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 Diabetes mellitus Diabetes mellitus type 2, uncontrolled, with complications Diabetes mellitus, type 2 GLUCOSE STABLE AND CONTROLLED Diabetic macular edema Diabetic peripheral neuropathy associated with type 2 diabetes mellitus Diastolic dysfunction, left ventricle f/u ranjan daugherty GI bleed History of depression HTN (hypertension) Hx of chest pain 04/2021, "intermittent, during a trip to [place], chasing around [employer]; ended up in hospital a few days after due to fluid overload."; f/u ranjan daugherty Hyperlipidemia Influenza A Myocardial necrosis pt denies-"came in w/fluid overload w/kidneys; never told I had an WI" Nephrotic syndrome Normal electrocardiogram Onychomycosis Surgical History Family history of reaction to anesthesia MOTHER-HARD TO "PUT TO SLEEP" History of cataract surgery RT/LEFT History of herniorrhaphy UMBILICAL History of lingual frenulectomy History of tooth extraction Hx of vasectomy S/P arteriovenous (AV) fistula creation LT.; left limb restriction; no dialysis Status post colonoscopy with polypectomy Family History Father Family history of diabetes mellitus Kidney disease required HD Grandmother (Paternal) Family history of diabetes mellitus Grandfather (Maternal) Hypertension Other Myocardial infarction Denies family history of Ovarian cancer Prostate cancer Breast cancer Lung cancer Colorectal cancer Stroke Social History Smoking Status: Former smoker Tobacco Type: Cigarettes Age Quit Using Tobacco: 22; Second Hand Exposure: No; Do You Dip or Chew Tobacco: No; Tobacco Cessation Education Requested by Patient: No Hx Alcohol Use: No Hx Substance Use: No Preferred Language: Botswanan Communication Ability: Effective Production Team Leader Required: No Beliefs That Will Affect Care: None marital status: Current Living Situation: Spouse current occupational status: employed 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[employer] Other Information That Helps Us Care for You: No Feels Safe at Home: Yes Safety Concerns: Feels Safe At This Time Childhood Exposure to Second-Hand Smoke: Yes Dental Care, Regularly: No Physical Activity Frequency: 1-2 Times per Week Physical Activity Frequency Comment: exercise bike Seatbelt Use: always Sunscreen Use: Yes Assistive Devices: None Review of Systems Constitutional: no fever and no chills Respiratory: no cough and no dyspnea Cardiovascular: no chest pain Gastrointestinal: + abdominal pain and + blood in stools Psychiatric: no problem reported Physical Exam Constitutional: well developed Respiratory: normal respiratory effort Cardiovascular: Rate/Rhythm: regular rate Gastrointestinal (Abdomen): normal bowel sounds, soft, nontender, no hepatosplenomegaly Musculoskeletal: Head/Neck/Chest: normocephalic Psychiatric: Orientation: alert and oriented x 3 Results & Data Vital Signs (Past 12 Hours) Vital Signs Temp Pulse Pulse Resp BP BP Pulse Ox 07/27/22 11:49 36.7 C 66 14 122/64 95 07/27/22 11:00 66 07/27/22 10:00 36.6 C 07/27/22 09:46 36.8 C 07/27/22 09:46 36.6 C 65 14 145/64 H 100 07/27/22 09:46 07/27/22 09:28 36.4 C L 61 20 127/49 L 98 07/27/22 09:15 36.5 C 60 14 122/50 L 98 07/27/22 09:00 36.5 C 62 15 111/47 L 98 07/27/22 06:39 64 19 129/65 99 07/27/22 06:24 53 L 16 108/58 L 99 07/27/22 06:25 53 L 07/27/22 06:25 36.9 C 51 L 18 108/58 L 100 Pulse Ox O2 Del Method O2 Del Method 07/27/22 11:49 07/27/22 11:00 07/27/22 10:00 07/27/22 09:46 07/27/22 09:46 Room Air 07/27/22 09:46 100 Room Air 07/27/22 09:28 07/27/22 09:15 07/27/22 09:00 07/27/22 06:39 Room Air 07/27/22 06:24 Room Air 07/27/22 06:25 07/27/22 06:25 Room Air PG Care Time/CCT Total # of Minutes Spent Total Time Spent with Patient: Total time spent is greater than 50% in coordination of care (as documented) at patient's floor/unit and/or counseling patient: Coding Level of Care Code 41953 IN/OBS CONSULT LVL 4,60M Diagnoses GI bleed K92.2
[2022-07-27] MEDS: PANTOprazole 40 MG in SYRINGE 0 ML IV SCH ×2 (12:08→21:48)
[2022-07-27] MEDS: INSULIN ASPART PER UNIT CHARGE SC SCH ×3 (12:10→23:55)
[2022-07-27] MEDS ORDERED: oxyCODONE HCL IR 5 MG TAB (IMMEDIATE RELEASE) PO PRN (15:23)
[2022-07-27] MEDS: ACETAMINOPHEN 500 MG TAB PO PRN ×2 (15:54→23:59)
--- NOTE | 2022-07-27 15:57 | Nuclear Medicine Report ---
NM GI bleeding CLINICAL HISTORY: 52 years-old Male with BRBPR. Acute GI bleed TECHNIQUE: Following the intravenous administration of red cells labeled with 26 mCi of technetium-9 9m Ultratag, sequential abdominal images were obtained for 60 minutes. COMPARISON: None. FINDINGS: There is no abnormal focus of labeled red cell accumulation or extravasation. There is expected acti vity in the blood pool. IMPRESSION: No scintigraphic evidence for active gastro intestinal bleeding. ACT 112: Negative or not required by law. The above report was generated using voice recognition software. It may contain grammatical, syntax o r spelling errors. Electronically signed by: Nathan Moon M.D. 07/27/2022 3:56 PM
--- NOTE | 2022-07-27 20:59 | Communication Note ---
Date of Service: July 27, 2022 Was notified by nurse that posttransfusion hemoglobin was 6.6. A.m. hemoglobin 6.0. Patient was asymptomatic, with no overt signs of bleeding, per nurse. Ordered 2 units of blood to be held. Ordered repeat H&H for 4 AM, with instructions to nursing to notify if patient became lethargic, or passed grossly bloody stools before then. Resident Activity Tracking Resident Involvement: Resident Care Provided and Person Investigator Coverage Note Care Provided: Adult Hospital Medicine
[2022-07-27] MEDS: LANTUS PER UNIT CHARGE SQ SCH (22:03)
[2022-07-28 05:02] LABS: Creatinine Clr Calc Pharmacy 22.6 ml/min; Est GFR (African American) 13.7 ml/min; Est GFR (Non-African American) 11.8 ml/min
[2022-07-28 05:26] LABS: Hematocrit (blood only) 19.1 % (42.0-52.0); Hemoglobin 6.2 g/dl (14.0-18.0); Mean Corpuscular Hemoglobin 29.2 pg (25.0-34.0); Mean Corpuscular Hgb Conc 32.5 g/dL (32.0-36.0); Mean Corpuscular Volume 90.1 fL (80.0-100.0); Mean Platelet Volume 10.8 fL (9.4-12.4); Platelet Count 151 K/uL (130-400); RDW Coefficient of Variation 14.6 % (11.5-14.5); RDW Standard Deviation 47.6 fL (36.4-46.3); Red Blood Count 2.12 M/uL (4.70-6.10); White Blood Count 7.31 K/ul (4.8-10.8)
[2022-07-28] MEDS ORDERED: SODIUM CHLORIDE 0.9% 250 ML IV PRN ×2 (05:29→08:08)
[2022-07-28] MEDS: INSULIN ASPART PER UNIT CHARGE SC SCH ×4 (05:54→20:55)
[2022-07-28] MEDS: LEVOTHYROXINE SODIUM 88 MCG TABLET PO SCH (05:55)
[2022-07-28 06:09] LABS: Albumin Level 2.6 gm/dl (3.4-5.0); BUN Creatinine Ratio 11.9 (10-20); Calcium 8.3 mg/dl (8.6-10.3); Phosphorus 4.9 mg/dl (2.5-4.9); Potassium 4.7 mmol/L (3.5-5.1)
--- NOTE | 2022-07-28 06:35 | Electrocardiogram Report ---
Test Reason : Blood Pressure : / mmHG Vent. Rate : 053 BPM Atrial Rate : 053 BPM P-R Int : 120 ms QRS Dur : 096 ms QT Int : 516 ms P-R-T Axes : 044 042 055 degrees QTc Int : 484 ms Sinus bradycardia Cannot rule out Anterior infarct (cited on or before 27-JUL-2022) Prolonged QT Abnormal ECG When compared with ECG of 04-JUL-2022 11:34, No significant change was found Confirmed by Zeeshan Gonzalez ([id number]) on 07/28/2022 6:35:26 AM Referred By: REFERRED SELF Confirmed By:Zeeshan Gonzalez
--- NOTE | 2022-07-28 07:38 | Gastroenterology Progress Note ---
Date of Service July 28, 2022 Assessment & Plan (1) Anemia: Plan no signs of active GI bleeding at this time with a negative bleeding scan as well; consider alternative etiologies for his anemia at this point (kidney disease, etc.) recs: supportive care no plans for endoscopic intervention perhaps may benefit from EPO, will defer to nephrology Admission and Anticipated Discharge Date Admission Date: July 27, 2022 Subjective no events overnight, bleeding scan negative. hgb has not improved much despite multiple PRBC transfusions. No active bleeding per patient. Review of Systems Constitutional: no fever and no chills Respiratory: no cough, no dyspnea and no dyspnea on exertion Cardiovascular: no chest pain and no dyspnea Gastrointestinal: as per Subjective / HPI Psychiatric: no depression and no anxiety Physical Exam Constitutional: WD/WN, vitals as above Respiratory: normal respiratory effort, lungs clear to auscultation Cardiovascular: RRR, no murmur, no edema Gastrointestinal (Abdomen): normal bowel sounds, soft, nontender, no hepatosplenomegaly Musculoskeletal: no lower extremity edema Psychiatric: A+Ox3, euthymic affect Results & Data Results & Data Vital Signs (Past 12 Hours) Vital Signs Temp Pulse Pulse Resp BP BP Pulse Ox 07/28/22 07:13 36.6 C 63 16 131/65 95 07/28/22 06:43 36.6 C 64 18 135/68 96 07/28/22 06:28 36.7 C 67 18 142/69 H 96 07/28/22 06:10 36.7 C 67 18 133/63 97 07/28/22 03:47 36.8 C 63 18 113/53 L 98 07/27/22 23:00 70 07/27/22 23:20 37.1 C 70 16 131/54 L 96 07/27/22 21:45 68 135/62 07/27/22 19:53 36.8 C 67 16 133/54 L 99 O2 Del Method 07/28/22 07:13 07/28/22 06:43 07/28/22 06:28 07/28/22 06:10 07/28/22 03:47 Room Air 07/27/22 23:00 07/27/22 23:20 Room Air 07/27/22 21:45 07/27/22 19:53 Room Air PG Care Time/CCT Total # of Minutes Spent Total Time Spent with Patient: Total time spent is greater than 50% in coordination of care (as documented) at patient's floor/unit and/or counseling patient: Coding Level of Care Code 56696 SUB INP/OBS CARE 350MIN Diagnoses Anemia D64.9
[2022-07-28] MEDS: amLODIPine BESYLATE 5 MG TAB PO SCH (07:53)
[2022-07-28] MEDS: ATORVASTATIN 40 MG TAB PO SCH (07:53)
[2022-07-28] MEDS: CITALOPRAM 20 MG TAB PO SCH (07:53)
[2022-07-28] MEDS: FUROSEMIDE 20 MG TAB PO SCH (07:53)
[2022-07-28] MEDS: carvediloL 3.125 MG TAB PO SCH ×2 (07:54→21:11)
[2022-07-28] MEDS: PANTOprazole 40 MG in SYRINGE 0 ML IV SCH (07:54)
[2022-07-28] MEDS: CALCITRIOL 0.25 MCG CAPSULE PO SCH (07:54)
[2022-07-28] MEDS: ACETAMINOPHEN 500 MG TAB PO PRN (07:57)
[2022-07-28] MEDS: PANTOprazole 40 MG TAB PO SCH (09:11)
--- NOTE | 2022-07-28 12:23 | Nephrology Progress Note ---
Date of Service July 28, 2022 Assessment & Plan (1) Chronic kidney disease, stage 4 (severe): Plan: CKD IV/V A3 attributed to DKD. Follows with Dr. Yen as outpatient. AVF mature for use. No emergent indication for dialysis at this time. Volume status acceptable. BP reasonably controlled. Electrolytes within normal limits. Hyperkalemia improved s/p Patiromer. Maintain low potassium renal diet. Creatinine slightly higher than his baseline however not significant. Mild hyperkalemia without being on ANKUR-inhibitor or ARB. The Calcitriol 0.25 mcg daily. Furosemide 20 mg daily. Document I/O's. Repeat metabolic profile tomorrow AM. (2) Acute kidney injury: Plan: In setting of acute blood loss anemia. Creatinine stable. Electrolytes acceptable. Non-oliguric. No emergent indication for FLUMER. (3) Hyperkalemia: Plan: Improved s/p Patiromer. Low K diet. Repeat metabolic profile tomorrow AM. (4) Acute blood loss anemia: Plan: s/p 2 u PRBC yesterday. additional 2 units today. Denies signs of active bleeding. MARTHA therapy held pending Hgb stable. GI following. Bleeding scan reviewed. No plan for intervention at this time. Admission and Anticipated Discharge Date Admission Date: July 27, 2022 Subjective No acute events overnight. No bowel movement. Overall, feels well. Denies abdominal pain. No signs of active bleeding. No dyspnea. No chest pain. Denies fluid retention or edema. Good urine output. Diet advanced to clears. Review of Systems Review of Systems: All systems reviewed & are unremarkable except as noted in HPI & below Physical Exam Constitutional: WD/WN, vitals as above no acute distress pale appearing. Eyes: + anicteric sclerae Neck: normal visual inspection Respiratory: no respiratory distress Auscultation: lungs clear to auscultation bilaterally Cardiovascular: Rate/Rhythm: regular rate and regular rhythm Extremities: + AV fistula (Left RC AVF with thrill and bruit); no edema Gastrointestinal (Abdomen): Inspection/Auscultation: abdomen normal to inspection Percussion/Palpation: abdomen soft; abdomen nontender Musculoskeletal: Extremities: extremities normal to inspection Skin: no rashes, warm and dry Neurologic: no focal motor deficits and not confused Psychiatric: Orientation: alert and oriented x 3 Affect: euthymic affect Results & Data Vital Signs (Past 12 Hours) Vital Signs Temp Pulse Pulse Resp BP BP Pulse Ox 07/28/22 11:41 36.5 C 63 20 140/70 99 07/28/22 11:41 36.5 C 63 19 140/70 99 07/28/22 12:08 36.6 C 65 20 153/69 H 98 07/28/22 10:41 58 L 20 131/72 99 07/28/22 10:11 59 L 20 130/72 99 07/28/22 09:56 60 20 128/66 97 07/28/22 09:32 36.7 C 62 20 141/74 H 99 07/28/22 09:10 36.6 C 71 20 148/73 H 98 07/28/22 08:13 36.8 C 73 20 150/69 H 98 07/28/22 07:13 36.6 C 63 16 131/65 95 07/28/22 06:43 36.6 C 64 18 135/68 96 07/28/22 06:28 36.7 C 67 18 142/69 H 96 07/28/22 06:10 36.7 C 67 18 133/63 97 07/28/22 03:47 36.8 C 63 18 113/53 L 98 O2 Del Method 07/28/22 11:41 07/28/22 11:41 Room Air 07/28/22 12:08 07/28/22 10:41 07/28/22 10:11 07/28/22 09:56 07/28/22 09:32 07/28/22 09:10 07/28/22 08:13 07/28/22 07:13 07/28/22 06:43 07/28/22 06:28 07/28/22 06:10 07/28/22 03:47 Room Air Laboratory Results Laboratory Results - last 24 hr 07/27/22 07/27/22 07/27/22 07:25 19:25 21:30 WBC RBC Hgb 6.6 L* Hct MCV MCH MCHC RDW Std Deviation RDW Coeff of Gladys Plt Count MPV Sodium Potassium Chloride Carbon Dioxide Anion Gap BUN Creatinine Est Cr Clr Drug Dosing Est GFR ( Amer) Est GFR (Non-Af Amer) BUN/Creatinine Ratio Glucose POC Glucose 84 Calcium Phosphorus Albumin Blood Type O Positive Antibody Screen NEGATIVE Crossmatch See Detail 0507/28/22 07/28/22 23:53 03:58 03:58 WBC 7.31 RBC 2.12 L Hgb 6.2 L* Hct 19.1 L* MCV 90.1 MCH 29.2 MCHC 32.5 RDW Std Deviation 47.6 H RDW Coeff of Gladys 14.6 H Plt Count 151 MPV 10.8 Sodium 143 Potassium 4.7 Chloride 118 H Carbon Dioxide 19 L Anion Gap 6 BUN 62 H Creatinine 5.19 H* Est Cr Clr Drug Dosing 22.6 Est GFR ( Amer) 13.7 Est GFR (Non-Af Amer) 11.8 BUN/Creatinine Ratio 11.9 Glucose 68 L POC Glucose 80 Calcium 8.3 L Phosphorus 4.9 Albumin 2.6 L Blood Type Antibody Screen Crossmatch 07/28/22 07/28/22 07/28/22 05:44 07:34 11:04 WBC RBC Hgb Hct MCV MCH MCHC RDW Std Deviation RDW Coeff of Gladys Plt Count MPV Sodium Potassium Chloride Carbon Dioxide Anion Gap BUN Creatinine Est Cr Clr Drug Dosing Est GFR ( Amer) Est GFR (Non-Af Amer) BUN/Creatinine Ratio Glucose POC Glucose 80 83 120 H Calcium Phosphorus Albumin Blood Type Antibody Screen Crossmatch PG Care Time/CCT Total # of Minutes Spent Total Time Spent with Patient: Total time spent is greater than 50% in coordination of care (as documented) at patient's floor/unit and/or counseling patient: Coding Level of Care Code 31546 SUB INP/OBS CARE 3/50MIN Diagnoses Chronic kidney disease, stage 4 (severe) N18.4 Acute kidney injury N17.9 Hyperkalemia E87.5 Acute blood loss anemia D62
--- NOTE | 2022-07-28 14:11 | Hospitalist Progress Note ---
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, feels no need for c urrent endoscopy (2) Chronic kidney disease (CKD): Plan: Patient is chronic kidney disease stage IV-V unclear if stable Creatinine slightly worse than baseline recent transplant evaluation completed Hyperkalemia associate with his renal failure was given Patiromer and improved Anemia of chronic disease has been associate with his kidney failure, baseline of kidney failure is nephrotic syndrome, anemia is worse than baseline currently on symptomatic, consideration of EPO (3) Hypothyroidism: Plan: Patient has history of hypothyroidism continues to receive supplementation confirms did not restart his outpatient dosing was remiss in this regard but he says his dose should be 88 mcg a day (4) Diabetes mellitus with ophthalmic manifestation: Plan: History of insulin requiring diabetes with endorgan issues this is a chronic problem Last hemoglobin A1c was 5.3 Continue with basal bolus insulin currently patient will be kept n.p.o. in case additional sigmoidoscopy would be warranted (5) HTN (hypertension): Plan: Chronic hypertension unclear if stable blood pressure slightly low he will receive blood products continue carvedilol and Lasix but will hold amlodipine Plan SCDs for DVT prevention Admission and Anticipated Discharge Date Admission Date: July 27, 2022 Subjective Is receiving 2 additional units of blood for a total of 4 units of blood transfused patient remains on proton pump inhibitor although likely source of bleeding will be lower as he had 3 recent lower endoscopies in the last 5 months Patient is improving right farley pain that occurred when he fell due to his weakness from his anemia there is no obvious bruise there likely more of a muscle strain Physical Exam Physical Exam: Patient is awake alert appropriate card exam is regular lungs are clear abdomen is NABS soft and nontender his right lower extremity shows no signs of contusion or joint effusion Results & Data Results & Data Vital Signs (Past 12 Hours) Vital Signs Temp Pulse Pulse Resp BP BP Pulse Ox 07/28/22 11:41 97.7 F 63 20 140/70 99 07/28/22 11:41 97.7 F 63 19 140/70 99 07/28/22 12:08 97.9 F 65 20 153/69 H 98 07/28/22 10:41 58 L 20 131/72 99 07/28/22 10:11 59 L 20 130/72 99 07/28/22 09:56 60 20 128/66 97 07/28/22 09:32 98.1 F 62 20 141/74 H 99 07/28/22 09:10 97.9 F 71 20 148/73 H 98 07/28/22 08:13 98.2 F 73 20 150/69 H 98 07/28/22 07:13 97.9 F 63 16 131/65 95 07/28/22 06:43 97.9 F 64 18 135/68 96 07/28/22 06:28 98.1 F 67 18 142/69 H 96 07/28/22 06:10 98.1 F 67 18 133/63 97 07/28/22 03:47 98.2 F 63 18 113/53 L 98 O2 Del Method 07/28/22 11:41 07/28/22 11:41 Room Air 07/28/22 12:08 07/28/22 10:41 07/28/22 10:11 07/28/22 09:56 07/28/22 09:32 07/28/22 09:10 07/28/22 08:13 07/28/22 07:13 07/28/22 06:43 07/28/22 06:28 07/28/22 06:10 07/28/22 03:47 Room Air Laboratory Results Reviewed CBC Reviewed PRP PG Care Time/CCT Total # of Minutes Spent Total Time Spent with Patient: Total time spent is greater than 50% in coordination of care (as documented) at patient's floor/unit and/or counseling patient: Coding Level of Care Code 83164 SUB INP/OBS CARE 2/35MIN Diagnoses Acute blood loss anemia D62 Chronic kidney disease (CKD) N18.4 Chronic kidney disease stage: stage 4 (severe) Hypothyroidism E03.9 Diabetes mellitus with ophthalmic manifestation E11.39 HTN (hypertension) I10 (2) Chronic kidney disease (CKD) Chronic kidney disease stage: stage 4 (severe) Qualified Code(s): N18.4 - Chronic kidney disease, stage 4 (severe)
[2022-07-28] MEDS ORDERED: Nursing to Pharmacy Communication SCH (15:45)
[2022-07-28] MEDS: LANTUS PER UNIT CHARGE SQ SCH (21:11)
[2022-07-29 01:37] LABS: Hematocrit (blood only) 21.3 % (42.0-52.0)
[2022-07-29 01:57] LABS: Albumin Level 2.7 gm/dl (3.4-5.0); BUN Creatinine Ratio 11.7 (10-20); Calcium 7.9 mg/dl (8.6-10.3); Creatinine Clr Calc Pharmacy 22.5 ml/min; Est GFR (African American) 13.9 ml/min; Phosphorus 4.6 mg/dl (2.5-4.9)
[2022-07-29 02:20] LABS: Hematocrit (blood only) 21.5 % (42.0-52.0); Hemoglobin 6.9 g/dl (14.0-18.0); Mean Corpuscular Hemoglobin 28.3 pg (25.0-34.0); Mean Corpuscular Hgb Conc 32.1 g/dL (32.0-36.0); Mean Corpuscular Volume 88.1 fL (80.0-100.0); Mean Platelet Volume 10.9 fL (9.4-12.4); Platelet Count 144 K/uL (130-400); RDW Coefficient of Variation 15.5 % (11.5-14.5); RDW Standard Deviation 49.3 fL (36.4-46.3); Red Blood Count 2.44 M/uL (4.70-6.10); White Blood Count 7.78 K/ul (4.8-10.8)
[2022-07-29] MEDS: LEVOTHYROXINE SODIUM 88 MCG TABLET PO SCH (05:57)
[2022-07-29 06:53] LABS: Hematocrit (blood only) 22.3 % (42.0-52.0); Hemoglobin 7.2 g/dl (14.0-18.0); Mean Corpuscular Hemoglobin 28.3 pg (25.0-34.0); Mean Corpuscular Hgb Conc 32.3 g/dL (32.0-36.0); Mean Corpuscular Volume 87.8 fL (80.0-100.0); Mean Platelet Volume 10.5 fL (9.4-12.4); Platelet Count 155 K/uL (130-400); RDW Coefficient of Variation 15.2 % (11.5-14.5); RDW Standard Deviation 48.3 fL (36.4-46.3); Red Blood Count 2.54 M/uL (4.70-6.10); White Blood Count 8.08 K/ul (4.8-10.8)
[2022-07-29] MEDS: PANTOprazole 40 MG TAB PO SCH (08:03)
[2022-07-29] MEDS: CITALOPRAM 20 MG TAB PO SCH (08:03)
[2022-07-29] MEDS: CALCITRIOL 0.25 MCG CAPSULE PO SCH (08:03)
[2022-07-29] MEDS: amLODIPine BESYLATE 5 MG TAB PO SCH (08:03)
[2022-07-29] MEDS: FUROSEMIDE 20 MG TAB PO SCH (08:03)
[2022-07-29] MEDS: carvediloL 3.125 MG TAB PO SCH (08:03)
[2022-07-29] MEDS: ATORVASTATIN 40 MG TAB PO SCH (08:03)
[2022-07-29] MEDS: INSULIN ASPART PER UNIT CHARGE SC SCH ×2 (08:10→11:50)
[2022-07-29] MEDS ORDERED: EPOETIN ALFA 20,000 UNITS/ML VIAL SQ ONE (12:45)
--- NOTE | 2022-07-29 12:54 | Nephrology Progress Note ---
Date of Service July 29, 2022 Assessment & Plan (1) Chronic kidney disease, stage 4 (severe): Plan: CKD IV/V A3 attributed to DKD. Follows with Dr. Yen as outpatient. AVF mature for use. No emergent indication for dialysis at this time. Volume status acceptable. BP reasonably controlled. Electrolytes within normal limits. Maintain low potassium renal diet. Repeat labs next week on Saturday. Calcitriol 0.25 mcg daily. Furosemide 20 mg daily. (2) Hyperkalemia: Plan: Low K diet reviewed. Repeat metabolic profile next week. Follow up with Dr. Yen within 2 weeks of discharge. (3) Acute blood loss anemia: Plan: s/p 2 u PRBC 07/27. additional 2 units 07/28. Denies signs of active bleeding. Epogen 61480 units today. Check iron profile and CBC as outpatient next week. Admission and Anticipated Discharge Date Admission Date: July 27, 2022 Subjective No acute events overnight. No BM. No signs of bleeding. Gildardo is planning to go home today. He feels well. Review of Systems Review of Systems: All systems reviewed & are unremarkable except as noted in HPI & below Physical Exam Constitutional: WD/WN, vitals as above no acute distress Eyes: + anicteric sclerae Neck: normal visual inspection Respiratory: no respiratory distress Auscultation: lungs clear to auscultation bilaterally Cardiovascular: Rate/Rhythm: regular rate and regular rhythm Extremities: + AV fistula (Left RC AVF with thrill and bruit); no edema Gastrointestinal (Abdomen): Inspection/Auscultation: abdomen normal to inspection Percussion/Palpation: abdomen soft; abdomen nontender Musculoskeletal: Extremities: extremities normal to inspection Skin: no rashes, warm and dry Neurologic: no focal motor deficits and not confused Psychiatric: Orientation: alert and oriented x 3 Affect: euthymic affect Results & Data Vital Signs (Past 12 Hours) Vital Signs Temp Pulse Pulse Resp BP Pulse Ox O2 Del Method 07/29/22 11:14 36.6 C 62 19 159/76 H 98 Room Air 07/29/22 07:40 69 07/29/22 07:00 36.6 C 70 19 148/63 H 98 Room Air 07/29/22 03:41 36.4 C L 65 16 140/61 97 Room Air Laboratory Results Laboratory Results - last 24 hr 07/28/22 07/28/2207/28/23 16:33 20:03 20:04 WBC RBC Hgb 7.6 L Hct MCV MCH MCHC RDW Std Deviation RDW Coeff of Gladys Plt Count MPV Sodium Potassium Chloride Carbon Dioxide Anion Gap BUN Creatinine Est Cr Clr Drug Dosing Est GFR ( Amer) Est GFR (Non-Af Amer) BUN/Creatinine Ratio Glucose POC Glucose 87 65 L* Calcium Phosphorus Albumin 07/28/22 07/29/22 07/29/22 20:48 00:54 00:54 WBC 7.78 RBC 2.44 L Hgb 6.9 L* Hct 21.5 L MCV 88.1 MCH 28.3 MCHC 32.1 RDW Std Deviation 49.3 H RDW Coeff of Gladys 15.5 H Plt Count 144 MPV 10.9 Sodium 139 Potassium 5.0 Chloride 115 H Carbon Dioxide 20 L Anion Gap 4 BUN 60 H Creatinine 5.14 H* Est Cr Clr Drug Dosing 22.5 Est GFR ( Amer) 13.9 Est GFR (Non-Af Amer) 12.0 BUN/Creatinine Ratio 11.7 Glucose 112 H POC Glucose 85 Calcium 7.9 L Phosphorus 4.6 Albumin 2.7 L 07/29/22 07/29/22 07/29/22 00:54 06:14 07:00 WBC 8.08 RBC 2.54 L Hgb 7.0 L 7.2 L Hct 21.3 L 22.3 L MCV 87.8 MCH 28.3 MCHC 32.3 RDW Std Deviation 48.3 H RDW Coeff of Gladys 15.2 H Plt Count 155 MPV 10.5 Sodium Potassium Chloride Carbon Dioxide Anion Gap BUN Creatinine Est Cr Clr Drug Dosing Est GFR ( Amer) Est GFR (Non-Af Amer) BUN/Creatinine Ratio Glucose POC Glucose 111 H Calcium Phosphorus Albumin 07/29/22 11:13 WBC RBC Hgb Hct MCV MCH MCHC RDW Std Deviation RDW Coeff of Gladys Plt Count MPV Sodium Potassium Chloride Carbon Dioxide Anion Gap BUN Creatinine Est Cr Clr Drug Dosing Est GFR ( Amer) Est GFR (Non-Af Amer) BUN/Creatinine Ratio Glucose POC Glucose 90 Calcium Phosphorus Albumin PG Care Time/CCT Total # of Minutes Spent Total Time Spent with Patient: Total time spent is greater than 50% in coordination of care (as documented) at patient's floor/unit and/or counseling patient: Coding Level of Care Code 80078 SUB INP/OBS CARE 350MIN Diagnoses Chronic kidney disease, stage 4 (severe) N18.4 Hyperkalemia E87.5 Acute blood loss anemia D62
--- NOTE | 2022-07-29 16:29 | Discharge Summary ---
Date of Service July 29, 2022 Admission HPI Per Admitting Provider 52-year-old male with history of previous GI bleeds associate with colonic polyps and clips from those polyps who he presents after having bright red blood per rectum being dizzy found to have worsened of his chronic anemia with a hemoglobin of 6. Patient has anemia of chronic disease from CKD 4 but is not yet on dialysis. Patient had colonoscopies this year April 05, April 09 sigmoidoscopy on April 20 and colonoscopy July 16. We will on the July 16 colonoscopy polyps were found and removed biopsies are negative. In the emergency department the patient is hemodynamically stable patient was ordered transfusion of blood by the emergency physician. With regard to his chronic kidney disease stage IV-V his creatinine is slightly worse than usual his potassium is slightly up he most recently completed transp lant evaluation at [facility]. We will give a dose of bacterium air and have nephrology consultation for inpatient management. The patient does make urine and is typically on furosemide watch his volume status after he receives his units of blood Discharge Data Allergies Allergy/AdvReac Type Severity Reaction Status Date / Time ANKUR Inhibitors AdvReac Intermediate Cough Verified 07/16/22 09:38 lisinopril AdvReac Intermediate cough Verified 07/16/22 09:38 sertraline [From Zoloft] AdvReac Intermediate SUPRESSED Verified 07/16/22 09:38 APPETITE Consultations 07/27/22 07:35 ED Decision to Admit Stat 07/27/22 09:46 Consult Gastroenterology Routine Consult Nephrology Routine Discharge Plan Discharge Items Patient Disposition: Home - Self-Care Reason For Visit: ACUTE BLOOD LOSS ANEMIA Discharge Diagnosis: Acute blood loss anemia Suspected lower GI bleed Chronic kidney disease stage V Activity: Per Instructions section Activity Comment: Rest and additional day before returning to work 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 Hydrate as best you can with your fluid balance watching not to retain too much excessive fluid Consider eating foods that help you have B12 folic acid and iron to help build your blood counts Please have a outpatient blood work checked on Saturday or Saturday the week of discharge Pending Studies at Discharge: No Stand-Alone Forms: [facility], Work/School Release, Smoking Cessation Medications and DC Order Prescriptions: Continued (DME) pen needle, diabetic [BD Ultra-Fine Short Pen Needle] 31 gauge x 5/16" needle See Rx Instructions .ROUTE .MEDSUPPLY Qty: 200 5RF Rx Instructions: use 1 pen needle 5 times daily for insulin injection dx E11.9 Tresiba FlexTouch U-100 100 unit/mL (3 mL) insulin pen 27 unit subcut HS Qty: 15 1RF Patient Comments: 13 units (DME) FreeStyle Jason 2 Sensor Kit See Rx Instructions .ROUTE .MEDSUPPLY Qty: 2 6RF Rx Instructions: As directed, replace every 14 days calcitriol [Rocaltrol] 0.25 mcg capsule 0.25 mcg PO QAM Qty: 90 3RF furosemide 20 mg tablet 20 mg PO QAM Qty: 90 3RF citalopram 20 mg tablet 20 mg PO QAM Qty: 90 1RF atorvastatin 80 mg tablet 80 mg PO QAM Qty: 90 3RF carvedilol 3.125 mg tablet 3.125 mg PO BID Qty: 60 5RF levothyroxine 75 mcg tablet 75 mcg PO DAILY Qty: 90 0RF Patient Comments: Per pt, he says between his doctor and pharmacist, trying to determine if 88mcg is better suited for him. States he hasn't used this one for abit. Rx Instructions: Per pt, he says between his doctor and pharmacist, trying to determine if 88mcg is better suited for him. States he hasn't used this one for abit. amlodipine 5 mg tablet 5 mg PO QAM Qty: 90 3RF (DME) blood-glucose meter [Accu-Chek Guide Glucose Meter] Misc See Rx Instructions .ROUTE .MEDSUPPLY Qty: 1 0RF Rx Instructions: As directed (DME) Accu-Chek Guide test strips Strip See Rx Instructions .ROUTE .MEDSUPPLY Rx Instructions: test 3 times daily Aranesp (in polysorbate) 60 mcg/mL solution 60 mcg subcut MONTHLY Qty: 1 12RF Patient Comments: not started yet Rx Instructions: HOLD FOR HGB > 11 cetirizine [Zyrtec] 10 mg tablet 10 mg PO DAILY PRN (Reason: Allergy Symptoms) insulin aspart U-100 [Novolog FlexPen U-100 Insulin] 100 unit/mL (3 mL) insulin pen See Rx Instructions subcut .COMPLEX Qty: 15 6RF Patient Comments: 2 units Rx Instructions: subcut inject based on carbohydrate ratio and sliding scale up to 30 units a day; Venofer 200 mg iron/10 mL solution 500 mg IV .COMPLEX Qty: 50 0RF Rx Instructions: 500 mg intravenously on day #1 and day #14; administer over 30 mins ferrous sulfate [iron] 325 mg (65 mg iron) tablet 325 mg PO DAILY multivitamin Tablet 1 tab PO QAM aspirin [Enteric Coated Aspirin] 81 mg tablet,delayed release (DR/EC) 81 mg PO QAM levothyroxine 88 mcg tablet 88 mcg PO QAM Hold Instructions: Off for 6 weeks Patient Comments: Per Pt he hasnt started the 88mcg, supposed to picker / packer from pharmacy today (07/27/22). Rx Instructions: Patient currently out of medication. Needs to contact PCP Per Pt he hasnt started the 88mcg, supposed to picker / packer from pharmacy today (07/27/22). Aranesp (in polysorbate) 60 mcg/mL solution 60 mcg subcut UD Patient Comments: Per pt it has been several months since last injection. Rx Instructions: within last year has had 3 times. furosemide 20 mg Tablet 20 mg PO QAM PRN (Reason: Edema) Rx Instructions: To take in addition to daily 20mg if edema occurs per PCP Discharge Orders: Discharge Order (Routine); Ordered 07/29/22 Ordered By: Rishi Hurley Admission Data Admit Date/Time: 07/27/22 07:40 Attending Provider: Rishi Hurley Admit Provider: Rishi Hurley Primary Care Provider: Mitul Burciaga V. Other Providers: Rishi Hurley ; Bean Baird ; Abbie Dean Other Interventions: Discharge Summary Assessment (RN) Last Done: 07/29/22 13:16 Coding Diagnoses
--- NOTE | 2022-07-29 16:29 | Discharge Summary ---
Date of Service July 29, 2022 Admission HPI Per Admitting Provider 52-year-old male with history of previous GI bleeds associate with colonic polyps and clips from those polyps who he presents after having bright red blood per rectum being dizzy found to have worsened of his chronic anemia with a hemoglobin of 6. Patient has anemia of chronic disease from CKD 4 but is not yet on dialysis. Patient had colonoscopies this year April 05, April 09 sigmoidoscopy on April 20 and colonoscopy July 16. We will on the July 16 colonoscopy polyps were found and removed biopsies are negative. In the emergency department the patient is hemodynamically stable patient was ordered transfusion of blood by the emergency physician. With regard to his chronic kidney disease stage IV-V his creatinine is slightly worse than usual his potassium is slightly up he most recently completed transp lant evaluation at [facility]. We will give a dose of bacterium air and have nephrology consultation for inpatient management. The patient does make urine and is typically on furosemide watch his volume status after he receives his units of blood Principal Diagnosis Acute blood loss anemia status post transfusions 4 units of packed blood cells End-stage renal disease managed by creatinine nephrology Discharge Exam Awake alert appropriate no further complaints of weakness Discharge Data Allergies Allergy/AdvReac Type Severity Reaction Status Date / Time ANKUR Inhibitors AdvReac Intermediate Cough Verified 07/16/22 09:38 lisinopril AdvReac Intermediate cough Verified 07/16/22 09:38 sertraline [From Zoloft] AdvReac Intermediate SUPRESSED Verified 07/16/22 09:38 APPETITE Consultations 07/27/22 07:35 ED Decision to Admit Stat 07/27/22 09:[address] Baird did not feel active bleeding was in play to warrant repeat endoscopy secondary to negative nuclear bleeding scan Consult Nephrology Routine oversight for chronic kidney disease patient recently accepted to transplant list although not actively on at this time Hospital Course (1) Acute blood loss anemia: Acute blood loss anemia previously from lower GI bleed, a negative bleeding scan on 07/27 ruled out con tinued bleeding but clinically pt describes BRBPR and although has renal disease with acute drop on hgb did have acute blood loss Transfusion 4 units packed red blood cells hemoglobin is remained 7 g or so patient is satisfied with this does not wish for another additional transfusion Spoke to nephrology will have erythropoietin administered Consult Dr. 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, feels no need for current endoscopy (2) Chronic kidney disease (CKD): Patient is chronic kidney disease stage IV-V unclear if stable Creatinine slightly worse than baseline recent transplant evaluation completed Hyperkalemia associate with his renal failure was given Patiromer and improved Anemia of chronic disease has been associate with his kidney failure, baseline of kidney failure is nephrotic syndrome, consideration of EPO ongoing as an outpatient (3) Hypothyroidism: Patient has history of hypothyroidism continues to receive supplementation confirms did not restart his outpatient dosing was remiss in this regard but he says his dose should be 88 mcg a day (4) Diabetes mellitus with ophthalmic manifestation: History of insulin requiring diabetes with endorgan issues this is a chronic problem Last hemoglobin A1c was 5.3 Continue with home insulin regiment (5) HTN (hypertension): Chronic hypertension resume home medications at this time of carvedilol Lasix and amlodipine Total Time Total Time Spent Total Time Spent (In Minutes): It required greater than 30 minutes to prepare this patient for discharge Discharge Plan Discharge Items Patient Disposition: Home - Self-Care Reason For Visit: ACUTE BLOOD LOSS ANEMIA Discharge Diagnosis: Acute blood loss anemia Suspected lower GI bleed Chronic kidney disease stage V Activity: Per Instructions section Activity Comment: Rest and additional day before returning to work Non-emergency contact: Primary Care Provider and Copy Operator Call non-emergency contact if: your symptoms worsen Follow-up/Referrals: Mitul Burciaga MD [Primary Care Provider] - () Diet: Regular Ambulatory Orders: Complete Blood Count no Diff (Routine) Timeframe: 2 Days Location: Determined by Patient Ordered By: Rishi Hurley Iron (Routine) Timeframe: 2 Days Location: Determined by Patient Ordered By: Rishi Hurley Addtl Attending Provider Instructions: Please rest and recover. Hydrate as best you can with your fluid balance watching not to retain too much excessive fluid Consider eating foods that help you have B12 folic acid and iron to help build your blood counts Please have a outpatient blood work checked on Saturday or Saturday the week of discharge Pending Studies at Discharge: No Stand-Alone Forms: My Novitaz, Work/School Release, Smoking Cessation Medications and DC Order Prescriptions: Continued (DME) pen needle, diabetic [BD Ultra-Fine Short Pen Needle] 31 gauge x 5/16" needle See Rx Instructions .ROUTE .MEDSUPPLY Qty: 200 5RF Rx Instructions: use 1 pen needle 5 times daily for insulin injection dx E11.9 Tresiba FlexTouch U-100 100 unit/mL (3 mL) insulin pen 27 unit subcut HS Qty: 15 1RF Patient Comments: 13 units (DME) FreeStyle Jason 2 Sensor Kit See Rx Instructions .ROUTE .MEDSUPPLY Qty: 2 6RF Rx Instructions: As directed, replace every 14 days calcitriol [Rocaltrol] 0.25 mcg capsule 0.25 mcg PO QAM Qty: 90 3RF furosemide 20 mg tablet 20 mg PO QAM Qty: 90 3RF citalopram 20 mg tablet 20 mg PO QAM Qty: 90 1RF atorvastatin 80 mg tablet 80 mg PO QAM Qty: 90 3RF carvedilol 3.125 mg tablet 3.125 mg PO BID Qty: 60 5RF levothyroxine 75 mcg tablet 75 mcg PO DAILY Qty: 90 0RF Patient Comments: Per pt, he says between his doctor and pharmacist, trying to determine if 88mcg is better suited for him. States he hasn't used this one for abit. Rx Instructions: Per pt, he says between his doctor and pharmacist, trying to determine if 88mcg is better suited for him. States he hasn't used this one for abit. amlodipine 5 mg tablet 5 mg PO QAM Qty: 90 3RF (DME) blood-glucose meter [Accu-Chek Guide Glucose Meter] Misc See Rx Instructions .ROUTE .MEDSUPPLY Qty: 1 0RF Rx Instructions: As directed (DME) Accu-Chek Guide test strips Strip See Rx Instructions .ROUTE .MEDSUPPLY Rx Instructions: test 3 times daily Aranesp (in polysorbate) 60 mcg/mL solution 60 mcg subcut MONTHLY Qty: 1 12RF Patient Comments: not started yet Rx Instructions: HOLD FOR HGB > 11 cetirizine [Zyrtec] 10 mg tablet 10 mg PO DAILY PRN (Reason: Allergy Symptoms) insulin aspart U-100 [Novolog FlexPen U-100 Insulin] 100 unit/mL (3 mL) ins ulin pen See Rx Instructions subcut .COMPLEX Qty: 15 6RF Patient Comments: 2 units Rx Instructions: subcut inject based on carbohydrate ratio and sliding scale up to 30 units a day; Venofer 200 mg iron/10 mL solution 500 mg IV .COMPLEX Qty: 50 0RF Rx Instructions: 500 mg intravenously on day #1 and day #14; administer over 30 mins ferrous sulfate [iron] 325 mg (65 mg iron) tablet 325 mg PO DAILY multivitamin Tablet 1 tab PO QAM aspirin [Enteric Coated Aspirin] 81 mg tablet,delayed release (DR/EC) 81 mg PO QAM levothyroxine 88 mcg tablet 88 mcg PO QAM Hold Instructions: Off for 6 weeks Patient Comments: Per Pt he hasnt started the 88mcg, 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 Rx Instructions: Patient currently out of medication. Needs to contact PCP Per Pt he hasnt started the 88mcg, 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 Aranesp (in polysorbate) 60 mcg/mL solution 60 mcg subcut UD Patient Comments: Per pt it has been several months since last injection. Rx Instructions: within last year has had 3 times. furosemide 20 mg Tablet 20 mg PO QAM PRN (Reason: Edema) Rx Instructions: To take in addition to daily 20mg if edema occurs per PCP Discharge Orders: Discharge Order (Routine); Ordered 07/29/22 Ordered By: Rishi Hurley Admission Data Admit Date/Time: 07/27/22 07:40 Attending Provider: Rishi Hurley Admit Provider: Rishi Hurley Primary Care Provider: Mitul Burciaga V. Other Providers: Rishi Hurley ; Baen Baird ; Abbie Dean Other Interventions: Discharge Summary Assessment (RN) Last Done: 07/29/22 13:16 Coding Level of Care Code 24437 INP/OBS DISCH >30 MIN Diagnoses Acute blood loss anemia D62 Chronic kidney disease (CKD) N18.4 Chronic kidney disease stage: stage 4 (severe) Hypothyroidism E03.9 Diabetes mellitus with ophthalmic manifestation E11.39 HTN (hypertension) I10
== END 2022-07-29 13:42 | disposition home or self-care (01) | DRG 812 ==
LOC: ED 06:21 → 2S 07:40 → INTOOBSV 07:40 → 2S 09:15

== ENCOUNTER 2023-06-06 12:07 | Inpatient (IN) ==
--- NOTE | 2023-06-06 12:33 | Emergency Department Note ---
Impression & Plan Acute left-sided muscle weakness, Anemia, Elevated troponin ED Provider Note NAME: SERGE BARRON AGE: 53 SEX: M : 1970 ARRIVES VIA: Ambulance INFORMANT: Patient ED PROVIDER(S): Sergey Meier DO CHIEF COMPLAINT: Left-sided weakness HPI: Patient is a 53-year-old male who presents to the ER for left-sided weakness. He went to bed around 930 last night and woke up around 11:30 PM and noticed that he had weakness in his left arm and left leg. He went back to bed and when he woke up this morning the weakness was still there. He denies any chest pain or shortness of breath. He does have a headache. No dysuria, urgency, or frequency. He is never had this before. He does get dialysis and performed HD earlier today. He performs this at home. ADDITIONAL HISTORY OBTAINED: Per HPI Chronic Medical/Social Conditions Affecting Care: Per HPI PAST MEDICAL HISTORY:See Below PAST SURGICAL HISTORY:See Below FAMILY HISTORY:See Below SOCIAL HISTORY:See Below HOME MEDICATIONS:See Below ALLERGIES:See Below VITALS:See Below PHYSICAL EXAMINATION: GENERAL: Sitting up in bed, alert, well appearing, well nourished, no distress, non-toxic EYE EXAM: normal conjunctiva. PERRL and EOM's grossly intact. OROPHARYNX: no exudate, no erythema, lips, buccal mucosa, and tongue normal and mucous membranes are moist NECK: supple, no nuchal rigidity, no adenopathy, non-tender LUNGS: Clear to auscultation. Normal chest wall mechanics HEART: no murmurs, S1 normal and S2 normal ABDOMEN: abdomen soft, non-tender, normo-active bowel sounds, no masses, no rebound or guarding. BACK: Back is symmetrical on inspection and there is no deformity, no midline tenderness, no CVA tenderness. SKIN: no rashes and no bruising UPPER EXTREMITIES: upper extremities are grossly normal. LOWER EXTREMITIES: No pitting edema. NEURO EXAM: Normal sensorium, cranial nerves II-XII intact, normal speech, weakness with grasp as well as flexion extension left upper extremity. No obvious weakness in the left lower extremities. Positive drift with the left upper. MEDICAL DECISION MAKING: Patient is a 53-year-old male who presents the ER for the above-stated complaint. Upon arrival in evaluation he has weakness of the left upper extremity and subtle/faint weakness in the left lower extremity which been present since late last night. IV was established medicals obtained. Labs show no significant leukocytosis. Mild anemia 10.6. INR unremarkable. BMP with creatinine 3.5 fairly consistent with previous. LFTs bilirubin was unremarkable. Troponin was slightly elevated at 28 likely secondary to the chronic kidney disease. CT angios of the head and neck were negative. No LVO. Discussed the case with the hospitalist and patient was admitted for further workup. Not a candidate for TNK due to timing as patient was out of the window. Consults/Care Managements Discussions: Per [facility] Triage Nursing notes reviewed. Limited review of prior medical records performed Vital Signs: reviewed and remarkable for htn Differential diagnosis: Differential Diagnosis includes but is not limited to ischemic Stroke, hemorrhagic stroke, bells palsy, mass, neoplasm, migraine headache, seizure, subarachnoid hemorrhage, TIA, and transient global amnesia. ER treatment provided: See below Diagnostics interpreted by me include EKG and cardiac monitoring as listed below: -Cardiac Monitoring: An order was placed for continuous cardiac monitoring. The monitor shows a rate of 70 with sinus rhythm. -ECG: Sinus rhythm rate of 66 Normal axis No PVCs QTc 488 -Laboratory studies:Interpreted by me as stated above in MDM and shown below. Imaging studies: Xrays: As interpreted by me: Portable AP upright 1 view of the chest shows no focal infiltrate CTs show: CT angios of the head and neck showed no acute pathology Procedures:none Critical Care: None Past Med/Surg History Medical History (Updated 06/06/23 @ 15:49 by Sergey Meier DO) Acute kidney injury Acute blood loss anemia GI bleed Hx of chest pain 04/2021, "intermittent, during a trip to [place], chasing around [employer]; ended up in hospital a few days after due to fluid overload."; f/u ranjan daugherty Myocardial necrosis pt denies-"came in w/fluid overload w/kidneys; never told I had an VT" Influenza A Acute on chronic kidney failure Antiplatelet or antithrombotic long-term use Diastolic dysfunction, left ventricle f/u ranjan daugherty Normal electrocardiogram Anemia recently discharged after 3 days from [facility]; "in to receive blood" Anemia due to chronic kidney disease Bilateral edema of lower extremity REASON FOR LASIX DAILY WEARS 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 Onychomycosis Diabetic peripheral neuropathy associated with type 2 diabetes mellitus Diabetes mellitus type 2, uncontrolled, with complications Nephrotic syndrome HTN (hypertension) Diabetes mellitus Diabetic macular edema History of depression Diabetes mellitus, type 2 GLUCOSE STABLE AND CONTROLLED Hyperlipidemia Surgical History (Updated 02/15/23 @ 09:55 by Mi Johnson LPN) Hx of CABG Status post colonoscopy with polypectomy S/P arteriovenous (AV) fistula creation LT.; left limb restriction; no dialysis History of cataract surgery RT/LEFT Family history of reaction to anesthesia MOTHER-HARD TO "PUT TO SLEEP" History of lingual frenulectomy Hx of vasectomy History of herniorrhaphy UMBILICAL History of tooth extraction Family History Father Family history of diabetes mellitus Kidney disease Grandmother (Paternal) Family history of diabetes mellitus Grandfather (Maternal) Hypertension Other Myocardial infarction Denies family history of Ovarian cancer Prostate cancer Breast cancer Lung cancer Colorectal cancer Stroke Social History Smoking Status: Former smoker Tobacco Type: Cigarettes Age Quit Using Tobacco: 22; Second Hand Exposure: No; Do You Dip or Chew Tobacco: No; Hx Alcohol Use: Yes Alcohol type: hard liquor Alcohol Intake Frequency: Monthly or Less Hx Substance Use: No Preferred Language: Chinese Communication Ability: Effective Registered Dietetic Technician Required: No Beliefs That Will Affect Care: None marital status: Current Living Situation: Spouse current occupational status: employed 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 [employer] Feels Safe at Home: Yes Childhood Exposure to Second-Hand Smoke: Yes Dental Care, Regularly: No Physical Activity Frequency: 1-2 Times per Week Physical Activity Frequency Comment: exercise bike Seatbelt Use: always Sunscreen Use: Yes Assistive Devices: None Allergies Allergies Allergy/AdvReac Type Severity Reaction Status Date / Time risperidone Allergy Unknown Cough Verified 06/06/23 14:07 ANKUR Inhibitors AdvReac Intermediate Cough Verified 02/15/23 09:49 lisinopril AdvReac Intermediate cough Verified 02/15/23 09:49 sertraline [From Zoloft] AdvReac Intermediate SUPRESSED Verified 02/15/23 09:49 APPETITE beta blockers AdvReac Mild Drowsy Uncoded 02/15/23 09:51 Home Meds Home Medications Medication Instructions Recorded Confirmed multivitamin 1 tab PO QAM 02/19/20 06/06/23 cetirizine 10 mg tablet (Zyrtec) 10 mg PO DAILY PRN Allergy Symptoms 03/25/20 06/06/23 aspirin 81 mg tablet,delayed 81 mg PO QAM 08/03/21 06/06/23 release (Enteric Coated Aspirin) darbepoetin [place] in polysorbat 60 60 mcg subcut UD 03/06/22 06/06/23 mcg/mL in polysorbate injection (Aranesp) furosemide 20 mg tablet 20 mg PO QAM PRN Edema 07/04/22 06/06/23 ferrous sulfate 325 mg (65 mg 325 mg PO DAILY 07/10/22 06/06/23 iron) tablet (iron) Previous Rx's Medication Instructions Recorded insulin aspart U-100 100 unit/mL See Rx Instructions subcut 05/12/20 (3 mL) subcutaneous pen (Novolog .COMPLEX #15 mL FlexPen U-100 Insulin aspart) darbepoetin [place] in polysorbat 60 60 mcg subcut MONTHLY #1 mL 07/12/22 mcg/mL in polysorbate injection (Aranesp) amlodipine 5 mg tablet 5 mg PO QAM #90 tabs 07/26/22 lidocaine-prilocaine 2.5 %-2.5 % 0.5 g topical .COMPLEX #50 grams 08/16/22 topical cream amoxicillin 500 mg tablet 2,000 mg (4 x 500 mg) PO ONCE #4 09/03/22 tabs levothyroxine 75 mcg tablet 75 mcg PO QAM #30 tabs 11/14/22 insulin degludec 100 unit/mL (3 27 unit (0.27 mL) subcut HS #15 mL 11/15/22 mL) subcutaneous pen (Tresiba FlexTouch U-100 insulin) clopidogrel 75 mg tablet 75 mg PO DAILY 1 month #30 tabs 02/15/23 calcitriol 0.25 mcg capsule 0.25 mcg PO QAM #90 caps 03/04/23 (Rocaltrol) carvedilol 3.125 mg tablet 3.125 mg PO BID #60 tabs 03/04/23 furosemide 20 mg tablet 20 mg PO QAM #90 tabs 03/04/23 escitalopram oxalate 20 mg tablet 20 mg PO DAILY #90 tabs 03/22/23 atorvastatin 80 mg tablet 80 mg PO QAM #90 tabs 06/06/23 Results & Data (ED) Vital Signs Vital Signs - 24 hr 06/06/23 12:15 06/06/23 12:19 06/06/23 12:19 Temperature 36.4 C L Temperature Source Oral Pulse Rate 58 L 60 Respiratory Rate 14 Blood Pressure 146/73 H Blood Pressure Mean 97 Pulse Oximetry 99 Oxygen Delivery Method Room Air Room Air Sepsis Recent Fever Within 48 Hours No Sepsis New/Unexplained Change in Mental Status No Sepsis Action Taken by Nursing No Action Required Laboratory Data 06/06/23 12:20 06/06/23 12:20 Lab Results 06/06/23 Range/Units 12:20 WBC 5.07 (4.8-10.8) K/ul RBC 3.58 L (4.70-6.10) M/uL Hgb 10.6 L (14.0-18.0) g/dl Hct 32.6 L (42.0-52.0) % MCV 91.1 (80.0-100.0) fL MCH 29.6 (25.0-34.0) pg MCHC 32.5 (32.0-36.0) g/dL RDW Std Deviation 53.2 H (36.4-46.3) fL RDW Coeff of Gladys 16.1 H (11.5-14.5) % Plt Count 173 (130-400) K/uL MPV 10.4 (9.4-12.4) fL Immature Gran % (Auto) 0.2 % Neut % (Auto) 68.7 % Lymph % (Auto) 18.3 % Gregg % (Auto) 7.9 % Eos % (Auto) 4.5 % Baso % (Auto) 0.4 % Neut # (Auto) 3.48 (1.40-6.50) K/uL Lymph # (Auto) 0.93 L (1.20-3.40) K/uL Gregg # (Auto) 0.40 (0.11-0.59) K/uL Eos # (Auto) 0.23 (0.00-0.50) K/uL Baso # (Auto) 0.02 (0.00-0.20) K/uL Immature Gran # (Auto) 0.01 (0.01-0.20) K/uL PT 10.9 (9.0-12.0) Seconds INR 1.0 (0.9-1.1) APTT 30 (21-31) Seconds PTT Ratio 1.1 Sodium 139 (136-145) mmol/L Potassium 3.6 (3.5-5.1) mmol/L Chloride 96 L (98-107) mmol/L Carbon Dioxide 35 H (21-32) mmol/L Anion Gap 8 (3-11) BUN 28 H (6-23) mg/dl Creatinine 3.56 H (0.6-1.4) mg/dl Est Cr Clr Drug Dosing 33.5 ml/min Est GFR ( Amer) 21.5 ml/min Est GFR (Non-Af Amer) 18.6 ml/min BUN/Creatinine Ratio 7.9 L (10-20) Glucose 124 H (70-99(Fasting)) mg/dl Calcium 9.6 (8.6-10.3) mg/dl Magnesium 1.8 (1.7-2.4) mg/dl Total Bilirubin 0.8 (0.2-1.0) mg/dl AST 18 (13-39) U/L ALT 15 (7-52) U/L Alkaline Phosphatase 130 H (34-104) U/L Troponin I High Sens 30.1 H (0-20) pg/ml Total Protein 7.5 (6.0-8.3) gm/dl Albumin 4.2 (3.4-5.0) gm/dl Globulin 3.3 (2.5-4.0) gm/dl Albumin/Globulin Ratio 1.3 (0.9-2) Administered Medications Discontinued Medications Acetaminophen (Acetaminophen 500 Mg Tab) 1,000 mg PO NOW STA Stop: 06/06/23 14:10 Last Admin: 06/06/23 14:51 Dose: 1,000 mg Documented By: NESTOR Aspirin (Aspirin Chew 324 Mg) 324 mg PO NOW STA Stop: 06/06/23 14:04 Last Admin: 06/06/23 14:52 Dose: 324 mg Documented By: NESTOR Ioversol (Optiray 350 500ml) 117 ml IV ONCE ONE Stop: 06/06/23 12:41 Last Admin: 06/06/23 12:40 Dose: 117 ml Documented By: ALEJO Imaging Data Radiologist's Impression: Chest X-Ray 06/06/23 12:26 XR chest 1V portable HISTORY: Left-sided weakness. neuro deficit, acute stroke suspected COMPARISON: Chest 07/04/2022. FINDINGS: No pneumothorax. No pleural effusions. The cardiac silhouette remains mildly enlarged. Mild interstitial thickening the lung bases persists. This is likely chronic. No new focal lung consolidations to suggest a pneumonia. No evidence for pulmonary edema. There are poststernotomy changes. No acute fractures. IMPRESSION: No significant change compared to the prior study. No acute process. ACT 112: Negative or not required by law. Electronically signed by: Giovany Gonzalez M.D. 06/06/2023 1:[address] 06/06/23 12:26 CT SCAN OF THE BRAIN WITHOUT IV CONTRAST CLINICAL HISTORY: Neurological deficit. Stroke like symptoms. Left-sided weakness. COMPARISON STUDY: No priors. TECHNIQUE: Unenhanced axial CT scan of the brain is performed from the vertex to the skull base. A dose lowering technique was utilized adhering to the principles of ALARA. CT DOSE: 1261.4 mGy.cm FINDINGS: Brain parenchyma: The brain parenchyma is normal in appearance. There is no hemorrhage, mass effect, or evidence of acute territorial ischemia by CT criteria. Rogers-white matter differentiation is preserved. No extra-axial fluid collection is seen. Ventricles, sulci, cisterns: Normal configuration. Intracranial vasculature: There is atherosclerotic calcification of the cavernous carotid arteries. Calvarium: Unremarkable. Sinuses and mastoids: The visualized paranasal sinuses are clear. The mastoid air cells are well pneumatized. Orbits: The bony orbits are grossly intact. IMPRESSION: There is no hemorrhage, mass effect, or evidence of acute territorial ischemia by CT criteria. ACT 112: Negative or not required by law. Electronically signed by: Dwight Srivastava M.D. 06/06/2023 12:47 PM Head CTA 06/06/23 12:26 HEAD CTA HISTORY: neuro deficit, acute stroke suspected TECHNIQUE: Multiaxial CT images of the head were performed following the intravenous administration of contrast to evaluate the major cerebral vessels. 3D/MIP images were also obtained. Sagittal and coronal reformats were reviewed. A dose lowering technique was utilized adhering to the principles of ALARA. COMPARISON: Head CT 06/06/2023. FINDINGS: There is no mass, hematoma, midline shift, or acute infarct. Visualized intracranial internal carotid arteries, distal vertebral arteries, and basilar artery are widely patent. There is no significant stenosis, occlusion, or aneurysm seen within the bilateral ACAs, MCAs, or regional sales manager. Major dural venous sinuses are patent. Mild to moderate calcified plaque within the bilateral carotid siphons. IMPRESSION: No significant stenosis, occlusion, or aneurysm within the kiana of Bhakta. ACT 112: Negative or not required by law. Electronically signed by: Giovany Gonzalez M.D. 06/06/2023 1:19 PM Neck CTA 06/06/23 12:26 CT ANGIOGRAPHY OF THE NECK WITH CONTRAST CLINICAL HISTORY: neuro deficit, acute stroke suspected COMPARISON STUDY: Carotid ultrasound November 14, 2022. Technique: CT angiography of the carotid and vertebral arteries was obtained using Optiray and 3D reconstruction on an independent workstation. NASCET criteria was utilized. Automated exposure control was utilized for the study. A dose lowering technique was utilized adhering to the principles of ALARA. Findings: Visualized portions of the lung apices are unremarkable. There are median sternotomy wires and postoperative findings from bypass grafting. There is no cervical lymphadenopathy cervical spine fracture. The bilateral common carotid, cervical internal carotid and vertebral arteries are patent. No stenosis, dissection or aneurysm within the neck. CTA of the head will be reported separately. IMPRESSION: No stenosis or dissection within the bilateral common carotid, cervical internal carotid or vertebral arteries. ACT 112: Negative or not required by law. Electronically signed by: Abhilash Byers M.D. 06/06/2023 1:04 PM Discharge Plan Visit Data Chief Complaint: Weakness Stated Complaint: WEAKNESS ED Provider: Sergey Meier Discharge Problem: Acute left-sided muscle weakness, Anemia, Elevated troponin Discharge Problem: Anemia Qualifiers: Anemia type: unspecified type Qualified Code(s): D64.9 - Anemia, unspecified
[2023-06-06] MEDS: OPTIRAY 350 500ml IV ONE (12:40)
[2023-06-06 12:47] LABS: Basophils # (auto) 0.02 K/uL (0.00-0.20); Basophils % (auto) 0.4 %; Eosinophils # (auto) 0.23 K/uL (0.00-0.50); Eosinophils % (auto) 4.5 %; Hematocrit (blood only) 32.6 % (42.0-52.0); Hemoglobin 10.6 g/dl (14.0-18.0); Immature Granulocytes # (auto) 0.01 K/uL (0.01-0.20); Immature Granulocytes % (auto) 0.2 %; Lymphocytes # (auto) 0.93 K/uL (1.20-3.40); Lymphocytes % (auto) 18.3 %; Mean Corpuscular Hemoglobin 29.6 pg (25.0-34.0); Mean Corpuscular Hgb Conc 32.5 g/dL (32.0-36.0); Mean Corpuscular Volume 91.1 fL (80.0-100.0); Mean Platelet Volume 10.4 fL (9.4-12.4); Monocytes % (auto) 7.9 %; Neutrophils # (auto) 3.48 K/uL (1.40-6.50); Neutrophils % (auto) 68.7 %; Platelet Count 173 K/uL (130-400); RDW Coefficient of Variation 16.1 % (11.5-14.5); RDW Standard Deviation 53.2 fL (36.4-46.3); Red Blood Count 3.58 M/uL (4.70-6.10); White Blood Count 5.07 K/ul (4.8-10.8)
--- NOTE | 2023-06-06 12:49 | CT Scan Report ---
CT SCAN OF THE BRAIN WITHOUT IV CONTRAST CLINICAL HISTORY: Neurological deficit. Stroke like symptoms. Left-sided weakness. COMPARISON STUDY: No priors. TECHNIQUE: Unenhanced axial CT scan of the brain is performed from the vertex to the skull base. A do se lowering technique was utilized adhering to the principles of ALARA. CT DOSE: 1261.4 mGy.cm FINDINGS: Brain parenchyma: The brain parenchyma is normal in appearance. There is no hemorrhage, mass effect, or evidence of acute territorial ischemia by CT criteria. Rogers-white matter differentiation is preser damon. No extra-axial fluid collection is seen. Ventricles, sulci, cisterns: Normal configuration. Intracranial vasculature: There is atherosclerotic calcification of the cavernous carotid arteries. Calvarium: Unremarkable. Sinuses and mastoids: The visualized paranasal sinuses are clear. The mastoid air cells are well pneu matized. Orbits: The bony orbits are grossly intact. IMPRESSION: There is no hemorrhage, mass effect, or evidence of acute territorial ischemia by CT néstor ayala. ACT 112: Negative or not required by law. Electronically signed by: Dwight Srivastava M.D. 06/06/2023 12:47 PM
[2023-06-06 13:05] LABS: Albumin Globulin Ratio 1.3 (0.9-2); Albumin Level 4.2 gm/dl (3.4-5.0); BUN Creatinine Ratio 7.9 (10-20); Bilirubin,Total 0.8 mg/dl (0.2-1.0); Calcium 9.6 mg/dl (8.6-10.3); Creatinine Clr Calc Pharmacy 33.5 ml/min; Est GFR (African American) 21.5 ml/min; Est GFR (Non-African American) 18.6 ml/min; Globulin 3.3 gm/dl (2.5-4.0); Magnesium 1.8 mg/dl (1.7-2.4); Partial Thromboplastin Ratio 1.1; Partial Thromboplastin Time 30 Seconds (21-31); Potassium 3.6 mmol/L (3.5-5.1); Prothrombin Time 10.9 Seconds (9.0-12.0); Total Protein 7.5 gm/dl (6.0-8.3)
--- NOTE | 2023-06-06 13:05 | CT Scan Report ---
CT ANGIOGRAPHY OF THE NECK WITH CONTRAST CLINICAL HISTORY: neuro deficit, acute stroke suspected COMPARISON STUDY: Carotid ultrasound November 14, 2022. Technique: CT angiography of the carotid and vertebral arteries was obtained using Optiray and 3D rec onstruction on an independent workstation. NASCET criteria was utilized. Automated exposure control was utilized for the study. A dose lowering technique was utilized adhering to the principles of ALA RA. Findings: Visualized portions of the lung apices are unremarkable. There are median sternotomy wires and postoperative findings from bypass grafting. There is no cervical lymphadenopathy cervical spine fracture. The bilateral common carotid, cervical internal carotid and vertebral arteries are patent. No stenosis, dissection or aneurysm within the neck. CTA of the head will be reported separately. IMPRESSION: No stenosis or dissection within the bilateral common carotid, cervical internal carotid or vertebral arteries. ACT 112: Negative or not required by law. Electronically signed by: Abhilash Byers M.D. 06/06/2023 1:04 PM
[2023-06-06 13:08] LABS: Troponin I High Sensitivity 30.1 pg/ml (0-20)
--- NOTE | 2023-06-06 13:21 | CT Scan Report ---
HEAD CTA HISTORY: neuro deficit, acute stroke suspected TECHNIQUE: Multiaxial CT images of the head were performed following the intravenous administration o f contrast to evaluate the major cerebral vessels. 3D/MIP images were also obtained. Sagittal and co nirmala reformats were reviewed. A dose lowering technique was utilized adhering to the principles of A CLAUDIA. COMPARISON: Head CT 06/06/2023. FINDINGS: There is no mass, hematoma, midline shift, or acute infarct. Visualized intracranial fashion buying internship al carotid arteries, distal vertebral arteries, and basilar artery are widely patent. There is no sig nificant stenosis, occlusion, or aneurysm seen within the bilateral ACAs, MCAs, or fire sprinkler installer. Major dural venous sinuses are patent. Mild to moderate calcified plaque within the bilateral carotid siphons. IMPRESSION: No significant stenosis, occlusion, or aneurysm within the [place] of [place]. ACT 112: Negative or not required by law. Electronically signed by: Giovany Gonzalez M.D. 06/06/2023 1:19 PM
--- NOTE | 2023-06-06 13:30 | XRay Report ---
XR chest 1V portable HISTORY: Left-sided weakness. neuro deficit, acute stroke suspected COMPARISON: Chest 07/04/2022. FINDINGS: No pneumothorax. No pleural effusions. The cardiac silhouette remains mildly enlarged. Mild interstitial thickening the lung bases persists. This is likely chronic. No new focal lung consolida tions to suggest a pneumonia. No evidence for pulmonary edema. There are poststernotomy changes. No a cute fractures. IMPRESSION: No significant change compared to the prior study. No acute process. ACT 112: Negative or not required by law. Electronically signed by: Giovany Gonzalez M.D. 06/06/2023 1:29 PM
--- NOTE | 2023-06-06 13:37 | History & Physical Report ---
Date of Service June 06, 2023 Assessment & Plan (1) Left-sided weakness: Plan: -Admit to the pcu on tele -Currently stable but with ongoing left upper/lower extremity weakness -Last known well was last night around 2129 -His history and exam are concerning for CVA -No infectious symptoms, does have a mild headache but does not seem like a migraine at this time -CT of the head and CTA of the head/neck were negative for acute findings -Will obtain stat MRI of the brain wo con for further evaluation -Will give 324 PO aspirin now as he did not have his home aspirin -TTE ordered -Fall/aspiration precautions -PT/OT/speech consults -HH/Renal dialysis/DMII diet with 1800 mL fluid restriction -Hold chemical DVT PPX until MRI is back -AM CBC, CMP, mag, PT/INR (2) CAD (coronary atherosclerotic disease): Plan: -No recent chest pain -No acute ST segment or T-wav changes on ECG today -Continue aspirin and statin (3) Elevated troponin: Plan: -Initial high sen trop elevated at 30 -Patient denies chest pain, no acute ST segment or T-wave changes on ECG -Likely falsely elevated due to his ESRD -2 hour high sen trop is in process -Continue to monitor on tele (4) ESRD (end stage renal disease): Plan: -Does home HD -Did have a full session this am prior to arrival without complication -Renal function and electrolytes are stable -Consulted and spoke with Nephrology, appreciate their assistance >Due to the patient receiving IV CT contrast in the ED, they will coordinate a 2 hour HD session after he is back form MRI -Follow daily renal function and electrolytes -Avoid nephrotoxic agents -Daily CMP, mag (5) Hypothyroidism: Plan: -Continue levothyroxine (6) HTN (hypertension): Plan: -Stable -Will allow permissive HTN until MRI results are back (7) Diabetes mellitus with ophthalmic manifestation: Plan: -Monitor BSG ACHS, goal is 110-160 -Normally takes 27 units HS Tresibia and a sliding scale -Will start 10 units lantus BID for now with CF of 50 -Adjust regimen as needed Plan The patient was discussed with Dr. Burks at the time of the admission History of Present Illness Chief Complaint: left-sided weakness Primary Care Provider: MD Saurav Layne is a 53 year old male with a PMH significant for ESRD on home HD, CAD S/P CABG x 2 on 01/01/23, DMII, hyperlipidemia, hypothyroidism, previous GI Bleeds, and hyperlipidemia who presented to the [facility] ED on 06/06/23 with complaints of left upper and lower extremity weakness which started last night. His time of last known well was approximately 2130 on 06/04. He reportedly woke around 2300 last night and noticed weakness in the left upper and lower extremities. He went back to bed and woke this am with his extremity weakness still present. He was experiencing ambulatory dysfunction this am which is why he presented to the ED today. He remained stable in the ED. Labs were significant for a stable Cr of 3.56 and initial high sen trop of 30. Chest xray, CT of the head/brain wo con, and CTA of the head/neck were all read as negative for acute findings. We were asked to admit the patient for ongoing workup of his weakness. At the time of the exam the patient was lying in bed in no acute distress with his bedside, history was obtained from both. He confirms the above history. States that he normally is a side sleeper and did not seek medical attention when he woke up with his symptoms last night as he thought his left extremities could have fallen asleep due to lying on his left side. He does home dialysis and did have a full session this am without complication. He attempted to stand up from his dialysis chair for a post HD standing BP but was too uncoordinated in his lower extremities to safely stand, this is not normal for him. He has been experiencing a mild frontal headache since his symptoms started last night. When asked about new paresthesias, he states that the dorsal aspect of his left hand is "a little numb". He denies other focal neuro symptoms such changes in vision, hearing, taste, and smell, right sided weakness, or loss of bowel/bladder function. He did have a fall while in the shower of a Hotel in [place] last week. He slipped and fell out of the shower, hitting the left side of his forehead. He did not lose consciousness and did not have any of the neurologic symptoms until last night. He did not have any of his home medications today. He denies a previous hx of CVA. He does still make a small amount of urine daily. He denies recent fever, chills, chest pain, cough, abd pain, nausea, vomiting, diarrhea, dysuria, hematuria, melena, and recent falls since his fall last week. He is a full code; his would make medical decisions for him if he cannot make them himself. Please refer to Dr. Burks' attestation for any changes to the treatment plan Allergies Allergy/AdvReac Type Severity Reaction Status Date / Time risperidone Allergy Unknown Cough Verified 06/06/23 14:07 ANKUR Inhibitors AdvReac Intermediate Cough Verified 02/15/23 09:49 lisinopril AdvReac Intermediate cough Verified 02/15/23 09:49 sertraline [From Zoloft] AdvReac Intermediate SUPRESSED Verified 02/15/23 09:49 APPETITE beta blockers AdvReac Mild Drowsy Uncoded 02/15/23 09:51 Home Medications Medication Instructions Recorded Confirmed Type multivitamin 1 tab PO QAM 02/19/20 06/06/23 History cetirizine 10 mg tablet (Zyrtec) 10 mg PO DAILY PRN Allergy Symptoms 03/25/20 06/06/23 History insulin aspart U-100 100 unit/mL See Rx Instructions subcut 05/12/20 06/06/23 Rx (3 mL) subcutaneous pen (Novolog .COMPLEX #15 mL FlexPen U-100 Insulin aspart) aspirin 81 mg tablet,delayed 81 mg PO QAM 08/03/21 06/06/23 History release (Enteric Coated Aspirin) darbepoetin [place] in polysorbat 60 60 mcg subcut UD 03/06/22 06/06/23 History mcg/mL in polysorbate injection (Aranesp) furosemide 20 mg tablet 20 mg PO QAM PRN Edema 07/04/22 06/06/23 History ferrous sulfate 325 mg (65 mg 325 mg PO DAILY 07/10/22 06/06/23 History iron) tablet (iron) darbepoetin [place] in polysorbat 60 60 mcg subcut MONTHLY #1 mL 07/12/22 06/06/23 Rx mcg/mL in polysorbate injection (Aranesp) amlodipine 5 mg tablet 5 mg PO QAM #90 tabs 07/26/22 06/06/23 Rx lidocaine-prilocaine 2.5 %-2.5 % 0.5 g topical .COMPLEX #50 grams 08/16/22 06/06/23 Rx topical cream amoxicillin 500 mg tablet 2,000 mg (4 x 500 mg) PO ONCE #4 09/03/22 06/06/23 Rx tabs levothyroxine 75 mcg tablet 75 mcg PO QAM #30 tabs 11/14/22 06/06/23 Rx insulin degludec 100 unit/mL (3 27 unit (0.27 mL) subcut HS #15 mL 11/15/22 06/06/23 Rx mL) subcutaneous pen (Tresiba FlexTouch U-100 insulin) clopidogrel 75 mg tablet 75 mg PO DAILY 1 month #30 tabs 02/15/23 06/06/23 Rx calcitriol 0.25 mcg capsule 0.25 mcg PO QAM #90 caps 03/04/23 06/06/23 Rx (Rocaltrol) carvedilol 3.125 mg tablet 3.125 mg PO BID #60 tabs 03/04/23 06/06/23 Rx furosemide 20 mg tablet 20 mg PO QAM #90 tabs 03/04/23 06/06/23 Rx escitalopram oxalate 20 mg tablet 20 mg PO DAILY #90 tabs 03/22/23 06/06/23 Rx atorvastatin 80 mg tablet 80 mg PO QAM #90 tabs 06/06/23 06/06/23 Rx Past Med/Surg History Medical History (Updated 06/06/23 @ 14:27 by Oscar Pino PA-C) Acute kidney injury Acute blood loss anemia GI bleed Hx of chest pain 04/2021, "intermittent, during a trip to [place], chasing around [place]; ended up in hospital a few days after due to fluid overload."; f/u ranjan daugherty Myocardial necrosis pt denies-"came in w/fluid overload w/kidneys; never told I had an TN" Influenza A Acute on chronic kidney failure Antiplatelet or antithrombotic long-term use Diastolic dysfunction, left ventricle f/u ranjan daugherty Normal electrocardiogram Anemia recently discharged after [address] [facility]; "in to receive blood" Anemia due to chronic kidney disease Bilateral edema of lower extremity REASON FOR LASIX DAILY WEARS 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 Onychomycosis Diabetic peripheral neuropathy associated with type 2 diabetes mellitus Diabetes mellitus type 2, uncontrolled, with complications Nephrotic syndrome HTN (hypertension) Diabetes mellitus Diabetic macular edema History of depression Diabetes mellitus, type 2 GLUCOSE STABLE AND CONTROLLED Hyperlipidemia Surgical History (Updated 02/15/23 @ 09:55 by Mi Johnson LPN) Hx of CABG Status post colonoscopy with polypectomy S/P arteriovenous (AV) fistula creation LT.; left limb restriction; no dialysis History of cataract surgery RT/LEFT Family history of reaction to anesthesia MOTHER-HARD TO "PUT TO SLEEP" History of lingual frenulectomy Hx of vasectomy History of herniorrhaphy UMBILICAL History of tooth extraction Family History Father Family history of diabetes mellitus Kidney disease Grandmother (Paternal) Family history of diabetes mellitus Grandfather (Maternal) Hypertension Other Myocardial infarction Denies family history of Ovarian cancer Prostate cancer Breast cancer Lung cancer Colorectal cancer Stroke Social History Smoking Status: Former smoker Tobacco Type: Cigarettes Age Quit Using Tobacco: 22; Second Hand Exposure: No; Do You Dip or Chew Tobacco: No; Hx Alcohol Use: Yes Alcohol type: hard liquor Alcohol Intake Frequency: Monthly or Less Hx Substance Use: No Preferred Language: Mongolian Communication Ability: Effective Check Clerk Required: No Beliefs That Will Affect Care: None marital status: Current Living Situation: Spouse current occupational status: employed 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[employer] [place] Feels Safe at Home: Yes Childhood Exposure to Second-Hand Smoke: Yes Dental Care, Regularly: No Physical Activity Frequency: 1-2 Times per Week Physical Activity Frequency Comment: exercise bike Seatbelt Use: always Sunscreen Use: Yes Assistive Devices: None Physical Exam Physical Exam: Physical Exam: General: In no acute distress, stated age, chronically ill appearing but non- toxic HEENT: Normocephalic, atraumatic, no scleral icterus, pupils around round, symmetrical, and reactive to light, moist mucus membranes, trachea midline, no thyromegaly Chest/Pulm: No respiratory distress, symmetrical chest expansion, clear breath sounds throughout Cardiac: RRR, no murmurs noted Abdomen: Negative for ascites and bruising, normoactive bowel sounds, soft, non-tender to palpation throughout Musculoskeletal: Symmetrical and without signs of acute trauma, patient with weakness in the left upper and lower extremities compared to right Extremities: HD fistula located in the left forearm with intact thrill, no signs of bleeding or trauma, DP and PT pulses are intact and symmetrical in the BL LE's Skin: Warm, dry, no rashes , lesions, or scars noted Neuro: Alert and oriented to person, place, month, year, and president, no focal defects, CN II-XII tested and intact, patient with positive (Cerebellar) [id number] testing and pronator drift in the left upper extremity, left upper and lower extremities with new weakness compared to right Psych: No acute distress, calm and cooperative during the exam Results & Data Results & Data Vital Signs (Past 12 Hours) Vital Signs Temp Pulse Resp BP Pulse Ox O2 Del Method 06/06/23 12:19 Room Air 06/06/23 12:19 36.4 C L 60 14 146/73 H 99 Room Air 06/06/23 12:15 58 L Laboratory Results Abnormal lab results 06/06/23 Range/Units 12:20 RBC 3.58 L (4.70-6.10) M/uL Hgb 10.6 L (14.0-18.0) g/dl Hct 32.6 L (42.0-52.0) % RDW Std Deviation 53.2 H (36.4-46.3) fL RDW Coeff of Gladys 16.1 H (11.5-14.5) % Lymph # (Auto) 0.93 L (1.20-3.40) K/uL Chloride 96 L (98-107) mmol/L Carbon Dioxide 35 H (21-32) mmol/L BUN 28 H (6-23) mg/dl Creatinine 3.56 H (0.6-1.4) mg/dl BUN/Creatinine Ratio 7.9 L (10-20) Glucose 124 H (70-99(Fasting)) mg/dl Alkaline Phosphatase 130 H (34-104) U/L Troponin I High Sens 30.1 H (0-20) pg/ml Diagnostic Findings Chest X-Ray 06/06/23 12:26 XR chest 1V portable HISTORY: Left-sided weakness. neuro deficit, acute stroke suspected COMPARISON: Chest 07/04/2022. FINDINGS: No pneumothorax. No pleural effusions. The cardiac silhouette remains mildly enlarged. Mild interstitial thickening the lung bases persists. This is likely chronic. No new focal lung consolidations to suggest a pneumonia. No evidence for pulmonary edema. There are poststernotomy changes. No acute fractures. IMPRESSION: No significant change compared to the prior study. No acute process. ACT 112: Negative or not required by law. Electronically signed by: Giovany Gonzalez M.D. 06/06/2023 1:[address] 06/06/23 12:26 CT SCAN OF THE BRAIN WITHOUT IV CONTRAST CLINICAL HISTORY: Neurological deficit. Stroke like symptoms. Left-sided weakness. COMPARISON STUDY: No priors. TECHNIQUE: Unenhanced axial CT scan of the brain is performed from the vertex to the skull base. A dose lowering technique was utilized adhering to the principles of ALARA. CT DOSE: 1261.4 mGy.cm FINDINGS: Brain parenchyma: The brain parenchyma is normal in appearance. There is no hemorrhage, mass effect, or evidence of acute territorial ischemia by CT criteria. Rogers-white matter differentiation is preserved. No extra-axial fluid c ollection is seen. Ventricles, sulci, cisterns: Normal configuration. Intracranial vasculature: There is atherosclerotic calcification of the cavernous carotid arteries. Calvarium: Unremarkable. Sinuses and mastoids: The visualized paranasal sinuses are clear. The mastoid air cells are well pneumatized. Orbits: The bony orbits are grossly intact. IMPRESSION: There is no hemorrhage, mass effect, or evidence of acute territorial ischemia by CT criteria. ACT 112: Negative or not required by law. Electronically signed by: Dwight Srivastava M.D. 06/06/2023 12:47 PM Head CTA 06/06/23 12:26 HEAD CTA HISTORY: neuro deficit, acute stroke suspected TECHNIQUE: Multiaxial CT images of the head were performed following the intravenous administration of contrast to evaluate the major cerebral vessels. 3D/MIP images were also obtained. Sagittal and coronal reformats were reviewed. A dose lowering technique was utilized adhering to the principles of ALARA. COMPARISON: Head CT 06/06/2023. FINDINGS: There is no mass, hematoma, midline shift, or acute infarct. Visualized intracranial internal carotid arteries, distal vertebral arteries, an d basilar artery are widely patent. There is no significant stenosis, occlusion, or aneurysm seen within the bilateral ACAs, MCAs, or auto mechanic apprentice. Major dural venous sinuses are patent. Mild to moderate calcified plaque within the bilateral carotid siphons. IMPRESSION: No significant stenosis, occlusion, or aneurysm within the [place]. ACT 112: Negative or not required by law. Electronically signed by: Giovany Gonzalez M.D. 06/06/2023 1:19 PM Neck CTA 06/06/23 12:26 CT ANGIOGRAPHY OF THE NECK WITH CONTRAST CLINICAL HISTORY: neuro deficit, acute stroke suspected COMPARISON STUDY: Carotid ultrasound November 14, 2022. Technique: CT angiography of the carotid and vertebral arteries was obtained using Optiray and 3D reconstruction on an independent workstation. NASCET criteria was utilized. Automated exposure control was utilized for the study. A dose lowering technique was utilized adhering to the principles of ALARA. Findings: Visualized portions of the lung apices are unremarkable. There are median sternotomy wires and postoperative findings from bypass grafting. There is no cervical lymphadenopathy cervical spine fracture. The bilateral common carotid, cervical internal carotid and vertebral arteries are patent. No stenosis, dissection or aneurysm within the neck. CTA of the head will be reported separately. IMPRESSION: No stenosis or dissection within the bilateral common carotid, cervical internal carotid or vertebral arteries. ACT 112: Negative or not required by law. Electronically signed by: Abhilash Byers M.D. 06/06/2023 1:04 PM ECG Additional Comments: Normal sinus rhythm Cannot rule out Anterior infarct (cited on or before 27-JUL-2022) Abnormal ECG When compared with ECG of 27-JUL-2022 06:27, No significant change was found Code Status & VTE Plan Code Status full code VTE Prophylaxis Plan VTE Prophylaxis will be ordered: Yes Supervising Physician Co-Signing Physician Notes I have personally seen, evaluated and examined the patient. I have also personally discussed the management of the patient with the resident physician/PACO and I agree with the exam findings documented in the history and physical examination and the documented assessment and plan unless otherwise stated below. 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 He is very knowledgeable in terms of his current condition and differential diagnoses. He is accompanied by his at the time my exam. He interacts appropriate and pleasantly. HEENT is normocephalic atraumatic. Heart: Regular rate and rhythm I do not appreciate murmur or ectopy or rub Lungs: Clear bilaterally. Abdomen: Soft nontender positive bowel sounds. Extremities: Intact no significant clubbing cyanosis or edema he does have some changes of chronic venous stasis of the lower extremities. His strength is decreased on his left extremities compared to his right his right are 5 out of 5 his left upper and lower extremity are 3+ to 4 out of 5. In addition he has left upper extremity pronator drift. And he has discoordination of the left hand with positive cerebellar sign in the left hand and arm. Neurologically: Other than that described above cranial nerves II through XII are grossly intact. The focal deficits as described above. Assessment/plan: As described above. Stat MRI of the brain. Plus or minus neurological consultation depending on MRI results. Full-strength aspirin. 2 top considerations here in acute cerebrovascular accident versus atypical migraine with some hemiplegia. Will be further recommendations upon resulting of further testing. PG Care Time/CCT Total # of Minutes Spent Total Time Spent with Patient: Total time spent is greater than 50% in coordination of care (as documented) at patient's floor/unit and/or counseling patient: Coding [place] [address] INT INP/OBS CARE 3/75MIN Patient Type Established Medical Decision Making High Complexity Diagnoses Left-sided weakness R53.1 CAD (coronary atherosclerotic disease) I25.10 Elevated troponin R79.89 ESRD (end stage renal disease) N18.6 Hypothyroidism E03.9 HTN (hypertension) I10 Diabetes mellitus with ophthalmic manifestation E11.39
[2023-06-06] MEDS ORDERED: PHARMACIST DISCHARGE MED REC CONSULT PRN (13:46)
[2023-06-06] MEDS ORDERED: GLUCOSE 10 TAB/TUBE PO PRN (14:08)
[2023-06-06] MEDS ORDERED: DEXTROSE 50% 50 ML SYRINGE IV PRN (14:08)
[2023-06-06] MEDS ORDERED: GLUCOSE 40% GEL 15 GM TUBE PO PRN (14:08)
[2023-06-06] MEDS ORDERED: CARBOHYDRATES FOR HYPOGLYCEMIA PO PRN (14:08)
[2023-06-06] MEDS ORDERED: GLUCAGON FOR INJ 1 MG VIAL SQ PRN (14:08)
[2023-06-06] MEDS: ACETAMINOPHEN 500 MG TAB PO STA (14:51)
[2023-06-06] MEDS: ASPIRIN CHEW 324 MG PO STA (14:52)
[2023-06-06] MEDS ORDERED: INSULIN ASPART PER UNIT CHARGE SC SCH (16:30)
--- NOTE | 2023-06-06 18:36 | Magnetic Resonance Report ---
Brain MRI WITHOUT CONTRAST HISTORY: Left-sided weakness. stroke workup TECHNIQUE: Multiplanar multisequence MRI of the brain was performed without the use of contrast. COMPARISON STUDY: Head CT 06/06/2023. FINDINGS: Multiple scattered foci of restricted diffusion within the right frontal lobe consistent wi th acute infarcts. Dominant infarct on axial image 18 measures 2.4 cm. There are few additional punct ate infarcts within the right pelvis on image 12 and within the right parietal lobe. Possible acute l inear lacunar infarct within the left cerebellar hemisphere on image 6. There is an old punctate lacu isabel infarct within the splenium of the corpus callosum. Otherwise, the remaining midline structures a re intact. Scattered foci of cytotoxic edema seen within the right frontal lobe/parietal lobe infarct s. No mass, hematoma, or midline shift. Prior bilateral lens replacement. Mild mucosal thickening wit hin the maxillary sinuses. The major vascular flow-voids at the skull base are maintained. The ventri cles are normal in size. IMPRESSION: 1. Multiple scattered small acute infarcts as described above most pronounced within the right fronta l lobe. 2. No intracranial hemorrhage. ACT 112: Negative or not required by law. Electronically signed by: Giovany Gonzalez M.D. 06/06/2023 6:34 PM
[2023-06-06] MEDS: LANTUS PER UNIT CHARGE SQ SCH (20:07)
[2023-06-06] MEDS: INSULIN ASPART PER UNIT CHARGE SC SCH (20:32)
[2023-06-06] MEDS: CLOPIDOGREL BISULFATE 75 MG TAB PO ONE (20:42)
[2023-06-06] MEDS ORDERED: PNEUMOCOCCAL VACCINE (PCV20) 20-VAL CONJ-DIP CRM/PF 0.5 ML SYR IM ONE (21:00)
[2023-06-07 07:19] LABS: Basophils # (auto) 0.02 K/uL (0.00-0.20); Basophils % (auto) 0.4 %; Eosinophils # (auto) 0.23 K/uL (0.00-0.50); Eosinophils % (auto) 5.1 %; Hematocrit (blood only) 30.1 % (42.0-52.0); Hemoglobin 9.7 g/dl (14.0-18.0); Immature Granulocytes # (auto) 0.02 K/uL (0.01-0.20); Immature Granulocytes % (auto) 0.4 %; Lymphocytes # (auto) 1.05 K/uL (1.20-3.40); Lymphocytes % (auto) 23.4 %; Mean Corpuscular Hemoglobin 29.4 pg (25.0-34.0); Mean Corpuscular Hgb Conc 32.2 g/dL (32.0-36.0); Mean Corpuscular Volume 91.2 fL (80.0-100.0); Mean Platelet Volume 10.1 fL (9.4-12.4); Monocytes # (auto) 0.45 K/uL (0.11-0.59); Neutrophils # (auto) 2.71 K/uL (1.40-6.50); Neutrophils % (auto) 60.7 %; Platelet Count 145 K/uL (130-400); RDW Coefficient of Variation 15.8 % (11.5-14.5); RDW Standard Deviation 51.6 fL (36.4-46.3); White Blood Count 4.48 K/ul (4.8-10.8)
[2023-06-07] MEDS: ASPIRIN 81 MG ECTAB PO SCH (07:43)
[2023-06-07] MEDS: FERROUS SULFATE 325 MG TAB PO SCH (07:44)
[2023-06-07] MEDS: ESCITALOPRAM OXALATE 20 MG TAB PO SCH (07:44)
[2023-06-07] MEDS: CLOPIDOGREL BISULFATE 75 MG TAB PO SCH (07:44)
[2023-06-07] MEDS: ATORVASTATIN 40 MG TAB PO SCH (07:44)
[2023-06-07] MEDS: LEVOTHYROXINE SODIUM 75 MCG TABLET PO SCH (07:45)
[2023-06-07 07:54] LABS: Estimated Average Glucose 154 mg/dl
[2023-06-07 07:57] LABS: Prothrombin Time 11.1 Seconds (9.0-12.0)
[2023-06-07 09:47] LABS: BUN Creatinine Ratio 6.7 (10-20); Est GFR (African American) 17.7 ml/min; Est GFR (Non-African American) 15.3 ml/min; Magnesium 1.9 mg/dl (1.7-2.4); Potassium 4.4 mmol/L (3.5-5.1)
--- NOTE | 2023-06-07 10:39 | Nephrology Consultation ---
Date of Consultation June 07, 2023 Assessment & Plan (1) ESRD (end stage renal disease): (2) Anemia: (3) Left-sided weakness: (4) Proteinuria: (5) HTN (hypertension): Plan 53-year-old gentleman with ESKD secondary to diabetic nephropathy admitted with left-sided weakness and MRI confirmed acute stroke. Left lower extremity weakness almost resolved has some residual weakness in left upper extremity but overall feels slowly improving. Continued on aspirin and statin Plavix. Currently he was getting training at home for home dialysis and had dialysis yesterday morning before coming to the hospital and then had 2 hours dialysis in the afternoon after CT IV contrast exposure. Overall doing better today. Labs are at goal. Volume status acceptable. -- Plan for dialysis tomorrow -- Dose medications for EGFR less than 10 -- Left arm nephrology precaution for AV fistula -- Epogen with dialysis tomorrow -- Continue on Nephrocaps Thank you for allowing me to participate in your patient's care. It was a pleasure to see Gildardo. History of Present Illness Reason for Consultation: ESKD on HD Attending Physician: Kaveh Phillips History of Present Illness Mr. Saurav Jules a 53-year-old male with PMH of ESKD on HHD, nephrotic syndrome, DM 2, HTN, anemia, hyperlipidemia, CAD s/p CABG admitted with acute CVA. Nephrology consult requested for management of ESKD and evaluation for urgent HD after IV contrast exposure.. EMR records were reviewed in detail during patient's visit. Gildardo presented to ER yesterday with weakness and a left upper and lower extremity which he first noticed the night before. On admission clinically he was found to have significant weakness in bilateral left upper and lower extremity, more so in upper extremity. Head CT with contrast was otherwise unremarkable, CTA neck unremarkable however MRI showed multiple scattered small acute infarcts most pronounced within the right frontal lobe Since he is out of the tPA window, he was continued on aspirin and started on Plavix. His blood pressure has been fair. He reports much improvement in left lower extremity weakness, in fact he has been walking in the room and felt pretty close to his normal although still noticing some weakness in left upper extremity. He had 2 hours dialysis in the afternoon as he has significant residual renal function. He also had home dialysis yesterday morning prior to coming to the hospital as he was still getting training for home hemodialysis. Lab this morning was otherwise unremarkable. Has stage ESKD with nephrotic syndrome secondary to diabetic nephropathy, started on hemodialysis in 2022 and recently getting train to transition to home hemodialysis. Has functioning left radiocephalic AV fistula. Getting transplant evaluation at [facility].Has diabetes with retinopathy, recently has been well controlled. h/o CAD s/p CABG in 2022. Remote history of brief smoking many years ago. Dad had history of end-stage renal disease. 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 Overall he has been feeling well this morning except mild residual weakness in left upper extremity. He reports currently voiding 3-4 times per day, no SOB, CP. Allergies Allergy/AdvReac Type Severity Reaction Status Date / Time risperidone Allergy Unknown Cough Verified 06/06/23 14:07 ANKUR Inhibitors AdvReac Intermediate Cough Verified 02/15/23 09:49 lisinopril AdvReac Intermediate cough Verified 02/15/23 09:49 sertraline [From Zoloft] AdvReac Intermediate SUPRESSED Verified 02/15/23 09:49 APPETITE beta blockers AdvReac Mild Drowsy Uncoded 02/15/23 09:51 Home Medications Medication Instructions Recorded Confirmed Type multivitamin 1 tab PO QAM 02/19/20 06/06/23 History cetirizine 10 mg tablet (Zyrtec) 10 mg PO DAILY PRN Allergy Symptoms 03/25/20 06/06/23 History insulin aspart U-100 100 unit/mL See Rx Instructions subcut 05/12/20 06/06/23 Rx (3 mL) subcutaneous pen (Novolog .COMPLEX #15 mL FlexPen U-100 Insulin aspart) aspirin 81 mg tablet,delayed 81 mg PO QAM 08/03/21 06/06/23 History release (Enteric Coated Aspirin) darbepoetin [place] in polysorbat 60 60 mcg subcut UD 03/06/22 06/06/23 History mcg/mL in polysorbate injection (Aranesp) furosemide 20 mg tablet 20 mg PO QAM PRN Edema 07/04/22 06/06/23 History ferrous sulfate 325 mg (65 mg 325 mg PO DAILY 07/10/22 06/06/23 History iron) tablet (iron) darbepoetin [place] in polysorbat 60 60 mcg subcut MONTHLY #1 mL 07/12/22 06/06/23 Rx mcg/mL in polysorbate injection (Aranesp) amlodipine 5 mg tablet 5 mg PO QAM #90 tabs 07/26/22 06/06/23 Rx lidocaine-prilocaine 2.5 %-2.5 % 0.5 g topical .COMPLEX #50 grams 08/16/22 06/06/23 Rx topical cream amoxicillin 500 mg tablet 2,000 mg (4 x 500 mg) PO ONCE #4 09/03/22 06/06/23 Rx tabs levothyroxine 75 mcg tablet 75 mcg PO QAM #30 tabs 11/14/22 06/06/23 Rx insulin degludec 100 unit/mL (3 27 unit (0.27 mL) subcut HS #15 mL 11/15/22 06/06/23 Rx mL) subcutaneous pen (Tresiba FlexTouch U-100 insulin) clopidogrel 75 mg tablet 75 mg PO DAILY 1 month #30 tabs 02/15/23 06/06/23 Rx calcitriol 0.25 mcg capsule 0.25 mcg PO QAM #90 caps 03/04/23 06/06/23 Rx (Rocaltrol) carvedilol 3.125 mg tablet 3.125 mg PO BID #60 tabs 03/04/23 06/06/23 Rx furosemide 20 mg tablet 20 mg PO QAM #90 tabs 03/04/23 06/06/23 Rx escitalopram oxalate 20 mg tablet 20 mg PO DAILY #90 tabs 03/22/23 06/06/23 Rx atorvastatin 80 mg tablet 80 mg PO QAM #90 tabs 06/06/23 06/06/23 Rx Patient History Medical History (Updated 06/06/23 @ 15:49 by Sergey Meier DO) Acute kidney injury Acute blood loss anemia GI bleed Hx of chest pain 04/2021, "intermittent, during a trip to [place], chasing around [employer]; ended up in hospital a few days after due to fluid overload."; f/u ranjan daugherty Myocardial necrosis pt denies-"came in w/fluid overload w/kidneys; never told I had an WI" Influenza A Acute on chronic kidney failure Antiplatelet or antithrombotic long-term use Diastolic dysfunction, left ventricle f/u ranjan daugherty Normal electrocardiogram Anemia recently discharged after 3 days from [facility]; "in to receive blood" Anemia due to chronic kidney disease Bilateral edema of lower extremity REASON FOR LASIX DAILY WEARS 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 Onychomycosis Diabetic peripheral neuropathy associated with type 2 diabetes mellitus Diabetes mellitus type 2, uncontrolled, with complications Nephrotic syndrome HTN (hypertension) Diabetes mellitus Diabetic macular edema History of depression Diabetes mellitus, type 2 GLUCOSE STABLE AND CONTROLLED Hyperlipidemia Surgical History (Updated 02/15/23 @ 09:55 by Mi Johnson LPN) Hx of CABG Status post colonoscopy with polypectomy S/P arteriovenous (AV) fistula creation LT.; left limb restriction; no dialysis History of cataract surgery RT/LEFT Family history of reaction to anesthesia MOTHER-HARD TO "PUT TO SLEEP" History of lingual frenulectomy Hx of vasectomy History of herniorrhaphy UMBILICAL History of tooth extraction Family History Father Family history of diabetes mellitus Kidney disease Grandmother (Paternal) Family history of diabetes mellitus Grandfather (Maternal) Hypertension Other Myocardial infarction Denies family history of Ovarian cancer Prostate cancer Breast cancer Lung cancer Colorectal cancer Stroke Social History Smoking Status: Former smoker Tobacco Type: Cigarettes Age Quit Using Tobacco: 22; Second Hand Exposure: No; Do You Dip or Chew Tobacco: No; Tobacco Cessation Education Requested by Patient: No Hx Alcohol Use: Yes Alcohol type: wine Alcohol Intake Frequency: Monthly or Less Hx Substance Use: No Preferred Language: Sinhala Communication Ability: Effective 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 Machine Operator Required: No Beliefs That Will Affect Care: None marital status: Current Living Situation: Spouse current occupational status: employed 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 Physical Exam Constitutional: WD/WN, vitals as above no acute distress Eyes: + anicteric sclerae ENMT: Ears: no hearing impairment Neck: normal visual inspection Respiratory: no respiratory distress Auscultation: lungs clear to auscultat ion bilaterally Cardiovascular: RRR, no murmur, no edema Extremities: + AV fistula (left RC AVF with thrill and bruit.) Gastrointestinal (Abdomen): Inspection/Auscultation: abdomen normal to inspection Musculoskeletal: Extremities: extremities normal to inspection Skin: no rashes, warm and dry Neurologic: slight motor weakness in left UE, speech normal. Psychiatric: Orientation: alert and oriented x 3 Affect: euthymic affect Results & Data Vital Signs (Past 12 Hours) Vital Signs Temp Pulse Pulse Resp BP BP Pulse Ox 06/07/23 08:04 36.6 C 63 18 155/78 H 98 06/07/23 08:00 06/07/23 07:00 67 06/07/23 03:41 36.8 C 67 18 122/70 96 06/06/23 23:27 37.1 C 69 18 136/67 96 O2 Del Method 06/07/23 08:04 Room Air 06/07/23 08:00 Room Air 06/07/23 07:00 06/07/23 03:41 Room Air 06/06/23 23:27 Room Air PG Care Time/CCT Total # of Minutes Spent Total Time Spent with Patient: Total time spent is greater than 50% in coordination of care (as documented) at patient's floor/unit and/or counseling patient: Coding Level of Care Code 53086 INT INP/OBS CARE 375MIN Diagnoses ESRD (end stage renal disease) N18.6 Anemia D64.9 Anemia type: unspecified type Left-sided weakness R53.1 Proteinuria R80.9 HTN (hypertension) I10 (2) Anemia Anemia type: unspecified type Qualified Code(s): D64.9 - Anemia, unspecified
--- NOTE | 2023-06-07 11:17 | Neurology Consultation ---
Date of Consultation June 07, 2023 Assessment & Plan (1) Embolic stroke: Plan 53-year-old male with embolic stroke affecting multiple vascular territories, with scattered multifocal infarct within the right frontal lobe as well as a small acute ischemic stroke within the left cerebellar hemisphere. CT angiography of the head and neck are negative. This patient does have a history of atrial fibrillation that occurred in the context of coronary artery bypass grafting done this past February. He does have other stroke risk factors as well, including insulin-dependent diabetes mellitus, hypertension and dyslipidemia. History also notable for end-stage renal disease on hemodialysis. Patient has been restarted on Plavix, his aspirin and atorvastatin have been continued. Given the character and distribution of this patient's acute stroke, I strongly suspect an embolic event. He does not have a PFO. He does have a history of atrial fibrillation. At this point, cardioembolic stroke in the context of paroxysmal atrial fibrillation is highly suspected. Instead of restarting Plavix, I would recommend anticoagulation with Eliquis. May need to consult with nephrology regarding appropriate renal dosing given his history of end- stage renal disease on hemodialysis. 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 Would also recommend 30-day mobile cardiac outpatient telemetry. Would continue with aspirin and atorvastatin as prescribed. Continue with management of hypertension and diabetes mellitus. Please call with any questions. History of Present Illness Reason for Consultation: Alvarez Requesting Physician: stroke Attending Physician: Kaveh Phillips History of Present Illness The patient is a 53-year-old right-handed male with a chief complaint of left- sided weakness. He had presented to the emergency department yesterday afternoon, although symptoms began the previous night at around 11:30 PM upon awakening from sleep. He then went back to sleep, however and continued to p erceive weakness of the left arm and leg upon awakening yesterday morning. The weakness primarily affected the left hand although he noted a mild degree of left leg weakness as well as subtle weakness of the left face. He also had some associated numbness along the dorsum of the left hand and forearm. He denies any associated vision disturbance or change in speech. Because he was outside of the window for acute thrombolytic therapy a telestroke consultation was not performed. A CT of the head was negative for hemorrhage or acute process. A CTA of the head and neck was unremarkable. A brain MRI revealed multiple scattered acute infarcts within the right frontal lobe as well as a small acute infarct within the left cerebellar hemisphere. There is no hemorrhage. I independently reviewed these images. Past medical history notable for coronary artery bypass grafting at [facility] in December 2022. I did review a cardiology note from February 19, 2023 which describes this history as well as a few episodes of atrial fibrillation at that time. The episodes abated, and long-term anticoagulation was not suggested. Past medical history is also notable for diabetes mellitus, diabetic neuropathy, macular edema, chronic kidney disease, recently started hemodialysis, obesity, hyperlipidemia, hypothyroidism, and anemia. He has been taking aspirin and atorvastatin as an outpatient. He had been on clopidogrel after his CABG although had discontinued this medication. This morning, the patient feels moderately improved although he still has a mild degree of left upper extremity weakness, decreased facility of the left hand and very mild left lower facial weakness. Allergies Allergy/AdvReac Type Severity Reaction Status Date / Time risperidone Allergy Unknown Cough Verified 06/06/23 14:07 ANKUR Inhibitors AdvReac Intermediate Cough Verified 02/15/23 09:49 lisinopril AdvReac Intermediate cough Verified 02/15/23 09:49 sertraline [From Zoloft] AdvReac Intermediate SUPRESSED Verified 02/15/23 09:49 APPETITE beta blockers AdvReac Mild Drowsy Uncoded 02/15/23 09:51 Home Medications Medication Instructions Recorded Confirmed Type multivitamin 1 tab PO QAM 02/19/20 06/06/23 History cetirizine 10 mg tablet (Zyrtec) 10 mg PO DAILY PRN Allergy Symptoms 03/25/20 06/06/23 History insulin aspart U-100 100 unit/mL See Rx Instructions subcut 05/12/20 06/06/23 Rx (3 mL) subcutaneous pen (Novolog .COMPLEX #15 mL FlexPen U-100 Insulin aspart) aspirin 81 mg tablet,delayed 81 mg PO QAM 08/03/21 06/06/23 History release (Enteric Coated Aspirin) darbepoetin [place] in polysorbat 60 60 mcg subcut UD 03/06/22 06/06/23 History mcg/mL in polysorbate injection (Aranesp) furosemide 20 mg tablet 20 mg PO QAM PRN Edema 07/04/22 06/06/23 History ferrous sulfate 325 mg (65 mg 325 mg PO DAILY 07/10/22 06/06/23 History iron) tablet (iron) darbepoetin [place] in polysorbat 60 60 mcg subcut MONTHLY #1 mL 07/12/22 06/06/23 Rx mcg/mL in polysorbate injection (Aranesp) amlodipine 5 mg tablet 5 mg PO QAM #90 tabs 07/26/22 06/06/23 Rx lidocaine-prilocaine 2.5 %-2.5 % 0.5 g topical .COMPLEX #50 grams 08/16/22 06/06/23 Rx topical cream amoxicillin 500 mg tablet 2,000 mg (4 x 500 mg) PO ONCE #4 09/03/22 06/06/23 Rx tabs levothyroxine 75 mcg tablet 75 mcg PO QAM #30 tabs 11/14/22 06/06/23 Rx insulin degludec 100 unit/mL (3 27 unit (0.27 mL) subcut HS #15 mL 11/15/22 06/06/23 Rx mL) subcutaneous pen (Tresiba FlexTouch U-100 insulin) clopidogrel 75 mg tablet 75 mg PO DAILY 1 month #30 tabs 02/15/23 06/06/23 Rx calcitriol 0.25 mcg capsule 0.25 mcg PO QAM #90 caps 03/04/23 06/06/23 Rx (Rocaltrol) carvedilol 3.125 mg tablet 3.125 mg PO BID #60 tabs 03/04/23 06/06/23 Rx furosemide 20 mg tablet 20 mg PO QAM #90 tabs 03/04/23 06/06/23 Rx escitalopram oxalate 20 mg tablet 20 mg PO DAILY #90 tabs 03/22/23 06/06/23 Rx atorvastatin 80 mg tablet 80 mg PO QAM #90 tabs 06/06/23 06/06/23 Rx Patient History Medical History (Updated 06/07/23 @ 11:47 by Rich Harvey MD) Acute kidney injury Acute blood loss anemia GI bleed Hx of chest pain 04/2021, "intermittent, during a trip to [employer], chasing around [place]; ended up in hospital a few days after due to fluid overload."; f/[place] dr [place] Myocardial necrosis pt denies-"came in w/fluid overload w/kidneys; never told I had an OR" Influenza A Acute on chronic kidney failure Antiplatelet or antithrombotic long-term use Diastolic dysfunction, left ventricle f/u dr [place], [place] Normal electrocardiogram Anemia recently discharged after 3 days from [facility]; "in to receive blood" Anemia due to chronic kidney disease Bilateral edema of lower extremity REASON FOR LASIX DAILY WEARS 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 Onychomycosis Diabetic peripheral neuropathy associated with type 2 diabetes mellitus Diabetes mellitus type 2, uncontrolled, with complications Nephrotic syndrome HTN (hypertension) Diabetes mellitus Diabetic macular edema History of depression Diabetes mellitus, type 2 GLUCOSE STABLE AND CONTROLLED Hyperlipidemia Surgical History (Updated 02/15/23 @ 09:55 by Mi Johnson LPN) Hx of CABG Status post colonoscopy with polypectomy S/P arteriovenous (AV) fistula creation LT.; left limb restriction; no dialysis History of cataract surgery RT/LEFT Family history of reaction to anesthesia MOTHER-HARD TO "PUT TO SLEEP" History of lingual frenulectomy Hx of vasectomy History of herniorrhaphy UMBILICAL History of tooth extraction Family History Father Family history of diabetes mellitus Kidney disease Grandmother (Paternal) Family history of diabetes mellitus Grandfather (Maternal) Hypertension Other Myocardial infarction Denies family history of Ovarian cancer Prostate cancer Breast cancer Lung cancer Colorectal cancer Stroke Social History Smoking Status: Former smoker Tobacco Type: Cigarettes Age Quit Using Tobacco: 22; Second Hand Exposure: No; Do You Dip or Chew Tobacco: No; Tobacco Cessation Education Requested by Patient: No Hx Alcohol Use: Yes Alcohol type: wine Alcohol Intake Frequency: Monthly or Less Hx Substance Use: No Preferred Language: Croatian Communication Ability: Effective Sheet Cutter Required: No Beliefs That Will Affect Care: None marital status: Current Living Situation: Spouse current occupational status: employed 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 [employer] Other Information That Helps Us Care for You: No Feels Safe at Home: Yes Safety Concerns: Feels Safe At This Time Childhood Exposure to Second-Hand Smoke: Yes Dental Care, Regularly: No Physical Activity Frequency: 1-2 Times per Week Physical Activity Frequency Comment: exercise bike Seatbelt Use: always Sunscreen Use: Yes Assistive Devices: Denture - Upper, Denture - Lower and Glasses Review of Systems Constitutional: no fever Eyes: no blind spots and no diplopia Ear, Nose, Mouth, Throat: no hearing loss Respiratory: no cough and no dyspnea Cardiovascular: no chest pain and no palpitations Gastrointestinal: no nausea and no vomiting Genitourinary: no dysuria Musculoskeletal: no neck pain and no myalgia Integumentary: no rash and no lesions Neurologic: as per Subjective / HPI Psychiatric: no depression and no anxiety Hematologic / Lymphatic: no easy bleeding and no easy bruising Exam (Neuro) Constitutional: well developed and well nourished; no acute distress Eyes: normal visual smith by confrontation, PERRL and EOM intact bilaterally; no nystagmus Neurologic: Oriented to:: Person, Place and Time Memory: Short Term Intact and Remote Intact Attention: Span Intact and Concentration Intact Speech Fluency: negative Dysarthria or Dysfluency Speech Aphasia: negative Aphasia Fund of Knowledge: Current Events, Past History and Vocabulary Cranial Nerves: Normal II, III, IV, , V, VIII, IX, X, XI and XII; Abnorm VII (left facial droop, mild) Motor Strength: Hemiparesis (mild) Laterality: Left Motor Tone: Normal Lower Extremities and Normal Upper Extremities Muscle Bulk/Involuntary Movements: No Involuntary Movements; negative Muscle Atrophy Sensation: Light Touch Intact, Pain/Temperature Intact, Vibration Intact and Proprioception Intact Coordination: Normal; negative Limited Balance Deep Tendon Reflexes: Rt Triceps: 2+, Lt Triceps: 3+, Rt Biceps: 2+, Lt Biceps: 3+, Rt Brachioradialis: 1+, Lt Brachioradialis: 1+, Rt Patellar: 3+, Lt Patellar: 2+, Rt Ankle: 0 and Lt Ankle: 0 Gait: Normal Station and Gait Results & Data Vital Signs (Past 12 Hours) Vital Signs Temp Pulse Pulse Resp BP BP Pulse Ox 06/07/23 08:04 36.6 C 63 18 155/78 H 98 06/07/23 08:00 06/07/23 07:00 67 06/07/23 03:41 36.8 C 67 18 122/70 96 06/06/23 23:27 37.1 C 69 18 136/67 96 O2 Del Method 06/07/23 08:04 Room Air 06/07/23 08:00 Room Air 06/07/23 07:00 06/07/23 03:41 Room Air 06/06/23 23:27 Room Air Laboratory Results WBC 4.48, hemoglobin 9.7, hematocrit 30.1, platelet count 145, sodium 140, potassium 4.4, BUN 28, creatinine 4.18, glucose 135, hemoglobin A1c 7.0, magnesium 1.9, triglycerides 221, cholesterol 116, LDL 43, HDL [address] of the head, CTA of the head and neck, and brain MRI are as described in the HPI, I independently reviewed the images. Echocardiogram completed today revealed normal left ventricular systolic function, moderate concentric LVH, left atrium moderately dilated, moderate mitral annular calcification. A previous echocardiogram completed March 06, 2022 revealed a mildly dilated left ventricle, no regional wall motion abnormalities, severe concentric LVH, severe left atrial dilation, mild mitral regurgitation, no shunt with injection of contrast. An ECG reveals a normal sinus rhythm, 66 bpm. Coding Level of Care Code 83218 INT INP/OBS CARE 3/75MIN Diagnoses Embolic stroke I63.9 Time Spent (min) 90 Comment Total time includes patient contact, chart review, counseling, note preparation
--- NOTE | 2023-06-07 11:27 | XCELERA ---
[id number] \\[id number]
[2023-06-07] MEDS: NEPHROCAPS PO SCH (11:40)
--- NOTE | 2023-06-07 11:55 | Electrocardiogram Report ---
Test Reason : Blood Pressure : / mmHG Vent. Rate : 066 BPM Atrial Rate : 066 BPM P-R Int : 170 ms QRS Dur : 096 ms QT Int : 466 ms P-R-T Axes : 054 029 048 degrees QTc Int : 488 ms Normal sinus rhythm When compared with ECG of 27-JUL-2022 06:27, No significant change was found Confirmed by Camron Gutierrez ([id number]) on 06/07/2023 11:54:43 AM Referred By: Mitul Bae Confirmed By:Buck Gutierrez
[2023-06-07] MEDS: ACETAMINOPHEN 325 MG TAB PO PRN (15:07)
--- NOTE | 2023-06-07 16:29 | Hospitalist Progress Note ---
Date of Service June 07, 2023 Assessment & Plan (1) Left-sided weakness: Plan: -Admit to the pcu on tele -Currently stable but with ongoing left upper/lower extremity weakness -Last known well was last night around 2129 -His history and exam are concerning for CVA -No infectious symptoms, does have a mild headache but does not seem like a migraine at this time -CT of the head and CTA of the head/neck were negative for acute findings -MRI confirmed stroke. This appears to be a cardioembolic stroke. Patient will be on elqiuis. cnsulted neuro: appreciate input. placed on eliquis, will hold plavix. (2) CAD (coronary atherosclerotic disease): Plan: -No recent chest pain -No acute ST segment or T-wav changes on ECG today -Continue aspirin and statin (3) Elevated troponin: Plan: -Initial high sen trop elevated at 30 -Patient denies chest pain, no acute ST segment or T-wave changes on ECG -Likely falsely elevated due to his ESRD -2 hour high sen trop is in process -Continue to monitor on tele (4) ESRD (end stage renal disease): Plan: -Does home HD -Did have a full session this am prior to arrival without complication -Renal function and electrolytes are stable -Consulted and spoke with Nephrology, appreciate their assistance >Due to the patient receiving IV CT contrast in the ED, they will coordinate a 2 hour HD session after he is back form MRI -Follow daily renal function and electrolytes -Avoid nephrotoxic agents -Daily CMP, mag (5) Hypothyroidism: Plan: -Continue levothyroxine (6) HTN (hypertension): Plan: -Stable -Will allow permissive HTN until MRI results are back (7) Diabetes mellitus with ophthalmic manifestation: Plan: -Monitor BSG ACHS, goal is 110-160 -Normally takes 27 units HS Tresibia and a sliding scale -Will start 10 units lantus BID for now with CF of 50 -Adjust regimen as needed Admission and Anticipated Discharge Date Admission Date: June 06, 2023 Subjective Patient reports no new symptoms. He reports having slightly more movement in his left hand. He states he has exercises he can use for his hand. Review of Systems Review of Systems: All systems reviewed & are unremarkable except as noted in HPI & below Physical Exam Physical Exam: General: In no acute distress, stated age, chronically ill appearing but non- toxic HEENT: Normocephalic, atraumatic Chest/Pulm: not using accessory muscles to breath Extremities: HD fistula located in the left forearm with intact thrill, no signs of bleeding or trauma, DP and PT pulses are intact and symmetrical in the BL LE's Psych: No acute distress, calm and cooperative during the exam Results & Data Results & Data Vital Signs (Past 12 Hours) Vital Signs Temp Pulse Pulse Resp BP Pulse Ox O2 Del Method 06/07/23 15:22 36.6 C 65 20 159/75 H 96 Room Air 06/07/23 15:00 58 L 06/07/23 11:24 36.9 C 64 20 139/66 96 Room Air 06/07/23 08:04 36.6 C 63 18 155/78 H 98 Room Air 06/07/23 08:00 Room Air 06/07/23 07:00 67 PG Care Time/CCT Total # of Minutes Spent Total Time Spent with Patient: Total time spent is greater than 50% in coordination of care (as documented) at patient's floor/unit and/or counseling patient: Coding Level of Care Code 63549 SUB INP/OBS CARE 2/35MIN Diagnoses Left-sided weakness R53.1 CAD (coronary atherosclerotic disease) I25.10 Elevated troponin R79.89 ESRD (end stage renal disease) N18.6 Hypothyroidism E03.9 HTN (hypertension) I10 Diabetes mellitus with ophthalmic manifestation E11.39
[2023-06-07] MEDS: APIXABAN 5 MG TABLET PO SCH (20:14)
[2023-06-08 07:32] LABS: Basophils # (auto) 0.02 K/uL (0.00-0.20); Basophils % (auto) 0.4 %; Eosinophils # (auto) 0.27 K/uL (0.00-0.50); Eosinophils % (auto) 4.9 %; Hematocrit (blood only) 29.8 % (42.0-52.0); Hemoglobin 9.8 g/dl (14.0-18.0); Immature Granulocytes # (auto) 0.01 K/uL (0.01-0.20); Immature Granulocytes % (auto) 0.2 %; Lymphocytes # (auto) 1.18 K/uL (1.20-3.40); Lymphocytes % (auto) 21.5 %; Mean Corpuscular Hemoglobin 29.5 pg (25.0-34.0); Mean Corpuscular Hgb Conc 32.9 g/dL (32.0-36.0); Mean Corpuscular Volume 89.8 fL (80.0-100.0); Mean Platelet Volume 10.7 fL (9.4-12.4); Monocytes # (auto) 0.47 K/uL (0.11-0.59); Monocytes % (auto) 8.5 %; Neutrophils # (auto) 3.55 K/uL (1.40-6.50); Neutrophils % (auto) 64.5 %; Platelet Count 157 K/uL (130-400); RDW Coefficient of Variation 15.6 % (11.5-14.5); RDW Standard Deviation 50.9 fL (36.4-46.3); Red Blood Count 3.32 M/uL (4.70-6.10)
[2023-06-08 07:53] LABS: Prothrombin Time 11.2 Seconds (9.0-12.0)
[2023-06-08 08:08] LABS: BUN Creatinine Ratio 7.1 (10-20); Creatinine Clr Calc Pharmacy 20.3 ml/min; Est GFR (African American) 12.1 ml/min; Est GFR (Non-African American) 10.4 ml/min
[2023-06-08] MEDS: EPOETIN ALFA 20,000 UNITS/ML VIAL IV STA (10:58)
--- NOTE | 2023-06-08 12:39 | Nephrology Progress Note ---
Date of Service June 08, 2023 Assessment & Plan (1) ESRD (end stage renal disease): (2) Anemia: (3) Embolic stroke: Plan 53-year-old gentleman with ESKD secondary to diabetic nephropathy admitted with left-sided weakness and MRI confirmed acute stroke. Left lower extremity w eakness almost resolved has some residual weakness in left upper extremity but overall feels slowly improving. Continued on aspirin and statin Plavix. Currently he was getting training at home for home dialysis and had dialysis yesterday morning before coming to the hospital and then had 2 hours dialysis in the afternoon after CT IV contrast exposure. Overall doing better today. Labs are at goal. Volume status acceptable. -- tolerating dialysis -- Dose medications for EGFR less than 10 -- Left arm nephrology precaution for AV fistula -- Epogen with dialysis tomorrow -- Continue on Nephrocaps --ok to continue on eliquis --next HD Saturday. . Admission and Anticipated Discharge Date Admission Date: June 06, 2023 Subjective Gildardo was seen and evaluated during HD. Tolerating HD, vitals stable. Reports on going weakness in left upper and lower extremities. Review of Systems Review of Systems: Detailed review of system was done and pertinent positives and negatives are mentioned above. Physical Exam Constitutional: WD/WN, vitals as above no acute distress Respiratory: no respiratory distress Auscultation: lungs clear to auscultation bilaterally Cardiovascular: RRR, no murmur, no edema Extremities: + AV fistula (left RC AVF with thrill and bruit.) Musculoskeletal: Extremities: extremities normal to inspection Skin: no rashes, warm and dry Psychiatric: Orientation: alert and oriented x 3 Affect: euthymic affect Results & Data Vital Signs (Past 12 Hours) Vital Signs Temp Pulse Pulse Resp BP BP Pulse Ox 06/08/23 12:00 61 114/58 L 06/08/23 11:30 58 L 118/59 L 06/08/23 11:00 57 L 116/48 L 06/08/23 10:30 63 100/60 06/08/23 10:00 63 101/56 L 06/08/23 09:30 60 129/66 06/08/23 09:16 57 L 138/67 06/08/23 09:09 36.7 C 64 06/08/23 08:43 06/08/23 07:59 36.9 C 88 18 126/80 96 06/08/23 07:38 36.7 C 66 18 130/71 99 06/08/23 06:00 55 L 06/08/23 03:26 36.9 C 65 18 134/60 95 O2 Del Method 06/08/23 12:00 06/08/23 11:30 06/08/23 11:00 06/08/23 10:30 06/08/23 10:00 06/08/23 09:30 06/08/23 09:16 06/08/23 09:09 06/08/23 08:43 Room Air 06/08/23 07:59 Room Air 06/08/23 07:38 Room Air 06/08/23 06:00 06/08/23 03:26 Room Air PG Care Time/CCT Total # of Minutes Spent Total Time Spent with Patient: Total time spent is greater than 50% in coordination of care (as documented) at patient's floor/unit and/or counseling patient: Coding Level of Care Code 87777 SUB INP/OBS CARE 235MIN Diagnoses ESRD (end stage renal disease) N18.6 Anemia D64.9 Anemia type: unspecified type Embolic stroke I63.9 (2) Anemia Anemia type: unspecified type Qualified Code(s): D64.9 - Anemia, unspecified
[2023-06-08] MEDS ORDERED: STROKE PATIENT DISCHARGE STA (14:24)
--- NOTE | 2023-06-08 14:26 | Discharge Summary ---
Date of Service June 08, 2023 Admission HPI Per Admitting Provider Saurav Titus is a 53 year old male with a PMH significant for ESRD on home HD, CAD S/P CABG x 2 on 01/01/23, DMII, hyperlipidemia, hypothyroidism, previous GI Bleeds, and hyperlipidemia who presented to the [facility] ED on 06/06/23 with complaints of left upper and lower extremity weakness which started last night. His time of last known well was approximately 2130 on 06/04. He reportedly woke around 2300 last night and noticed weakness in the left upper and lower extremities. He went back to bed and woke this am with his extremity weakness still present. He was experiencing ambulatory dysfunction this am which is why he presented to the ED today. He remained stable in the ED. Labs were significant for a stable Cr of 3.56 and initial high sen trop of 30. Chest xray, CT of the head/brain wo con, and CTA of the head/neck were all read as negative for acute findings. We were asked to admit the patient for ongoing workup of his weakness. At the time of the exam the patient was lying in bed in no acute distress with his bedside, history was obtained from both. He confirms the above history. States that he normally is a side sleeper and did not seek medical attention when he woke up with his symptoms last night as he thought his left extremities could have fallen asleep due to lying on his left side. He does home dialysis and did have a full session this am without complication. He attempted to stand up from his dialysis chair for a post HD standing BP but was too uncoordinated in his lower extremities to safely stand, this is not normal for him. He has been experiencing a mild frontal headache since his symptoms started last night. When asked about new paresthesias, he states that the dorsal aspect of his left hand is "a little numb". He denies other focal neuro symptoms such changes in vision, hearing, taste, and smell, right sided weakness, or loss of bowel/bladder function. He did have a fall while in the shower of a Hotel in [place] last week. He slipped and fell out of the shower, hitting the left side of his forehead. He did not lose consciousness and did not have any of the neurologic symptoms until last night. He did not have any of his home medications today. He denies a previous hx of CVA. He does still make a small amount of urine daily. He denies recent fever, chills, chest pain, cough, abd pain, nausea, vomiting, diarrhea, dysuria, hematuria, melena, and recent falls since his fall last week. He is a full code; his would make medical decisions for him if he cannot make them himself. Please refer to Dr. Burks' attestation for any changes to the treatment plan Principal Diagnosis cardioembolic stroke. Discharge Exam General: In no acute distress, stated age, chronically ill appearing but non- toxic HEENT: Normocephalic, atraumatic Chest/Pulm: not using accessory muscles to breath Extremities: HD fistula located in the left forearm with intact thrill, no signs of bleeding or trauma, DP and PT pulses are intact and symmetrical in the BL LE's Psych: No acute distress, calm and cooperative during the exam Discharge Data Allergies Allergy/AdvReac Type Severity Reaction Status Date / Time risperidone Allergy Unknown Cough Verified 06/06/23 14:07 ANKUR Inhibitors AdvReac Intermediate Cough Verified 02/15/23 09:49 lisinopril AdvReac Intermediate cough Verified 02/15/23 09:49 sertraline [From Zoloft] AdvReac Intermediate SUPRESSED Verified 02/15/23 09:49 APPETITE beta blockers AdvReac Mild Drowsy Uncoded 02/15/23 09:51 Consultations 06/06/23 13:24 ED Decision to Admit Stat 06/06/23 14:04 Consult Nephrology Routine 06/06/23 19:53 Consult Neurology Routine Ordered Studies 06/06/23 12:26 CT angio head w con Stat CT angio neck with con Stat CT head/brain wo con Stat 06/06/23 14:04 MRI Brain [MR brain wo con] Stat Hospital Course (1) Left-sided weakness: Cerebral/cytotoxic edema -Admitted to the pcu on tele -Currently stable but with ongoing left upper/lower extremity weakness -Last known well was night prior to admission around 2129 -His history and exam are concerning for CVA which was confirmed by MRI below. -No infectious symptoms, does have a mild headache but does not seem like a migraine at this time -CT of the head and CTA of the head/neck were negative for acute findings -MRI confirmed stroke.Brain MRI: Scattered foci of cytotoxic edema seen within the right frontal lobe/parietal lobe infarcts. This appears to be a cardioembolic stroke. consulted neuro: appreciate input. placed on eliquis, will hold plavix. May consider 30 day event monitor, will defer to PCP as this will likley not casino change attendant. Patient can be discharged. 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 Patient reports he can talk to his superiors to let them know this. (2) CAD (coronary atherosclerotic disease): -No recent chest pain -No acute ST segment or T-wav changes on ECG today -Continue aspirin and statin (3) Elevated troponin: -Initial high sen trop elevated at 30 -Patient denies chest pain, no acute ST segment or T-wave changes on ECG -Likely falsely elevated due to his ESRD -2 hour high sen trop is in process -Continue to monitor on tele (4) ESRD (end stage renal disease): -Does home HD -Did have a full session this am prior to arrival without complication -Renal function and electrolytes are stable -Consulted and spoke with Nephrology, appreciate their assistance >Due to the patient receiving IV CT contrast in the ED, they will coordinate a 2 hour HD session after he is back form MRI -Follow daily renal function and electrolytes -Avoid nephrotoxic agents (5) Hypothyroidism: -Continue levothyroxine (6) HTN (hypertension): -Stable (7) Diabetes mellitus with ophthalmic manifestation: Inpatient planL -Monitor BSG ACHS, goal is 110-160 -Normally takes 27 units HS Tresibia and a sliding scale -Will start 10 units lantus BID for now with CF of 50 -Adjust regimen as needed Total Time Total Time Spent Total Time Spent (In Minutes): 32 Discharge Plan Discharge Items Patient Disposition: Home - Self-Care Reason For Visit: LEFT UPPER/LOWER EXTREMITY WEAKNESS Discharge Diagnosis: Left upper/lower extremity weakness Activity: Resume your previous activity Non-emergency contact: Primary Care Provider Call non-emergency contact if: you have any medication questions Follow-up/Referrals: Mitul Burciaga MD [Primary Care Provider] - Diet: Carb Consistent or DM2 and Dialysis Renal Addtl Attending Provider Instructions: Risk Factors for Stroke: You can reduce your chances of stroke by working with your medical provider to adopt a healthy lifestyle. Some specific ways to lower your chance of stroke are: * If you are a smoker, now is the time to stop smoking cigarettes * If you are diabetic, improve the control of your blood sugars * Avoid excessive amounts of alcohol * Control high blood pressure * Lose weight if you are overweight * Be sure to lead an active lifestyle * Eat a healthy diet low in salt, cholesterol and fat You should know about other risk factors for stroke that you are unable to control. These include: * Age 55 years or older * Male gender * Certain racial groups: , or / * Family History of Stroke, Mini stroke or Heart Attack * Sickle Cell Disease Follow Up: It is important for you to keep your follow up appointments with your medical provider. Who to Call and When: Medical Emergencies: Call 911 immediately if you experience any of the following warning signs and symptoms of Stroke: * Sudden numbness or weakness of the face, arm or leg, especially on one side of the body * Sudden confusion, trouble speaking or understanding * Sudden trouble seeing in one or both eyes * Sudden trouble walking, dizziness, loss of balance or coordination * Sudden severe headache with no cause Do not delay calling 911 if you experience any warning signs or symptoms of a stroke. Delay in seeking medical attention may affect what treatments can be given to you. . Pending Studies at Discharge: No Stand-Alone Forms: My [facility], Work/School Release, Smoking Cessation, Medications to Prevent Stroke Medications and DC Order Prescriptions: New Eliquis 5 mg Tablet 5 mg PO BID Qty: 60 0RF Continued amlodipine 5 mg tablet 5 mg PO QAM Qty: 90 3RF amoxicillin 500 mg tablet 2,000 mg PO ONCE Qty: 4 5RF Rx Instructions: Take 4 tablets 1-2 hours prior to dental surgery insulin degludec [Tresiba FlexTouch U-100] 100 unit/mL (3 mL) insulin pen 27 unit subcut HS Qty: 15 1RF Patient Comments: 13 units carvedilol 3.125 mg tablet 3.125 mg PO BID Qty: 60 1RF furosemide 20 mg tablet 20 mg PO QAM Qty: 90 3RF escitalopram oxalate 20 mg tablet 20 mg PO DAILY Qty: 90 1RF atorvastatin 80 mg tablet 80 mg PO QAM Qty: 90 1RF Aranesp (in polysorbate) 60 mcg/mL solution 60 mcg subcut MONTHLY Qty: 1 12RF Patient Comments: not started yet Rx Instructions: HOLD FOR HGB > 11 cetirizine [Zyrtec] 10 mg tablet 10 mg PO DAILY PRN (Reason: Allergy Symptoms) insulin aspart U-100 [Novolog FlexPen U-100 Insulin] 100 unit/mL (3 mL) insulin pen See Rx Instructions subcut .COMPLEX Qty: 15 6RF Patient Comments: 2 units Rx Instructions: subcut inject based on carbohydrate ratio and sliding scale up to 30 units a day; lidocaine-prilocaine 2.5-2.5 % cream 0.5 g topical .COMPLEX Qty: 50 12RF Rx Instructions: 0.5 grams topically prior to each dialysis; multivitamin Tablet 1 tab PO QAM aspirin [Enteric Coated Aspirin] 81 mg tablet,delayed release (DR/EC) 81 mg PO QAM Aranesp (in polysorbate) 60 mcg/mL solution 60 mcg subcut UD Patient Comments: Per pt it has been several months since last injection. Rx Instructions: within last year has had 3 times. furosemide 20 mg Tablet 20 mg PO QAM PRN (Reason: Edema) Rx Instructions: To take in addition to daily 20mg if edema occurs per PCP Changed calcitriol [Rocaltrol] 0.25 mcg capsule 0.5 mcg PO QAM Qty: 90 3RF Discontinued levothyroxine 75 mcg tablet 75 mcg PO QAM Qty: 30 1RF Hold Instructions: Off for 6 weeks clopidogrel 75 mg tablet 75 mg PO DAILY 30 Days Qty: 30 0RF ferrous sulfate [iron] 325 mg (65 mg iron) tablet 325 mg PO DAILY Discharge Orders: Discharge Order (Routine); Ordered 06/08/23 Ordered By: Kaveh Chery/Other Patient Handouts: Managing Type 2 Diabetes, Special Foot Care for Diabetes Admission Data Admit Date/Time: 06/06/23 13:46 Attending Provider: Kaveh Phillips Admit Provider: Brendon Burks Primary Care Provider: Mitul Burciaga V. Other Providers: Brendon Burks; Abbie Dean; Rich Harvey Other Interventions: Discharge Summary Assessment (RN) Last Done: 06/08/23 14:30 Coding Level of Care Code 84946 INP/OBS DISCH >30 MIN Diagnoses Left-sided weakness R53.1 CAD (coronary atherosclerotic disease) I25.10 Elevated troponin R79.89 ESRD (end stage renal disease) N18.6 Hypothyroidism E03.9 HTN (hypertension) I10 Diabetes mellitus with ophthalmic manifestation E11.39
--- NOTE | 2023-06-10 11:30 | Pharmacy Report ---
Pharmacist Stroke Counseling - Date of Service June 10, 2023 - Scope: Pharmacy has been consulted to provide medication discharge counseling for this patient admitted with [ischemic stroke] [hemorrhagic stroke] [transient ischemic attack] as per the Pharmacist Discharge Counseling for Stroke Patients Protoc ol. - Medications on Discharge: Home Medications Medication Instructions Recorded Confirmed multivitamin 1 tab PO QAM 02/19/20 06/06/23 cetirizine 10 mg tablet (Zyrtec) 10 mg PO DAILY PRN Allergy Symptoms 03/25/20 06/06/23 aspirin 81 mg tablet,delayed 81 mg PO QAM 08/03/21 06/06/23 release (Enteric Coated Aspirin) darbepoetin [place] in polysorbat 60 60 mcg subcut UD 03/06/22 06/06/23 mcg/mL in polysorbate injection (Aranesp) furosemide 20 mg tablet 20 mg PO QAM PRN Edema 07/04/22 06/06/23 Medication Instructions Recorded insulin aspart U-100 100 unit/mL See Rx Instructions subcut 05/12/20 (3 mL) subcutaneous pen (Novolog .COMPLEX #15 mL FlexPen U-100 Insulin aspart) darbepoetin [place] in polysorbat 60 60 mcg subcut MONTHLY #1 mL 07/12/22 mcg/mL in polysorbate injection (Aranesp) amlodipine 5 mg tablet 5 mg PO QAM #90 tabs 07/26/22 lidocaine-prilocaine 2.5 %-2.5 % 0.5 g topical .COMPLEX #50 grams 08/16/22 topical cream amoxicillin 500 mg tablet 2,000 mg (4 x 500 mg) PO ONCE #4 09/03/22 tabs insulin degludec 100 unit/mL (3 27 unit (0.27 mL) subcut HS #15 mL 11/15/22 mL) subcutaneous pen (Tresiba FlexTouch U-100 insulin) carvedilol 3.125 mg tablet 3.125 mg PO BID #60 tabs 03/04/23 furosemide 20 mg tablet 20 mg PO QAM #90 tabs 03/04/23 escitalopram oxalate 20 mg tablet 20 mg PO DAILY #90 tabs 03/22/23 atorvastatin 80 mg tablet 80 mg PO QAM #90 tabs 06/06/23 apixaban 5 mg tablet (Eliquis) 5 mg PO BID #60 tabs 06/08/23 calcitriol 0.25 mcg capsule 0.5 mcg (2 x 0.25 mcg) PO QAM #90 06/08/23 (Rocaltrol) caps - Action: The above medications, specifically ones for stroke treatment/prophylaxis, have been reviewed in detail with the patient and/or patient sales representative church furniture(s) prior to discharge. This includes indication, common adverse reactions, drug interactions, and medication administration. Medication counseling has been employed using the teach-back method to ensure understanding. - Outcome: The patient and/or patient sales representative church furniture(s) have demonstrated understanding of the medications. Additional comments: Called patient to review medications on discharge. Patient reports he is aware of changes and that he has no questions for me. Confirms the new medication, Eliquis which he is taking twice a day. 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 He is aware to bring updated medication list with him to his next PCP visit. Thank you for allowing pharmacy to be involved in the care of this patient. Please call [phone] with any additional questions
== END 2023-06-08 15:05 | disposition home or self-care (01) | DRG 64 ==
LOC: EDSEX → ED 12:07 → EDINP 13:46 → SUATTDRO 13:46 → 2E 17:33